=== PATIENT | male | born 1955 | race Asian ===

== ENCOUNTER 2018-05-04 08:07 | Inpatient (IN) | payer BC ==
[2018-05-04] VITALS (19 sets, daily range): BP systolic 107–151; BP diastolic 66–94; PULSE 66–100; RESP 13–25; Ht 162.6 cm; Wt 74.4 kg
[~2018-05-04] VITALS: Ht 162.6 cm; Wt 74.4 kg
[2018-05-04] MEDS ORDERED: ATOR10TA65 PO (09:13)
[2018-05-04] MEDS ORDERED: AMLO-147 PO (09:13)
[2018-05-04] MEDS ORDERED: METO-335 PO (09:25)
[2018-05-04] MEDS ORDERED: ATOR20TA38 PO (09:25)
[2018-05-04] MEDS ORDERED: LIDOCAINE 1% (MDV) 20 ML INJ ONE (11:13)
[2018-05-04] MEDS ORDERED: NITROGLYCERIN (IC) 100 MCG/ML INJ ONE (11:13)
[2018-05-04] MEDS ORDERED: VERAPAMIL 5 MG INJ ONE (11:13)
[2018-05-04] MEDS ORDERED: HEPARIN 1000 UNITS/ML 10 ML INJ ONE ×2 (11:13)
[2018-05-04] MEDS ORDERED: MIDAZOLAM 1 MG/ML 2 ML INJ ONE (11:13)
[2018-05-04] MEDS ORDERED: FENTAnyl 50 MCG/ML VIAL ONE (11:13)
[2018-05-04] MEDS ORDERED: IODIXANOL LOCM 100 ML BTL ONE (11:13)
[2018-05-04] MEDS ORDERED: SOD CHLORIDE 0.9% 1,000 ML IV SCH (12:20)
--- NOTE | 2018-05-04 12:20 | SIPON ---
Date/Time of Note Date/Time of Note DATE: 05/04/18 TIME: 12:19 Operative Report Preoperative Diagnosis 1.Chest pain 2.abnl mpi Postoperative Diagnosis 1.obstructive cad Operation/Procedure Performed 1.[facility] Surgeon see signature line assisted living associate 1.[facility] Anesthesia: moderate sedation Estimated blood loss: minimal Transfusion Required none Specimen none Grafts/Implants none Complications none RITA PISANO May 04, 2018 12:20
--- NOTE | 2018-05-04 12:29 | NUR ---
RECEIVED PATIENT FROM [facility] LEFT HEART CATH WITH TR BAND RIGHT WRIST .PATIENT FULLY AWAKE DENIES PAIN V/S STABLE .INSTRUCTED PATIENT TO KEEP RIGHT HAND RESTED.
[2018-05-04] MEDS ORDERED: ONDANSETRON 4 MG INJ IV PRN (12:30)
[2018-05-04] MEDS ORDERED: ACETAMINOPHEN 325 MG TAB PO PRN (12:30)
--- NOTE | 2018-05-04 12:56 | RADRPT ---
Vent Rate: 74 bpm RR Interval: 0 msec [place] Interval: 158 msec QRS Duration: 88 msec QT Interval: 408 msec QTC Interval: 452 msec P-R-T Struthers: 53 - 31 - 25 degrees Sinus rhythm with occasional premature ventricular complexes Otherwise normal ECG Electronically Signed By: Eladio Us [id number]
--- NOTE | 2018-05-04 13:02 | NUR ---
TR BAND DEFLATION STARTED 2 CC OUT .NO SIGN OF BLEEDING SO FAR.INSTRUCTED PATIENT NOT TO USE AFFECTED ARM FOR LIFTING IN PUT PRESSURE ON IT.
--- NOTE | 2018-05-04 13:35 | NUR ---
TRANSFERRED TO [facility] IN STABLE CONDITION .REMOVED 4 CC AIR FROM TR BAND .NO SIGN OG BLEEDING .ENDORSED TO DEEPIKA BRICE THAT 6CC MORE OF AIR LEFT .DUE TO REMOVED ANOTHER 2CC AT 1345. WAS INFORMED ABOUT THE TRANSFER.
--- NOTE | 2018-05-04 14:15 | NUR ---
TR BAND REMOVAL- 2CC AIR REMOVED, NO BLEEDING, VS- BP 126/83, HR-79, RR- 18, O2 SAT- 98%, PT ALERT AND ORIENTED, SKIN WARM TO TOUCH.
--- NOTE | 2018-05-04 14:32 | NUR ---
TR band removed, puncture site cleansed with alcohol swab, and cover with band aid, VS- BP 129/86, HR- 76, RR 16, O2 sat- 99%, post TR band education provided to patient and verbalized understanding.
--- NOTE | 2018-05-04 18:46 | NUR ---
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 Removed today with no AR noted. Able to dangle legs at 1800. Kept arm straight. VS monitored. [facility] carotid scan done. Received call from Dr Lam, Radiologist about initial results. Occlusion in Right vertebral artery found. No blood flow seen. Paged Dr Soriano, awaiting call back. For CABG on monday. Also, patient and wants to know if they could change MD and hospital. Will put CM consult. Addendum: 05/04/18 at 1904 by DEEPIKA WILLAMS RN Dr Soriano aware with results. No New orders.
--- NOTE | 2018-05-04 19:23 | CONS ---
DATE OF ADMISSION: 05/04/2018 DATE OF CONSULTATION: REASON FOR CONSULTATION: Evaluation for coronary artery bypass grafting. HISTORY OF PRESENT ILLNESS: This is a 62-year-old male with a history of obesity, was admitted with a positive stress test, multivessel distribution, underwent cardiac catheterization today which was p ositive for severe 3-vessel coronary artery disease including 100% occlusion of the LAD, high grade l esions of the first and the second obtuse marginal branch of the circumflex and high-grade lesion of posterior descending artery. The patient gets shortness of breath and chest tightness after walking. He is currently in the telemetry with no active chest pain. PAST MEDICAL HISTORY: Hypercholesterolemia, hypertension. PAST SURGICAL HISTORY: None. ALLERGIES: NONE. MEDICATION LIST: Reviewed. SOCIAL HISTORY: No smoking, drinking or drug use. 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 PHYSICAL EXAMINATION: VITAL SIGNS: Blood pressure is 131/85, pulse is 74, respirations 15, saturations 100% on room air. CARDIOVASCULAR: Regular rate and rhythm. LUNGS: Clear. ABDOMEN: Soft. EXTREMITIES: Warm. LABORATORY VALUES: Significant for a hemoglobin of 11.3, white count 8.5, platelet count 386. Matilde l coagulation factors. Creatinine of 1.54. IMPRESSION: Three-vessel coronary artery disease. RECOMMENDATIONS: We will proceed with coronary artery bypass grafting after echocardiogram to evalua te left ventricular function and carotid duplex to rule out carotid stenosis. Risks, benefits, compl ications, alternative therapies were explained to the patient and the nurse. All questions answered. The patient also discussed with the referring physicians at length. Dictated By: RONDA NAZARIO MD FM/NTS Conf#: [id number] DID#: [id number] CC: RITA PISANO MD;*EndCC*
[2018-05-04] MEDS: ATORVASTATIN 40 MG TAB PO SCH (20:55)
[2018-05-04] MEDS: METOPROLOL (XL) 25 MG TAB PO SCH (20:55)
[2018-05-05] VITALS (11 sets, daily range): BP systolic 109–148; BP diastolic 73–88; PULSE 68–88; RESP 18–20
--- NOTE | 2018-05-05 01:11 | HP ---
DATE OF ADMISSION: 05/04/2018 CHIEF COMPLAINT: Chest pain and positive stress test. HISTORY OF PRESENT ILLNESS: The patient is a 62-year-old gentleman with history of hypertension, dys lipidemia, who was seen by Dr. Pisano' group as an outpatient and was noted to have positive nuclear stress test. The patient underwent nuclear stress test which was abnormal for ischemia. The patien t was brought in to hospital today and underwent cardiac catheterization which revealed severe 3-vess el coronary artery disease including 100% occlusion of LAD, high-grade lesion of the first and second obtuse marginal branches of circumflex and high-grade lesion of posterior descending artery. The pa tiecornell was seen by Dr. Soriano and recommended CABG. The patient prior to that will undergo echocar diogram and carotid Doppler. The patient denies any chest pain today, although does have prior histo ry of shortness of breath and chest tightening after exertion. The patient denied any history of rec ent fever or chills. No history of headache, dizziness, syncope. No history of abdominal pain. No history of palpitation. No history of claudication. No history of weakness or numbness in any extre mities. REVIEW OF SYSTEMS: Rest of review of systems unremarkable. PAST SURGICAL HISTORY: None. ALLERGIES: NONE. FAMILY HISTORY: The patient's father had coronary artery disease which during perioperative per iod after CABG. He was 83 years old. SOCIAL HISTORY: The patient has remote history of smoking when he was in his 20s. No history of alc ohol. 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 PHYSICAL EXAMINATION: GENERAL: The patient is awake, alert, fairly oriented. VITAL SIGNS: Temperature 98.7, pulse 100, respirations 18, blood pressure 129/85, O2 saturation 97% on room air. HEENT: Atraumatic, normocephalic. Conjunctivae are normal. Oropharynx is clear. NECK: Supple. No mass or thyromegaly. CHEST: Fairly clear. CARDIOVASCULAR: S1, S2 normal. No murmur. ABDOMEN: Soft, nontender. Bowel sounds are present. EXTREMITIES: No leg edema. The patient has 2+ dorsalis pedis. NEUROLOGIC: The patient is awake, alert, fairly oriented with no gross focal deficit. LABORATORY DATA: WBC 8.4, hemoglobin 11.3, platelets 386. Sodium 141, potassium 4, BUN 18, creatini ne 1.5, glucose 116, calcium 9.4. Triglyceride 211, LDL 123, HDL 32. IMPRESSION: 1. Multivessel coronary artery disease. 2. Hypertension. 3. Dyslipidemia. PLAN: The patient will be admitted on telemetry floor. The patient will be started on Norvasc, Topr ol as at home and we will increase dose of Lipitor from 20 to 40 mg. We will hold off on antiplatele t agent due to pending CABG. Further recommendation will depend on patient's hospital course. Plan of care was discussed with patient's family. The patient also incidentally was noted to have a creat inine of 1.5. In view of recent catheterization, I will obtain a nephrology consultation. GFR is 46 . We will do followup chemistry tomorrow. The patient has received during and after catheteri zation. Dictated By: GINGER CALI MD AB/NTS Conf#: [id number] DID#: [id number] CC: RITA PISANO MD;*EndCC*
--- NOTE | 2018-05-05 06:13 | NUR ---
END OF THE SHIFT:PT. IS AA,O X 4,S/P HEART CATHETERIZATION YESTERDAY BY DR. PISANO.NO DISTRESS/DISCOMFORT NOTED DURING THE SHIFT.WILL CONTINUE TO FOLLOW CURRENT PLAN OF CARE.
[2018-05-05] MEDS: METOPROLOL (XL) 25 MG TAB PO SCH (08:36)
[2018-05-05] MEDS: AMLODIPINE 10 MG TAB PO SCH (08:37)
--- NOTE | 2018-05-05 10:07 | CARRPT ---
DATE OF PROCEDURE: 05/04/2018 TYPE OF PROCEDURE: 1. Left heart catheterization. 2. Coronary angiography. 3. Measurement of left ventricular end diastolic pressure. 4. Moderate conscious sedation. ATTENDING PHYSICIAN: Rita Dial MD REFERRING PHYSICIAN: Dr. Logan. INDICATION: Chest pain with positive ischemia in a multivessel distribution. TYPE OF ANESTHESIA: Conscious and local. BRIEF HISTORY: The patient is a 62-year-old male with history of hypertension, positive tobacco intake, who presented with complaints of substernal chest pain. The patient with cardiac stress test revealing a multivessel distribution ischemia, with EF of 54%. Given these findings, the patient referred for and presents today in order to undergo left heart catheterization to assess for the possibility of significant obstructive coronary artery and symptoms of chest pain and subsequent positive stress test findings. DESCRIPTION OF PROCEDURE: After informed consent was obtained, the patient was brought to the [facility] cardiac catheterization lab where his right radial area was prepped and draped in a sterile fashion. A 2% lidocaine was infiltrated into right radial area in order to achieve adequate anesthesia. Using the modified Seldinger technique, the patient's radial artery was cannulated and a 6-Montserratian JL3.5 catheter was used to cannulate the left main coronary ostium. With contrast injection, multiple views of left coronary system were obtained. The JL3.5 was removed a guidewire and a JR4 was used to cannulate the right coronary arterial ostium, with contrast injection, multiple views of the right coronary system were obtained. JR4 guidewire and a 6-Montserratian pigtail was passed down the ascending aorta and used to measure LVEDP and pullback across the aortic valve to assess for significant gradient, which there was none and removed. Subsequently, at this time, this completed the procedure. The patient's catheter was removed, sheath was removed. TR band was applied. There were no noted complications. FINDINGS: 1. Coronary angiography: Circumflex proximally at what appears to be a high grade stenosis throughout the left main. The ostium of the circumflex proximally is a 3 mm vessel and shortly after its takeoff has a tubular 50% stenosis. There is a branching obtuse marginal and at that point there is an 80 to 90% stenosis. There is then a 60% stenosis then shortly after that it bifurcates into an obtuse marginal, circ continuation AV groove. The superior branch of this marginal 2 mm vessel with no significant stenoses. The medial branch has a subtotal occlusion with possible collateral filling distally vessel. The circ continuation AV groove also has a subtotal occlusion with possible collateral filling of the vessel. The LAD appears to be flush occluded at its ostium and can see some faint collateral filling of diagonal branches. Right coronary artery proximally is a 3.5 mm vessel and is ectatic vessel, its dominant, gives off a 2.5 mm PDA with an ostial 70% to 80% stenosis which then provides collateral flow to the LAD, recapitulating residential of the vessel and the patient's posterolateral branch. Shortly, after takeoff, then becomes 100% occluded. There are several areas bridging collateral which then helped to recapitulate some of the patient's distal LAD. Measurement of LVEDP of 8 to 9. No LV gram undertaken due to kidney function. TOTAL FLUOROSCOPY TIME: 5.3 minutes. TOTAL CONTRAST: 45 mL. IMPRESSION: 1. Multivessel obstructive coronary artery disease involving a 100% LAD with recapitulation via right to left collateral flow. Multiple high grade areas of subtotal occlusion in the circumflex vessels as well as in the patient's distal RCA distribution. 2. Normal left heart filling pressures. 3. No significant aortic stenosis by gradient. RECOMMENDATIONS: In light of procedure findings at this time, we would have the patient considered for possible coronary artery bypass graft surgery versus multivessel PCI, in staged fashion given patient's ongoing renal dysfunction. Dictated By: RITA VIDES/JAMES Conf#: [id number] DID#: [id number] MARIANA
--- NOTE | 2018-05-05 11:20 | PN ---
Date/Time of Note Date/Time of Note DATE: 05/05/18 TIME: 11:18 Assessment/Plan Lines/Catheters IV Catheter Type (from Nrsg): Peripheral IV Fsih in Place (from Nrsg): No Assessment/Plan Assessment/Plan IMPRESSION: Three-vessel coronary artery disease. RECOMMENDATIONS: We will proceed with coronary artery bypass grafting after echocardiogram to evaluate left ventricular function and carotid duplex to rule out carotid stenosis. Risks, benefits, complications, alternative therapies were explained to the patient and the . . All questions answered. Caritid dupplex 1. No significant flow detected in the right vertebral artery, concerning for occlusion. 2. No evidence for hemodynamically significant carotid artery stenosis. 3. Normal antegrade flow in the left vertebral artery. Plan for CABG on Monday Subjective 24 Hr Interval Summary Constitutional: improved Pain Control: mild Exam/Review of Systems Vital Signs Vitals Vital Signs Date Temp Pulse Resp B/P (MAP) Pulse Ox O2 O2 Flow FiO2 Time Delivery Rate 05/05/18 69 08:16 05/05/18 98.4 20 109/73 98 Room Air 07:14 (85) Intake and Output 05/04/18 05/04/18 05/05/18 1515:00 23:00 07:00 IntakeIntake Total 480 ml 600 ml OutputOutput Total 300 ml BalanceBalance 180 ml 600 ml Exam Eyes: nl conjunctiva, EOMI, nl lids, nl sclera ENMT: nl external ears & nose, nl lips & teeth, nl nasal mucosa & septum, mucosa pink and moist Neck: supple, non-tender Respiratory: clear to auscultation, normal air movement Cardiovascular: regular rate and rhythm, nl pulses Gastrointestinal: soft, nl liver, spleen, non-tender Results Result Diagram: 05/04/18 0900 05/04/18 09 MALERODNA HERRERA MD May 05, 2018 11:20
--- NOTE | 2018-05-05 13:51 | CONS ---
Date/Time of Note Date/Time of Note DATE: 05/05/18 TIME: 13:49 Assessment/Plan Assessment/Plan Assessment/Plan 1. Multivessel coronary artery disease- pt seen by surgical tea, - CABG planned on Monday. 2. Hypertension - stable, adjust rx as needed 3. Dyslipidemia- Rx with statyin. 4. CRF - CR 1.45 now - avoid nephrotoxic meds. Result Diagram: 05/04/1889905/04/18899 Consultation Date/Type/Reason Admit Date/Time May 04, 2018 at 13:51 Initial Consult Date 24 HR Interval Summary Free Text/Dictation NO ACUTE events - CABG planned Monday. ROS: No fever, no chills, no nausea, no vomiting, no diarrhea/constipation No recent weight changes No chest pain, no PND, no orthopnea - mild SOB No dizziness, blurred vision No thirst, no heat or cold intolerance Exam/Review of Systems Vital Signs Vitals Vital Signs Date Temp Pulse Resp B/P (MAP) Pulse Ox O2 O2 Flow FiO2 Time Delivery Rate 05/05/18 74 13:22 05/05/18 98.0 20 119/75 98 Room Air 12:09 (90) Intake and Output 05/04/18 05/04/18 05/05/18 1515:00 23:00 07:00 IntakeIntake Total 480 ml 600 ml OutputOutput Total 300 ml BalanceBalance 180 ml 600 ml Exam General: WN/WD/NAD, AOx 3 HEENT: Unicetric/atraumatic/EOMI ( follows commands) NECK: JVD elevated, no thyromegaly Lymph: no lymphadenopathy HEART: regular with no S3, II/ systolic murmur at apex LUNGS: Coarse sounds ABD: soft, NT, ND, +BS : Intact Neuro: non focal SKIN: chronic changes EXT: trace edema Medications Medications Current Medications Acetaminophen (Tylenol Tab) 650 mg Q4H PRN PO mild pain; Start 05/04/18 at 12:30 Morphine Sulfate (morphine) 2 mg Q2H PRN IV moderate to severe pain; Start 05/04/18 at 12:30 Al Hydrox/Mg Hydrox/Simethicone (Mag-Al Plus) 30 ml Q4H PRN PO GASTROINTESTINAL UPSET; Start 05/04/18 at 12:30 Ondansetron HCl (Zofran Inj) 4 mg Q4H PRN IV NAUSEA AND/OR VOMITING; Start 05/04/18 at 12:30 Amlodipine Besylate (Norvasc) 10 mg DAILY PO Last administered on 05/05/18at 08:37; Admin Dose 10 MG; Start 05/05/18 at 09:00 Metoprolol Succinate (Toprol Xl) 25 mg DAILY PO Last administered on 05/05/18 08:36; Admin Dose 25 MG; Start 05/04/18 at 20:30 Atorvastatin Calcium (Lipitor) 40 mg HS PO Last administered on 05/04/18at 20:55; Admin Dose 40 MG; Start 05/04/18 at 21:00 CHIN MORGAN MD May 05, 2018 13:51
--- NOTE | 2018-05-05 15:50 | PN ---
Date/Time of Note Date/Time of Note DATE: 05/05/18 TIME: 15:33 Assessment/Plan VTE Prophylaxis Risk score (from Nsg)>0 risk: 4 SCD applied (from Nsg): Yes Lines/Catheters IV Catheter Type (from Nrsg): Peripheral IV Urinary Cath still in place: No Assessment/Plan Assessment/Plan 1. Multivessel coronary artery disease. - plan for CABG on Monday -hold off on antiplatelet agent due to pending CABG 2. Acute renal insufficiency - creatinine of 1.5; GFR is 46. - per nephro 3. Hypertension- on Norvasc, 4. Dyslipidemia- Lipitor Plan of care was discussed with Dr Guerra/ patient's family. Result Diagram: 05/04/18 0900 05/04/18 0900 Exam/Review of Systems Vital Signs Vitals Vital Signs Date Temp Pulse Resp B/P (MAP) Pulse Ox O2 O2 Flow FiO2 Time Delivery Rate 05/05/18 74 13:22 05/05/18 98.0 20 119/75 98 Room Air 12:09 (90) Intake and Output 05/04/18 05/04/18 05/05/18 1515:00 23:00 07:00 IntakeIntake Total 480 ml 600 ml OutputOutput Total 300 ml BalanceBalance 180 ml 600 ml Medications Medications Current Medications Acetaminophen (Tylenol Tab) 650 mg Q4H PRN PO mild pain; Start 05/04/18 at 12:30 Morphine Sulfate (morphine) 2 mg Q2H PRN IV moderate to severe pain; Start 05/04/18 at 12:30 Al Hydrox/Mg Hydrox/Simethicone (Mag-Al Plus) 30 ml Q4H PRN PO GASTROINTESTINAL UPSET; Start 05/04/18 at 12:30 Ondansetron HCl (Zofran Inj) 4 mg Q4H PRN IV NAUSEA AND/OR VOMITING; Start 05/04/18 at 12:30 Amlodipine Besylate (Norvasc) 10 mg DAILY PO Last administered on 05/05/18at 08:37; Admin Dose 10 MG; Start 05/05/18 at 09:00 Metoprolol Succinate (Toprol Xl) 25 mg DAILY PO Last administered on 05/05/18at 08:36; Admin Dose 25 MG; Start 05/04/18 at 20:30 Atorvastatin Calcium (Lipitor) 40 mg HS PO Last administered on 05/04/18at 20:55; Admin Dose 40 MG; Start 05/04/18 at 21:00 IVY YATES May 05, 2018 15:43
--- NOTE | 2018-05-05 18:55 | NUR ---
EOSS: NO ACUTE DISTRESS DURING DAY SHIFT. PT IS AOX4, STEADY GAIT, RESPIRATIONS UNLABORED, DENIES PAIN. PT AGREED TO HAVE CABG ON MONDAY. DR. NAZARIO AWARE. ALL MEDICATIONS GIVEN SCHEDULED. ALL PT'S NEEDS HAVE BEEN MET. WILL ENDORSE TO MANAGER APPLICATION DEVELOPMENT NURSE.
[2018-05-05] MEDS: ATORVASTATIN 40 MG TAB PO SCH (20:57)
--- NOTE | 2018-05-05 20:57 | CONS ---
Date/Time of Note Date/Time of Note DATE: 05/05/18 TIME: 20:56 Assessment/Plan Assessment/Plan Assessment/Plan 1. acute on chronic renal failure vs Baseline CKD 2. 3 V CAD on Cardiac cath on 05/04/18 3. H/o HTN 4. H/o HL 5.Abnormal Stress test Plan: seen and examined, BUN/Cr improved to 18/1.43 post cath with IVF hydration Pt is Renally optimized to have CABG, his eGFR 50, pt likely has CKD III due to HTN nephrosclerosis Cardiology and CT surgery has been following Thanks for consultation, I will continue to follow up Result Diagram: 05/05/18 1622 05/05/18 1622 Results 24hrs Laboratory Tests Test 05/05/18 16:22 White Blood Count 9.8 Red Blood Count 5.13 Hemoglobin 11.6 L Hematocrit 36.9 L Mean Corpuscular Volume 71.9 L Mean Corpuscular Hemoglobin 22.6 L Mean Corpuscular Hemoglobin Concent 31.4 L Red Cell Distribution Width 16.4 H Platelet Count 374 Mean Platelet Volume 9.7 Immature Granulocytes % 0.500 H Neutrophils % 66.8 Lymphocytes % 21.7 Monocytes % 6.3 Eosinophils % 3.7 Basophils % 1.0 Nucleated Red Blood Cells % 0.0 Immature Granulocytes # 0.050 H Neutrophils # 6.5 Lymphocytes # 2.1 Monocytes # 0.6 Eosinophils # 0.4 Basophils # 0.1 Nucleated Red Blood Cells # 0.0 Sodium Level 138 Potassium Level 3.6 Chloride Level 102 Carbon Dioxide Level 27 Anion Gap 9 Blood Urea Nitrogen 18 Creatinine 1.43 H Est Glomerular Filtrat Rate mL/min 50 L Glucose Level 99 Calcium Level 9.2 Consultation Date/Type/Reason Admit Date/Time May 04, 2018 at 13:51 Date of Consultation: May 05, 2018 Type of Consult NEPHROLOGY Reason for Consultation Acute vs acute on chronic renal failur, s/p Cardiac Cath, plan for CABG on Monday Requesting Provider: GINGER CALI MD Hx of Present Illness 62-year-old gentleman with history of hypertension, dyslipidemia, who was seen by Dr. Dial' group as an outpatient and was noted to have positive nuclear stress test. The patient underwent nuclear stress test which was abnormal for ischemia. he underwent cardiac catheterization on 05/04/18 which revealed severe 3-vessel coronary artery disease including 100% occlusion of LAD, high- grade lesion of the first and second obtuse marginal branches of circumflex and high-grade lesion of posterior descending artery. The patient was seen by Dr. Soriano and recommended CABG. pt had a BUN/Cr 18/1.54 on admission, Minimal contrast has been used with Cardiac Cath Renal has been consulted for acute vs acute on chronic renal failure and Optimization of renal function prior to cardiac cath. Constitutional: no complaints Eyes: no complaints ENT: no complaints Respiratory: no complaints Cardiovascular: chest pain Gastrointestinal: no complaints Genitourinary: no complaints Musculoskeletal: no complaints Skin: no complaints Neurologic: no complaints Endocrine: no complaints Lymphatic: no complaints Psychological: no complaints Immunologic: no complaints Past Medical History Medical History: coronary artery disease, high cholesterol, hypertension Medications Current Medications Acetaminophen (Tylenol Tab) 650 mg Q4H PRN PO mild pain; Start 05/04/18 at 12:30 Morphine Sulfate (morphine) 2 mg Q2H PRN IV moderate to severe pain; Start 05/04/18 at 12:30 Al Hydrox/Mg Hydrox/Simethicone (Mag-Al Plus) 30 ml Q4H PRN PO GASTROINTESTINAL UPSET; Start 05/04/18 at 12:30 Ondansetron HCl (Zofran Inj) 4 mg Q4H PRN IV NAUSEA AND/OR VOMITING; Start 05/04/18 at 12:30 Amlodipine Besylate (Norvasc) 10 mg DAILY PO Last administered on 05/05/18at 08:37; Admin Dose 10 MG; Start 05/05/18 at 09:00 Metoprolol Succinate (Toprol Xl) 25 mg DAILY PO Last administered on 05/05/18at 08:36; Admin Dose 25 MG; Start 05/04/18 at 20:30 Atorvastatin Calcium (Lipitor) 40 mg HS PO Last administered on 05/04/18at 20:55; Admin Dose 40 MG; Start 05/04/18 at 21:00 Allergies: Coded Allergies: No Known Allergy (Unverified , 05/05/18) Past Surgical History Past Surgical Hx: no surgical history Family History Significant Family History: no pertinent family hx Social History Alcohol Use: none Smoking Status: Former smoker Drug Use: none Exam/Review of Systems Vital Signs Vitals Vital Signs Date Temp Pulse Resp B/P (MAP) Pulse Ox O2 O2 Flow FiO2 Time Delivery Rate 05/05/18 98.2 88 20 148/88 96 20:00 (108) 05/05/18 Room Air 15:58 Intake and Output 05/04/18 05/04/18 05/05/18 1515:00 23:00 07:00 IntakeIntake Total 480 ml 600 ml OutputOutput Total 300 ml BalanceBalance 180 ml 600 ml Exam Constitutional: alert Head: normocephalic Eyes: nl conjunctiva ENMT: nl external ears & nose Neck: supple, non-tender Respiratory: clear to auscultation, normal air movement, diminished breath sounds Cardiovascular: regular rate and rhythm, nl pulses Gastrointestinal: soft, non-tender Musculoskeletal: nl extremities to inspection Extremities: normal pulses Neurological: RECREATION PROGRAM SPECIALIST II-XII intact, nl mental status, nl speech, nl strength Skin: nl turgor Lymph: nl lymph nodes Medications Medications Current Medications Acetaminophen (Tylenol Tab) 650 mg Q4H PRN PO mild pain; Start 05/04/18 at 12:30 Morphine Sulfate (morphine) 2 mg Q2H PRN IV moderate to severe pain; Start at 12:30 Al Hydrox/Mg Hydrox/Simethicone (Mag-Al Plus) 30 ml Q4H PRN PO GASTROINTESTINAL UPSET; Start 05/04/18 at 12:30 Ondansetron HCl (Zofran Inj) 4 mg Q4H PRN IV NAUSEA AND/OR VOMITING; Start 05/04/18 at 12:30 Amlodipine Besylate (Norvasc) 10 mg DAILY PO Last administered on 05/05/18at 08 :37; Admin Dose 10 MG; Start 05/05/18 at 09:00 Metoprolol Succinate (Toprol Xl) 25 mg DAILY PO Last administered on 05/05/18at 08:36; Admin Dose 25 MG; Start 05/04/18 at 20:30 Atorvastatin Calcium (Lipitor) 40 mg HS PO Last administered on 05/04/18at 20:55; Admin Dose 40 MG; Start 05/04/18 at 21:00 MARIA DE JESUS LAUREN MD May 05, 2018 20:57
[2018-05-06] VITALS (12 sets, daily range): BP systolic 103–123; BP diastolic 67–76; PULSE 60–99; RESP 18–20
[2018-05-06] MEDS: AMLODIPINE 10 MG TAB PO SCH (08:07)
[2018-05-06] MEDS: METOPROLOL (XL) 25 MG TAB PO SCH (08:07)
--- NOTE | 2018-05-06 09:58 | NUR ---
Patient and Family Transfer Inquiry; Spoke with Family about their inquiry and concern. Addressed both and family verbalized understanding about transfer details. CM Team will stand by for further assist and follow progress of care.
--- NOTE | 2018-05-06 10:44 | CONS ---
Date/Time of Note Date/Time of Note DATE: 05/06/18 TIME: 10:44 Assessment/Plan Assessment/Plan Assessment/Plan 1. acute on chronic renal failure vs Baseline CKD 2. 3 V CAD on Cardiac cath on 05/04/18 3. H/o HTN 4. H/o HL 5.Abnormal Stress test Plan: BUN/Cr went upto 05/05.61, Bp stable, afebrile - will give 1liter of NS IV Fluid then stop prior to CABG tomorrow Pt is Renally optimized to have CABG, his eGFR 50, pt likely has CKD III due to HTN nephrosclerosis will follow up Result Diagram: 05/06/18 0616 05/06/18 0616 Results 24hrs Laboratory Tests Test 05/05/18 16:22 05/06/18 06:16 White Blood Count 9.8 10.5 Red Blood Count 5.13 4.84 Hemoglobin 11.6 L 11.1 L Hematocrit 36.9 L 34.7 L Mean Corpuscular Volume 71.9 L 71.7 L Mean Corpuscular Hemoglobin 22.6 L 22.9 L Mean Corpuscular Hemoglobin Concent 31.4 L 32.0 Red Cell Distribution Width 16.4 H 16.6 H Platelet Count 374 358 Mean Platelet Volume 9.7 10.6 H Immature Granulocytes % 0.500 H 0.300 Neutrophils % 66.8 66.1 Lymphocytes % 21.7 20.1 Monocytes % 6.3 7.3 Eosinophils % 3.7 5.1 Basophils % 1.0 1.1 Nucleated Red Blood Cells % 0.0 0.0 Immature Granulocytes # 0.050 H 0.030 Neutrophils # 6.5 7.0 Lymphocytes # 2.1 2.1 Monocytes # 0.6 0.8 Eosinophils # 0.4 0.5 Basophils # 0.1 0.1 Nucleated Red Blood Cells # 0.0 0.0 Sodium Level 138 138 Potassium Level 3.6 3.7 Chloride Level 102 102 Carbon Dioxide Level 27 26 Anion Gap 9 10 Blood Urea Nitrogen 18 19 Creatinine 1.43 H 1.61 H Est Glomerular Filtrat Rate mL/min 50 L 44 L Glucose Level 99 106 Calcium Level 9.2 8.9 Consultation Date/Type/Reason Admit Date/Time May 04, 2018 at 13:51 Initial Consult Date 05/05/18 Type of Consult NEPHROLOGY Requesting Provider: GINGER CALI MD 24 HR Interval Summary Free Text/Dictation BUN/Cr went upto 05/05.61, Bp stable, afebrile Exam/Review of Systems Vital Signs Vitals Vital Signs Date Temp Pulse Resp B/P (MAP) Pulse Ox O2 O2 Flow FiO2 Time Delivery Rate 05/06/18 99 08:11 05/06/18 98.6 18 103/67 94 Room Air 07:36 (79) Intake and Output 05/05/18 05/05/18 05/06/18 1515:00 23:00 07:00 IntakeIntake Total 500 ml 250 ml BalanceBalance 500 ml 250 ml Exam Constitutional: alert Respiratory: clear to auscultation, normal air movement, diminished breath sounds Cardiovascular: regular rate and rhythm, nl pulses Gastrointestinal: soft, non-tender Musculoskeletal: nl extremities to inspection Extremities: normal pulses 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, nl mental status, nl speech, nl strength Medications Medications Current Medications Acetaminophen (Tylenol Tab) 650 mg Q4H PRN PO mild pain; Start 05/04/18 at 12:30 Morphine Sulfate (morphine) 2 mg Q2H PRN IV moderate to severe pain; Start 05/04/18 at 12:30 Al Hydrox/Mg Hydrox/Simethicone (Mag-Al Plus) 30 ml Q4H PRN PO GASTROINTESTINAL UPSET; Start 05/04/18 at 12:30 Ondansetron HCl (Zofran Inj) 4 mg Q4H PRN IV NAUSEA AND/OR VOMITING; Start 05/04/18 at 12:30 Amlodipine Besylate (Norvasc) 10 mg DAILY PO Last administered on 05/06/18at 08:07; Admin Dose 10 MG; Start 05/05/18 at 09:00 Metoprolol Succinate (Toprol Xl) 25 mg DAILY PO Last administered on 05/06/18at 08:07; Admin Dose 25 MG; Start 05/04/18 at 20:30 Atorvastatin Calcium (Lipitor) 40 mg HS PO Last administered on 05/05/18at 20:57; Admin Dose 40 MG; Start 05/04/18 at 21:00 Epinephrine 4 mg/ Dextrose 250 ml @ 0 mls/hr INTRA-OP IV ; Start 05/07/18 at 06:30; Stop 05/07/18 at 18:30 Phenylephrine HCl 250 ml @ 0 mls/hr INTRA-OP IV ; Start 05/07/18 at 06:30; Stop 05/07/18 at 18:30 Insulin Human Regular 100 unit/ Sodium Chloride 100 ml @ 0 mls/hr INTRA-OP IV ; Start 05/07/18 at 06:30; Stop 05/07/18 at 18:30 MARIA DE JESUS LAUREN MD May 06, 2018 10:44
--- NOTE | 2018-05-06 12:07 | CONS ---
Date/Time of Note Date/Time of Note DATE: 05/06/18 TIME: 12:06 Assessment/Plan Assessment/Plan Assessment/Plan 1. Multivessel coronary artery disease- pt seen by surgical tea, - CABG planned on Monday. Plan for surgery tomorrow. 2. Hypertension - stable, adjust rx as needed - treard. 3. Dyslipidemia- Rx with statyin. 4. CRF - CR 1.45 now - avoid nephrotoxic meds. Renal team follows. Result Diagram: 05/06/18 0616 05/06/18 0616 Results 24hrs Laboratory Tests Test 05/05/18 16:22 05/06/18 06:16 White Blood Count 9.8 10.5 Red Blood Count 5.13 4.84 Hemoglobin 11.6 L 11.1 L Hematocrit 36.9 L 34.7 L Mean Corpuscular Volume 71.9 L 71.7 L Mean Corpuscular Hemoglobin 22.6 L 22.9 L Mean Corpuscular Hemoglobin Concent 31.4 L 32.0 Red Cell Distribution Width 16.4 H 16.6 H Platelet Count 374 358 Mean Platelet Volume 9.7 10.6 H Immature Granulocytes % 0.500 H 0.300 Neutrophils % 66.8 66.1 Lymphocytes % 21.7 20.1 Monocytes % 6.3 7.3 Eosinophils % 3.7 5.1 Basophils % 1.0 1.1 Nucleated Red Blood Cells % 0.0 0.0 Immature Granulocytes # 0.050 H 0.030 Neutrophils # 6.5 7.0 Lymphocytes # 2.1 2.1 Monocytes # 0.6 0.8 Eosinophils # 0.4 0.5 Basophils # 0.1 0.1 Nucleated Red Blood Cells # 0.0 0.0 Sodium Level 138 138 Potassium Level 3.6 3.7 Chloride Level 102 102 Carbon Dioxide Level 27 26 Anion Gap 9 10 Blood Urea Nitrogen 18 19 Creatinine 1.43 H 1.61 H Est Glomerular Filtrat Rate mL/min 50 L 44 L Glucose Level 99 106 Calcium Level 9.2 8.9 Consultation Date/Type/Reason Admit Date/Time May 04, 2018 at 13:51 Initial Consult Date Requesting Provider: GINGER CALI MD 24 HR Interval Summary Free Text/Dictation NO acute events - surgery planned tomorrow. ROS: No fever, no chills, no nausea, no vomiting, no diarrhea/constipation No recent weight changes No chest pain, no PND, no orthopnea No dizziness, blurred vision No thirst, no heat or cold intolerance Exam/Review of Systems Vital Signs Vitals Vital Signs Date Temp Pulse Resp B/P (MAP) Pulse Ox O2 O2 Flow FiO2 Time Delivery Rate 05/06/18 97.8 62 20 108/70 97 Room Air 11:41 (83) Intake and Output 05/05/18 05/05/18 05/06/18 1414:59 22:59 06:59 IntakeIntake Total 500 ml 250 ml BalanceBalance 500 ml 250 ml Exam General: WN/WD/NAD, AOx 3 HEENT: Unicetric/atraumatic/EOMI (follow commands) NECK: JVD elevated, no thyromegaly Lymph: no lymphadenopathy HEART: regular with no S3, II/ systolic murmur at apex LUNGS: Coarse sounds ABD: soft, NT, ND, +BS : Intact Neuro: non focal SKIN: chronic changes EXT: trace edema Medications Medications Current Medications Acetaminophen (Tylenol Tab) 650 mg Q4H PRN PO mild pain; Start 05/04/18 at 12:30 Morphine Sulfate (morphine) 2 mg Q2H PRN IV moderate to severe pain; Start 05/04/18 at 12:30 Al Hydrox/Mg Hydrox/Simethicone (Mag-Al Plus) 30 ml Q4H PRN PO GASTROINTESTINAL UPSET; Start 05/04/18 at 12:30 Ondansetron HCl (Zofran Inj) 4 mg Q4H PRN IV NAUSEA AND/OR VOMITING; Start 05/04/18 at 12:30 Amlodipine Besylate (Norvasc) 10 mg DAILY PO Last administered on 05/06/18at 08:07; Admin Dose 10 MG; Start 05/05/18 at 09:00 Metoprolol Succinate (Toprol Xl) 25 mg DAILY PO Last administered on 05/06/18at 08:07; Admin Dose 25 MG; Start 05/04/18 at 20:30 Atorvastatin Calcium (Lipitor) 40 mg HS PO Last administered on 05/05/18at 20:57; Admin Dose 40 MG; Start 05/04/18 at 21:00 Epinephrine 4 mg/ Dextrose 250 ml @ 0 mls/hr INTRA-OP IV ; Start 05/07/18 at 06:30; Stop 05/07/18 at 18:30 Phenylephrine HCl 250 ml @ 0 mls/hr INTRA-OP IV ; Start 05/07/18 at 06:30; Stop 05/07/18 at 18:30 Insulin Human Regular 100 unit/ Sodium Chloride 100 ml @ 0 mls/hr INTRA-OP IV ; Start 05/07/18 at 06:30; Stop 05/07/18 at 18:30 CHIN MORGAN MD May 06, 2018 12:07
--- NOTE | 2018-05-06 12:31 | PN ---
Date/Time of Note Date/Time of Note DATE: 05/06/18 TIME: 12:28 Assessment/Plan VTE Prophylaxis Risk score (from Ns)>0 risk: 4 SCD applied (from Ns): Yes Lines/Catheters IV Catheter Type (from Nrs): Peripheral IV Urinary Cath still in place: No Assessment/Plan Result Diagram: 05/06/18 0616 05/06/18 0616 Results 24hrs Laboratory Tests Test 05/05/18 16:22 05/06/18 06:16 White Blood Count 9.8 10.5 Red Blood Count 5.13 4.84 Hemoglobin 11.6 L 11.1 L Hematocrit 36.9 L 34.7 L Mean Corpuscular Volume 71.9 L 71.7 L Mean Corpuscular Hemoglobin 22.6 L 22.9 L Mean Corpuscular Hemoglobin Concent 31.4 L 32.0 Red Cell Distribution Width 16.4 H 16.6 H Platelet Count 374 358 Mean Platelet Volume 9.7 10.6 H Immature Granulocytes % 0.500 H 0.300 Neutrophils % 66.8 66.1 Lymphocytes % 21.7 20.1 Monocytes % 6.3 7.3 Eosinophils % 3.7 5.1 Basophils % 1.0 1.1 Nucleated Red Blood Cells % 0.0 0.0 Immature Granulocytes # 0.050 H 0.030 Neutrophils # 6.5 7.0 Lymphocytes # 2.1 2.1 Monocytes # 0.6 0.8 Eosinophils # 0.4 0.5 Basophils # 0.1 0.1 Nucleated Red Blood Cells # 0.0 0.0 Sodium Level 138 138 Potassium Level 3.6 3.7 Chloride Level 102 102 Carbon Dioxide Level 27 26 Anion Gap 9 10 Blood Urea Nitrogen 18 19 Creatinine 1.43 H 1.61 H Est Glomerular Filtrat Rate mL/min 50 L 44 L Glucose Level 99 106 Calcium Level 9.2 8.9 Subjective 24 Hr Interval Summary Free Text/Dictation Plan for CABG on Monday Exam/Review of Systems Vital Signs Vitals Vital Signs Date Temp Pulse Resp B/P (MAP) Pulse Ox O2 O2 Flow FiO2 Time Delivery Rate 05/06/18 80 12:22 05/06/18 97.8 20 108/70 97 Room Air 11:41 (83) Intake and Output 05/05/18 05/05/18 05/06/18 1414:59 22:59 06:59 IntakeIntake Total 500 ml 250 ml BalanceBalance 500 ml 250 ml Medications Medications Current Medications Acetaminophen (Tylenol Tab) 650 mg Q4H PRN PO mild pain; Start 05/04/18 at 12:30 Morphine Sulfate (morphine) 2 mg Q2H PRN IV moderate to severe pain; Start 05/04/18 at 12:30 Al Hydrox/Mg Hydrox/Simethicone (Mag-Al Plus) 30 ml Q4H PRN PO GASTROINTESTINAL UPSET; Start 05/04/18 at 12:30 Ondansetron HCl (Zofran Inj) 4 mg Q4H PRN IV NAUSEA AND/OR VOMITING; Start 05/04/18 at 12:30 Amlodipine Besylate (Norvasc) 10 mg DAILY PO Last administered on 05/06/18at 08:07; Admin Dose 10 MG; Start 05/05/18 at 09:00 Metoprolol Succinate (Toprol Xl) 25 mg DAILY PO Last administered on 05/06/18at 08:07; Admin Dose 25 MG; Start 05/04/18 at 20:30 Atorvastatin Calcium (Lipitor) 40 mg HS PO Last administered on 05/05/18at 20:57; Admin Dose 40 MG; Start 05/04/18 at 21:00 Epinephrine 4 mg/ Dextrose 250 ml @ 0 mls/hr INTRA-OP IV ; Start 05/07/18 at 06:30; Stop 05/07/18 at 18:30 Phenylephrine HCl 250 ml @ 0 mls/hr INTRA-OP IV ; Start 05/07/18 at 06:30; Stop 05/07/18 at 18:30 Insulin Human Regular 100 unit/ Sodium Chloride 100 ml @ 0 mls/hr INTRA-OP IV ; Start 05/07/18 at 06:30; Stop 05/07/18 at 18:30 IVY YATES May 06, 2018 12:31
--- NOTE | 2018-05-06 14:19 | PN ---
Date/Time of Note Date/Time of Note DATE: 05/06/18 TIME: 14:18 Assessment/Plan Lines/Catheters IV Catheter Type (from Nrsg): Peripheral IV Fish in Place (from Nrsg): No Assessment/Plan Assessment/Plan RECOMMENDATIONS: We will proceed with coronary artery bypass grafting after echocardiogram to evaluate left ventricular function and carotid duplex to rule out carotid stenosis. Risks, benefits, complications, alternative therapies were explained to the patient and the . . All questions answered. Caritid dupplex 1. No significant flow detected in the right vertebral artery, concerning for occlusion. 2. No evidence for hemodynamically significant carotid artery stenosis. 3. Normal antegrade flow in the left vertebral artery. Plan for CABG on Monday Subjective 24 Hr Interval Summary Constitutional: improved Pain Control: mild Exam/Review of Systems Vital Signs Vitals Vital Signs Date Temp Pulse Resp B/P (MAP) Pulse Ox O2 O2 Flow FiO2 Time Delivery Rate 05/06/18 80 12:22 05/06/18 97.8 20 108/70 97 Room Air 11:41 (83) Intake and Output 05/05/18 05/05/18 05/06/18 1515:00 23:00 07:00 IntakeIntake Total 500 ml 250 ml BalanceBalance 500 ml 250 ml Exam ENMT: nl external ears & nose, nl lips & teeth, nl nasal mucosa & septum, mucosa pink and moist Neck: supple, non-tender Respiratory: clear to auscultation, normal air movement Cardiovascular: regular rate and rhythm, nl pulses Gastrointestinal: soft, nl liver, spleen, non-tender Results Result Diagram: 05/06/18 0616 05/06/18 0616 RONDA NAZARIO MD May 06, 2018 14:18
[2018-05-06] MEDS ORDERED: SOD CHLORIDE 0.9% 1,000 ML IV SCH (16:30)
--- NOTE | 2018-05-06 18:40 | NUR ---
EOSS: Patient is AAOx4, VSS, denies CP or SOB. Plan for CABG tomorrow w/ Dr. Soriano at 0700 - Consent signed and placed in chart. Orders for NPO after MN - will endorse to oncoming shift. Pt made aware & verbalized understanding. NS @ 60 ml/hr running x1 liter. Hourly rounding done, fall precautions initiated, all needs attended to. Pt is stable - will endorse to oncoming shift.
[2018-05-06] MEDS: ATORVASTATIN 40 MG TAB PO SCH (22:21)
--- NOTE | 2018-05-06 22:25 | NUR ---
NURSING NOTE: PT SHOWERED WITH [employer] SOLUTION. PT TOLERATED WELL
[2018-05-07] VITALS (46 sets, daily range): BP systolic 78–133; BP diastolic 46–113; PULSE 67–112; RESP 12–23; TEMP 94.6–101.8
[2018-05-07] MEDS ORDERED: EPINEPHrine 4 MG in DEXTROSE 5% 246 ML IV SCH (06:30)
[2018-05-07] MEDS ORDERED: PHENYLephrine 20MG IN 250 ML 250 ML IV SCH (06:30)
[2018-05-07] MEDS ORDERED: INSULIN HUMAN REGULAR 100 UNIT in SOD CHLORIDE 0.9% 99 ML IV SCH (06:30)
[2018-05-07] MEDS ORDERED: NITROGLYCERIN 50 MG/D5W 250 ML BTL ONE (07:00)
[2018-05-07] MEDS ORDERED: INSULIN REGULAR, HUMAN 100 UNIT/1 ML 3ML VIAL ONE (07:00)
[2018-05-07] MEDS ORDERED: DOPamine-D5W 1.6 MG/ML 250 ML ONE (07:00)
[2018-05-07] MEDS ORDERED: VANCOMYCIN 1 GM INJ ONE (07:12)
[2018-05-07] MEDS ORDERED: PAPAVERINE 60 MG INJ ONE (07:12)
[2018-05-07] MEDS ORDERED: HEPARIN 1000 UNITS/ML 10 ML INJ ONE ×4 (07:13→09:59)
--- NOTE | 2018-05-07 07:24 | HPN ---
Date/Time of Note Date/Time of Note DATE: 05/07/18 TIME: 07:24 Interval H&P Admission Note Pt. seen H&P reviewed: No system changes RONDA NAZARIO MD May 07, 2018 07:24
--- NOTE | 2018-05-07 07:26 | PREAC ---
Date/Time of Note Date/Time of Note DATE: 05/07/18 TIME: 07:25 Anesthesia Eval and Record Evaluation Time Pre-Procedure Interview DATE: 05/07/18 TIME: 07:25 Age 62 Sex male NPO: 8 hrs Preoperative diagnosis CAD Planned procedure CABG Past Medical History Past Medical History: Includes Cardio: HTN, Dyslipidemia GI: Morbid obesity Surgery & Anesthesia Issues No known issue Meds Anticoagulation: No Beta Jesus within 24 hr: Yes Reported Medications Metoprolol Succinate* (Toprol XL*) 25 Mg Tab.sr.24h, 25 MG PO DAILY, #30 TAB 05/04/18 Atorvastatin Calcium* (Atorvastatin Calcium*) 20 Mg Tablet, 20 MG PO QHS, #30 TAB 05/04/18 Amlodipine Besylate* (Amlodipine Besylate*) 10 Mg Tablet, 10 MG PO DAILY, #30 TAB 05/04/18 Discontinued Reported Medications Atorvastatin Calcium (Atorvastatin Calcium) 10 Mg Tablet, 10 MG PO QHS, #30 TAB 05/04/18 Current Medications Acetaminophen (Tylenol Tab) 650 mg Q4H PRN PO mild pain; Start 05/04/18 at 12:30 Morphine Sulfate (morphine) 2 mg Q2H PRN IV moderate to severe pain; Start 05/04/18 at 12:30 Al Hydrox/Mg Hydrox/Simethicone (Mag-Al Plus) 30 ml Q4H PRN PO GASTROINTESTINAL UPSET; Start 05/04/18 at 12:30 Ondansetron HCl (Zofran Inj) 4 mg Q4H PRN IV NAUSEA AND/OR VOMITING; Start 05/04/18 at 12:30 Amlodipine Besylate (Norvasc) 10 mg DAILY PO Last administered on 05/06/18at 08:07; Admin Dose 10 MG; Start 05/05/18 at 09:00 Metoprolol Succinate (Toprol Xl) 25 mg DAILY PO Last administered on 05/06/18at 08:07; Admin Dose 25 MG; Start 05/04/18 at 20:30 Atorvastatin Calcium (Lipitor) 40 mg HS PO Last administered on 05/06/18at 22:21; Admin Dose 40 MG; Start 05/04/18 at 21:00 Epinephrine 4 mg/ Dextrose 250 ml @ 0 mls/hr INTRA-OP IV ; Start 05/07/18 at 06:30; Stop 05/07/18 at 18:30 Phenylephrine HCl 250 ml @ 0 mls/hr INTRA-OP IV ; Start 05/07/18 at 06:30; Stop 05/07/18 at 18:30 Insulin Human Regular 100 unit/ Sodium Chloride 100 ml @ 0 mls/hr INTRA-OP IV ; Start 05/07/18 at 06:30; Stop 05/07/18 at 18:30 Sodium Chloride 1,000 ml @ 60 mls/hr [id number] IV Last administered on 05/06/18at 17:17; Admin Dose 60 MLS/HR; Start 05/06/18 at 16:30; Stop 05/07/18 at 09:09 Meds reviewed: Yes Allergies Coded Allergies: No Known Allergy (Unverified , 05/05/18) Allergies Reviewed: Yes Labs/Studies Labs Reviewed: Reviewed by anesthesiologist Result Diagram: 05/06/1861505/06/18615 Blood Bank Test 05/06/18 14:24 Antibody Screen NEGATIVE Blood Product Summary Counts Blood Type A POSITIVE Crossmatch Red Blood Cells test: N/A Studies: ECG Pre-procedure Exam Last vitals Vital Signs Date Temp Pulse Resp B/P (MAP) Pulse Ox O2 O2 Flow FiO2 Time Delivery Rate 05/07/18 97.9 71 18 110/77 98 04:12 (88) 05/06/18 Room Air 15:41 Airway: Adequate mouth opening, Adequate thyromental dist Mallampati: Mallampati III Teeth: Normal Lung: Normal Heart: Normal ASA Physical Status ASA physical status: 4 Emergency: None Planned Anesthetic General/MAC: ETT Planned Pain Management Parenteral pain med Pre-operative Attestations Prior to commencing anesthesia and surgery, the patient was re-evaluated, there was verification of: *The patient's identity *The results of appropriate recent lab work and preoperative vital signs *The above evaluation not changing prior to induction *Anesthetic plan, risk benefits, alternative and complications discussed with patient/family; questions answered; patient/family understands, accepts and wishes to proceed. ANDREA SHI MD May 07, 2018 07:26
[2018-05-07] MEDS ORDERED: MIDAZOLAM 5 ML ONE ×2 (07:37→09:50)
[2018-05-07] MEDS ORDERED: PHENYLephrine (100 MCG/ML) 5ML SYG ONE ×2 (07:40→10:13)
[2018-05-07] MEDS ORDERED: POTASSIUM CHLORIDE 40 MEQ INJ ONE (07:43)
[2018-05-07] MEDS ORDERED: MAGNESIUM SULFATE (MG) 50% 10 ML INJ ONE (07:44)
[2018-05-07] MEDS ORDERED: LIDOCAINE 100 MG SYRINGE ONE (07:44)
[2018-05-07] MEDS ORDERED: CA CHLORIDE 10% 10 ML SYRINGE ONE (07:44)
[2018-05-07] MEDS ORDERED: ALBUMIN HUMAN 25% 100 ML ONE (07:44)
[2018-05-07] MEDS ORDERED: MANNITOL 20% 500 ML ONE (07:45)
[2018-05-07] MEDS ORDERED: PHENYLephrine 10 MG INJ ONE ×2 (07:45)
[2018-05-07] MEDS ORDERED: NA BICARBONATE 8.4% 50 ML SYG ONE (07:45)
[2018-05-07] MEDS ORDERED: AMINOCAPROIC ACID 5 GM INJ ONE (07:45)
--- NOTE | 2018-05-07 07:45 | NUR ---
NURSING NOTE: GATHERED ALL PT'S BELONGING DOWN TO PACU BUT FAMILY MEMBERS LEFT ALREADY. GAVE BELONGS TO PARDEEP RN IN PACU TO MONITOR. SAW PT'S FAMILY MEMBERS ON [address] ASKING WHERE ARE THIER BELONGINGS. ESCORTED PT'S FAMILY DOWN TO PACU WHERE BELONGS ARE. PT'S BELONGINGS GIVEN TO FAMILY MEMBERS.
[2018-05-07] MEDS ORDERED: CEFAZOLIN 1 GM INJ ONE ×2 (08:26→11:32)
--- NOTE | 2018-05-07 08:52 | CONS ---
Date/Time of Note Date/Time of Note DATE: 05/07/18 TIME: 08:51 Assessment/Plan Assessment/Plan Assessment/Plan In surgery now - will follow post op Result Diagram: 05/06/1816 05/06/18 0616 Consultation Date/Type/Reason Admit Date/Time May 04, 2018 at 13:51 Initial Consult Date Requesting Provider: GINGER CALI MD Exam/Review of Systems Vital Signs Vitals Vital Signs Date Temp Pulse Resp B/P (MAP) Pulse Ox O2 O2 Flow FiO2 Time Delivery Rate 05/07/18 97.9 71 18 110/77 98 04:12 (88) 05/06/18 Room Air 15:41 Intake and Output 05/06/18 05/06/18 05/07/18 1515:00 23:00 07:00 IntakeIntake Total 620 ml 250 ml BalanceBalance 620 ml 250 ml Medications Medications Current Medications Acetaminophen (Tylenol Tab) 650 mg Q4H PRN PO mild pain; Start 05/04/18 at 12:30 Morphine Sulfate (morphine) 2 mg Q2H PRN IV moderate to severe pain; Start 05/04/18 at 12:30 Al Hydrox/Mg Hydrox/Simethicone (Mag-Al Plus) 30 ml Q4H PRN PO GASTROINTESTINAL UPSET; Start 05/04/18 at 12:30 Ondansetron HCl (Zofran Inj) 4 mg Q4H PRN IV NAUSEA AND/OR VOMITING; Start 05/04/18 at 12:30 Amlodipine Besylate (Norvasc) 10 mg DAILY PO Last administered on 05/06/18at 08:07; Admin Dose 10 MG; Start 05/05/18 at 09:00 Metoprolol Succinate (Toprol Xl) 25 mg DAILY PO Last administered on 05/06/18at 08:07; Admin Dose 25 MG; Start 05/04/18 at 20:30 Atorvastatin Calcium (Lipitor) 40 mg HS PO Last administered on 05/06/18at 22:21; Admin Dose 40 MG; Start 05/04/18 at 21:00 Epinephrine 4 mg/ Dextrose 250 ml @ 0 mls/hr INTRA-OP IV ; Start 05/07/18 at 06:30; Stop 05/07/18 at 18:30 Phenylephrine HCl 250 ml @ 0 mls/hr INTRA-OP IV ; Start 05/07/18 at 06:30; Stop 05/07/18 at 18:30 Insulin Human Regular 100 unit/ Sodium Chloride 100 ml @ 0 mls/hr INTRA-OP IV ; Start 05/07/18 at 06:30; Stop 05/07/18 at 18:30 Sodium Chloride 1,000 ml @ 60 mls/hr [id number] IV Last administered on 05/06/18at 17:17; Admin Dose 60 MLS/HR; Start 05/06/18 at 16:30; Stop 05/07/18 at 09:09 CHIN MORGAN MD May 07, 2018 08:52
[2018-05-07] MEDS: METOPROLOL (XL) 25 MG TAB PO SCH (09:00)
[2018-05-07] MEDS: AMLODIPINE 10 MG TAB PO SCH (09:00)
[2018-05-07] MEDS ORDERED: FUROSEMIDE 20 MG INJ ONE ×3 (11:17→13:14)
--- NOTE | 2018-05-07 11:55 | CONS ---
Date/Time of Note Date/Time of Note DATE: 05/07/18 TIME: 11:55 Assessment/Plan Assessment/Plan Assessment/Plan 1. acute on chronic renal failure vs Baseline CKD- 2. 3 V CAD on Cardiac cath on 05/04/18 s/p CABG on 05/07/2018 3. H/o HTN 4. H/o HL 5.H/o possible CKD III due to HTN nephrosclerosis Plan: BUN/Cr 06/05.51 improved with 1 liter IVF NS yesterday S/p CABG today By CT surgery on 05/07/18- doing ok, Intubated, on ventilator, Chest tube in place will follow up Result Diagram: 05/06/1816 05/06/18 0616 Consultation Date/Type/Reason Admit Date/Time May 04, 2018 at 13:51 Initial Consult Date 05/05/18 Type of Consult NEPHROLOGY Requesting Provider: GINGER CALI MD 24 HR Interval Summary Free Text/Dictation BUN/Cr , s/p CABG today Exam/Review of Systems Vital Signs Vitals Vital Signs Date Temp Pulse Resp B/P (MAP) Pulse Ox O2 O2 Flow FiO2 Time Delivery Rate 05/07/18 97.9 71 18 110/77 98 04:12 (88) 05/06/18 Room Air 15:41 Intake and Output 05/06/18 05/06/18 05/07/18 1515:00 23:00 07:00 IntakeIntake Total 620 ml 250 ml BalanceBalance 620 ml 250 ml Exam Constitutional: post op intubated on ventilator Respiratory: Bilateral Coarse BS+ ET tube in place, + Central line, Chest tube in place Cardiovascular: S1S2 tachycardia, no murmur Gastrointestinal: soft, non-tender Musculoskeletal: no edema, no cyanosis, no clubbing Extremities: normal pulses Neurological: sedated intubated on ventilator Medications Medications Current Medications Acetaminophen (Tylenol Tab) 650 mg Q4H PRN PO mild pain; Start 05/04/18 at 12:30 Morphine Sulfate (morphine) 2 mg Q2H PRN IV moderate to severe pain; Start 05/04/18 at 12:30 Al Hydrox/Mg Hydrox/Simethicone (Mag-Al Plus) 30 ml Q4H PRN PO GASTROINTESTINAL UPSET; Start 05/04/18 at 12:30 Ondansetron HCl (Zofran Inj) 4 mg Q4H PRN IV NAUSEA AND/OR VOMITING; Start 05/04/18 at 12:30 Amlodipine Besylate (Norvasc) 10 mg DAILY PO Last administered on 05/06/18at 08:07; Admin Dose 10 MG; Start 05/05/18 at 09:00 Metoprolol Succinate (Toprol Xl) 25 mg DAILY PO Last administered on 05/06/18at 08:07; Admin Dose 25 MG; Start 05/04/18 at 20:30 Atorvastatin Calcium (Lipitor) 40 mg HS PO Last administered on 05/06/18at 22:21; Admin Dose 40 MG; Start 05/04/18 at 21:00 Epinephrine 4 mg/ Dextrose 250 ml @ 0 mls/hr INTRA-OP IV ; Start 05/07/18 at 0 6:30; Stop 05/07/18 at 18:30 Phenylephrine HCl 250 ml @ 0 mls/hr INTRA-OP IV ; Start 05/07/18 at 06:30; Stop 05/07/18 at 18:30 Insulin Human Regular 100 unit/ Sodium Chloride 100 ml @ 0 mls/hr INTRA-OP IV ; Start 05/07/18 at 06:30; Stop 05/07/18 at 18:30 MARIA DE JESUS LAUREN MD May 07, 2018 11:55
--- NOTE | 2018-05-07 12:16 | PN ---
Date/Time of Note Date/Time of Note DATE: 05/07/18 TIME: 12:14 Assessment/Plan VTE Prophylaxis Risk score (from Ns)>0 risk: 3 SCD applied (from Ns): Yes Pharmacological prophylaxis: heparin Lines/Catheters IV Catheter Type (from Nrsg): Peripheral IV Urinary Cath still in place: No Assessment/Plan Assessment/Plan -Multivessel coronary artery disease on cardiac cath on 05/04/[address] Dial. Patient is currently in the OR for CABG procedure by Dr. Soriano, cardiovascular surgery. -Acute on chronic renal failure. Dr. Herrera is following in nephrology consultation. -Hypertension -Hyperlipidemia Further recommendations based on clinical course. Plan of care discussed with Dr. Guerra. Result Diagram: 05/06/1816 05/06/18 0616 Exam/Review of Systems Vital Signs Vitals Vital Signs Date Temp Pulse Resp B/P (MAP) Pulse Ox O2 O2 Flow FiO2 Time Delivery Rate 05/07/18 97.9 71 18 110/77 98 04:12 (88) 05/06/18 Room Air 15:41 Intake and Output 05/06/18 05/06/18 05/07/18 1515:00 23:00 07:00 IntakeIntake Total 620 ml 250 ml BalanceBalance 620 ml 250 ml Medications Medications Current Medications Acetaminophen (Tylenol Tab) 650 mg Q4H PRN PO mild pain; Start 05/04/18 at 12:30 Morphine Sulfate (morphine) 2 mg Q2H PRN IV moderate to severe pain; Start 05/04/18 at 12:30 Al Hydrox/Mg Hydrox/Simethicone (Mag-Al Plus) 30 ml Q4H PRN PO GASTROINTESTINAL UPSET; Start 05/04/18 at 12:30 Ondansetron HCl (Zofran Inj) 4 mg Q4H PRN IV NAUSEA AND/OR VOMITING; Start 05/04/18 at 12:30 Amlodipine Besylate (Norvasc) 10 mg DAILY PO Last administered on 05/06/18at 08:07; Admin Dose 10 MG; Start 05/05/18 at 09:00 Metoprolol Succinate (Toprol Xl) 25 mg DAILY PO Last administered on 05/06/18at 08:07; Admin Dose 25 MG; Start 05/04/18 at 20:30 Atorvastatin Calcium (Lipitor) 40 mg HS PO Last administered on 05/06/18at 22:21; Admin Dose 40 MG; Start 05/04/18 at 21:00 Epinephrine 4 mg/ Dextrose 250 ml @ 0 mls/hr INTRA-OP IV ; Start 05/07/18 at 06:30; Stop 05/07/18 at 18:30 Phenylephrine HCl 250 ml @ 0 mls/hr INTRA-OP IV ; Start 05/07/18 at 06:30; Stop 05/07/18 at 18:30 Insulin Human Regular 100 unit/ Sodium Chloride 100 ml @ 0 mls/hr INTRA-OP IV ; Start 05/07/18 at 06:30; Stop 05/07/18 at 18:30 DANIE MOORE May 07, 2018 12:16
[2018-05-07] MEDS ORDERED: PROTAMINE 250 MG INJ ONE (12:55)
[2018-05-07] MEDS ORDERED: LIDOCAINE 2% (SDV) 5 ML INJ ONE (14:19)
[2018-05-07] MEDS ORDERED: ROCURONIUM 50 MG INJ ONE (14:19)
[2018-05-07] MEDS ORDERED: ETOMIDATE 20 MG INJ ONE (14:19)
--- NOTE | 2018-05-07 14:34 | OPR ---
Date/Time of Note Date/Time of Note DATE: 05/07/18 TIME: 14:24 Operative Report Procedure Date: May 07, 2018 Preoperative Diagnosis Coronary artery disease Postoperative Diagnosis Same Operation/Procedure Performed Coronary artery bypass grafting 1 LUEVANO to LAD 2 saphenous vein graft to second obtuse marginal branch of the circumflex and to the second obtuse branch in a sequential fashion 3 saphenous vein graft to the second obtuse branch in a sequential fashion as above 4 saphenous vein graft to right coronary artery PDA proximal 5 saphenous vein graft to the PDA distal 6 thymectomy 7 repair of innominate vein 8 saphenous vein harvest endoscopic technique right lower extremity 9 right coronary artery endarterectomy 10 LAD endarterectomy 11 transesophageal echocardiogram Surgeon see signature line 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 [employer] Machinist: PAULA OSWALD Anesthesia Type: general Estimated Blood Loss: other Transfusion none Specimen None Grafts/Implants none Complications none Disposition: PACU Indications This is a 62-year-old male with a history of angina was admitted and found to have severe three-vessel coronary artery disease involving high-grade lesions in the right coronary artery and the circumflex and 100% occlusion of the LAD I had a long discussion with the patient response complications alternative therapies explained to the patient consent obtained Patient had a creatinine of 1.6 was seen by nephrology and cleared to undergo surgery Patient had a carotid duplex which showed open carotid arteries but it occluded vertebral artery Risk and benefits are explained to the patient included but not limited to bleeding infection stroke heart attack wound infection wound dehiscence is DVT PE loss of limb loss of life tracheostomy high risk nature of the operation explained to the patient and the family including the and the children multiple times ample time was given to the patient and the family to ask all the questions they understood the severity of the surgery and agreed to proceed Procedure Description Patient was taken to the operating room after induction of general anesthesia timeout was called antibiotics was given . Transesophageal echocardiogram was done no evidence of any major valvular abnormalities was seen the mitral valve appeared to be bicuspid with no significant mitral regurgitation or mitral stenosis aortic valve appeared to be clean tricuspid no evidence of any severe stenosis or regurgitation myocardial function appeared to be about ejection fraction of 50% I started with a sternotomy incision from the sternal notch down to the xiphoid process saphenous vein was harvested using endoscopic technique from the left lower extremity The sternum was opened in the mid aspect of the sternum with the sternal saw left internal mammary artery was harvested using titanium clips and Heme clips and electrocautery At this time I placed the retractor large thymic fat/thymus appears to be in the way of aorta which was resected he was about 6 x 6 cm sent for pathological examination Small tear in the 1 of the branches of the innominate vein was oversewn using a 6-0 Prolene [id number] fashion pericardium was opened patient was fully heparinized Adequate documentation of a CT aorta was cannulated followed by two-stage venous cannula antegrade and retrograde cardioplegia cannula the position of the retrograde cardioplegia plegia cannula was ascertained using echocardiogram The heart was placed on cardiopulmonary bypass there was good flow the venous return was good the heart appeared to be empty Aorta appeared to be soft no evidence of any calcification on my finger examination and also on transesophageal echocardiogram Cross-clamp was applied to the soft part of the aorta after bringing the flows down the heart was then arrested using antegrade and retrograde cardioplegia given every 15-20 minutes supplemented by topical slush to the surface of the heart supplemented by cardioplegia given through the vein grafts as they were being reconstructed this was continued until the cross-clamp was removed We proceeded with the first anastomosis which was the obtuse marginal branch of the circumflex followed by a second anastomosis which was the second obtuse marginal branch of the circumflex This was done in a natural Y fashion both anastomoses were done to 8 mm longitudinal coronary arteriotomy 7-0 Prolene continuous suture technique to the beveled end of the vein The third and fourth anastomosis was a long anastomosis to the PDA room after removing plaque and doing endarterectomy this anastomosis was 1.5 cm providing flow proximally and distally to the end of the vein graft which was beveled 7-0 Prolene continuous suture technique Last anastomosis was mammary to LAD which was a similar fashion 8 mm longitudinal coronary arteriotomy in end-to-side fashion after coronary arteriotomy 7-0 Prolene continuous suture technique The proximal 2 anastomoses were done on the same cross-clamp 4.5 mm punch 6-0 Prolene continuous suture technique end-to-side fashion Head pus was placed in steep Trendelenburg position cross-clamp removed graft in the heart the aired Patient came off cardiopulmonary bypass without any difficulties minimal drips protamine given cannulas removed sutures tied 2 chest tubes mediastinal were placed brought out through lower stab was secured to skin using 2-0 silk sutures All grafts were pulsatile myocardial function appeared to be excellent no evidence of any major valvular abnormalities noted All parts of the right ventricle and left ventricular ventricle appeared to be moving well The sternum was closed using a cable system [id number] x4 The abdomen and the deep tissues were irrigated again and closed in 2 layers of #1 Vicryl suture for the linea alba and the deep 2-0 Vicryl suture for subcu 4-0 Monocryl suture in a running subcuticular skin closure the leg was closed in a similar fashion Patient was transported to intensive care unit in stable condition RONDA NAZARIO MD May 07, 2018 14:34
--- NOTE | 2018-05-07 14:42 | NUR ---
PT ARRIVED FOR OR TO ICU 110. S/P 5V CABG. SEE CRITICAL CARE CABG INTVN FLOWSHEET FOR VS. ACCUCHECK 79. DR SHI AWARE. NTG AT 5MCG AND DOPAMINE AT 1.9993 MCG.
[2018-05-07] MEDS ORDERED: DIPHENHYDRAMINE 50 MG INJ IV PRN (15:00)
[2018-05-07] MEDS ORDERED: MEPERIDINE 25 MG INJ IV PRN (15:00)
[2018-05-07] MEDS ORDERED: morphine (1 MG/ML) 10ML SYRINGE IV PRN ×2 (15:00)
[2018-05-07] MEDS ORDERED: ONDANSETRON 4 MG INJ IV PRN (15:00)
[2018-05-07] MEDS ORDERED: NITROGLYCERIN 50 MG/D5W (PMX) 250 ML IV SCH (15:00)
--- NOTE | 2018-05-07 15:00 | NUR ---
NTG ON HOLD. BP 106/89. DR SHI DECREASED DOPAMINE TO 1MCG
[2018-05-07] MEDS ORDERED: ACETAMINOPHEN 325 MG TAB PO PRN (15:30)
[2018-05-07] MEDS: POTASSIUM CHLORIDE 40 MEQ, CALCIUM CHLORIDE 10% 1 GM in DEXTROSE 5%-0.225% NACL 1,000 ML IV SCH (16:56)
[2018-05-07] MEDS: POTASSIUM CHLORIDE 50 ML IVPB PRN ×3 (16:56→19:12)
[2018-05-07] MEDS: DOPamine-D5W 1.6 MG/ML 250 ML IV SCH (17:21)
--- NOTE | 2018-05-07 17:41 | NUR ---
END OF SHIFT SUMMARY - RN SPOKE WITH DR NAZARIO REGARDING DECREASING CVP, CARDIAC OUTPUT. RECEIVED ORDERS TO INCREASE RATE OF MAIN IVF TO 100MLS/HR. PT NOT AWAKE AT THIS TIME. DR NAZARIO AWARE. ALL LAB RESULTS REVIEWED WITH MD. PATIENT REPOSITIONED. TOLERATED WELL.
[2018-05-07] MEDS: morphine 4 MG/ML VIAL IV PRN (18:17)
[2018-05-07] MEDS ORDERED: NORepinephrine 8MG/250 ML (PMX 250 ML ONE (18:37)
[2018-05-07] MEDS: CEFAZOLIN 1 GM/50 ML (PMX) 50 ML IVPB SCH (19:30)
[2018-05-07] MEDS: FAMOTIDINE 20 MG INJ IV SCH (20:15)
[2018-05-07] MEDS: ATORVASTATIN 40 MG TAB PO SCH (21:00)
[2018-05-08] VITALS (71 sets, daily range): BP systolic 90–134; BP diastolic 51–79; PULSE 79–111; RESP 11–32; TEMP 99.6–101.8
[2018-05-08] MEDS: ACETAMINOPHEN 650 MG SUPP PR PRN ×2 (00:02→01:00)
[2018-05-08] MEDS ORDERED: ALBUMIN HUMAN 5% 250 ML IV ONE (01:00)
[2018-05-08] MEDS: CEFAZOLIN 1 GM/50 ML (PMX) 50 ML IVPB SCH ×2 (03:17→11:36)
[2018-05-08] MEDS: POTASSIUM CHLORIDE 40 MEQ, CALCIUM CHLORIDE 10% 1 GM in DEXTROSE 5%-0.225% NACL 1,000 ML IV SCH ×3 (03:19→21:36)
[2018-05-08] MEDS: DOPamine-D5W 1.6 MG/ML 250 ML IV SCH (03:31)
--- NOTE | 2018-05-08 05:32 | NUR ---
End of shift.Received pt on the ventilator lethargic but responsive assessment and neuro check done.Pt follow command..Pt instructed not to pull ETT nodded.Pt remain easy to arouse but goes back to sleep.Randall Soriano called update given.will pull tube when pts is fully awake.He also spoke with pts ..Pt rested during the shift.Dopamine titrated up very slowly/Pt temp [id number] f Tylenol given as order antibiotic given wbc trending down..Pt rested well no c/o pain at present.CT drain 150ml during the shift..IV fluid inprogress.CVP drop less than 8 albumin 5% 250 ml given per protocol CHG bath done awaiting chest x-ray
--- NOTE | 2018-05-08 08:00 | NUR ---
CALLED DR NAZARIO FOR POSSIBLY EXTUBATION, ABG RESULTS FROM EARLIER THIS AM. PT AOX3, NONVERBAL, ETT IN PLACE, ABLE TO FOLLOW COMMANDS. DENIES PAIN. PT ON DOPAMINE DRIP STILL, TITRATED FROM 15 TO 13MC. HR SR 90S, BP 121/68, SV02 75%, CI 2.8, PAP 22/11, CVP 9, TEMP 99.7F. OGT PLACED TO DECOMPRESS FIRM ABD, NOW SOFT. ELIAZAR HOSE PLACED ON L LEFT LEG.
[2018-05-08] MEDS: AMLODIPINE 10 MG TAB PO SCH (08:53)
[2018-05-08] MEDS: METOPROLOL (XL) 25 MG TAB PO SCH (08:53)
[2018-05-08] MEDS: FAMOTIDINE 20 MG INJ IV SCH (08:55)
[2018-05-08] MEDS: FAMOTIDINE 20 MG TAB PO SCH (08:55)
[2018-05-08] MEDS ORDERED: DOPamine-D5W 1.6 MG/ML 250 ML IV SCH (09:00)
--- NOTE | 2018-05-08 09:00 | NUR ---
MORNING BP MEDS HELD, PT STILL ON DOPA DRIP. DR LOPEZ AWARE.
--- NOTE | 2018-05-08 09:05 | NUR ---
PT EXTUBATED, PER DR ROCHE ON 4L NC, 02 SAT 99%. PT HAS A STRONG COUGH, ABLE TO COUGH OUT PHLEGM. PT STILL ON DOPAMINE DRIP, KEEP SBP >[address] NAZARIO. Addendum: 05/08/18 at 1039 by FEDE MANZANO RN CHANTELLE Saunders
--- NOTE | 2018-05-08 09:55 | NUR ---
Spoke to RN, patient just extubated, requested PM evaluation, to follow up
--- NOTE | 2018-05-08 10:29 | CONS ---
Date/Time of Note Date/Time of Note DATE: 05/08/18 TIME: 10:25 Assessment/Plan Assessment/Plan Assessment/Plan 1. Multivessel coronary artery disease- pt seen by surgical team - s/p CABG 05/07/18 - doing well - will titrate dopa gtt off -hope to remove a. line when stable. 2. Hypertension - stable, adjust rx as needed - treated. Better now. 3. Dyslipidemia- Rx with statin. pre Dc 4. CRF - CR 1.6 now - avoid nephrotoxic meds. Renal team follows. Good urine output. 5. Precordail pain - post up - as expected - no rub on exam. Result Diagram: 05/08/18 0400 05/08/18 0400 Results 24hrs Laboratory Tests Test 05/07/18 14:39 05/07/18 15:04 05/07/18 15:27 05/07/18 15:40 Bedside Glucose 79 Blood Gas Blood arterial BLMV Specimen Source Arterial Blood 05/07/2018 3:47: 05/07/2018 3:45 Date Drawn 53 PM :33 PM Arterial Blood 7.433 pH (Temp corrected ) Arterial Blood 40.0 pCO2 (Temp correct) Arterial Blood 148.5 H pO2 (Temp corrected ) Arterial Blood 26.1 H HCO3 Arterial Blood 1.8 Base Excess Arterial Blood 98.8 H Oxygen Saturati on Regino Test N/A N/A Arterial Blood A-Line PAL Gas Puncture Site Arterial 0.4 Blood Carboxyhe moglobin Arterial Blood 0.5 Methemoglobin Blood Gas A-a 307.6 H O2 Differential Oxyhemoglobin 97.9 Percent Blood Gas 37.0 37.0 Temperature Blood Gas 14.0 14.0 Respiration Rate Blood Gas 17 Actual Respiration Rat e Blood Gas VENT - AC VENT - AC Modality FiO2 70.0 70.0 Blood Gas Tidal 550.0 550.0 Volume Blood Gas Low 5.0 5.0 PEEP Setting Blood Gas RT RT Notified Whom Blood Gas 05/07/2018 3:55: 05/07/2018 3:54 Notified Time 58 PM :11 PM Mixed Venous 40.5 H Blood PO2 Mixed Venous 78.1 H Blood O2 Saturation Mixed Venous 12.4 Blood Total Hemoglobi n Mixed Venous 77.6 Blood Oxyhemogl obin Mixed Venous 0.3 Bld Carboxyhemo globin Mixed Venous 0.3 Blood Methemogl obin Prothrombin 15.8 #H Time Prothrombin 1.2 Time Ratio INR 1.25 International Normalized Rati o Activated 32.6 Partial Thrombo plast Time Test 05/07/18 15:41 05/07/18 18:23 05/08/18 00:27 05/08/18 04:00 White Blood 27.1 #H 16.2 #H 15.7 H Count Red Blood Count 4.64 L 4.39 L 4.26 L Hemoglobin 11.4 L 10.6 L 10.5 L Hematocrit 34.4 L 32.6 L 31.7 L Mean 74.1 L 74.3 L 74.4 L Corpuscular Volume Mean 24.6 L 24.1 L 24.6 L Corpuscular Hemoglobin Mean 33.1 32.5 33.1 Corpuscular Hemoglobin Conc ent Red Cell 17.7 H 17.2 H 17.6 H Distribution Width Platelet Count 223 # 216 213 Mean Platelet 9.3 10.3 11.5 H Volume Immature 0.500 H 0.500 H 0.400 Granulocytes % Segmented 72 Neutrophils % (Manual) Band 4 Neutrophils % (Manual) Lymphocytes % 11 L (Manual) Monocytes % 12 H (Manual) Eosinophils % 1 (Manual) Nucleated Red 0.0 0.0 0.0 Blood Cells % Immature 0.140 H 0.080 H 0.070 H Granulocytes # Neutrophils # 19.8 H (Manual) Band 1.0 H Neutrophils # Lymphocytes 2.9 (Manual) Monocytes # 3.2 H (Manual) Giant Platelets 1 H Platelet @See below Morphology Comment Polychromasia 1+ Hypochromasia 1+ Poikilocytosis 1+ Anisocytosis 1+ Macrocytosis 1+ Spherocytes 1+ Schistocytes 1+ Sodium Level 143 139 140 Potassium Level 3.3 L 4.9 5.1 Chloride Level 105 103 103 Carbon Dioxide 26 29 29 Level Anion Gap 12 7 8 Blood Urea 20 18 18 Nitrogen Creatinine 1.51 H 1.57 H 1.61 H Est Glomerular 47 L 45 L 44 L Filtrat Rate mL/min Glucose Level 55 #L 201 # 215 Calcium Level 8.9 8.9 9.0 Magnesium Level 3.3 H 2.2 # 2.1 Bedside Glucose 128 Neutrophils % 87.2 H 86.0 H Lymphocytes % 3.8 L 4.7 L Monocytes % 8.2 8.7 Eosinophils % 0.0 0.0 Basophils % 0.3 0.2 Neutrophils # 14.1 H 13.5 H Lymphocytes # 0.6 L 0.7 L Monocytes # 1.3 H 1.4 H Eosinophils # 0.0 0.0 Basophils # 0.1 0.0 Nucleated Red 0.0 0.0 Blood Cells # Prothrombin 14.4 Time Prothrombin 1.1 Time Ratio INR 1.11 International Normalized Rati o Activated 34.8 Partial Thrombo plast Time Test 05/08/18 04:55 05/08/18 05:00 Lab Scanned BLOOD TRANSFUSI Report ON Blood Gas Blood arterial Specimen Source Arterial Blood 05/08/2018 4:35: Date Drawn 58 AM Arterial Blood 7.468 H pH (Temp corrected ) Arterial Blood 36.3 pCO2 (Temp correct) Arterial Blood 96.0 pO2 (Temp corrected ) Arterial Blood 25.7 HCO3 Arterial Blood 2.2 Base Excess Arterial Blood 97.2 Oxygen Saturati on Regino Test N/A Arterial Blood A-Line Gas Puncture Site Arterial 0 Blood Carboxyhe moglobin Arterial Blood 0.4 Methemoglobin Blood Gas A-a 75.3 H O2 Differential Oxyhemoglobin 96.8 Percent Blood Gas 37.0 Temperature Blood Gas 12.0 Respiration Rate Blood Gas 16 Actual Respiration Rat e Blood Gas VENT - AC Modality FiO2 30.0 Blood Gas Tidal 550.0 Volume Blood Gas Low 5.0 PEEP Setting Blood Gas 23.0 Inspiratory Pressure Blood Gas MM Notified Whom Blood Gas 05/08/2018 4:42: Notified Time 42 AM Consultation Date/Type/Reason Admit Date/Time May 04, 2018 at 13:51 Initial Consult Date Requesting Provider: GINGER CALI MD 24 HR Interval Summary Free Text/Dictation No acute events - doing well post CABG. ROS: No fever, no chills, no nausea, no vomiting, no diarrhea/constipation No recent weight changes No chest pain, no PND, no orthopnea - CP with motion, not SOB No dizziness, blurred vision No thirst, no heat or cold intolerance Exam/Review of Systems Vital Signs Vitals Vital Signs Date Temp Pulse Resp B/P (MAP) Pulse Ox O2 O2 Flow FiO2 Time Delivery Rate 05/08/18 99.8 86 24 108/74 100 10:00 (85) 05/08/18 Nasal 4.0 09:05 Cannula 05/08/18 30 08:00 Intake and Output 05/07/18 05/07/18 05/08/18 1414:59 22:59 06:59 IntakeIntake Total 3471 ml 732.584 ml 1245.68 ml OutputOutput Total 1610 ml 2826 ml 948 ml BalanceBalance 1861 ml -2093.416 ml 297.68 ml Exam General: WN/WD/NAD, AOx 3 HEENT: Unicetric/atraumatic/EOMI ( follows commands) NECK: JVD elevated, no thyromegaly Lymph: no lymphadenopathy HEART: regular with no S3, II/ systolic murmur at apex, bandages LUNGS: Coarse sounds ABD: soft, NT, ND, +BS : Intact Neuro: non focal SKIN: chronic changes EXT: trace edema Medications Medications Current Medications Acetaminophen (Tylenol Tab) 650 mg Q4H PRN PO mild pain; Start 05/04/18 at 12:30 Morphine Sulfate (morphine) 2 mg Q2H PRN IV moderate to severe pain Last administered on 05/07/18at 18:17; Admin Dose 2 MG; Start 05/04/18 at 12:30 Al Hydrox/Mg Hydrox/Simethicone (Mag-Al Plus) 30 ml Q4H PRN PO GASTROINTESTINAL UPSET; Start 05/04/18 at 12:30 Ondansetron HCl (Zofran Inj) 4 mg Q4H PRN IV NAUSEA AND/OR VOMITING; Start 05/04/18 at 12:30 Amlodipine Besylate (Norvasc) 10 mg DAILY PO Last administered on 05/06/18at 08:07; Admin Dose 10 MG; Start 05/05/18 at 09:00 Metoprolol Succinate (Toprol Xl) 25 mg DAILY PO Last administered on 05/06/18at 08:07; Admin Dose 25 MG; Start 05/04/18 at 20:30 Atorvastatin Calcium (Lipitor) 40 mg HS PO Last administered on 05/06/18at 22:21; Admin Dose 40 MG; Start 05/04/18 at 21:00 Nitroglycerin/ Dextrose 250 ml @ 1.5 mls/hr PER PROTOCOL IV Last administered on 05/07/18at 18:20; Admin Dose 1.5 MLS/HR; Start 05/07/18 at 15:00 Potassium Chloride 40 meq/ Calcium Chloride 1 gm/Dextrose/ Sodium Chloride 1,030 ml @ 100 mls/hr [id number] IV Last administered on 05/08/18at 03:19; Admin Dose 100 MLS/HR; Start 05/07/18 at 16:30 Famotidine (Pepcid Iv) 20 mg DAILY IV Last administered on 05/08/18at 08:55; Admin Dose 20 MG; Start 05/07/18 at 20:00 Famotidine (Pepcid) 20 mg DAILY PO ; Start 05/08/18 at 09:00 Acetaminophen (Tylenol Tab) 650 mg Q3H PRN PO ELEVATED TEMPERATURE; Start 05/07/18 at 15:30 Acetaminophen (Tylenol Supp) 650 mg Q3H PRN LA ELEVATED TEMPERATURE Last administered on 05/08/18at 01:00; Admin Dose 650 MG; Start 05/07/18 at 15:30 Potassium Chloride 50 ml @ 50 mls/hr SEE DIRECTION PRN IVPB POTASSIUM REPLACEMENT PROTOCOL Last administered on 05/07/18at 19:12; Admin Dose 50 MLS/HR; Start 05/07/18 at 15:30 Miscellaneous Information (* Miscellaneous Pharmacy Order) PHARMACY TO DOSE ANCEF... ONCE XX ; Start 05/07/18 at 17:30 Cefazolin Sodium 50 ml @ 100 mls/hr Q8H IVPB Last administered on 05/08/18at 03:17; Admin Dose 100 MLS/HR; Start 05/07/18 at 19:30; Stop 05/08/18 at 11:59 Dopamine HCl/ Dextrose 250 ml @ 5.58 mls/hr PER PROTOCOL IV Last administered on 05/08/18at 09:33; Admin Dose 27.9 MLS/HR; Start 05/08/18 at 09:00 CHIN MORGAN MD May 08, 2018 10:29
--- NOTE | 2018-05-08 11:58 | CONS ---
Assessment/Plan Assessment/Plan Assessment/Plan 1. acute on chronic renal failure vs Baseline CKD- stable 2. 3 V CAD on Cardiac cath on 05/04/18 s/p CABG on 05/07/2018 3. H/o HTN 4. H/o HL 5.H/o possible CKD III due to HTN nephrosclerosis Plan: BUN/Cr 1.61, s/p Extubation today, doing well, Makign adequate urine output Chest tube in place, CT surgery has been following will follow up Result Diagram: 05/08/18 0400 05/08/18 0400 Results 24hrs Laboratory Tests Test 05/07/18 14:39 05/07/18 15:04 05/07/18 15:27 05/07/18 15:40 Bedside Glucose 79 Blood Gas Blood arterial BLMV Specimen Source Arterial Blood 05/07/2018 3:47: 05/07/2018 3:45 Date Drawn 53 PM :33 PM Arterial Blood 7.433 pH (Temp corrected ) Arterial Blood 40.0 pCO2 (Temp correct) Arterial Blood 148.5 H pO2 (Temp corrected ) Arterial Blood 26.1 H HCO3 Arterial Blood 1.8 Base Excess Arterial Blood 98.8 H Oxygen Saturati on Regino Test N/A N/A Arterial Blood A-Line PAL Gas Puncture Site Arterial 0.4 Blood Carboxyhe moglobin Arterial Blood 0.5 Methemoglobin Blood Gas A-a 307.6 H O2 Differential Oxyhemoglobin 97.9 Percent Blood Gas 37.0 37.0 Temperature Blood Gas 14.0 14.0 Respiration Rate Blood Gas 17 Actual Respiration Rat e Blood Gas VENT - AC VENT - AC Modality FiO2 70.0 70.0 Blood Gas Tidal 550.0 550.0 Volume Blood Gas Low 5.0 5.0 PEEP Setting Blood Gas RT RT Notified Whom Blood Gas 05/07/2018 3:55: 05/07/2018 3:54 Notified Time 58 PM :11 PM Mixed Venous 40.5 H Blood PO2 Mixed Venous 78.1 H Blood O2 Saturation Mixed Venous 12.4 Blood Total Hemoglobi n Mixed Venous 77.6 Blood Oxyhemogl obin Mixed Venous 0.3 Bld Carboxyhemo globin Mixed Venous 0.3 Blood Methemogl obin Prothrombin 15.8 #H Time Prothrombin 1.2 Time Ratio INR 1.25 International Normalized Rati o Activated 32.6 Partial Thrombo plast Time Test 05/07/18 15:41 05/07/18 18:23 05/08/18 00:27 05/08/18 04:00 White Blood 27.1 #H 16.2 #H 15.7 H Count Red Blood Count 4.64 L 4.39 L 4.26 L Hemoglobin 11.4 L 10.6 L 10.5 L Hematocrit 34.4 L 32.6 L 31.7 L Mean 74.1 L 74.3 L 74.4 L Corpuscular Volume Mean 24.6 L 24.1 L 24.6 L Corpuscular Hemoglobin Mean 33.1 32.5 33.1 Corpuscular Hemoglobin Conc ent Red Cell 17.7 H 17.2 H 17.6 H Distribution Width Platelet Count 223 # 216 213 Mean Platelet 9.3 10.3 11.5 H Volume Immature 0.500 H 0.500 H 0.400 Granulocytes % Segmented 72 Neutrophils % (Manual) Band 4 Neutrophils % (Manual) Lymphocytes % 11 L (Manual) Monocytes % 12 H (Manual) Eosinophils % 1 (Manual) Nucleated Red 0.0 0.0 0.0 Blood Cells % Immature 0.140 H 0.080 H 0.070 H Granulocytes # Neutrophils # 19.8 H (Manual) Band 1.0 H Neutrophils # Lymphocytes 2.9 (Manual) Monocytes # 3.2 H (Manual) Giant Platelets 1 H Platelet @See below Morphology Comment Polychromasia 1+ Hypochromasia 1+ Poikilocytosis 1+ Anisocytosis 1+ Macrocytosis 1+ Spherocytes 1+ Schistocytes 1+ Sodium Level 143 139 140 Potassium Level 3.3 L 4.9 5.1 Chloride Level 105 103 103 Carbon Dioxide 26 29 29 Level Anion Gap 12 7 8 Blood Urea 20 18 18 Nitrogen Creatinine 1.51 H 1.57 H 1.61 H Est Glomerular 47 L 45 L 44 L Filtrat Rate mL/min Glucose Level 55 #L 201 # 215 Calcium Level 8.9 8.9 9.0 Magnesium Level 3.3 H 2.2 # 2.1 Bedside Glucose 128 Neutrophils % 87.2 H 86.0 H Lymphocytes % 3.8 L 4.7 L Monocytes % 8.2 8.7 Eosinophils % 0.0 0.0 Basophils % 0.3 0.2 Neutrophils # 14.1 H 13.5 H Lymphocytes # 0.6 L 0.7 L Monocytes # 1.3 H 1.4 H Eosinophils # 0.0 0.0 Basophils # 0.1 0.0 Nucleated Red 0.0 0.0 Blood Cells # Prothrombin 14.4 Time Prothrombin 1.1 Time Ratio INR 1.11 International Normalized Rati o Activated 34.8 Partial Thrombo plast Time Test 05/08/18 04:55 05/08/18 05:00 Lab Scanned BLOOD TRANSFUSI Report ON Blood Gas Blood arterial Specimen Source Arterial Blood 05/08/2018 4:35: Date Drawn 58 AM Arterial Blood 7.468 H pH (Temp corrected ) Arterial Blood 36.3 pCO2 (Temp correct) Arterial Blood 96.0 pO2 (Temp corrected ) Arterial Blood 25.7 HCO3 Arterial Blood 2.2 Base Excess Arterial Blood 97.2 Oxygen Saturati on Regino Test N/A Arterial Blood A-Line Gas Puncture Site Arterial 0 Blood Carboxyhe moglobin Arterial Blood 0.4 Methemoglobin Blood Gas A-a 75.3 H O2 Differential Oxyhemoglobin 96.8 Percent Blood Gas 37.0 Temperature Blood Gas 12.0 Respiration Rate Blood Gas 16 Actual Respiration Rat e Blood Gas VENT - AC Modality FiO2 30.0 Blood Gas Tidal 550.0 Volume Blood Gas Low 5.0 PEEP Setting Blood Gas 23.0 Inspiratory Pressure Blood Gas MM Notified Whom Blood Gas 05/08/2018 4:42: Notified Time 42 AM Consultation Date/Type/Reason Admit Date/Time May 04, 2018 at 13:51 Initial Consult Date 05/05/18 Type of Consult NEPHROLOGY Requesting Provider: GINGER CALI MD 24 HR Interval Summary Free Text/Dictation s/p extubation, on nasal canula, saturation ok, Bp stable Exam/Review of Systems Vital Signs Vitals Vital Signs Date Temp Pulse Resp B/P (MAP) Pulse Ox O2 O2 Flow FiO2 Time Delivery Rate 05/08/18 80 20 102/60 100 11:30 (74) 05/08/18 99.8 11:00 05/08/18 Nasal 4.0 09:05 Cannula 05/08/18 30 08:00 Intake and Output 05/07/18 05/07/18 05/08/18 1515:00 23:00 07:00 IntakeIntake Total 3471 ml 857.694 ml 1262.42 ml OutputOutput Total 1837 ml 2747 ml 904 ml BalanceBalance 1634 ml -1889.306 ml 358.42 ml Exam Constitutional: s/p extubation on 2 L NC Respiratory: Bilateral coarse BS+, no wheezing Cardiovascular: S1S2 tachycardia, no murmur Gastrointestinal: soft, non-tender Musculoskeletal: no edema, no cyanosis, no clubbing Extremities: normal pulses, + ayala catheter Neurological: non focal, awake, alert, Medications Medications Current Medications Acetaminophen (Tylenol Tab) 650 mg Q4H PRN PO mild pain; Start 05/04/18 at 12:30 Morphine Sulfate (morphine) 2 mg Q2H PRN IV moderate to severe pain Last administered on 05/07/18 18:17; Admin Dose 2 MG; Start 05/04/18 at 12:30 Al Hydrox/Mg Hydrox/Simethicone (Mag-Al Plus) 30 ml Q4H PRN PO GASTROINTESTINAL UPSET; Start 05/04/18 at 12:30 Ondansetron HCl (Zofran Inj) 4 mg Q4H PRN IV NAUSEA AND/OR VOMITING Last administered on 05/08/18at 10:27; Admin Dose 4 MG; Start 05/04/18 at 12:30 Amlodipine Besylate (Norvasc) 10 mg DAILY PO Last administered on 05/06/18 08:07; Admin Dose 10 MG; Start 05/05/18 at 09:00 Metoprolol Succinate (Toprol Xl) 25 mg DAILY PO Last administered on 05/06/18 08:07; Admin Dose 25 MG; Start 05/04/18 at 20:30 Atorvastatin Calcium (Lipitor) 40 mg HS PO Last administered on 05/06/18 22:21; Admin Dose 40 MG; Start 05/04/18 at 21:00 Nitroglycerin/ Dextrose 250 ml @ 1.5 mls/hr PER PROTOCOL IV Last administered on 05/07/18 18:20; Admin Dose 1.5 MLS/HR; Start 05/07/18 at 15:00 Potassium Chloride 40 meq/ Calcium Chloride 1 gm/Dextrose/ Sodium Chloride 1,030 ml @ 100 mls/hr [id number] IV Last administered on 05/08/18 03:19; Admin Dose 100 MLS/HR; Start 05/07/18 at 16:30 Famotidine (Pepcid Iv) 20 mg DAILY IV Last administered on 05/08/18at 08:55; Admin Dose 20 MG; Start 05/07/18 at 20:00 Famotidine (Pepcid) 20 mg DAILY PO ; Start 05/08/18 at 09:00 Acetaminophen (Tylenol Tab) 650 mg Q3H PRN PO ELEVATED TEMPERATURE; Start 05/07/18 at 15:30 Acetaminophen (Tylenol Supp) 650 mg Q3H PRN [place] ELEVATED TEMPERATURE Last administered on 05/08/18at 01:00; Admin Dose 650 MG; Start 05/07/18 at 15:30 Potassium Chloride 50 ml @ 50 mls/hr SEE DIRECTION PRN IVPB POTASSIUM REPLACEMENT PROTOCOL Last administered on 05/07/18at 19:12; Admin Dose 50 MLS/HR; Start 05/07/18 at 15:30 Miscellaneous Information (* Miscellaneous Pharmacy Order) PHARMACY TO DOSE ANCEF... ONCE XX ; Start 05/07/18 at 17:30 Cefazolin Sodium 50 ml @ 100 mls/hr Q8H IVPB Last administered on 05/08/18at 11:36; Admin Dose 100 MLS/HR; Start 05/07/18 at 19:30; Stop 05/08/18 at 11:59 Dopamine HCl/ Dextrose 250 ml @ 5.58 mls/hr PER PROTOCOL IV Last administered on 05/08/18at 09:33; Admin Dose 27.9 MLS/HR; Start 05/08/18 at 09:00 Albumin Human 250 ml @ 250 mls/hr Q1H IV ; Start 05/08/18 at 12:00; Stop 05/08/18 at 13:59 Date/Time of Note Date/Time of Note DATE: 05/08/18 TIME: 11:58 MARIA DE JESUS LAUREN MD May 08, 2018 11:58
[2018-05-08] MEDS: ALBUMIN HUMAN 5% 250 ML IV SCH ×2 (12:10→13:00)
--- NOTE | 2018-05-08 13:07 | PN ---
Date/Time of Note Date/Time of Note DATE: 05/08/18 TIME: 13:05 Assessment/Plan VTE Prophylaxis Risk score (from Ns)>0 risk: 15 SCD applied (from [facility] [place]): Yes Pharmacological prophylaxis: NA/contraindicated, other Pharm contraindication: surgical contra Lines/Catheters [facility]from [facility] Cordis Central line still needed: Yes Urinary Cath still in place: Yes Reason Cath still needed: other (indicate) Assessment/Plan Hospital Course Patient is s/p CABG yesterday, pt was extubated today in the a.m., currently on supplemental oxygen, awake, alert. pain is well controlled. Patient continues on on dopamine for hemodynamic support. Continue ICU care. Assessment/Plan -Multivessel coronary artery disease on cardiac cath on 05/04/[address] Dial. S/p CABG procedure by Dr. Soriano, cardiovascular surgery on 05/07/18. -Acute on chronic renal failure. Dr. Herrera is following in nephrology consultation. -Hypertension, continue metoprolol, Norvasc continue statin -Hyperlipidemia, continue statin. Further recommendations based on clinical course. Plan of care discussed with Dr. Guerra. Result Diagram: 05/08/18 0400 05/08/18 1212 Results 24hrs Laboratory Tests Test 05/07/18 14:39 05/07/18 15:04 05/07/18 15:27 05/07/18 15:40 Bedside Glucose 79 Blood Gas Blood arterial BLMV Specimen Source Arterial Blood 05/07/2018 3:47: 05/07/2018 3:45 Date Drawn 53 PM :33 PM Arterial Blood 7.433 pH (Temp corrected ) Arterial Blood 40.0 pCO2 (Temp correct) Arterial Blood 148.5 H pO2 (Temp corrected ) Arterial Blood 26.1 H HCO3 Arterial Blood 1.8 Base Excess Arterial Blood 98.8 H Oxygen Saturati on Regino Test N/A N/A Arterial Blood A-Line PAL Gas Puncture Site Arterial 0.4 Blood Carboxyhe moglobin Arterial Blood 0.5 Methemoglobin Blood Gas A-a 307.6 H O2 Differential Oxyhemoglobin 97.9 Percent Blood Gas 37.0 37.0 Temperature Blood Gas 14.0 14.0 Respiration Rate Blood Gas 17 Actual Respiration Rat e Blood Gas VENT - AC VENT - AC Modality FiO2 70.0 70.0 Blood Gas Tidal 550.0 550.0 Volume Blood Gas Low 5.0 5.0 PEEP Setting Blood Gas RT RT Notified Whom Blood Gas 05/07/2018 3:55: 05/07/2018 3:54 Notified Time 58 PM :11 PM Mixed Venous 40.5 H Blood PO2 Mixed Venous 78.1 H Blood O2 Saturation Mixed Venous 12.4 Blood Total Hemoglobi n Mixed Venous 77.6 Blood Oxyhemogl obin Mixed Venous 0.3 Bld Carboxyhemo globin Mixed Venous 0.3 Blood Methemogl obin Prothrombin 15.8 #H Time Prothrombin 1.2 Time Ratio INR 1.25 International Normalized Rati o Activated 32.6 Partial Thrombo plast Time Test 05/07/18 15:41 05/07/18 18:23 05/08/18 00:27 05/08/18 04:00 White Blood 27.1 #H 16.2 #H 15.7 H Count Red Blood Count 4.64 L 4.39 L 4.26 L Hemoglobin 11.4 L 10.6 L 10.5 L Hematocrit 34.4 L 32.6 L 31.7 L Mean 74.1 L 74.3 L 74.4 L Corpuscular Volume Mean 24.6 L 24.1 L 24.6 L Corpuscular Hemoglobin Mean 33.1 32.5 33.1 Corpuscular Hemoglobin Conc ent Red Cell 17.7 H 17.2 H 17.6 H Distribution Width Platelet Count 223 # 216 213 Mean Platelet 9.3 10.3 11.5 H Volume Immature 0.500 H 0.500 H 0.400 Granulocytes % Segmented 72 Neutrophils % (Manual) Band 4 Neutrophils % (Manual) Lymphocytes % 11 L (Manual) Monocytes % 12 H (Manual) Eosinophils % 1 (Manual) Nucleated Red 0.0 0.0 0.0 Blood Cells % Immature 0.140 H 0.080 H 0.070 H Granulocytes # Neutrophils # 19.8 H (Manual) Band 1.0 H Neutrophils # Lymphocytes 2.9 (Manual) Monocytes # 3.2 H (Manual) Giant Platelets 1 H Platelet @See below Morphology Comment Polychromasia 1+ Hypochromasia 1+ Poikilocytosis 1+ Anisocytosis 1+ Macrocytosis 1+ Spherocytes 1+ Schistocytes 1+ Sodium Level 143 139 140 Potassium Level 3.3 L 4.9 5.1 Chloride Level 105 103 103 Carbon Dioxide 26 29 29 Level Anion Gap 12 7 8 Blood Urea 20 18 18 Nitrogen Creatinine 1.51 H 1.57 H 1.61 H Est Glomerular 47 L 45 L 44 L Filtrat Rate mL/min Glucose Level 55 #L 201 # 215 Calcium Level 8.9 8.9 9.0 Magnesium Level 3.3 H 2.2 # 2.1 Bedside Glucose 128 Neutrophils % 87.2 H 86.0 H Lymphocytes % 3.8 L 4.7 L Monocytes % 8.2 8.7 Eosinophils % 0.0 0.0 Basophils % 0.3 0.2 Neutrophils # 14.1 H 13.5 H Lymphocytes # 0.6 L 0.7 L Monocytes # 1.3 H 1.4 H Eosinophils # 0.0 0.0 Basophils # 0.1 0.0 Nucleated Red 0.0 0.0 Blood Cells # Prothrombin 14.4 Time Prothrombin 1.1 Time Ratio INR 1.11 International Normalized Rati o Activated 34.8 Partial Thrombo plast Time Test 05/08/18 04:55 05/08/18 05:00 05/08/18 12:12 Lab Scanned BLOOD TRANSFUSI Report ON Blood Gas Blood arterial Specimen Source Arterial Blood 05/08/2018 4:35: Date Drawn 58 AM Arterial Blood 7.468 H pH (Temp corrected ) Arterial Blood 36.3 pCO2 (Temp correct) Arterial Blood 96.0 pO2 (Temp corrected ) Arterial Blood 25.7 HCO3 Arterial Blood 2.2 Base Excess Arterial Blood 97.2 Oxygen Saturati on Regino Test N/A Arterial Blood A-Line Gas Puncture Site Arterial 0 Blood Carboxyhe moglobin Arterial Blood 0.4 Methemoglobin Blood Gas A-a 75.3 H O2 Differential Oxyhemoglobin 96.8 Percent Blood Gas 37.0 Temperature Blood Gas 12.0 Respiration Rate Blood Gas 16 Actual Respiration Rat e Blood Gas VENT - AC Modality FiO2 30.0 Blood Gas Tidal 550.0 Volume Blood Gas Low 5.0 PEEP Setting Blood Gas 23.0 Inspiratory Pressure Blood Gas MM Notified Whom Blood Gas 05/08/2018 4:42: Notified Time 42 AM Potassium Level 4.8 Exam/Review of Systems Vital Signs Vitals Vital Signs Date Temp Pulse Resp B/P (MAP) Pulse Ox O2 O2 Flow FiO2 Time Delivery Rate 05/08/18 82 20 110/62 100 12:31 (78) 05/08/18 99.7 12:01 05/08/18 Nasal 4.0 09:05 Cannula 05/08/18 30 09:05 Intake and Output 05/07/18 05/07/18 05/08/18 1515:00 23:00 07:00 IntakeIntake Total 3471 ml 857.694 ml 1262.42 ml OutputOutput Total 1837 ml 2747 ml 904 ml BalanceBalance 1634 ml -1889.306 ml 358.42 ml Exam Constitutional: alert, oriented Neck: supple Respiratory: clear to auscultation, other (CT mid chest *2) Cardiovascular: regular rate and rhythm, other (mid chest surgical incision) Gastrointestinal: soft, non-tender Genitourinary - Male: other (Fish) Musculoskeletal: nl extremities to inspection Extremities: normal pulses, other (s/p surgery) Neurological: nl mental status Skin: nl turgor Medications Medications Current Medications Acetaminophen (Tylenol Tab) 650 mg Q4H PRN PO mild pain; Start 05/04/18 at 12:30 Morphine Sulfate (morphine) 2 mg Q2H PRN IV moderate to severe pain Last administered on 05/07/18at 18:17; Admin Dose 2 MG; Start 05/04/18 at 12:30 Al Hydrox/Mg Hydrox/Simethicone (Mag-Al Plus) 30 ml Q4H PRN PO GASTROINTESTINAL UPSET; Start 05/04/18 at 12:30 Ondansetron HCl (Zofran Inj) 4 mg Q4H PRN IV NAUSEA AND/OR VOMITING Last administered on 05/08/18at 10:27; Admin Dose 4 MG; Start 05/04/18 at 12:30 Amlodipine Besylate (Norvasc) 10 mg DAILY PO Last administered on 05/06/18at 08:07; Admin Dose 10 MG; Start 05/05/18 at 09:00 Metoprolol Succinate (Toprol Xl) 25 mg DAILY PO Last administered on 05/06/18at 08:07; Admin Dose 25 MG; Start 05/04/18 at 20:30 Atorvastatin Calcium (Lipitor) 40 mg HS PO Last administered on 05/06/18at 22:21; Admin Dose 40 MG; Start 05/04/18 at 21:00 Nitroglycerin/ Dextrose 250 ml @ 1.5 mls/hr PER PROTOCOL IV Last administered on 05/07/18at 18:20; Admin Dose 1.5 MLS/HR; Start 05/07/18 at 15:00 Potassium Chloride 40 meq/ Calcium Chloride 1 gm/Dextrose/ Sodium Chloride 1,030 ml @ 100 mls/hr [id number] IV Last administered on 05/08/18at 03:19; Admin Dose 100 MLS/HR; Start 05/07/18 at 16:30 Famotidine (Pepcid Iv) 20 mg DAILY IV Last administered on 05/08/18at 08:55; Admin Dose 20 MG; Start 05/07/18 at 20:00 Famotidine (Pepcid) 20 mg DAILY PO ; Start 05/08/18 at 09:00 Acetaminophen (Tylenol Tab) 650 mg Q3H PRN PO ELEVATED TEMPERATURE; Start 05/07/18 at 15:30 Acetaminophen (Tylenol Supp) 650 mg Q3H PRN [place] ELEVATED TEMPERATURE Last administered on 05/08/18at 01:00; Admin Dose 650 MG; Start 05/07/18 at 15:30 Potassium Chloride 50 ml @ 50 mls/hr SEE DIRECTION PRN IVPB POTASSIUM REPLACEMENT PROTOCOL Last administered on 05/07/18at 19:12; Admin Dose 50 MLS/HR; Start 05/07/18 at 15:30 Miscellaneous Information (* Miscellaneous Pharmacy Order) PHARMACY TO DOSE ANCEF... ONCE XX ; Start 05/07/18 at 17:30 Dopamine HCl/ Dextrose 250 ml @ 5.58 mls/hr PER PROTOCOL IV Last administered on 05/08/18at 09:33; Admin Dose 27.9 MLS/HR; Start 05/08/18 at 09:00 Albumin Human 250 ml @ 250 mls/hr Q1H IV Last administered on 05/08/18at 12:10; Admin Dose 250 MLS/HR; Start 05/08/18 at 12:00; Stop 05/08/18 at 13:59 DANIE MOORE May 08, 2018 13:07
--- NOTE | 2018-05-08 13:45 | NUR ---
PT evaluation Therapy day number 1 Evaluation Start Time 13:45 Evaluation End Time 14:45 Evaluation Total Time 60 min Subjective Current complaint of pain Pain Scale FLACC Pain Intensity 5 (0-10) Patient Stated Goal for Pain Relief 0 (0-10) Pain Level Comment "it's tolerable" Pre Treatment Vital Signs Stable Yes Supine to Sit Maximum Assist Transfer Sit to Stand Ability Minimum Assist Bed Transfer Ability Minimum Assist Chair Transfer Ability Minimum Assist Additional Mobility Comments min A due to line traffic, no AD needed Gait Assist Levels Minimum Assist Assistive Devices None Ambulation Distance 8 feet Additional Gait Comments slow alta, limited by lines, no loss of balance noted Static Sitting Balance Good Dynamic Sitting Balance Good Standing Static Balance Fair Dynamic Standing Balance Fair Safety Judgement Good Activity Tolerance Fair Equipment Present Fish Catheter IV pump Additional Equipment Present multiple IV lines, R IVIJ, A line, chest tube, ICU monitoring, O2 NC Post Treatment Pain Intensity 5 0-10 Quality Indicators Light headedness Additional Post Treatment Comment See note Total Minutes 60 Total Units 4 PT Technical Record Comment 62 yo male presents with positive nuclear stress test demonstrates 3 vessel coronary artery disease including 100% occulusion of LAD, high-grade lesion of the first and second obtuse marginal branches of circumflex and high-grade lesion of posterior descending artery now s/p CABG x5 05/07/18 PMH: hypertension, dyslipidemia PLOF: Patient lives with spouse, mother in law, and son in [facility] with no stairs to enter. patient previously independent with no AD. No AD available Precautions: Fall risk, Sternal precautions S: Patient in bed, agreeable to PT evaluation. pt cleared for activity per RN. O: PT evaluation completed, pt placed in bedside chair following therapy intervention with call light within reach in direct care of RN. Vitals stable throughout, with mild reported lightheadedness with change in position, but otherwise no reported pain or shortness of breath with activity. Patient educated on sternal precautions and RN updated of patient response to activity and PT plan of care. A: Patient receptive to PT education and demonstrates fair mobility throughout. Patient presents with forward posture likely secondary to pain but able to ambulate without use of AD with fair balance. patient limited primarily secondary to lines and tubes. Patient could benefit from continued skilled inpatient PT to improve strength, endurance, and functional mobility. P: Progress gait tolerance, balance straining and improving posture Recommendation: home with assistance when medically cleared by MD, no DME recommended at this time
--- NOTE | 2018-05-08 14:00 | NUR ---
PT HAD A [address] OF [place] DR MORGAN INFORMED. PT ON 3MC OF DOPA, SBP 110. 250ML OF 5% ALBUMIN GIVEN. PER DR LOPEZ, D/C'D 2ND BOTTLE OF ALBUMIN, CVP IS 16, D/C DOPAMINE DRIP. CHEM STABLE.
--- NOTE | 2018-05-08 15:03 | NUR ---
OT EVAL: 62 yo male presents with positive nuclear stress test demonstrates 3 vessel coronary artery disease including 100% occlusion of LAD, high-grade lesion of the first and second obtuse marginal branches of circumflex and high-grade lesion of posterior descending artery now s/p CABG x5 05/07/18 PMH: hypertension, dyslipidemia PLOF: Patient lives with spouse, mother in law, and son in [place] with no stairs to enter. patient previously independent with ADL's and ambulation with no AD. No AD available Precautions: Fall risk, Sternal precautions CLOF: RN cleared pt for OT tx. Pt received seated up in chair with present. Pt AOx4 stating 2/10 chest pain with stable vitals. OTR educated pt on sternal precautions. Pt demonstrated good understanding of precautions by standing up from chair with CGA without using his arms. Pt demonstrated Fair standing balance while completing oral hygiene with supervision. Pt returned to bed with Min A. Pt left supine in bed with all needs met. RN notified. PT will benefit from skilled OT tx 1x daily for 3-5x week for safety awareness, balance, endurance and independnece with self care. Recommend d/c home with assistance when medically cleared by MD, no DME recommended at this time
[2018-05-08] MEDS: morphine 4 MG/ML VIAL IV PRN ×3 (16:29→22:45)
--- NOTE | 2018-05-08 17:48 | NUR ---
NUTRITION CONSULT: PATIENT S/P CABG, , ABNORMAL LABS PRIOR TO ADMIT, RRIGLYCERIDES 211, CHOLESTEROL 197. PER PATIENT IT IS FAMILIAL. EXTUBATED, COMFORTABLE. OVERWEIGHT. NUTRITION EDUCATION ON HEALTHY EATING CONSIDERING CULTURE BACKGROUND PROVIDED VERBAL AND WRITTEN WITH PRESENT. ALLOWED PHYSICAL ACTIVITIES HELPFUL TO KEEP HEALTHY WEIGHT.
--- NOTE | 2018-05-08 18:15 | NUR ---
END OF SHIFT NOTE. PT AOX4, FOLLOWS COMMANDS. PT EXTUBATED TODAY, 09, CURRENTLY ON 2L NC, 02 SAT 100%. HR SR, 80S. PT WAS GIVEN 1 DOSE OF 2MG MORPHINE FOR PAIN 09/24 TO CHEST, ALLEVIATED. SWAN AND L WRIST A-LINE D/C'D TODAY. R IJ CORDIS STILL IN PLACE. TITRATE PT OFF DOPAMINE DRIP, SBP >100S, 5% 250ML ALBUMIN GIVEN, BP MEDS HELD TODAY. PT HAD A 8 BEAT RUN OF [place], DR MORGAN AWARE, ORDERED TO STOP DOPAMINE DRIP AND NOT TO GIVE 2ND BOTTLE OF 5% 250ML ALBUMIN. 190ML SANG FROM CXT TODAY. PT SAW OT AND PT TODAY, ABLE TO GET OOB TO CHAIR WITH ASSIST. PT WITH FC, 30-60ML/HR. IVF DECREASED FROM 100ML/HR TO 20ML/HR SINCE PT IS TAKING PO NOW. CLEAR LIQUID DIET ADVANCED TO REG/CARDIAC FOR TOMORROW. DIETITIAN CONSULT ORDERED AND SAW PT, DISCUSSED HEALTHIER EATING WITH PT AND SPOUSE. ANTERIOR CHEST DRESSING CHANGED AND L LEG ABRAN WRAP REMOVED, LEFT OPEN TO AIR. R IJ CENTRAL DRESSING CHANGED. I/S USED Q1H WHEN PT AWAKE, 750-1000 ML VOLUME. ASPIRIN ADDED TO PT'S MED.
--- NOTE | 2018-05-08 18:23 | PN ---
Date/Time of Note Date/Time of Note DATE: 05/08/18 TIME: 18:21 Assessment/Plan Lines/Catheters IV Catheter Type (from Nrsg): A Line Fish in Place (from Nrsg): Yes Assessment/Plan Assessment/Plan SP CABG will DC SG cath Wean dopamine off continue CT sxn Subjective 24 Hr Interval Summary Constitutional: improved Pain Control: mild Exam/Review of Systems Vital Signs Vitals Vital Signs Date Temp Pulse Resp B/P (MAP) Pulse Ox O2 O2 Flow FiO2 Time Delivery Rate 05/08/18 81 18 103/79 100 Nasal 2.0 18:00 (87) Cannula 05/08/18 100.1 16:00 05/08/18 30 09:05 Intake and Output 05/07/18 05/07/18 05/08/18 1515:00 23:00 07:00 IntakeIntake Total 3471 ml 857.694 ml 1262.42 ml OutputOutput Total 1837 ml 2747 ml 904 ml BalanceBalance 1634 ml -1889.306 ml 358.42 ml Exam Eyes: nl conjunctiva, EOMI, nl lids, nl sclera ENMT: nl external ears & nose, nl lips & teeth, nl nasal mucosa & septum, mucosa pink and moist Neck: supple, non-tender Respiratory: clear to auscultation, normal air movement Cardiovascular: regular rate and rhythm, nl pulses Gastrointestinal: soft, nl liver, spleen, non-tender Results Result Diagram: 05/08/18 1537 05/08/18 1212 RONDA NAZARIO MD May 08, 2018 18:23
[2018-05-08] MEDS ORDERED: ASPIRIN 81 MG TAB PO ONE (20:00)
[2018-05-08] MEDS ORDERED: LORATADINE 10 MG TAB PO PRN (20:00)
[2018-05-08] MEDS: ATORVASTATIN 40 MG TAB PO SCH (20:11)
[2018-05-09] VITALS (26 sets, daily range): BP systolic 83–127; BP diastolic 64–83; PULSE 78–164; RESP 17–33
[2018-05-09] MEDS: morphine 4 MG/ML VIAL IV PRN ×5 (00:54→17:38)
--- NOTE | 2018-05-09 07:00 | NUR ---
EOSS: PATIENT A+OX4, ON 2LNC . NO ACUTE CHANGES OVER NIGHT, 70CC DRAINAGE FROM CHESTTUBE, URINE OUTPUT MARGINAL AT THE END OF SHIFT. ENCOURAGED PATIENT TO USE INCENTIVE SPIROMETER, MANAGED PAIN WITH MEDS PER MD. CHECKED ON PATIENT HOURLY AND PRN BY NURSING STAFF.
[2018-05-09] MEDS: FAMOTIDINE 20 MG INJ IV SCH (08:05)
[2018-05-09] MEDS: FAMOTIDINE 20 MG TAB PO SCH (08:05)
[2018-05-09] MEDS: ASPIRIN 81 MG TAB PO SCH (08:13)
--- NOTE | 2018-05-09 08:15 | CONS ---
Assessment/Plan Assessment/Plan Assessment/Plan 1. acute on chronic renal failure vs Baseline CKD- stable 2. 3 V CAD on Cardiac cath on 05/04/18 s/p CABG on 05/07/2018 3. H/o HTN 4. H/o HL 5.H/o possible CKD III due to HTN nephrosclerosis Plan: BUN/Cr /1.6, adequate urine output, Chest tube in place, CT surgery following will follow up Result Diagram: 05/09/18 0400 05/09/18 0400 Results 24hrs Laboratory Tests Test 05/08/18 12:12 05/08/18 15:37 05/09/18 04:00 Potassium Level 4.8 4.9 Hematocrit 28.9 L 28.3 L Prothrombin Time 16.0 H Prothrombin Time Ratio 1.3 INR International Normalized Ratio 1.27 Activated Partial Thromboplast Time 37.7 H White Blood Count 17.1 H Red Blood Count 3.73 L Hemoglobin 9.3 L Mean Corpuscular Volume 75.9 L Mean Corpuscular Hemoglobin 24.9 L Mean Corpuscular Hemoglobin Concent 32.9 Red Cell Distribution Width 18.1 H Platelet Count 145 # Mean Platelet Volume 10.4 Immature Granulocytes % 0.600 H Neutrophils % 80.0 H Lymphocytes % 8.8 L Monocytes % 9.9 Eosinophils % 0.2 Basophils % 0.5 Nucleated Red Blood Cells % 0.0 Immature Granulocytes # 0.100 H Neutrophils # 13.7 H Lymphocytes # 1.5 Monocytes # 1.7 H Eosinophils # 0.0 Basophils # 0.1 Nucleated Red Blood Cells # 0.0 Sodium Level 142 Chloride Level 101 Carbon Dioxide Level 29 Anion Gap 12 Blood Urea Nitrogen 21 H Creatinine 1.60 H Est Glomerular Filtrat Rate mL/min 44 L Glucose Level 140 # Calcium Level 9.0 Consultation Date/Type/Reason Admit Date/Time May 04, 2018 at 13:51 Initial Consult Date 05/05/18 Type of Consult NEPHROLOGY Requesting Provider: GINGER CALI MD 24 HR Interval Summary Free Text/Dictation BUN/cr 21/1.6, Bp stable, afebrile Exam/Review of Systems Vital Signs Vitals Vital Signs Date Temp Pulse Resp B/P (MAP) Pulse Ox O2 O2 Flow FiO2 Time Delivery Rate 05/09/18 82 20 110/76 96 Nasal 2.0 06:00 (87) Cannula 1/23/19 99.2 04:00 05/08/18 30 09:05 Intake and Output 05/08/18 05/08/18 05/09/18 1515:00 23:00 07:00 IntakeIntake Total 1189.55 ml 280 ml 240 ml OutputOutput Total 526 ml 271 ml 257 ml BalanceBalance 663.55 ml 9 ml -17 ml Exam Constitutional: s/p extubation on 2 L NC Respiratory: Bilateral coarse BS+, no wheezing Cardiovascular: S1S2 tachycardia, no murmur Gastrointestinal: soft, non-tender Musculoskeletal: no edema, no cyanosis, no clubbing Extremities: normal pulses, + ayala catheter Neurological: non focal, awake, alert, Medications Medications Current Medications Acetaminophen (Tylenol Tab) 650 mg Q4H PRN PO mild pain; Start 05/04/18 at 12:3 0 Morphine Sulfate (morphine) 2 mg Q2H PRN IV moderate to severe pain Last administered on 05/09/18 08:05; Admin Dose 2 MG; Start 05/04/18 at 12:30 Al Hydrox/Mg Hydrox/Simethicone (Mag-Al Plus) 30 ml Q4H PRN PO GASTROINTESTINAL UPSET; Start 05/04/18 at 12:30 Ondansetron HCl (Zofran Inj) 4 mg Q4H PRN IV NAUSEA AND/OR VOMITING Last administered on 05/08/18at 10:27; Admin Dose 4 MG; Start 05/04/18 at 12:30 Amlodipine Besylate (Norvasc) 10 mg DAILY PO Last administered on 05/06/18 08:07; Admin Dose 10 MG; Start 05/05/18 at 09:00 Metoprolol Succinate (Toprol Xl) 25 mg DAILY PO Last administered on 05/06/18 08:07; Admin Dose 25 MG; Start 05/04/18 at 20:30 Atorvastatin Calcium (Lipitor) 40 mg HS PO Last administered on 05/08/18at 20:11; Admin Dose 40 MG; Start 05/04/18 at 21:00 Nitroglycerin/ Dextrose 250 ml @ 1.5 mls/hr PER PROTOCOL IV Last administered on 05/07/18 18:20; Admin Dose 1.5 MLS/HR; Start 05/07/18 at 15:00 Potassium Chloride 40 meq/ Calcium Chloride 1 gm/Dextrose/ Sodium Chloride 1,030 ml @ 100 mls/hr [id number] IV Last administered on 05/08/18at 21:36; Admin Dose 100 MLS/HR; Start 05/07/18 at 16:30 Famotidine (Pepcid Iv) 20 mg DAILY IV Last administered on 05/08/18at 08:55; Admin Dose 20 MG; Start 05/07/18 at 20:00 Famotidine (Pepcid) 20 mg DAILY PO Last administered on 05/09/18at 08:05; Admin Dose 20 MG; Start 05/08/18 at 09:00 Acetaminophen (Tylenol Tab) 650 mg Q3H PRN PO ELEVATED TEMPERATURE; Start 05/07/18 at 15:30 Acetaminophen (Tylenol Supp) 650 mg Q3H PRN [place] ELEVATED TEMPERATURE Last administered on 05/08/18at 01:00; Admin Dose 650 MG; Start 05/07/18 at 15:30 Potassium Chloride 50 ml @ 50 mls/hr SEE DIRECTION PRN IVPB POTASSIUM REPLACEMENT PROTOCOL Last administered on 05/07/18at 19:12; Admin Dose 50 MLS/HR; Start 05/07/18 at 15:30 Miscellaneous Information (* Miscellaneous Pharmacy Order) PHARMACY TO DOSE ANCEF... ONCE XX ; Start 05/07/18 at 17:30 Aspirin (Aspirin) 81 mg DAILY PO Last administered on 05/09/18at 08:13; Admin Dose 81 MG; Start 05/09/18 at 09:00 Loratadine (Claritin) 10 mg DAILY PRN PO allergies; Start 05/08/18 at 20:00 Date/Time of Note Date/Time of Note DATE: 05/09/18 TIME: 08:15 MARIA DE JESUS LAUREN MD May 09, 2018 08:15
--- NOTE | 2018-05-09 09:15 | NUR ---
PT note Therapy day number 2 Subjective Current complaint of pain Pain Scale FLACC Pain Intensity 4 (0-10) Patient Stated Goal for Pain Relief 0 (0-10) Pain Level Comment "better than yesterday" Pre Treatment Vital Signs Stable Yes Transfer Training Start Time 09:15 Supine to Sit Moderate Assist Transfer Sit to Stand Ability Stand by Assist Bed Transfer Ability Stand by Assist Chair Transfer Ability Stand by Assist Sitting Tolerance 20 min Transfer Training End Time 09:55 Total Transfer Training Time 40 min (8-127) Gait Training Start Time 09:55 Gait Assist Levels Stand by Assist Assistive Devices None Ambulation Distance 15 feet Additional Gait Comments x2 slow alta, shuffling gait, steady balance, limited by lines Gait Training End Time 10:10 Total Gait Training Treatment Time 15 min (8-127) Static Sitting Balance Good Dynamic Sitting Balance Good Standing Static Balance Fair Dynamic Standing Balance Fair Safety Judgement Good Activity Tolerance Good Equipment Present Drains Fish Catheter IV pump Additional Equipment Present Multiple IV, on NC 2L, ICU monitoring, Chest tube Post Treatment Pain Intensity 4 0-10 Additional Post Treatment Comment See technical record Total Treament Time 55 min (8-127) Total Minutes 55 Total Units 4 PT Technical Record Comment S: Patient in bed, agreeable to PT intervention, patient cleared for activity per RN. O: PT intervention completed, 2 bouts performed for intervention from 0915 - 0955 and [id number] Patient tolerated sitting roughly 20 minutes in bedside chair. Patient asymptomatic with mobility but HR elevated to 140-160 with activity. RN present and aware of vitals. Patient assisted back to bed following therapy intervention with call light within reach and all needs met. Extensive time required due to multiple lines. Spoke to RN regarding pt response to activity and PT plan of care. A: Patient demonstrates fair mobility throughout however limited secondary to guarding and pain. patient receptive to education but distance limited secondary to lines and elevation in HR. Throughout treatment intervention HR fluctuates from 80-100 at rest, 140-160 with activity with no change in symptoms. Following activity HR fluctuating throughout, RN present and aware. Due to medical stability and line traffic, will hold PM treatment and follow up 05/10/18. RN aware and agreeable to PT intervention. Patient requires assist for OOB activity but steady with ambulation P: progress as tolerated, monitor HR
[2018-05-09] MEDS: POTASSIUM CHLORIDE 40 MEQ, CALCIUM CHLORIDE 10% 1 GM in DEXTROSE 5%-0.225% NACL 1,000 ML IV SCH ×2 (10:04→20:19)
[2018-05-09] MEDS: METOPROLOL (XL) 25 MG TAB PO SCH ×2 (10:24→20:07)
[2018-05-09] MEDS: AMLODIPINE 10 MG TAB PO SCH (10:28)
--- NOTE | 2018-05-09 11:16 | CONS ---
Assessment/Plan Cardiology Heart Failure NYHA Class: II Heart Failure Timing: Chronic Heart Failure Type: Diastolic Assessment/Plan Hospital Course (Demo Recall) IMP: 1.cad s/p cab g POD#2 LUEVANO-LAD, SVG-OM1/OM2, SKZ-NSL-rebu and SVG to PDA-prox 2.HTN 3.HL 4.REnal insufficiency 5.Leukocytosis 6.anemia 7. PAF-This am self limited Recc: -Tele -serial ecg's -Continue asa -Continue BB -Decrease dose of CCB -add amio in attempt to maintain SR Consultation Date/Type/Reason Admit Date/Time May 04, 2018 at 13:51 Initial Consult Date 05/05/18 Type of Consult Cardiology Reason for Consultation cad Requesting Provider: GINGER CALI MD Date/Time of Note DATE: 05/09/18 TIME: 11:09 Exam/Review of Systems Vital Signs Vitals Vital Signs Date Temp Pulse Resp B/P (MAP) Pulse Ox O2 O2 Flow FiO2 Time Delivery Rate 05/09/18 164 10:23 05/09/18 98.5 22 105/74 97 Nasal 2.0 08:00 (84) Cannula 05/08/18 30 09:05 Intake and Output 05/08/18 05/08/18 05/09/18 1515:00 23:00 07:00 IntakeIntake Total 1189.55 ml 280 ml 240 ml OutputOutput Total 526 ml 271 ml 257 ml BalanceBalance 663.55 ml 9 ml -17 ml Exam Exam Review of Systems: CONSTITUTIONAL: No fevers, chills. PULMONARY: No sob CARDIOVASCULAR: intermittent chest pain GASTROINTESTINAL: No nausea/vomiting. GENITOURINARY: No hematuria/dysuria. MUSCULOSKELETAL: No myagias/arthalgias. PSYCHIATRIC: The patient denies depression. NEUROLOGIC: No weakness Constitutional: alert Psych: no complaints Head: normocephalic ENMT: mucosa pink and moist Neck: supple, jvd (9 cm water) Respiratory: diminished breath sounds Cardiovascular: regular rate and rhythm, other (midline sternotomy-well healing) Gastrointestinal: soft, non-tender Musculoskeletal: muscle tone (normal) Extremities: edema (none) Neurological: other (No focal deficits) Labs Result Diagram: 05/09/18 0400 05/09/18 0400 Results 24hrs Laboratory Tests Test 05/08/18 12:12 05/08/18 15:37 05/09/18 04:00 Potassium Level 4.8 4.9 Hematocrit 28.9 L 28.3 L Prothrombin Time 16.0 H Prothrombin Time Ratio 1.3 INR International Normalized Ratio 1.27 Activated Partial Thromboplast Time 37.7 H White Blood Count 17.1 H Red Blood Count 3.73 L Hemoglobin 9.3 L Mean Corpuscular Volume 75.9 L Mean Corpuscular Hemoglobin 24.9 L Mean Corpuscular Hemoglobin Concent 32.9 Red Cell Distribution Width 18.1 H Platelet Count 145 # Mean Platelet Volume 10.4 Immature Granulocytes % 0.600 H Neutrophils % 80.0 H Lymphocytes % 8.8 L Monocytes % 9.9 Eosinophils % 0.2 Basophils % 0.5 Nucleated Red Blood Cells % 0.0 Immature Granulocytes # 0.100 H Neutrophils # 13.7 H Lymphocytes # 1.5 Monocytes # 1.7 H Eosinophils # 0.0 Basophils # 0.1 Nucleated Red Blood Cells # 0.0 Sodium Level 142 Chloride Level 101 Carbon Dioxide Level 29 Anion Gap 12 Blood Urea Nitrogen 21 H Creatinine 1.60 H Est Glomerular Filtrat Rate mL/min 44 L Glucose Level 140 # Calcium Level 9.0 RITA PISANO May 09, 2018 11:16
[2018-05-09] MEDS ORDERED: AMIODARONE 150MG/D5W BOLUS 100 ML IV ONE (11:30)
--- NOTE | 2018-05-09 12:35 | PN ---
Date/Time of Note Date/Time of Note DATE: 05/09/18 TIME: 12:26 Assessment/Plan VTE Prophylaxis [place] [facility] [place] risk: 3 SCD applied [place]from [facility] Yes Pharmacological prophylaxis: NA/contraindicated Pharm contraindication: surgical contra Lines/Catheters IV [facility] Type [facility]from [facility]): Cordis Central line still needed: Yes Urinary Cath still in place: Yes Reason Cath still needed: urinary retention Assessment/Plan Hospital Course Patient had an episode of tachycardia, atrial fibrillation with recent rapid ventricular response during physical therapy when he got out of bed, patient is currently in sinus rhythm, getting bolus of amiodarone. Patient denies any shortness of breath, pain is well controlled, 50 cc of serosanguineous drainage from chest tube since the beginning of the shift, marginal urinary output. Continue ICU care. Assessment/Plan -Multivessel coronary artery disease on cardiac cath on 05/04/[address] Dial. S/p CABG procedure by Dr. Soriano, cardiovascular surgery on 05/07/18. -Acute on chronic renal failure vs CKD stage 3. Dr. Herrera is following in nephrology consultation. -Hypertension, continue metoprolol, Norvasc. -Hyperlipidemia, continue statin. Further recommendations based on clinical course. Plan of care discussed with Dr. Guerra. Result Diagram: 05/09/18 0400 05/09/18 0400 Results 24hrs Laboratory Tests Test 05/08/18 15:37 05/09/18 04:00 Hematocrit 28.9 L 28.3 L Prothrombin Time 16.0 H Prothrombin Time Ratio 1.3 INR International Normalized Ratio 1.27 Activated Partial Thromboplast Time 37.7 H White Blood Count 17.1 H Red Blood Count 3.73 L Hemoglobin 9.3 L Mean Corpuscular Volume 75.9 L Mean Corpuscular Hemoglobin 24.9 L Mean Corpuscular Hemoglobin Concent 32.9 Red Cell Distribution Width 18.1 H Platelet Count 145 # Mean Platelet Volume 10.4 Immature Granulocytes % 0.600 H Neutrophils % 80.0 H Lymphocytes % 8.8 L Monocytes % 9.9 Eosinophils % 0.2 Basophils % 0.5 Nucleated Red Blood Cells % 0.0 Immature Granulocytes # 0.100 H Neutrophils # 13.7 H Lymphocytes # 1.5 Monocytes # 1.7 H Eosinophils # 0.0 Basophils # 0.1 Nucleated Red Blood Cells # 0.0 Sodium Level 142 Potassium Level 4.9 Chloride Level 101 Carbon Dioxide Level 29 Anion Gap 12 Blood Urea Nitrogen 21 H Creatinine 1.60 H Est Glomerular Filtrat Rate mL/min 44 L Glucose Level 140 # Calcium Level 9.0 Subjective 24 Hr Interval Summary Free Text/Dictation Constitutional: alert, oriented Neck: supple, R IJ central line Respiratory: clear to auscultation, other (CT mid chest *2) Cardiovascular: regular rate and rhythm, other (mid chest surgical incision) Gastrointestinal: soft, non-tender Genitourinary - Male: other (Fish) Musculoskeletal: nl extremities to inspection Extremities: normal pulses, other (s/p surgery) Neurological: nl mental status Skin: nl turgor Exam/Review of Systems Vital Signs Vitals Vital Signs Date Temp Pulse Resp B/P (MAP) Pulse Ox O2 O2 Flow FiO2 Time Delivery Rate 05/09/18 85 26 94/75 (81) 98 Nasal 2.0 11:00 Cannula 05/09/18 98.5 08:00 05/08/18 30 09:05 Intake and Output 05/08/18 05/08/18 05/09/18 1515:00 23:00 07:00 IntakeIntake Total 1189.55 ml 280 ml 240 ml OutputOutput Total 526 ml 271 ml 287 ml BalanceBalance 663.55 ml 9 ml -47 ml Exam Constitutional: alert, oriented Neck: supple Respiratory: clear to auscultation, other (CT mid chest *2) Cardiovascular: regular rate and rhythm, other (mid chest surgical incision) Gastrointestinal: soft, non-tender Genitourinary - Male: other (Fish) Musculoskeletal: nl extremities to inspection Extremities: normal pulses, other (s/p surgery) Neurological: nl mental status Skin: nl turgor Medications Medications Current Medications Acetaminophen (Tylenol Tab) 650 mg Q4H PRN PO mild pain; Start 05/04/18 at 12:30 Morphine Sulfate (morphine) 2 mg Q2H PRN IV moderate to severe pain Last administered on 05/09/18at 08:05; Admin Dose 2 MG; Start 05/04/18 at 12:30 Al Hydrox/Mg Hydrox/Simethicone (Mag-Al Plus) 30 ml Q4H PRN PO GASTROINTESTINAL UPSET; Start 05/04/18 at 12:30 Ondansetron HCl (Zofran Inj) 4 mg Q4H PRN IV NAUSEA AND/OR VOMITING Last administered on 05/08/18at 10:27; Admin Dose 4 MG; Start 05/04/18 at 12:30 Atorvastatin Calcium (Lipitor) 40 mg HS PO Last administered on 05/08/18at 20:11; Admin Dose 40 MG; Start 05/04/18 at 21:00 Nitroglycerin/ Dextrose 250 ml @ 1.5 mls/hr PER PROTOCOL IV Last administered on 05/07/18at 18:20; Admin Dose 1.5 MLS/HR; Start 05/07/18 at 15:00 Potassium Chloride 40 meq/ Calcium Chloride 1 gm/Dextrose/ Sodium Chloride 1,030 ml @ 100 mls/hr [id number] IV Last administered on 05/08/18at 21:36; Admin Dose 100 MLS/HR; Start 05/07/18 at 16:30 Famotidine (Pepcid Iv) 20 mg DAILY IV Last administered on 05/08/18at 08:55; Admin Dose 20 MG; Start 05/07/18 at 20:00 Famotidine (Pepcid) 20 mg DAILY PO Last administered on 05/09/18at 08:05; Admin Dose 20 MG; Start 05/08/18 at 09:00 Acetaminophen (Tylenol Tab) 650 mg Q3H PRN PO ELEVATED TEMPERATURE; Start 05/07/18 at 15:30 Acetaminophen (Tylenol Supp) 650 mg Q3H PRN [place] ELEVATED TEMPERATURE Last administered on 05/08/18at 01:00; Admin Dose 650 MG; Start 05/07/18 at 15:30 Potassium Chloride 50 ml @ 50 mls/hr SEE DIRECTION PRN IVPB POTASSIUM REPLACEMENT PROTOCOL Last administered on 05/07/18at 19:12; Admin Dose 50 MLS/HR; Start 05/07/18 at 15:30 Miscellaneous Information (* Miscellaneous Pharmacy Order) PHARMACY TO DOSE ANCEF... ONCE XX ; Start 05/07/18 at 17:30 Aspirin (Aspirin) 81 mg DAILY PO Last administered on 05/09/18at 08:13; Admin Dose 81 MG; Start 05/09/18 at 09:00 Loratadine (Claritin) 10 mg DAILY PRN PO allergies; Start 05/08/18 at 20:00 Amlodipine Besylate (Norvasc) 5 mg DAILY PO ; Start 05/10/18 at 09:00 Metoprolol Succinate (Toprol Xl) 25 mg BID PO ; Start 05/09/18 at 21:00 Amiodarone HCl (Cordarone) 200 mg BID PO ; Start 05/09/18 at 21:00 DANIE MOORE May 09, 2018 12:35
--- NOTE | 2018-05-09 12:47 | NUR ---
OT NOTE S: RN cleared pt for skilled OT tx. Vitals Stable. O: Pt received supine in bed and agreeable to tx stating 5/10 chest pain. OTR re-educated pt on sternal precautions. Pt demonstrated supine->sit at EOB with Min A while squeezing pillow (so not to use arms to push up). Seated at EOB pt demonstrated Good balance while completing h/g tasks with supervision. Pt continues to require Total A to raheel socks and Min A to raheel gown. Pt returned to bed with Min A. Pt left supine in bed with all needs met. RN notified. A: Pt ken tx well P: Cont POC.
--- NOTE | 2018-05-09 14:01 | PN ---
Date/Time of Note Date/Time of Note DATE: 05/09/18 TIME: 14:00 Assessment/Plan Lines/Catheters IV Catheter Type (from Nrsg): Cordis Fish in Place (from Nrsg): Yes Assessment/Plan Assessment/Plan Assessment/Plan SP CABG A fib hemodynamically stable continue CT sxn Amiodorone Subjective 24 Hr Interval Summary Constitutional: improved Pain Control: mild Exam/Review of Systems Vital Signs Vitals Vital Signs Date Temp Pulse Resp B/P (MAP) Pulse Ox O2 O2 Flow FiO2 Time Delivery Rate 05/09/18 92 21 97/65 (76) 97 Nasal 2.0 13:00 Cannula 05/09/18 98.7 12:00 05/08/18 30 09:05 Intake and Output 05/08/18 05/08/18 05/09/18 1515:00 23:00 07:00 IntakeIntake Total 1189.55 ml 280 ml 240 ml OutputOutput Total 526 ml 271 ml 287 ml BalanceBalance 663.55 ml 9 ml -47 ml Exam ENMT: nl external ears & nose, nl lips & teeth, nl nasal mucosa & septum, mucosa pink and moist Neck: supple, non-tender Respiratory: clear to auscultation, normal air movement Cardiovascular: nl pulses, irregular rhythm Gastrointestinal: soft, nl liver, spleen, non-tender Musculoskeletal: nl extremities to inspection, nl gait and stance Results Result Diagram: 05/09/180 05/09/18399 RONDA NAZARIO MD May 09, 2018 14:01
--- NOTE | 2018-05-09 18:18 | NUR ---
EOSS: Pt remains a+o x4, pt is afebrile throughout shift. Had an epsiode of rhythm change from sinus to afib rvr and svt converting back to SR W PACs, Dr. Dial notified orders received for amiodarone bolus and PO amiodarone. Pt BP remains WNL. Told [employer] INTERN Margi about low urine output. PT completed, got out of bed and on chair. Bed in lowest positon, bed brakes activated, side rails up, repositioned q2h.
[2018-05-09] MEDS: AMIODARONE 200 MG TAB PO SCH (20:07)
[2018-05-09] MEDS: ATORVASTATIN 40 MG TAB PO SCH (20:07)
[2018-05-10] VITALS (25 sets, daily range): BP systolic 87–127; BP diastolic 60–114; PULSE 76–106; RESP 16–28
--- NOTE | 2018-05-10 04:11 | NUR ---
Change of assignment: Report given to YUNIEL Agee.
[2018-05-10] MEDS: POTASSIUM CHLORIDE 40 MEQ, CALCIUM CHLORIDE 10% 1 GM in DEXTROSE 5%-0.225% NACL 1,000 ML IV SCH ×2 (06:36→16:58)
--- NOTE | 2018-05-10 06:37 | NUR ---
EOSS: RECEIVED PT ALERT AND ORIENTED, FOLLOWS COMMAND. VITALS SIGNS STABLE AND MONITORED. PT OUT BED AT AROUND 0600 COMFORTABLY SITTING ON A BEDSIDE CARDIAC CHAIR. NO ISSUES NOTED AND DENIES PAIN.
[2018-05-10] MEDS: ASPIRIN 81 MG TAB PO SCH (08:23)
[2018-05-10] MEDS: FAMOTIDINE 20 MG INJ IV SCH (08:24)
[2018-05-10] MEDS: AMIODARONE 200 MG TAB PO SCH ×2 (08:24→21:05)
[2018-05-10] MEDS: FAMOTIDINE 20 MG TAB PO SCH (08:24)
[2018-05-10] MEDS: METOPROLOL (XL) 25 MG TAB PO SCH ×2 (09:00→21:06)
[2018-05-10] MEDS ORDERED: AMLODIPINE 5 MG TAB PO SCH (09:00)
--- NOTE | 2018-05-10 10:36 | PN ---
Date/Time of Note Date/Time of Note DATE: 05/10/18 TIME: 10:34 Assessment/Plan Lines/Catheters IV Catheter Type (from Nrsg): Cordis Fish in Place (from Nrsg): Yes Assessment/Plan Assessment/Plan SP CABG A fib hemodynamically stable DC CT Amiodorone Subjective 24 Hr Interval Summary Constitutional: improved Pain Control: mild Exam/Review of Systems Vital Signs Vitals Vital Signs Date Temp Pulse Resp B/P (MAP) Pulse Ox O2 O2 Flow FiO2 Time Delivery Rate 05/10/18 82 23 90/64 (73) 98 Nasal 2.0 09:00 Cannula 05/10/18 98.4 08:00 05/08/18 30 09:05 Intake and Output 05/09/18 05/09/18 05/10/18 1515:00 23:00 07:00 IntakeIntake Total 500 ml 300 ml 420 ml OutputOutput Total 315 ml 337 ml 460 ml BalanceBalance 185 ml -37 ml -40 ml Exam ENMT: nl external ears & nose, nl lips & teeth, nl nasal mucosa & septum, mucosa pink and moist Neck: supple, non-tender Respiratory: clear to auscultation, normal air movement Cardiovascular: regular rate and rhythm, nl pulses Gastrointestinal: soft, nl liver, spleen, non-tender Musculoskeletal: nl extremities to inspection, nl gait and stance Results Result Diagram: 05/10/18 0435 05/10/18 0447 RONDA NAZARIO MD May 10, 2018 10:36
[2018-05-10] MEDS: morphine 4 MG/ML VIAL IV PRN ×2 (10:47→17:29)
--- NOTE | 2018-05-10 11:02 | NUR ---
PT NOTE, ATTEMPTED PT TREATMENT , RN IN PROCESS OF REMOVING CHEST TUBE , REQUESTED HOLD PT IN AM , PLAN TO FOLLOW UP IN PM .
--- NOTE | 2018-05-10 11:14 | CONS ---
Assessment/Plan Assessment/Plan Assessment/Plan 1. acute on chronic renal failure vs Baseline CKD- stable 2. 3 V CAD on Cardiac cath on 05/04/18 s/p CABG on 05/07/2018 3. H/o HTN 4. H/o HL 5.H/o possible CKD III due to HTN nephrosclerosis Plan: BUN/Cr 25/1.36, adequate urine output, Chest tube in place, CT surgery following d/c Current IVF Monitor urine output, Monitor electrolytes and Replace as needed will follow up Result Diagram: 05/10/18 0435 05/10/18 0447 Results 24hrs Laboratory Tests Test 05/09/18 19:55 05/10/18 04:35 05/10/18 04:47 Sodium Level 136 139 Potassium Level 4.7 4.2 Chloride Level 99 100 Carbon Dioxide Level 29 29 Anion Gap 8 10 Blood Urea Nitrogen 25 H 25 H Creatinine 1.42 H 1.36 H Est Glomerular Filtrat Rate mL/min 51 L 53 L Glucose Level 148 157 Calcium Level 8.9 8.9 Phosphorus Level 3.9 Magnesium Level 2.3 White Blood Count 15.7 H Red Blood Count 3.93 L Hemoglobin 9.6 L Hematocrit 30.0 L Mean Corpuscular Volume 76.3 L Mean Corpuscular Hemoglobin 24.4 L Mean Corpuscular Hemoglobin Concent 32.0 Red Cell Distribution Width 17.8 H Platelet Count 160 Mean Platelet Volume 11.2 H Immature Granulocytes % 0.600 H Neutrophils % 75.2 Lymphocytes % 12.2 L Monocytes % 9.1 Eosinophils % 2.2 Basophils % 0.7 Nucleated Red Blood Cells % 0.0 Immature Granulocytes # 0.090 H Neutrophils # 11.8 H Lymphocytes # 1.9 Monocytes # 1.4 H Eosinophils # 0.4 Basophils # 0.1 Nucleated Red Blood Cells # 0.0 Consultation Date/Type/Reason Admit Date/Time May 04, 2018 at 13:51 Initial Consult Date 05/05/18 Type of Consult NEPHROLOGY Requesting Provider: GINGER CALI MD Exam/Review of Systems Vital Signs Vitals Vital Signs Date Temp Pulse Resp B/P (MAP) Pulse Ox O2 O2 Flow FiO2 Time Delivery Rate 05/10/18 81 25 100/71 92 Nasal 2.0 11:00 (81) Cannula 05/10/18 98.4 08:00 05/08/18 30 09:05 Intake and Output 05/09/18 05/09/18 05/10/18 1515:00 23:00 07:00 IntakeIntake Total 500 ml 300 ml 420 ml OutputOutput Total 315 ml 337 ml 460 ml BalanceBalance 185 ml -37 ml -40 ml Exam Constitutional: awake, alert, no acute distress Respiratory: Bilateral coarse BS+, no wheezing Cardiovascular: S1S2 tachycardia, no murmur Gastrointestinal: soft, non-tender Musculoskeletal: no edema, no cyanosis, no clubbing Extremities: normal pulses, + ayala catheter Neurological: non focal, awake, alert, Medications Medications Current Medications Morphine Sulfate (morphine) 2 mg Q2H PRN IV moderate to severe pain Last administered on 05/10/18 10:47; Admin Dose 2 MG; Start 05/04/18 at 12:30 Al Hydrox/Mg Hydrox/Simethicone (Mag-Al Plus) 30 ml Q4H PRN PO GASTROINTESTINAL UPSET; Start 05/04/18 at 12:30 Ondansetron HCl (Zofran Inj) 4 mg Q4H PRN IV NAUSEA AND/OR VOMITING Last administered on 05/08/18 10:27; Admin Dose 4 MG; Start 05/04/18 at 12:30 Atorvastatin Calcium (Lipitor) 40 mg HS PO Last administered on 05/09/18at 20:07; Admin Dose 40 MG; Start 05/04/18 at 21:00 Nitroglycerin/ Dextrose 250 ml @ 1.5 mls/hr PER PROTOCOL IV Last administered on 05/07/18at 18:20; Admin Dose 1.5 MLS/HR; Start 05/07/18 at 15:00 Potassium Chloride 40 meq/ Calcium Chloride 1 gm/Dextrose/ Sodium Chloride 1,030 ml @ 100 mls/hr [id number] IV Last administered on 05/08/18at 21:36; Admin Dose 100 MLS/HR; Start 05/07/18 at 16:30 Famotidine (Pepcid) 20 mg DAILY PO Last administered on 05/10/18 08:24; Admin Dose 20 MG; Start 05/08/18 at 09:00 Acetaminophen (Tylenol Tab) 650 mg Q3H PRN PO ELEVATED TEMPERATURE; Start 05/07/18 at 15:30 Acetaminophen (Tylenol Supp) 650 mg Q3H PRN NC ELEVATED TEMPERATURE Last administered on 05/08/18at 01:00; Admin Dose 650 MG; Start 05/07/18 at 15:30 Potassium Chloride 50 ml @ 50 mls/hr SEE DIRECTION PRN IVPB POTASSIUM REPLACEMENT PROTOCOL Last administered on 05/07/18at 19:12; Admin Dose 50 MLS/HR; Start 05/07/18 at 15:30 Miscellaneous Information (* Miscellaneous Pharmacy Order) PHARMACY TO DOSE ANCEF... ONCE XX ; Start 05/07/18 at 17:30 Aspirin (Aspirin) 81 mg DAILY PO Last administered on 05/10/18at 08:23; Admin Dose 81 MG; Start 05/09/18 at 09:00 Loratadine (Claritin) 10 mg DAILY PRN PO allergies; Start 05/08/18 at 20:00 Amlodipine Besylate (Norvasc) 5 mg DAILY PO ; Start 05/10/18 at 09:00 Metoprolol Succinate (Toprol Xl) 25 mg BID PO Last administered on 05/09/18at 20:07; Admin Dose 25 MG; Start 05/09/18 at 21:00 Amiodarone HCl (Cordarone) 200 mg BID PO Last administered on 05/10/18at 08:24; Admin Dose 200 MG; Start 05/09/18 at 21:00 Date/Time of Note Date/Time of Note DATE: 05/10/18 TIME: 11:13 MARIA DE JESUS LAUREN MD May 10, 2018 11:14
--- NOTE | 2018-05-10 11:43 | CONS ---
Assessment/Plan Cardiology NYHA: II Heart Failure Type: Diastolic Assessment/Plan Hospital Course (Demo Recall) IMP: 1.cad s/p cab g POD#2 LUEVANO-LAD, SVG-OM1/OM2, OFF-NKV-ordk and SVG to PDA-prox 2.HTN 3.HL 4.REnal insufficiency 5.Leukocytosis 6.anemia 7. PAF-recurrent o/n but now back in SR Recc: -ICU-Tele -serial ecg's -Continue asa -Continue BB as tolerated -Hold norvasc -Continue amio in attempt to maintain SR PO and if recurrent will start IV infusion Consultation Date/Type/Reason Admit Date/Time May 04, 2018 at 13:51 Initial Consult Date 05/05/18 Type of Consult Cardiology Reason for Consultation cad s/p cabg Requesting Provider: GINGER CALI MD Date/Time of Note DATE: 05/10/18 TIME: 11:40 Exam/Review of Systems Vital Signs Vitals Vital Signs Date Temp Pulse Resp B/P (MAP) Pulse Ox O2 O2 Flow FiO2 Time Delivery Rate 05/10/18 81 25 100/71 92 Nasal 2.0 11:00 (81) Cannula 05/10/18 98.4 08:00 05/08/18 30 09:05 Intake and Output 05/09/18 05/09/18 05/10/18 1515:00 23:00 07:00 IntakeIntake Total 500 ml 300 ml 420 ml OutputOutput Total 315 ml 337 ml 460 ml BalanceBalance 185 ml -37 ml -40 ml Exam Exam Review of Systems: CONSTITUTIONAL: No fevers, chills. PULMONARY: No sob CARDIOVASCULAR: No chest pain/palpitations GASTROINTESTINAL: No nausea/vomiting. GENITOURINARY: No hematuria/dysuria. MUSCULOSKELETAL: No myagias/arthalgias. PSYCHIATRIC: The patient denies depression. NEUROLOGIC: No weakness Constitutional: alert Psych: no complaints Head: normocephalic ENMT: mucosa pink and moist Neck: supple, jvd (9 cm water) Respiratory: diminished breath sounds (at bases/B) Cardiovascular: regular rate and rhythm Gastrointestinal: soft, non-tender Musculoskeletal: muscle tone (normal) Extremities: edema (none) Neurological: other (No focal deficits) Labs Result Diagram: 05/10/18 0435 05/10/18 0447 Results 24hrs Laboratory Tests Test 05/09/18 19:55 05/10/18 04:35 05/10/18 04:47 Sodium Level 136 139 Potassium Level 4.7 4.2 Chloride Level 99 100 Carbon Dioxide Level 29 29 Anion Gap 8 10 Blood Urea Nitrogen 25 H 25 H Creatinine 1.42 H 1.36 H Est Glomerular Filtrat Rate mL/min 51 L 53 L Glucose Level 148 157 Calcium Level 8.9 8.9 Phosphorus Level 3.9 Magnesium Level 2.3 White Blood Count 15.7 H Red Blood Count 3.93 L Hemoglobin 9.6 L Hematocrit 30.0 L Mean Corpuscular Volume 76.3 L Mean Corpuscular Hemoglobin 24.4 L Mean Corpuscular Hemoglobin Concent 32.0 Red Cell Distribution Width 17.8 H Platelet Count 160 Mean Platelet Volume 11.2 H Immature Granulocytes % 0.600 H Neutrophils % 75.2 Lymphocytes % 12.2 L Monocytes % 9.1 Eosinophils % 2.2 Basophils % 0.7 Nucleated Red Blood Cells % 0.0 Immature Granulocytes # 0.090 H Neutrophils # 11.8 H Lymphocytes # 1.9 Monocytes # 1.4 H Eosinophils # 0.4 Basophils # 0.1 Nucleated Red Blood Cells # 0.0 RITA PISANO May 10, 2018 11:43
--- NOTE | 2018-05-10 12:43 | PN ---
Date/Time of Note Date/Time of Note DATE: 05/10/18 TIME: 12:36 Assessment/Plan VTE Prophylaxis Risk score (from [facility] [place])>0 risk: 5 SCD applied (from [facility] [place]): Yes Pharmacological prophylaxis: NA/contraindicated Pharm contraindication: surgical contra Lines/Catheters IV C[facility]ter Type [facility]from [facility] Cordis Urinary Cath still in place: Yes Reason Cath still needed: urinary retention Assessment/Plan Hospital Course Patient had an episode of atrial fibrillation currently in sinus rhythm and continued on p.o. amiodarone. Patient had a chest tube removed earlier and in a.m. patient is awake alert pain is adequately controlled. Continue ICU monitoring. Assessment/Plan -Multivessel coronary artery disease on cardiac cath on 05/04/[address] Dial. S/p CABG procedure by Dr. Soriano, cardiovascular surgery on 05/07/18. -Acute on chronic renal failure vs CKD stage 3. Dr. Herrera is following in nephrology consultation. -Hypertension, continue metoprolol, Norvasc. -Hyperlipidemia, continue statin. Further recommendations based on clinical course. Plan of care discussed with Dr. Guerra. Result Diagram: 05/10/18 0435 05/10/18 0447 Results 24hrs Laboratory Tests Test 05/09/18 19:55 05/10/18 04:35 05/10/18 04:47 Sodium Level 136 139 Potassium Level 4.7 4.2 Chloride Level 99 100 Carbon Dioxide Level 29 29 Anion Gap 8 10 Blood Urea Nitrogen 25 H 25 H Creatinine 1.42 H 1.36 H Est Glomerular Filtrat Rate mL/min 51 L 53 L Glucose Level 148 157 Calcium Level 8.9 8.9 Phosphorus Level 3.9 Magnesium Level 2.3 White Blood Count 15.7 H Red Blood Count 3.93 L Hemoglobin 9.6 L Hematocrit 30.0 L Mean Corpuscular Volume 76.3 L Mean Corpuscular Hemoglobin 24.4 L Mean Corpuscular Hemoglobin Concent 32.0 Red Cell Distribution Width 17.8 H Platelet Count 160 Mean Platelet Volume 11.2 H Immature Granulocytes % 0.600 H Neutrophils % 75.2 Lymphocytes % 12.2 L Monocytes % 9.1 Eosinophils % 2.2 Basophils % 0.7 Nucleated Red Blood Cells % 0.0 Immature Granulocytes # 0.090 H Neutrophils # 11.8 H Lymphocytes # 1.9 Monocytes # 1.4 H Eosinophils # 0.4 Basophils # 0.1 Nucleated Red Blood Cells # 0.0 Exam/Review of Systems Exam Vitals Vital Signs Date Temp Pulse Resp B/P (MAP) Pulse Ox O2 O2 Flow FiO2 Time Delivery Rate 05/10/18 81 25 100/71 92 Nasal 2.0 11:00 (81) Cannula 05/10/18 98.4 08:00 05/08/18 30 09:05 Intake and Output 05/09/18 05/09/18 05/10/18 1515:00 23:00 07:00 IntakeIntake Total 500 ml 300 ml 420 ml OutputOutput Total 315 ml 337 ml 460 ml BalanceBalance 185 ml -37 ml -40 ml Constitutional: alert, oriented Neck: supple Respiratory: clear to auscultation Cardiovascular: regular rate and rhythm, other (Midline surgical incision with intact dressing) Gastrointestinal: soft, non-tender Extremities: normal pulses, other (Right lower extremities status post surgery) Skin: nl turgor Results Results 24hrs Laboratory Tests Test 05/09/18 19:55 05/10/18 04:35 05/10/18 04:47 Sodium Level 136 139 Potassium Level 4.7 4.2 Chloride Level 99 100 Carbon Dioxide Level 29 29 Anion Gap 8 10 Blood Urea Nitrogen 25 H 25 H Creatinine 1.42 H 1.36 H Est Glomerular Filtrat Rate mL/min 51 L 53 L Glucose Level 148 157 Calcium Level 8.9 8.9 Phosphorus Level 3.9 Magnesium Level 2.3 White Blood Count 15.7 H Red Blood Count 3.93 L Hemoglobin 9.6 L Hematocrit 30.0 L Mean Corpuscular Volume 76.3 L Mean Corpuscular Hemoglobin 24.4 L Mean Corpuscular Hemoglobin Concent 32.0 Red Cell Distribution Width 17.8 H Platelet Count 160 Mean Platelet Volume 11.2 H Immature Granulocytes % 0.600 H Neutrophils % 75.2 Lymphocytes % 12.2 L Monocytes % 9.1 Eosinophils % 2.2 Basophils % 0.7 Nucleated Red Blood Cells % 0.0 Immature Granulocytes # 0.090 H Neutrophils # 11.8 H Lymphocytes # 1.9 Monocytes # 1.4 H Eosinophils # 0.4 Basophils # 0.1 Nucleated Red Blood Cells # 0.0 DANIE MOORE May 10, 2018 12:43
--- NOTE | 2018-05-10 13:56 | NUR ---
Case Managment Notes: T/c made to the Paige ([phone]) regarding the specialty bed that the patient wanting to have upon discharge. Told her that he does not qualify for a specialty bed based on Medical criteria but i can ask Tanya Serra for a rental. As per Paul rental would be $160.00 per month. She is willing to rent and provided her the PN of [place].
--- NOTE | 2018-05-10 14:59 | NUR ---
PT NOTE , RN CLEARED , PATIENT AGREEABLE .FEELING MUCH BETTER THIS AFTERNOON . PATIENT FOUND IN BED IN SUPINE POSITION , INSTRUCTED HIM IN SAFETY FALL PRECAUTION , CARDIAC PRECAUTION, PERFORMED A/ROM EXE'S BLE'S: INCLUDING AP AND KNEE FLEX, EXT, P/S SEE PT NOTE FOR PATIENT'S FUNCTIONAL STATUS , GAIT TR W/FWW PERFORMED ~ 200" , WITH CGA WITH OCC.VC'S FOR PROPER BREATHING TECHNICS, GAIT WITH FWW IS RECIPROCAL, STEADY , STABLE , NO LOB PERFORMED , PATIENT SAT UP IN CARDIAC CHAIR POST PT SESSION , VS STABLE , TOLERATED TREATMENT WELL , RN NOTIFIED PATIENT'S PARTICIPATION IN PT SESSION , PATIENT IS CLEARED TO AMBULATE WITH NSG STAFF . A: PLAN TO RETURN HOME ONCE CLEARED BY MD . P: CONTINUE WITH POC AND ADVANCE TO GAIT TR WITHOUT AD WHEN ABLE .
--- NOTE | 2018-05-10 18:18 | NUR ---
EOSS: Pt remains SR throughout entire shift, no issues of AFIB runs. Margi MAE made rounds. Dr. Dial made rounds, new orders received. 1045- Dr. Soriano took chest tube out, no complications, pain meds given PRN. Pt walked around with PT with no complications. Bed in lowest position bed brakes activated, educated about safety precautions.
--- NOTE | 2018-05-10 19:30 | NUR ---
REPORT RECEIVED TO OUTGOING RN. CARE ASSUMED, ASSESSMENT DONE. PLAN OF CARE DISCUSSED TO PT. AND RE: COMFORT, HYGIENE, VS MONITORING, MEDICATICATIONS, TELEMETRY MONITORING, CALL FOR CHEST PAINDIET I/OS ETC. PT AND VERBALIZED UNDERSTANDING.2100 DUE MED.S ADMINISTERED W/O DIFFICULTY, ACTIONS EXPLAINED. WILL CONTINUE TO MONITOR.
--- NOTE | 2018-05-10 19:57 | RADRPT ---
Vent Rate: 85 bpm RR Interval: 0 msec [place] Interval: 138 msec QRS Duration: 90 msec QT Interval: 410 msec QTC Interval: 487 msec P-R-T [place]: 66 - 50 - -9 degrees Normal sinus rhythm T wave abnormality, consider inferolateral ischemia Prolonged QT Abnormal ECG Electronically Signed By: Miguel Dial [id number]
--- NOTE | 2018-05-10 19:57 | RADRPT ---
Vent Rate: 99 bpm RR Interval: 0 msec [place] Interval: 112 msec QRS Duration: 76 msec QT Interval: 388 msec QTC Interval: 497 msec P-R-T [place]: 23 - 51 - 0 degrees Normal sinus rhythm T wave abnormality, consider inferior ischemia Abnormal ECG Electronically Signed By: Miguel Dial [id number]
--- NOTE | 2018-05-10 19:57 | RADRPT ---
Vent Rate: 96 bpm RR Interval: 0 msec [place] Interval: 114 msec QRS Duration: 84 msec QT Interval: 332 msec QTC Interval: 419 msec P-R-T [place]: 27 - 37 - -18 degrees Normal sinus rhythm Cannot rule out Inferior infarct , age undetermined Abnormal ECG Electronically Signed By: Miguel Dial [id number]
--- NOTE | 2018-05-10 19:58 | RADRPT ---
Vent Rate: 86 bpm RR Interval: 0 msec [place] Interval: 134 msec QRS Duration: 82 msec QT Interval: 368 msec QTC Interval: 440 msec P-R-T [place]: 61 - 33 - -2 degrees Normal sinus rhythm Nonspecific T wave abnormality Abnormal ECG Electronically Signed By: Miguel Dial [id number]
--- NOTE | 2018-05-10 19:59 | RADRPT ---
Vent Rate: 86 bpm RR Interval: 0 msec [place] Interval: 134 msec QRS Duration: 82 msec QT Interval: 364 msec QTC Interval: 435 msec P-R-T [place]: 47 - 23 - 25 degrees Sinus rhythm with marked sinus arrhythmia Otherwise normal ECG Electronically Signed By: Miguel Dial [id number]
[2018-05-10] MEDS ORDERED: ZOLPIDEM 5 MG TAB PO PRN (20:30)
[2018-05-10] MEDS: ATORVASTATIN 40 MG TAB PO SCH (21:05)
[2018-05-11] VITALS (23 sets, daily range): BP systolic 87–113; BP diastolic 64–79; PULSE 83–94; RESP 17–30
[2018-05-11] MEDS: METOPROLOL (XL) 25 MG TAB PO SCH ×2 (08:28→21:00)
[2018-05-11] MEDS: AMIODARONE 200 MG TAB PO SCH ×2 (08:30→21:16)
[2018-05-11] MEDS: FAMOTIDINE 20 MG TAB PO SCH (08:31)
[2018-05-11] MEDS: ASPIRIN 81 MG TAB PO SCH (08:31)
[2018-05-11] MEDS: POTASSIUM CHLORIDE 50 ML IVPB PRN ×2 (08:32→09:52)
--- NOTE | 2018-05-11 09:07 | CONS ---
Assessment/Plan Assessment/Plan Assessment/Plan (Daily) 1. acute on chronic renal failure vs Baseline CKD- stable 2. 3 V CAD on Cardiac cath on 05/04/18 s/p CABG on 05/07/2018 3. H/o HTN 4. H/o HL 5.H/o possible CKD III due to HTN nephrosclerosis Plan: BUN/Cr 22/1.35, adequate urine output, Chest tube in place, CT surgery following , sitting in chair Monitor urine output, Monitor electrolytes and Replace as needed will follow up Consultation Date/Type/Reason Admit Date/Time May 04, 2018 at 13:51 Initial Consult Date 05/05/18 Type of Consult NEPHROLOGY Requesting Provider: GINGER CALI MD Date/Time of Note DATE: 05/11/18 TIME: 09:07 24 HR Interval Summary Free Text/Dictation BUN/Cr 22/1.35, Chest tube in place , siiting in chair Exam/Review of Systems Exam Vitals Vital Signs Date Temp Pulse Resp B/P (MAP) Pulse Ox O2 O2 Flow FiO2 Time Delivery Rate 05/11/18 94 17 88/70 (76) 99 Nasal 2.0 07:00 Cannula 05/11/18 98.7 04:00 05/11/18 28 02:40 Intake and Output 05/10/18 05/10/18 05/11/18 1515:00 23:00 07:00 IntakeIntake Total 300 ml 200 ml 400 ml OutputOutput Total 590 ml 290 ml 470 ml BalanceBalance -290 ml -90 ml -70 ml Additional Comments Constitutional: awake, alert, no acute distress Respiratory: decreaesd BS at bases, , no wheezing , + chest tube i nplace Cardiovascular: S1S2 tachycardia, no murmur Gastrointestinal: soft, non-tender Musculoskeletal: no edema, no cyanosis, no clubbing Extremities: normal pulses, + ayala catheter Neurological: non focal, awake, alert Results Result Diagram: 05/11/1842405/11/18424 Results 24hrs Laboratory Tests Test 05/11/18 04:25 White Blood Count 14.8 H Red Blood Count 4.04 L Hemoglobin 9.8 L Hematocrit 30.5 L Mean Corpuscular Volume 75.5 L Mean Corpuscular Hemoglobin 24.3 L Mean Corpuscular Hemoglobin Concent 32.1 Red Cell Distribution Width 17.4 H Platelet Count 223 # Mean Platelet Volume 10.8 H Immature Granulocytes % 0.500 H Neutrophils % 74.0 Lymphocytes % 12.0 L Monocytes % 9.7 Eosinophils % 3.0 Basophils % 0.8 Nucleated Red Blood Cells % 0.0 Immature Granulocytes # 0.070 H Neutrophils # 10.9 H Lymphocytes # 1.8 Monocytes # 1.4 H Eosinophils # 0.5 Basophils # 0.1 Nucleated Red Blood Cells # 0.0 Sodium Level 138 Potassium Level 4.1 Chloride Level 101 Carbon Dioxide Level 28 Anion Gap 9 Blood Urea Nitrogen 22 H Creatinine 1.35 H Est Glomerular Filtrat Rate mL/min 54 L Glucose Level 112 # Calcium Level 8.5 MARIA DE JESUS LAUREN MD May 11, 2018 09:07
--- NOTE | 2018-05-11 10:00 | NUR ---
PT note, patient sitting in bedside chair, reports "feeling ok" but bloated, had been sitting up since 4AM, requesting PT to follow up in PM. RN aware
--- NOTE | 2018-05-11 10:51 | NUR ---
RN NOTES RN CALLED DR NAZARIO, DR NAZARIO CALLED BACK, RN RELAYED TO , PT ON POTASSIUM PROTOCOL, 20 MEQ GIVEN FOR POTASSIUM LEVEL 4.1, PT WITH CORDIS, WITH MD DANIELLE WITH ORDER GIVEN
--- NOTE | 2018-05-11 12:02 | PN ---
Date/Time of Note Date/Time of Note DATE: 05/11/18 TIME: 12:00 Assessment/Plan Lines/Catheters IV Catheter Type (from Nrsg): Central Line Ayala in Place (from Nrsg): Yes Assessment/Plan Assessment/Plan SP CABG hemodynamically stable CT DCed will DC gumaro DC ayala Tx tele DC planning Subjective 24 Hr Interval Summary Constitutional: improved Pain Control: mild Exam/Review of Systems Vital Signs Vitals Vital Signs Date Temp Pulse Resp B/P (MAP) Pulse Ox O2 O2 Flow FiO2 Time Delivery Rate 05/11/18 89 25 104/77 99 Room Air 10:00 (86) 05/11/18 98.2 08:00 05/11/18 2.0 07:00 05/11/18 28 02:40 Intake and Output 05/10/18 05/10/18 05/11/18 1515:00 23:00 07:00 IntakeIntake Total 300 ml 200 ml 400 ml OutputOutput Total 590 ml 290 ml 470 ml BalanceBalance -290 ml -90 ml -70 ml Exam ENMT: nl external ears & nose, nl lips & teeth, nl nasal mucosa & septum, mucosa pink and moist Neck: supple, non-tender Respiratory: clear to auscultation, normal air movement Cardiovascular: regular rate and rhythm, nl pulses Gastrointestinal: soft, nl liver, spleen, non-tender Results Result Diagram: 05/11/1842405/11/18 0425 RONDA NAZARIO MD May 11, 2018 12:02
--- NOTE | 2018-05-11 12:39 | CONS ---
Assessment/Plan Assessment/Plan Assessment/Plan (Daily) 1.Cad s/p cabg LUEVANO-LAD, SVG-OM1/OM2, ISD-MJY-wvmi and SVG to PDA-prox - recovered well - con't to follow - plan to tele today 2.HTN - well controlled - con't med rx. 3.HL 4.Renal insufficiency - no acute events, BP in good range - will monitor now. 5.Leukocytosis - on anti-Bx, con't Rx. 6.Anemia - no bleeding now. 7. PAF-recurrent o/n but now back in SR - rate controlled. Consultation Date/Type/Reason Admit Date/Time May 04, 2018 at 13:51 Initial Consult Date Requesting Provider: GINGER CALI MD Date/Time of Note DATE: 05/11/18 TIME: 12:30 24 HR Interval Summary Free Text/Dictation No acute events - short episodes of a. fib - now in sinus - will monitor clinically now. ROS: No fever, no chills, no nausea, no vomiting, no diarrhea/constipation No recent weight changes No chest pain, no PND, no orthopnea - improved SOB, scar pain No dizziness, blurred vision No thirst, no heat or cold intolerance Exam/Review of Systems Exam Vitals Vital Signs Date Temp Pulse Resp B/P (MAP) Pulse Ox O2 O2 Flow FiO2 Time Delivery Rate 05/11/18 89 25 104/77 99 Room Air 10:00 (86) 05/11/18 98.2 08:00 05/11/18 2.0 07:00 05/11/18 28 02:40 Intake and Output 05/10/18 05/10/18 05/11/18 1515:00 23:00 07:00 IntakeIntake Total 300 ml 200 ml 400 ml OutputOutput Total 590 ml 290 ml 470 ml BalanceBalance -290 ml -90 ml -70 ml Additional Comments General: WN/WD/NAD, AOx 3 HEENT: Unicetric/atraumatic/EOMI (follows commands) NECK: JVD elevated, no thyromegaly Lymph: no lymphadenopathy HEART: regular with no S3, II/ systolic murmur at apex - mid sternal scar LUNGS: Coarse sounds ABD: soft, NT, ND, +BS : Intact Neuro: non focal SKIN: chronic changes EXT: trace edema Results Result Diagram: 05/11/18 0425 05/11/18 0425 Results 24hrs Laboratory Tests Test 05/11/18 03:50 05/11/18 04:25 Hemoglobin A1c 5.9 White Blood Count 14.8 H Red Blood Count 4.04 L Hemoglobin 9.8 L Hematocrit 30.5 L Mean Corpuscular Volume 75.5 L Mean Corpuscular Hemoglobin 24.3 L Mean Corpuscular Hemoglobin Concent 32.1 Red Cell Distribution Width 17.4 H Platelet Count 223 # Mean Platelet Volume 10.8 H Immature Granulocytes % 0.500 H Neutrophils % 74.0 Lymphocytes % 12.0 L Monocytes % 9.7 Eosinophils % 3.0 Basophils % 0.8 Nucleated Red Blood Cells % 0.0 Immature Granulocytes # 0.070 H Neutrophils # 10.9 H Lymphocytes # 1.8 Monocytes # 1.4 H Eosinophils # 0.5 Basophils # 0.1 Nucleated Red Blood Cells # 0.0 Sodium Level 138 Potassium Level 4.1 Chloride Level 101 Carbon Dioxide Level 28 Anion Gap 9 Blood Urea Nitrogen 22 H Creatinine 1.35 H Est Glomerular Filtrat Rate mL/min 54 L Glucose Level 112 # Calcium Level 8.5 CHIN MORGAN MD May 11, 2018 12:39
--- NOTE | 2018-05-11 14:15 | NUR ---
PT note Therapy day number 4 Subjective Current complaint of pain Pain Scale NUMERIC Pain Intensity 4 (0-10) Patient Stated Goal for Pain Relief 0 (0-10) Pain Level Comment "tolerable" Pre Treatment Vital Signs Stable Yes Transfer Sit to Stand Ability Supervised Bed Mobility Sit to Supine Modified Independent Bed Transfer Ability Modified Independent Chair Transfer Ability Modified Independent Additional Mobility Comments supervised for hand placement Gait Training Start Time 14:15 Gait Assist Levels Supervised Assistive Devices None Ambulation Distance 250 feet Additional Gait Comments slow [place], mild L sided lean, no LOB Gait Training End Time 14:39 Total Gait Training Treatment Time 24 min (8-127) Static Sitting Balance Good Dynamic Sitting Balance Good Standing Static Balance Good Dynamic Standing Balance Fair plus Additional Balance Assessments Comments with no AD Safety Judgement Good Activity Tolerance Good Equipment Present IV pump Additional Equipment Present ICU monitoring Post Treatment Pain Intensity 4 0-10 Additional Post Treatment Comment See note Total Treament Time 24 min (8-127) Total Minutes 24 Total Units 2 PT Technical Record Comment S: patient sitting in bedside chair, agreeable to PT intervention. pt cleared for activity per RN O: PT intervention completed, pt returned back to bed following therapy intervention with call light within reach and all needs met. No reports of pain, dizziness, or shortness of breath with activity. Vitals stable throughout. Patient complaints of "bloated" throughout. RN aware of patient response to activity and PT plan of care A: Patient presents with significantly improved mobility throughout with no assistive device. Patient receptive to PT instruction and compliant with sternal precautions. Patient likely close to baseline functional mobility but may benefit from 1-2 treatments to ensure consistancy with movement and safe mobility with no assistive device. Change frequency of care 7x/week with reassessment 05/13/18 P: Improve dynamic balance with gait with no AD, change speeds and turns
[2018-05-11] MEDS: DOCUSATE SODIUM 100 MG CAP PO SCH (15:45)
--- NOTE | 2018-05-11 16:04 | NUR ---
RN NOTES PT FOR TRANSFER TO ROOM 618A, REPORT GIVEN TO MIRANDA FREEMAN RN
[2018-05-11] MEDS: AL HYDROX/MG HYDROX/SIMETH 30 ML CUP PO PRN (17:21)
--- NOTE | 2018-05-11 17:30 | NUR ---
TRANSFER NOTES PICKED UP BY TRANSPORTER VIA BED ACCOMPANIED BY FUNMI RN FOR TRANSFER TO TELEMETRY ROOM 618 A, PT IN STABLE CONDITION WITH ALL PERSONAL BELONGINGS GIVEN, PT'S AT BEDSIDE
--- NOTE | 2018-05-11 19:39 | PN ---
Date/Time of Note Date/Time of Note DATE: 05/11/18 TIME: 19:36 Assessment/Plan VTE [place]axis [place] [facility] [place]: 11 [place] [facility] [place] Yes SCD contraindicated: other Pharmacological prophylaxis: other Lines/Catheters [facility] Saline Lock Urinary Cath still in place: Yes Reason Cath still needed: urinary retention Assessment/Plan Assessment/Plan -Multivessel coronary artery disease on cardiac cath on 05/04/[address] Dial. S/p CABG procedure by Dr. Soriano, cardiovascular surgery on 05/07/18. -Acute on chronic renal failure vs CKD stage 3. Dr. Herrera is following in nephrology consultation. -Hypertension, continue metoprolol, Norvasc. -Hyperlipidemia, continue statin. Further recommendations based on clinical course. Plan of care discussed with Dr. Guerra. Result Diagram: 05/11/18 0425 05/11/18 0425 Results 24hrs Laboratory Tests Test 05/11/18 03:50 05/11/18 04:25 Hemoglobin A1c 5.9 White Blood Count 14.8 H Red Blood Count 4.04 L Hemoglobin 9.8 L Hematocrit 30.5 L Mean Corpuscular Volume 75.5 L Mean Corpuscular Hemoglobin 24.3 L Mean Corpuscular Hemoglobin Concent 32.1 Red Cell Distribution Width 17.4 H Platelet Count 223 # Mean Platelet Volume 10.8 H Immature Granulocytes % 0.500 H Neutrophils % 74.0 Lymphocytes % 12.0 L Monocytes % 9.7 Eosinophils % 3.0 Basophils % 0.8 Nucleated Red Blood Cells % 0.0 Immature Granulocytes # 0.070 H Neutrophils # 10.9 H Lymphocytes # 1.8 Monocytes # 1.4 H Eosinophils # 0.5 Basophils # 0.1 Nucleated Red Blood Cells # 0.0 Sodium Level 138 Potassium Level 4.1 Chloride Level 101 Carbon Dioxide Level 28 Anion Gap 9 Blood Urea Nitrogen 22 H Creatinine 1.35 H Est Glomerular Filtrat Rate mL/min 54 L Glucose Level 112 # Calcium Level 8.5 Exam/Review of Systems Exam Vitals Vital Signs Date Temp Pulse Resp B/P (MAP) Pulse Ox O2 O2 Flow FiO2 Time Delivery Rate 05/11/18 98.0 92 20 113/73 94 Room Air 18:06 (86) 05/11/18 2.0 07:00 05/11/18 28 02:40 Intake and Output 05/10/18 05/10/18 05/11/18 1414:59 22:59 06:59 IntakeIntake Total 300 ml 200 ml 200 ml OutputOutput Total 590 ml 300 ml 420 ml BalanceBalance -290 ml -100 ml -220 ml Results Results 24hrs Laboratory Tests Test 05/11/18 03:50 05/11/18 04:25 Hemoglobin A1c 5.9 White Blood Count 14.8 H Red Blood Count 4.04 L Hemoglobin 9.8 L Hematocrit 30.5 L Mean Corpuscular Volume 75.5 L Mean Corpuscular Hemoglobin 24.3 L Mean Corpuscular Hemoglobin Concent 32.1 Red Cell Distribution Width 17.4 H Platelet Count 223 # Mean Platelet Volume 10.8 H Immature Granulocytes % 0.500 H Neutrophils % 74.0 Lymphocytes % 12.0 L Monocytes % 9.7 Eosinophils % 3.0 Basophils % 0.8 Nucleated Red Blood Cells % 0.0 Immature Granulocytes # 0.070 H Neutrophils # 10.9 H Lymphocytes # 1.8 Monocytes # 1.4 H Eosinophils # 0.5 Basophils # 0.1 Nucleated Red Blood Cells # 0.0 Sodium Level 138 Potassium Level 4.1 Chloride Level 101 Carbon Dioxide Level 28 Anion Gap 9 Blood Urea Nitrogen 22 H Creatinine 1.35 H Est Glomerular Filtrat Rate mL/min 54 L Glucose Level 112 # Calcium Level 8.5 Medications Medication Current Medications Morphine Sulfate (morphine) 2 mg Q2H PRN IV moderate to severe pain Last administered on 05/10/18at 17:29; Admin Dose 2 MG; Start 05/04/18 at 12:30 Al Hydrox/Mg Hydrox/Simethicone (Mag-Al Plus) 30 ml Q4H PRN PO GASTROINTESTINAL UPSET Last administered on 05/11/18at 17:21; Admin Dose 30 ML; Start 05/04/18 at 12:30 Ondansetron HCl (Zofran Inj) 4 mg Q4H PRN IV NAUSEA AND/OR VOMITING Last administered on 05/08/18at 10:27; Admin Dose 4 MG; Start 05/04/18 at 12:30 Atorvastatin Calcium (Lipitor) 40 mg HS PO Last administered on 05/10/18at 21:05; Admin Dose 40 MG; Start 05/04/18 at 21:00 Acetaminophen (Tylenol Tab) 650 mg Q3H PRN PO ELEVATED TEMPERATURE; Start 05/07/18 at 15:30 Acetaminophen (Tylenol Supp) 650 mg Q3H PRN [place] ELEVATED TEMPERATURE Last administered on 05/08/18at 01:00; Admin Dose 650 MG; Start 05/07/18 at 15:30 Aspirin (Aspirin) 81 mg DAILY PO Last administered on 05/11/18at 08:31; Admin Dose 81 MG; Start 05/09/18 at 09:00 Loratadine (Claritin) 10 mg DAILY PRN PO allergies; Start 05/08/18 at 20:00 Metoprolol Succinate (Toprol Xl) 25 mg BID PO Last administered on 05/11/18at 08:28; Admin Dose 25 MG; Start 05/09/18 at 21:00 Amiodarone HCl (Cordarone) 200 mg BID PO Last administered on 05/11/18at 08:30; Admin Dose 200 MG; Start 05/09/18 at 21:00 Zolpidem Tartrate (Ambien) 5 mg HS MAY REPEAT X 1 PRN PO INSOMNIA; Start 05/10/18 at 20:30 Docusate Sodium (Colace) 100 mg DAILY PO Last administered on 05/11/18at 15:45; Admin Dose 100 MG; Start 05/11/18 at 15:30 IVY YATES May 11, 2018 19:39
[2018-05-11] MEDS: ATORVASTATIN 40 MG TAB PO SCH (21:15)
[2018-05-12] VITALS (11 sets, daily range): BP systolic 101–116; BP diastolic 65–69; PULSE 86–93; RESP 18–20
--- NOTE | 2018-05-12 07:48 | NUR ---
Pt. had an uneventful night, SR, normal V/S, no pain verbalized, ambulated to the bathroom w/ standby assist, had a BM this shift.
[2018-05-12] MEDS: ASPIRIN 81 MG TAB PO SCH (08:21)
[2018-05-12] MEDS: DOCUSATE SODIUM 100 MG CAP PO SCH (08:21)
[2018-05-12] MEDS: METOPROLOL (XL) 25 MG TAB PO SCH ×2 (08:21→20:42)
[2018-05-12] MEDS: AMIODARONE 200 MG TAB PO SCH ×2 (08:21→20:42)
[2018-05-12] MEDS: AL HYDROX/MG HYDROX/SIMETH 30 ML CUP PO PRN (10:23)
--- NOTE | 2018-05-12 10:28 | PN ---
Date/Time of Note Date/Time of Note DATE: 05/12/18 TIME: 10:27 Assessment/Plan Lines/Catheters IV Catheter Type (from Nrsg): Saline Lock Ayala in Place (from Nrsg): Yes Assessment/Plan Assessment/Plan SP CABG hemodynamically stable CT DCed will DC gumaro DC ayala Tx tele DC planning FU with me 1 week Subjective 24 Hr Interval Summary Constitutional: improved Pain Control: mild Exam/Review of Systems Vital Signs Vitals Vital Signs Date Temp Pulse Resp B/P (MAP) Pulse Ox O2 O2 Flow FiO2 Time Delivery Rate 05/12/18 87 08:01 05/12/18 98.2 19 116/67 97 07:23 (83) 05/11/18 21 21:45 05/11/18 Room Air 20:34 05/11/18 2.0 20:00 Intake and Output 05/11/18 05/11/18 05/12/18 1515:00 23:00 07:00 IntakeIntake Total 780 ml 700 ml OutputOutput Total 390 ml 300 ml BalanceBalance 390 ml -300 ml 700 ml Exam Eyes: nl conjunctiva, EOMI, nl lids, nl sclera ENMT: nl external ears & nose, nl lips & teeth, nl nasal mucosa & septum, mucosa pink and moist Neck: supple, non-tender Respiratory: clear to auscultation, normal air movement Cardiovascular: regular rate and rhythm, nl pulses Gastrointestinal: soft, nl liver, spleen, non-tender Results Result Diagram: 05/12/18 0515 05/12/18 0515 RONDA NAZARIO MD May 12, 2018 10:28
--- NOTE | 2018-05-12 10:45 | NUR ---
PT NOTE [facility] Patient: Gordon Giraldo : 1955 Age/Sex: 62/M Unit#: [id number] Room/Bed: [facility]/A User: Annaleekiara Veloz PTA Date: 05/12/18 10:20 Type: PT Technical Record Therapy day number 5 Subjective Current complaint of pain Pain Scale NUMERIC Pain Intensity 7 (0-10) Patient Stated Goal for Pain Relief 0 (0-10) Pain Level Comment "bloating is better" Pre Treatment Vital Signs Stable Yes - 107/73 mmHg, 92 bpm, 98% O2 sat on RA Transfer Sit to Stand Ability Supervised Additional Mobility Comments received/left up in chair Gait Training Start Time 10:20 Gait Assist Levels Supervised Assistive Devices None Ambulation Distance 300 feet Additional Gait Comments reciprocal gait, speed change, head turns, changes in turns Gait Training End Time 10:45 Total Gait Training Treatment Time 25 min (8-127) Weight Bearing Assessment Label Bilat Lower Extremity Weight Bearing Status Full Weight Bearing Static Sitting Balance Good Dynamic Sitting Balance Good Standing Static Balance Good Dynamic Standing Balance Good Safety Judgement Good Activity Tolerance Good Post Treatment Pain Intensity 2 0-10 Additional Post Treatment Comment see PT note Total Treament Time 25 min (8-127) Total Minutes 25 Total Units 2 PT Technical Record Comment PT NOTE S: "My pain is ok. The morphine was making my bloated." Agreed to skilled PT. cleared by YUNIEL Mckeon. O: Received up in chair. Pre tx vitals WNLs. See tech record for assist levels. Gait training without AD, reciprocal gait focusing on dynamic balance. Performed change in speed and turns; no LOB. Head turns with ambulation; pt reported slight dizziness but recovered quickly. Returned back to room d/t fatigue. Positioned up in chair. Post tx vitals: 118/74 mmHg, 90 bpm, 98% O2 sat on RA. A: Pt ken tx well. Increased gait distance with no episodes of LOB. P: Continue with POC and dynamic standing balance activities.
--- NOTE | 2018-05-12 11:40 | PN ---
Date/Time of Note Date/Time of Note DATE: 05/12/18 TIME: 11:39 Assessment/Plan VTE Prophylaxis Risk score (from Ns)>0 risk: 11 SCD applied (from Ns): Yes Pharmacological prophylaxis: LMWH Lines/Catheters IV [facility] Type (from [facility] Saline Lock Urinary Cath still in place: Yes Reason Cath still needed: skin wounds contaminated by urine Assessment/Plan Hospital Course -Multivessel coronary artery disease on cardiac cath on 05/04/[address] Dial. S/p CABG procedure by Dr. Soriano, cardiovascular surgery on 05/07/18. -Acute on chronic renal failure vs CKD stage 3. Dr. Herrera is following in nephrology consultation. -Hypertension, continue metoprolol, Norvasc. -Hyperlipidemia, continue statin. Result Diagram: 05/12/1815 05/12/18 0515 Results 24hrs Laboratory Tests Test 05/12/18 05:15 White Blood Count 15.5 H Red Blood Count 4.29 L Hemoglobin 10.4 L Hematocrit 32.1 L Mean Corpuscular Volume 74.8 L Mean Corpuscular Hemoglobin 24.2 L Mean Corpuscular Hemoglobin Concent 32.4 Red Cell Distribution Width 17.7 H Platelet Count 310 # Mean Platelet Volume 10.9 H Immature Granulocytes % 0.600 H Neutrophils % 69.9 Lymphocytes % 14.7 L Monocytes % 10.0 Eosinophils % 4.0 Basophils % 0.8 Nucleated Red Blood Cells % 0.0 Immature Granulocytes # 0.090 H Neutrophils # 10.9 H Lymphocytes # 2.3 Monocytes # 1.6 H Eosinophils # 0.6 H Basophils # 0.1 Nucleated Red Blood Cells # 0.0 Sodium Level 140 Potassium Level 4.2 Chloride Level 100 Carbon Dioxide Level 27 Anion Gap 13 Blood Urea Nitrogen 22 H Creatinine 1.44 H Est Glomerular Filtrat Rate mL/min 50 L Glucose Level 106 Calcium Level 8.5 Subjective 24 Hr Interval Summary Free Text/Dictation Patient has no complaints Exam/Review of Systems Exam Vitals Vital Signs Date Temp Pulse Resp B/P (MAP) Pulse Ox O2 O2 Flow FiO2 Time Delivery Rate 05/12/18 98.1 90 19 105/67 97 11:13 (80) 05/12/18 Nasal 2.0 10:49 Cannula 05/11/18 21 21:45 Intake and Output 105/11/18 05/12/18 1414:59 22:59 06:59 IntakeIntake Total 980 ml 700 ml OutputOutput Total 480 ml 300 ml BalanceBalance 500 ml -300 ml 700 ml Constitutional: well developed Head: normocephalic, atraumatic Neck: supple Respiratory: clear to auscultation Cardiovascular: regular rate and rhythm Gastrointestinal: soft, non-tender Extremities: normal pulses Results Results 24hrs Laboratory Tests Test 05/12/18 05:15 White Blood Count 15.5 H Red Blood Count 4.29 L Hemoglobin 10.4 L Hematocrit 32.1 L Mean Corpuscular Volume 74.8 L Mean Corpuscular Hemoglobin 24.2 L Mean Corpuscular Hemoglobin Concent 32.4 Red Cell Distribution Width 17.7 H Platelet Count 310 # Mean Platelet Volume 10.9 H Immature Granulocytes % 0.600 H Neutrophils % 69.9 Lymphocytes % 14.7 L Monocytes % 10.0 Eosinophils % 4.0 Basophils % 0.8 Nucleated Red Blood Cells % 0.0 Immature Granulocytes # 0.090 H Neutrophils # 10.9 H Lymphocytes # 2.3 Monocytes # 1.6 H Eosinophils # 0.6 H Basophils # 0.1 Nucleated Red Blood Cells # 0.0 Sodium Level 140 Potassium Level 4.2 Chloride Level 100 Carbon Dioxide Level 27 Anion Gap 13 Blood Urea Nitrogen 22 H Creatinine 1.44 H Est Glomerular Filtrat Rate mL/min 50 L Glucose Level 106 Calcium Level 8.5 Medications Medication Current Medications Morphine Sulfate (morphine) 2 mg Q2H PRN IV moderate to severe pain Last administered on 05/10/18at 17:29; Admin Dose 2 MG; Start 05/04/18 at 12:30 Al Hydrox/Mg Hydrox/Simethicone (Mag-Al Plus) 30 ml Q4H PRN PO GASTROINTESTINAL UPSET Last administered on 05/12/18at 10:23; Admin Dose 30 ML; Start 05/04/18 at 12:30 Ondansetron HCl (Zofran Inj) 4 mg Q4H PRN IV NAUSEA AND/OR VOMITING Last administered on 05/08/18at 10:27; Admin Dose 4 MG; Start 05/04/18 at 12:30 Atorvastatin Calcium (Lipitor) 40 mg HS PO Last administered on 05/11/18at 21:15; Admin Dose 40 MG; Start 05/04/18 at 21:00 Acetaminophen (Tylenol Tab) 650 mg Q3H PRN PO ELEVATED TEMPERATURE; Start 04/18 05/05 at 15:30 Acetaminophen (Tylenol Supp) 650 mg Q3H PRN [place] ELEVATED TEMPERATURE Last administered on 05/08/18at 01:00; Admin Dose 650 MG; Start 05/07/18 at 15:30 Aspirin (Aspirin) 81 mg DAILY PO Last administered on 05/12/18at 08:21; Admin Dose 81 MG; Start 05/09/18 at 09:00 Loratadine (Claritin) 10 mg DAILY PRN PO allergies; Start 05/08/18 at 20:00 Metoprolol Succinate (Toprol Xl) 25 mg BID PO Last administered on 05/12/18at 08:21; Admin Dose 25 MG; Start 05/09/18 at 21:00 Amiodarone HCl (Cordarone) 200 mg BID PO Last administered on 05/12/18at 08:21; Admin Dose 200 MG; Start 05/09/18 at 21:00 Zolpidem Tartrate (Ambien) 5 mg HS MAY REPEAT X 1 PRN PO INSOMNIA; Start 05/10/18 at 20:30 Docusate Sodium (Colace) 100 mg DAILY PO Last administered on 05/11/18at 15:45; Admin Dose 100 MG; Start 05/11/18 at 15:30 LEONCIO LEO May 12, 2018 11:39
--- NOTE | 2018-05-12 13:01 | CONS ---
Assessment/Plan Assessment/Plan Assessment/Plan (Daily) Cad s/p cabg LUEVANO-LAD, SVG-OM1/OM2, QJI-VPW-kcmi and SVG to PDA HTN HLP Renal insufficiency Anemia PAF Continue amiodarone Continue Lopressor Continue ASA Continue Lipitor Avoid ABRAN-I/ARBs Consultation Date/Type/Reason Admit Date/Time May 04, 2018 at 13:51 Date/Time of Note DATE: 05/12/18 TIME: 12:58 Constitutional: no complaints Respiratory: no complaints Cardiovascular: no complaints Gastrointestinal: no complaints Past Medical History Medical History: coronary artery disease, high cholesterol, hypertension Home Meds Reported Medications Metoprolol Succinate* (Toprol XL*) 25 Mg Tab.sr.24h, 25 MG PO DAILY, #30 TAB 05/04/18 Atorvastatin Calcium* (Atorvastatin Calcium*) 20 Mg Tablet, 20 MG PO QHS, #30 TAB 05/04/18 Amlodipine Besylate* (Amlodipine Besylate*) 10 Mg Tablet, 10 MG PO DAILY, #30 TAB 05/04/18 Medications Current Medications Morphine Sulfate (morphine) 2 mg Q2H PRN IV moderate to severe pain Last administered on 05/10/18at 17:29; Admin Dose 2 MG; Start 05/04/18 at 12:30 Al Hydrox/Mg Hydrox/Simethicone (Mag-Al Plus) 30 ml Q4H PRN PO GASTROINTESTINAL UPSET Last administered on 05/12/18at 10:23; Admin Dose 30 ML; Start 05/04/18 at 12:30 Ondansetron HCl (Zofran Inj) 4 mg Q4H PRN IV NAUSEA AND/OR VOMITING Last administered on 05/08/18at 10:27; Admin Dose 4 MG; Start 05/04/18 at 12:30 Atorvastatin Calcium (Lipitor) 40 mg HS PO Last administered on 05/11/18at 21:15; Admin Dose 40 MG; Start 05/04/18 at 21:00 Acetaminophen (Tylenol Tab) 650 mg Q3H PRN PO ELEVATED TEMPERATURE; Start 04/18 05/05 at 15:30 Acetaminophen (Tylenol Supp) 650 mg Q3H PRN [place] ELEVATED TEMPERATURE Last administered on 05/08/18at 01:00; Admin Dose 650 MG; Start 05/07/18 at 15:30 Aspirin (Aspirin) 81 mg DAILY PO Last administered on 05/12/18at 08:21; Admin Dose 81 MG; Start 05/09/18 at 09:00 Loratadine (Claritin) 10 mg DAILY PRN PO allergies; Start 05/08/18 at 20:00 Metoprolol Succinate (Toprol Xl) 25 mg BID PO Last administered on 05/12/18at 08:21; Admin Dose 25 MG; Start 05/09/18 at 21:00 Amiodarone HCl (Cordarone) 200 mg BID PO Last administered on 05/12/18at 08:21; Admin Dose 200 MG; Start 05/09/18 at 21:00 Zolpidem Tartrate (Ambien) 5 mg HS MAY REPEAT X 1 PRN PO INSOMNIA; Start 05/10/18 at 20:30 Docusate Sodium (Colace) 100 mg DAILY PO Last administered on 05/11/18at 15:45; Admin Dose 100 MG; Start 05/11/18 at 15:30 Allergies: Coded Allergies: No Known Allergy (Unverified , 05/05/18) Past Surgical History Past Surgical Hx: no surgical history Social History Alcohol Use: none Smoking Status: Former smoker Drug Use: none Exam/Review of Systems Exam Vitals Vital Signs Date Temp Pulse Resp B/P (MAP) Pulse Ox O2 O2 Flow FiO2 Time Delivery Rate 05/12/18 98.1 90 19 105/67 97 11:13 (80) 05/12/18 Nasal 2.0 10:49 Cannula 05/11/18 21:45 Intake and Output 05/11/18 05/11/18 05/12/18 1515:00 23:00 07:00 IntakeIntake Total 780 ml 700 ml OutputOutput Total 390 ml 300 ml BalanceBalance 390 ml -300 ml 700 ml Constitutional: alert, oriented Head: normocephalic, atraumatic Respiratory: clear to auscultation Cardiovascular: regular rate and rhythm (no m/r/g) Gastrointestinal: soft, nl liver, spleen Extremities: normal pulses Results Result Diagram: 05/12/1815 05/12/18 0515 Results 24hrs Laboratory Tests Test 05/12/18 05:15 White Blood Count 15.5 H Red Blood Count 4.29 L Hemoglobin 10.4 L Hematocrit 32.1 L Mean Corpuscular Volume 74.8 L Mean Corpuscular Hemoglobin 24.2 L Mean Corpuscular Hemoglobin Concent 32.4 Red Cell Distribution Width 17.7 H Platelet Count 310 # Mean Platelet Volume 10.9 H Immature Granulocytes % 0.600 H Neutrophils % 69.9 Lymphocytes % 14.7 L Monocytes % 10.0 Eosinophils % 4.0 Basophils % 0.8 Nucleated Red Blood Cells % 0.0 Immature Granulocytes # 0.090 H Neutrophils # 10.9 H Lymphocytes # 2.3 Monocytes # 1.6 H Eosinophils # 0.6 H Basophils # 0.1 Nucleated Red Blood Cells # 0.0 Sodium Level 140 Potassium Level 4.2 Chloride Level 100 Carbon Dioxide Level 27 Anion Gap 13 Blood Urea Nitrogen 22 H Creatinine 1.44 H Est Glomerular Filtrat Rate mL/min 50 L Glucose Level 106 Calcium Level 8.5 Medications Medication Current Medications Morphine Sulfate (morphine) 2 mg Q2H PRN IV moderate to severe pain Last administered on 05/10/18 17:29; Admin Dose 2 MG; Start 05/04/18 at 12:30 Al Hydrox/Mg Hydrox/Simethicone (Mag-Al Plus) 30 ml Q4H PRN PO GASTROINTESTINAL UPSET Last administered on 05/12/18 10:23; Admin Dose 30 ML; Start 05/04/18 at 12:30 Ondansetron HCl (Zofran Inj) 4 mg Q4H PRN IV NAUSEA AND/OR VOMITING Last administered on 05/08/18 10:27; Admin Dose 4 MG; Start 05/04/18 at 12:30 Atorvastatin Calcium (Lipitor) 40 mg HS PO Last administered on 05/11/18 21:15; Admin Dose 40 MG; Start 05/04/18 at 21:00 Acetaminophen (Tylenol Tab) 650 mg Q3H PRN PO ELEVATED TEMPERATURE; Start 05/07/18 at 15:30 Acetaminophen (Tylenol Supp) 650 mg Q3H PRN [place] ELEVATED TEMPERATURE Last administered on 05/08/18at 01:00; Admin Dose 650 MG; Start 05/07/18 at 15:30 Aspirin (Aspirin) 81 mg DAILY PO Last administered on 05/12/18at 08:21; Admin Dose 81 MG; Start 05/09/18 at 09:00 Loratadine (Claritin) 10 mg DAILY PRN PO allergies; Start 05/08/18 at 20:00 Metoprolol Succinate (Toprol Xl) 25 mg BID PO Last administered on 1/26/19at 08:21; Admin Dose 25 MG; Start 05/09/18 at 21:00 Amiodarone HCl (Cordarone) 200 mg BID PO Last administered on 05/12/18at 08:21; Admin Dose 200 MG; Start 05/09/18 at 21:00 Zolpidem Tartrate (Ambien) 5 mg HS MAY REPEAT X 1 PRN PO INSOMNIA; Start 05/10/18 at 20:30 Docusate Sodium (Colace) 100 mg DAILY PO Last administered on 05/11/18at 15:45; Admin Dose 100 MG; Start 05/11/18 at 15:30 DAVEY CAPONE M.D. May 12, 2018 13:01
--- NOTE | 2018-05-12 13:48 | CONS ---
Assessment/Plan Assessment/Plan Assessment/Plan (Daily) 1. acute on chronic renal failure vs Baseline CKD- stable 2. 3 V CAD on Cardiac cath on 05/04/18 s/p CABG on 05/07/2018 3. H/o HTN 4. H/o HL 5.H/o possible CKD III due to HTN nephrosclerosis Plan: BUN/Cr 22/1.44, adequate urine output, Chest tube DCD ; CT surgery following UO- 780 ML+ Void x 2 / 24 hrs Monitor urine output, Monitor electrolytes and Replace as needed will follow up Patient seen in collaboration with Dr Zonia edmonds. dw staff Consultation Date/Type/Reason Admit Date/Time May 04, 2018 at 13:51 Initial Consult Date 05/05/18 Type of Consult NEPHROLOGY Reason for Consultation LISA Requesting Provider: GINGER CALI MD Date/Time of Note DATE: 05/12/18 TIME: 13:48 24 HR Interval Summary Free Text/Dictation C/o abdominal distention- KUB showed - No free air or obstruction; Mild d istension of bowel compatible with ileus. c/o constipation GI consut appreciated BUN/Cr 22/1.44, adequate urine output, Chest tube DCD ; no new events reported last night Constitutional: improved, requiring IVF Detailed Summary Eyes: no complaints ENT: no complaints Respiratory: no complaints Cardiovascular: no complaints Gastrointestinal: constipation, other (abdominal distention) Genitourinary: no complaints Musculoskeletal: no complaints Skin: no complaints Exam/Review of Systems Exam Vitals Vital Signs Date Temp Pulse Resp B/P (MAP) Pulse Ox O2 O2 Flow FiO2 Time Delivery Rate 05/12/18 92 12:01 05/12/18 98.1 19 105/67 97 11:13 (80) 05/12/18 Nasal 2.0 10:49 Cannula 05/11/18 21 21:45 Intake and Output 05/11/18 05/11/18 05/12/18 1515:00 23:00 07:00 IntakeIntake Total 780 ml 700 ml OutputOutput Total 390 ml 300 ml BalanceBalance 390 ml -300 ml 700 ml Constitutional: alert, oriented, well developed Psych: nl mood/affect Head: atraumatic Eyes: nl conjunctiva, EOMI, nl lids, nl sclera ENMT: nl external ears & nose Neck: non-tender Respiratory: diminished breath sounds (at bases bilaterally) Cardiovascular: nl pulses, other (s1s2. SP CABG- DDI) Gastrointestinal: soft, non-tender, distended Musculoskeletal: nl extremities to inspection Extremities: normal pulses Neurological: nl mental status, nl speech Skin: nl turgor Lymph: nontender Results Result Diagram: 05/12/1815 05/12/18 0515 Results 24hrs Laboratory Tests Test 05/12/18 05:15 White Blood Count 15.5 H Red Blood Count 4.29 L Hemoglobin 10.4 L Hematocrit 32.1 L Mean Corpuscular Volume 74.8 L Mean Corpuscular Hemoglobin 24.2 L Mean Corpuscular Hemoglobin Concent 32.4 Red Cell Distribution Width 17.7 H Platelet Count 310 # Mean Platelet Volume 10.9 H Immature Granulocytes % 0.600 H Neutrophils % 69.9 Lymphocytes % 14.7 L Monocytes % 10.0 Eosinophils % 4.0 Basophils % 0.8 Nucleated Red Blood Cells % 0.0 Immature Granulocytes # 0.090 H Neutrophils # 10.9 H Lymphocytes # 2.3 Monocytes # 1.6 H Eosinophils # 0.6 H Basophils # 0.1 Nucleated Red Blood Cells # 0.0 Sodium Level 140 Potassium Level 4.2 Chloride Level 100 Carbon Dioxide Level 27 Anion Gap 13 Blood Urea Nitrogen 22 H Creatinine 1.44 H Est Glomerular Filtrat Rate mL/min 50 L Glucose Level 106 Calcium Level 8.5 Medications Medication Current Medications Morphine Sulfate (morphine) 2 mg Q2H PRN IV moderate to severe pain Last administered on 05/10/18at 17:29; Admin Dose 2 MG; Start 05/04/18 at 12:30 Al Hydrox/Mg Hydrox/Simethicone (Mag-Al Plus) 30 ml Q4H PRN PO GASTROINTESTINAL UPSET Last administered on 05/12/18 10:23; Admin Dose 30 ML; Start 05/04/18 at 12:30 Ondansetron HCl (Zofran Inj) 4 mg Q4H PRN IV NAUSEA AND/OR VOMITING Last administered on 05/08/18at 10:27; Admin Dose 4 MG; Start 05/04/18 at 12:30 Atorvastatin Calcium (Lipitor) 40 mg HS PO Last administered on 05/11/18at 21:15; Admin Dose 40 MG; Start 05/04/18 at 21:00 Acetaminophen (Tylenol Tab) 650 mg Q3H PRN PO ELEVATED TEMPERATURE; Start 05/07/18 at 15:30 Acetaminophen (Tylenol Supp) 650 mg Q3H PRN [place] ELEVATED TEMPERATURE Last administered on 05/08/18at 01:00; Admin Dose 650 MG; Start 05/07/18 at 15:30 Aspirin (Aspirin) 81 mg DAILY PO Last administered on 05/12/18at 08:21; Admin Dose 81 MG; Start 05/09/18 at 09:00 Loratadine (Claritin) 10 mg DAILY PRN PO allergies; Start 05/08/18 at 20:00 Metoprolol Succinate (Toprol Xl) 25 mg BID PO Last administered on 05/12/18at 08:21; Admin Dose 25 MG; Start 05/09/18 at 21:00 Amiodarone HCl (Cordarone) 200 mg BID PO Last administered on 05/12/18at 08:21; Admin Dose 200 MG; Start 05/09/18 at 21:00 Zolpidem Tartrate (Ambien) 5 mg HS MAY REPEAT X 1 PRN PO INSOMNIA; Start 05/10/18 at 20:30 Docusate Sodium (Colace) 100 mg DAILY PO Last administered on 05/11/18at 15:45; Admin Dose 100 MG; Start 05/11/18 at 15:30 IVY YATES May 12, 2018 13:48
[2018-05-12] MEDS ORDERED: SOD CHLORIDE 0.9% 500 ML IV SCH ×2 (14:00→14:30)
[2018-05-12] MEDS ORDERED: morphine LIQ (10 MG/5 ML) CUP PO PRN (14:00)
[2018-05-12] MEDS ORDERED: LACTULOSE 30ML CUP PO PRN (14:30)
--- NOTE | 2018-05-12 19:34 | NUR ---
EOSS: Patient remain stable. Except for abdominal distention which was reported to the primary doctor. Patient is eating and ambulating and have BM but persistent abdominal discomfort. VS within normal limits. Hourly rounding done. Q2 hr repositioning. Assisted with ADL's care. Administered scheduled meds. No complaints of pain. PRN pain meds provided. Dr. Kurtz came for GI consult. Will endorse plan of care to the next shift.
[2018-05-12] MEDS: ATORVASTATIN 40 MG TAB PO SCH (20:40)
[2018-05-12] MEDS: LUBIPROSTONE 24 MCG CAP PO SCH (20:41)
--- NOTE | 2018-05-12 21:30 | CONS ---
DATE OF ADMISSION: 05/04/2018 DATE OF CONSULTATION: TYPE OF CONSULTATION: Gastroenterology. REASON FOR CONSULTATION: Ileus and constipation. HISTORY OF PRESENT ILLNESS: The patient is a 62-year-old gentleman with the history of hypertension and dyslipidemia, had a positive ____ test as an outpatient, underwent cardiac catheterization and wa s found to have a 3-vessel coronary artery disease with 100% occlusion. The patient underwent osorio ry artery bypass graft. Postoperatively, did not have much bowel movement. KUB showed an ileus and also fecal retention, so GI consult was called in. The patient states he is producing more gas. No nausea, no vomiting. Abdomen is distended and in mild discomfort. No chest pain or shortness of marah ath. No or [employer]UT [employer]INE [employer]ATOR problem. PAST MEDICAL HISTORY: As described. SOCIAL HISTORY: He does not smoke or drink. REVIEW OF SYSTEMS: Otherwise negative. PHYSICAL EXAMINATION: GENERAL: Alert, awake, not in distress. VITAL SIGNS: Stable. HEENT: Unremarkable. NECK: Supple, no thyromegaly, no lymphadenopathy. CARDIOVASCULAR: No murmur, gallop or click. LUNGS: Clear. ABDOMEN: Soft and mildly distended. Bowel sounds good. EXTREMITIES: No edema. CENTRAL NERVOUS SYSTEM: Grossly within normal limit. IMPRESSION: 1. Abdominal distention, mild, secondary to ileus and severe constipation. 2. Renal insufficiency. 3. Status post coronary artery bypass graft. 4. Hypertension. 5. Anemia. PLAN: Plan at this point is to give the patient Dulcolax suppository, continue present care, and we will start him on Amitiza on a regular basis. Dictated By: GENOVEVA MUHAMMAD MD PJ/NTS Conf#: [id number] DID#: [id number] CC: RITA PISANO MD; GINGER CALI MD;*EndCC*
[2018-05-13] VITALS (12 sets, daily range): BP systolic 99–125; BP diastolic 59–76; PULSE 68–93; RESP 18–20
--- NOTE | 2018-05-13 07:23 | CONS ---
Assessment/Plan Assessment/Plan Assessment/Plan (Daily) 1. acute on chronic renal failure vs Baseline CKD- stable 2. 3 V CAD on Cardiac cath on 05/04/18 s/p CABG on 05/07/2018 3. H/o HTN 4. H/o HL 5.H/o possible CKD III due to HTN nephrosclerosis Plan: BUN/Cr trended down today to 19/1.40, adequate urine output X 2; x4 stated /24 hrs, Chest tube dcd, CT surgery following Monitor urine output, Monitor electrolytes and Replace as needed will follow up Patient seen in collaboration with Dr Zonia edmonds. dw staff Consultation Date/Type/Reason Admit Date/Time May 04, 2018 at 13:51 Initial Consult Date 05/05/18 Type of Consult NEPHROLOGY Requesting Provider: GINGER CALI MD Date/Time of Note DATE: 05/13/18 TIME: 07:22 24 HR Interval Summary Free Text/Dictation still C/o abdominal distention- KUB showed - No free air or obstruction; Mild distension of bowel compatible with ileus. constipation- relieved GI follows BUN/Cr trended down x 2 voided urine output recorded; stated x4 Chest tube DCD ; no new events reported last night Constitutional: requiring O2 Detailed Summary Eyes: no complaints ENT: no complaints Respiratory: no complaints Cardiovascular: no complaints Gastrointestinal: other (mild distention; better today) Genitourinary: no complaints Musculoskeletal: no complaints Skin: no complaints Neurologic: no complaints Exam/Review of Systems Exam Vitals Vital Signs Date Temp Pulse Resp B/P (MAP) Pulse Ox O2 O2 Flow FiO2 Time Delivery Rate 05/13/18 98.1 18 101/61 94 Room Air 04:08 (74) 05/13/18 91 04:00 05/12/18 2.0 10:49 05/11/18 21 21:45 Intake and Output 05/12/18 05/12/18 05/13/18 1414:59 22:59 06:59 IntakeIntake Total 880 ml 500 ml BalanceBalance 880 ml 500 ml Constitutional: alert, oriented, well developed Psych: nl mood/affect Eyes: EOMI, nl lids ENMT: nl external ears & nose Neck: supple Respiratory: clear to auscultation Cardiovascular: nl pulses, other (s1s2; sp CABAG- DDI ; CT DCD) Gastrointestinal: soft, non-tender Musculoskeletal: nl extremities to inspection Neurological: nl mental status, nl speech Skin: nl turgor Lymph: nontender Results Result Diagram: 05/13/1818 05/13/1818 Results 24hrs Laboratory Tests Test 05/13/18 05:18 White Blood Count 16.3 H Red Blood Count 4.19 L Hemoglobin 10.2 L Hematocrit 31.6 L Mean Corpuscular Volume 75.4 L Mean Corpuscular Hemoglobin 24.3 L Mean Corpuscular Hemoglobin Concent 32.3 Red Cell Distribution Width 17.6 H Platelet Count 347 Mean Platelet Volume 10.9 H Immature Granulocytes % 0.800 H Neutrophils % 71.7 Lymphocytes % 13.2 L Monocytes % 9.9 Eosinophils % 3.7 Basophils % 0.7 Nucleated Red Blood Cells % 0.1 H Immature Granulocytes # 0.130 H Neutrophils # 11.7 H Lymphocytes # 2.2 Monocytes # 1.6 H Eosinophils # 0.6 H Basophils # 0.1 Nucleated Red Blood Cells # 0.0 Sodium Level 138 Potassium Level 4.2 Chloride Level 101 Carbon Dioxide Level 25 Anion Gap 12 Blood Urea Nitrogen 19 Creatinine 1.40 H Est Glomerular Filtrat Rate mL/min 52 L Glucose Level 119 Calcium Level 8.6 Medications Medication Current Medications Al Hydrox/Mg Hydrox/Simethicone (Mag-Al Plus) 30 ml Q4H PRN PO GASTROINTESTINAL UPSET Last administered on 05/12/18at 10:23; Admin Dose 30 ML; Start 05/04/18 at 12:30 Ondansetron HCl (Zofran Inj) 4 mg Q4H PRN IV NAUSEA AND/OR VOMITING Last administered on 05/08/18at 10:27; Admin Dose 4 MG; Start 05/04/18 at 12:30 Atorvastatin Calcium (Lipitor) 40 mg HS PO Last administered on 05/12/18at 20:40; Admin Dose 40 MG; Start 05/04/18 at 21:00 Acetaminophen (Tylenol Tab) 650 mg Q3H PRN PO ELEVATED TEMPERATURE; Start 05/07/18 at 15:30 Acetaminophen (Tylenol Supp) 650 mg Q3H PRN [place] ELEVATED TEMPERATURE Last administered on 05/08/18at 01:00; Admin Dose 650 MG; Start 05/07/18 at 15:30 Aspirin (Aspirin) 81 mg DAILY PO Last administered on 05/12/18 08:21; Admin Dose 81 MG; Start 05/09/18 at 09:00 Loratadine (Claritin) 10 mg DAILY PRN PO allergies; Start 05/08/18 at 20:00 Metoprolol Succinate (Toprol Xl) 25 mg BID PO Last administered on 05/12/18 20:42; Admin Dose 25 MG; Start 05/09/18 at 21:00 Amiodarone HCl (Cordarone) 200 mg BID PO Last administered on 05/12/18at 20:42; Admin Dose 200 MG; Start 05/09/18 at 21:00 Zolpidem Tartrate (Ambien) 5 mg HS MAY REPEAT X 1 PRN PO INSOMNIA; Start 05/10/18 at 20:30 Docusate Sodium (Colace) 100 mg DAILY PO Last administered on 05/11/18at 15:45; Admin Dose 100 MG; Start 05/11/18 at 15:30 Morphine Sulfate (morphine) 6 mg Q2H PRN PO MOD TO SEVERE PAIN; Start 05/12/18 at 14:00 Lactulose (Enulose) 20 gm DAILY PRN PO CONSTIPATION; Start 05/12/18 at 14:30 Lubiprostone (Amitiza) 24 mcg BID PO Last administered on 05/12/18at 20:41; Admi n Dose 24 MCG; Start 05/12/18 at 21:00 IVY YATES May 13, 2018 07:22
[2018-05-13] MEDS: LUBIPROSTONE 24 MCG CAP PO SCH ×2 (08:20→21:24)
[2018-05-13] MEDS: AMIODARONE 200 MG TAB PO SCH ×2 (08:21→21:23)
[2018-05-13] MEDS: DOCUSATE SODIUM 100 MG CAP PO SCH (08:21)
[2018-05-13] MEDS: ASPIRIN 81 MG TAB PO SCH (08:21)
[2018-05-13] MEDS: METOPROLOL (XL) 25 MG TAB PO SCH ×2 (08:22→21:23)
--- NOTE | 2018-05-13 11:30 | NUR ---
PT note Therapy day number 6 Subjective Current complaint of pain Pain Scale NUMERIC Pain Intensity 4 (0-10) Patient Stated Goal for Pain Relief 0 (0-10) Pain Level Comment incisional pain only when coughing Pre Treatment Vital Signs Stable Yes Transfer Sit to Stand Ability Modified Independent Bed Transfer Ability Modified Independent Chair Transfer Ability Modified Independent Additional Mobility Comments no bed mobility performed Gait Training Start Time 11:30 Gait Assist Levels Modified Independent Assistive Devices None Ambulation Distance 350 feet Additional Gait Comments wide based gait, steady al[place], no loss of balance, good safety awareness Gait Training End Time 12:00 Total Gait Training Treatment Time 30 min (8-127) Static Sitting Balance Good Dynamic Sitting Balance Good Standing Static Balance Good Dynamic Standing Balance Good Additional Balance Assessments Comments no AD Safety Judgement Good Activity Tolerance Good Equipment Present IV pump Post Treatment Pain Intensity 0 0-10 Additional Post Treatment Comment See note Total Treament Time 30 min (8-127) Total Minutes 30 Total Units 2 PT Technical Record Comment S: Pt sitting in bedside chair, agreeable to PT intervention. patient cleared for activity per RN O: PT intervention completed, pt returned back to bedside chair following therapy intervention with call light within reach and all needs met. No reports of increased pain, dizziness, or shortness of breath with activity. Spoke to RN regarding pt response to activity and PT plan of care. A: Patient demonstrates good mobility and strong safety awareness with no assistive device. Patient receptive to physical therapy education and otherwise demonstrates mod I mobility throughout and to improve with routine care, thus does not require skilled inpatient PT at this time P: Discharge physical therapy
--- NOTE | 2018-05-13 11:59 | PN ---
Date/Time of Note Date/Time of Note DATE: 05/13/18 TIME: 11:58 Assessment/Plan VTE Prophylaxis Risk score (from Ns)>0 risk: 11 SCD applied (from Ns): Yes Pharmacological prophylaxis: LMWH Lines/Catheters IV [facility]from [facility] Saline Lock Urinary Cath still in place: Yes Reason Cath still needed: skin wounds contaminated by urine Assessment/Plan Hospital Course -Multivessel coronary artery disease on cardiac cath on 05/04/[address] Dial. S/p CABG procedure by Dr. Soriano, cardiovascular surgery on 05/07/18. -Acute on chronic renal failure vs CKD stage 3. Dr. Herrera is following in nephrology consultation. -Hypertension, continue metoprolol, Norvasc. -Hyperlipidemia, continue statin. Result Diagram: 05/13/1818 05/13/1818 Results 24hrs Laboratory Tests Test 05/13/18 05:18 White Blood Count 16.3 H Red Blood Count 4.19 L Hemoglobin 10.2 L Hematocrit 31.6 L Mean Corpuscular Volume 75.4 L Mean Corpuscular Hemoglobin 24.3 L Mean Corpuscular Hemoglobin Concent 32.3 Red Cell Distribution Width 17.6 H Platelet Count 347 Mean Platelet Volume 10.9 H Immature Granulocytes % 0.800 H Neutrophils % 71.7 Lymphocytes % 13.2 L Monocytes % 9.9 Eosinophils % 3.7 Basophils % 0.7 Nucleated Red Blood Cells % 0.1 H Immature Granulocytes # 0.130 H Neutrophils # 11.7 H Lymphocytes # 2.2 Monocytes # 1.6 H Eosinophils # 0.6 H Basophils # 0.1 Nucleated Red Blood Cells # 0.0 Sodium Level 138 Potassium Level 4.2 Chloride Level 101 Carbon Dioxide Level 25 Anion Gap 12 Blood Urea Nitrogen 19 Creatinine 1.40 H Est Glomerular Filtrat Rate mL/min 52 L Glucose Level 119 Calcium Level 8.6 Subjective 24 Hr Interval Summary Free Text/Dictation Patient complain of abdominal distention but seems to be improved, he had bowel movement earlier Exam/Review of Systems Exam Vitals Vital Signs Date Temp Pulse Resp B/P (MAP) Pulse Ox O2 O2 Flow FiO2 Time Delivery Rate 05/13/18 89 08:01 05/13/18 Nasal 2.0 07:31 Cannula 05/13/18 98.1 19 99/64 (76) 96 07:26 05/11/18 21 21:45 Intake and Output 05/12/18 05/12/18 05/13/18 1515:00 23:00 07:00 IntakeIntake Total 880 ml 500 ml BalanceBalance 880 ml 500 ml Constitutional: well developed Head: normocephalic, atraumatic Neck: supple Respiratory: clear to auscultation Cardiovascular: regular rate and rhythm Gastrointestinal: soft, non-tender Extremities: normal pulses Results Results 24hrs Laboratory Tests Test 05/13/18 05:18 White Blood Count 16.3 H Red Blood Count 4.19 L Hemoglobin 10.2 L Hematocrit 31.6 L Mean Corpuscular Volume 75.4 L Mean Corpuscular Hemoglobin 24.3 L Mean Corpuscular Hemoglobin Concent 32.3 Red Cell Distribution Width 17.6 H Platelet Count 347 Mean Platelet Volume 10.9 H Immature Granulocytes % 0.800 H Neutrophils % 71.7 Lymphocytes % 13.2 L Monocytes % 9.9 Eosinophils % 3.7 Basophils % 0.7 Nucleated Red Blood Cells % 0.1 H Immature Granulocytes # 0.130 H Neutrophils # 11.7 H Lymphocytes # 2.2 Monocytes # 1.6 H Eosinophils # 0.6 H Basophils # 0.1 Nucleated Red Blood Cells # 0.0 Sodium Level 138 Potassium Level 4.2 Chloride Level 101 Carbon Dioxide Level 25 Anion Gap 12 Blood Urea Nitrogen 19 Creatinine 1.40 H Est Glomerular Filtrat Rate mL/min 52 L Glucose Level 119 Calcium Level 8.6 Medications Medication Current Medications Al Hydrox/Mg Hydrox/Simethicone (Mag-Al Plus) 30 ml Q4H PRN PO GASTROINTESTINAL UPSET Last administered on 05/12/18at 10:23; Admin Dose 30 ML; Start 05/04/18 at 12:30 Ondansetron HCl (Zofran Inj) 4 mg Q4H PRN IV NAUSEA AND/OR VOMITING Last administered on 05/08/18at 10:27; Admin Dose 4 MG; Start 05/04/18 at 12:30 Atorvastatin Calcium (Lipitor) 40 mg HS PO Last administered on 05/12/18at 20:40; Admin Dose 40 MG; Start 05/04/18 at 21:00 Acetaminophen (Tylenol Tab) 650 mg Q3H PRN PO ELEVATED TEMPERATURE; Start 05/07/18 at 15:30 Acetaminophen (Tylenol Supp) 650 mg Q3H PRN [place] ELEVATED TEMPERATURE Last administered on 05/08/18at 01:00; Admin Dose 650 MG; Start 05/07/18 at 15:30 Aspirin (Aspirin) 81 mg DAILY PO Last administered on 05/13/18at 08:21; Admin Dose 81 MG; Start 05/09/18 at 09:00 Loratadine (Claritin) 10 mg DAILY PRN PO allergies; Start 05/08/18 at 20:00 Metoprolol Succinate (Toprol Xl) 25 mg BID PO Last administered on 05/12/18at 20:42; Admin Dose 25 MG; Start 05/09/18 at 21:00 Amiodarone HCl (Cordarone) 200 mg BID PO Last administered on 05/13/18 08:21; Admin Dose 200 MG; Start 05/09/18 at 21:00 Zolpidem Tartrate (Ambien) 5 mg HS MAY REPEAT X 1 PRN PO INSOMNIA; Start 05/10/18 at 20:30 Docusate Sodium (Colace) 100 mg DAILY PO Last administered on 05/13/18at 08:21; Admin Dose 100 MG; Start 05/11/18 at 15:30 Morphine Sulfate (morphine) 6 mg Q2H PRN PO MOD TO SEVERE PAIN; Start 05/12/18 at 14:00 Lactulose (Enulose) 20 gm DAILY PRN PO CONSTIPATION; Start 05/12/18 at 14:30 Lubiprostone (Amitiza) 24 mcg BID PO Last administered on 05/13/18at 08:20; Admin Dose 24 MCG; Start 05/12/18 at 21:00 LEONCIO LEO May 13, 2018 11:59
--- NOTE | 2018-05-13 12:18 | PN ---
Date/Time of Note Date/Time of Note DATE: 05/13/18 TIME: 12:17 Assessment/Plan Lines/Catheters IV Catheter Type (from Nrsg): Saline Lock Fish in Place (from Nrsg): Yes Assessment/Plan Assessment/Plan SP CABG hemodynamically stable CT DCed DC planning FU with me 1 week Subjective 24 Hr Interval Summary Constitutional: improved Pain Control: mild Exam/Review of Systems Vital Signs Vitals Vital Signs Date Temp Pulse Resp B/P (MAP) Pulse Ox O2 O2 Flow FiO2 Time Delivery Rate 05/13/18 98.1 77 19 116/69 94 11:59 (85) 05/13/18 Nasal 2.0 07:31 Cannula 05/11/18 21 21:45 Intake and Output 05/12/18 05/12/18 05/13/18 1515:00 23:00 07:00 IntakeIntake Total 880 ml 500 ml BalanceBalance 880 ml 500 ml Exam Eyes: nl conjunctiva, EOMI, nl lids, nl sclera ENMT: nl external ears & nose, nl lips & teeth, nl nasal mucosa & septum, muc deo pink and moist Neck: supple, non-tender Respiratory: clear to auscultation, normal air movement Cardiovascular: regular rate and rhythm, nl pulses Gastrointestinal: soft, nl liver, spleen, non-tender Results Result Diagram: 05/13/1818 05/13/1818 RONDA NAZARIO MD May 13, 2018 12:18
--- NOTE | 2018-05-13 14:38 | CONS ---
DATE OF ADMISSION: 05/04/2018 DATE OF CONSULTATION: TYPE OF CONSULTATION: Gastroenterology. HISTORY OF PRESENT ILLNESS: A 62-year-old male with a history of hypertension, status post coronary artery bypass graft, was having abdominal distention and incomplete bowel movement. The patient was placed on Amitiza. Now, he is having good bowel movements. No abdominal pain. OBJECTIVE: VITAL SIGNS: Stable. ABDOMEN: Soft. Bowel sounds good. No mass felt per abdomen. EXTREMITIES: No edema. CENTRAL NERVOUS SYSTEM: Grossly within normal limits. LABORATORY DATA: Creatinine is 1.4. IMPRESSION: 1. Constipation, better with Amitiza. 2. Ileus, resolved clinically. 3. Status post coronary artery bypass graft. 4. Microcytic hypochromic anemia. 5. Renal insufficiency. 6. Hypertension. PLAN: Continue Amitiza. Ambulate the patient. Dictated By: GENOVEVA MARY/NTS Conf#: [id number] DID#: [id number] CC: RITA PISANO MD;*EndCC*
--- NOTE | 2018-05-13 18:11 | NUR ---
EOSS AO x 4, vital signs within range, SR on the monitor, no signs of a acute distress during shift, cleared by PT, refused pain during shift. Family at bedside. Questions answered accordingly. Need met. Will endorse.
--- NOTE | 2018-05-13 18:28 | NUR ---
RN note RN called into the room by stating pt had a strong episode of cough, according to pt was had trouble breathing during episode and rolled his eyes for a few seconds. RN walked into immediately after episode and found patient AO x 4, BP 115/69, HR 87, O2 98%. Pt stated he is feeling well. advised to call for help immediately if it occurs again. Pt advised to stay in bed and report any changes. Charge nurse aware. Will endorse.
[2018-05-13] MEDS: ATORVASTATIN 40 MG TAB PO SCH (21:23)
[2018-05-14] VITALS (10 sets, daily range): BP systolic 96–106; BP diastolic 58–68; PULSE 76–100; RESP 17–20
--- NOTE | 2018-05-14 07:00 | NUR ---
EOSS: No acute event overnight. Patient shaven and hair shampoo done as requested.
[2018-05-14] MEDS: METOPROLOL (XL) 25 MG TAB PO SCH ×2 (09:00→20:15)
[2018-05-14] MEDS: DOCUSATE SODIUM 100 MG CAP PO SCH (09:22)
[2018-05-14] MEDS: ASPIRIN 81 MG TAB PO SCH (09:22)
[2018-05-14] MEDS: LUBIPROSTONE 24 MCG CAP PO SCH ×2 (09:22→20:17)
[2018-05-14] MEDS: AMIODARONE 200 MG TAB PO SCH ×2 (09:23→20:17)
--- NOTE | 2018-05-14 10:48 | CONS ---
Assessment/Plan Cardiology NYHA: II Heart Failure Type: Diastolic Assessment/Plan Hospital Course (Demo Recall) IMP: 1.cad s/p cab g POD#2 LUEVANO-LAD, SVG-OM1/OM2, EQH-FAS-pwuz and SVG to PDA-prox 2.HTN 3.HL 4.REnal insufficiency 5.Leukocytosis 6.anemia 7. PAF-remained in SR on amio PO 8. Illeus-clinically improved Recc: -Tele -serial ecg's -Continue asa -Continue BB -Continue amio in attempt to maintain SR -Follow volume status -ambulation/PT -GI following illeus Consultation Date/Type/Reason Admit Date/Time May 04, 2018 at 13:51 Initial Consult Date 05/05/18 Type of Consult Cardiology Reason for Consultation Cad s/p cabg Requesting Provider: GINGER CALI MD Date/Time of Note DATE: 05/14/18 TIME: 10:46 Exam/Review of Systems Vital Signs Vitals Vital Signs Date Temp Pulse Resp B/P (MAP) Pulse Ox O2 O2 Flow FiO2 Time Delivery Rate 05/14/18 90 08:01 05/14/18 98.4 19 100/61 96 07:46 (74) 05/13/18 Nasal 2.0 07:31 Cannula 05/11/18 21 21:45 Intake and Output 05/13/18 05/13/18 05/14/18 1515:00 23:00 07:00 IntakeIntake Total 820 ml 180 ml BalanceBalance 820 ml 180 ml Exam Exam Review of Systems: CONSTITUTIONAL: No fevers, chills. PULMONARY: No sob CARDIOVASCULAR: No chest pain/palpitations GASTROINTESTINAL: No nausea/vomiting. GENITOURINARY: No hematuria/dysuria. MUSCULOSKELETAL: No myagias/arthalgias. PSYCHIATRIC: The patient denies depression. NEUROLOGIC: No weakness Constitutional: alert Psych: no complaints Head: normocephalic ENMT: mucosa pink and moist Neck: supple, jvd (9 cm water) Respiratory: diminished breath sounds Cardiovascular: regular rate and rhythm Gastrointestinal: soft, non-tender Musculoskeletal: muscle tone (normal) Extremities: edema (none) Neurological: other (NO focal deficits) Labs Result Diagram: 05/14/1852205/14/18 05 Results 24hrs Laboratory Tests Test 05/14/18 05:23 White Blood Count 15.7 H Red Blood Count 4.27 L Hemoglobin 10.4 L Hematocrit 32.1 L Mean Corpuscular Volume 75.2 L Mean Corpuscular Hemoglobin 24.4 L Mean Corpuscular Hemoglobin Concent 32.4 Red Cell Distribution Width 17.9 H Platelet Count 421 #H Mean Platelet Volume 10.3 Immature Granulocytes % 0.800 H Neutrophils % 72.8 Lymphocytes % 12.8 L Monocytes % 8.7 Eosinophils % 4.2 Basophils % 0.7 Nucleated Red Blood Cells % 0.1 H Immature Granulocytes # 0.130 H Neutrophils # 11.4 H Lymphocytes # 2.0 Monocytes # 1.4 H Eosinophils # 0.7 H Basophils # 0.1 Nucleated Red Blood Cells # 0.0 Sodium Level 139 Potassium Level 4.6 Chloride Level 98 Carbon Dioxide Level 27 Anion Gap 14 H Blood Urea Nitrogen 17 Creatinine 1.50 H Est Glomerular Filtrat Rate mL/min 48 L Glucose Level 105 Calcium Level 8.5 Medications Medications Current Medications Al Hydrox/Mg Hydrox/Simethicone (Mag-Al Plus) 30 ml Q4H PRN PO GASTROINTESTINAL UPSET Last administered on 05/12/18at 10:23; Admin Dose 30 ML; Start 05/04/18 at 12:30 Ondansetron HCl (Zofran Inj) 4 mg Q4H PRN IV NAUSEA AND/OR VOMITING Last administered on 05/08/18at 10:27; Admin Dose 4 MG; Start 05/04/18 at 12:30 Atorvastatin Calcium (Lipitor) 40 mg HS PO Last administered on 05/13/18at 21:23; Admin Dose 40 MG; Start 05/04/18 at 21:00 Acetaminophen (Tylenol Tab) 650 mg Q3H PRN PO ELEVATED TEMPERATURE; Start 05/07/18 at 15:30 Acetaminophen (Tylenol Supp) 650 mg Q3H PRN [place] ELEVATED TEMPERATURE Last administered on 05/08/18at 01:00; Admin Dose 650 MG; Start 05/07/18 at 15:30 Aspirin (Aspirin) 81 mg DAILY PO Last administered on 05/14/18at 09:22; Admin Dose 81 MG; Start 05/09/18 at 09:00 Loratadine (Claritin) 10 mg DAILY PRN PO allergies; Start 05/08/18 at 20:00 Metoprolol Succinate (Toprol Xl) 25 mg BID PO Last administered on 05/13/18at 21:23; Admin Dose 25 MG; Start 05/09/18 at 21:00 Amiodarone HCl (Cordarone) 200 mg BID PO Last administered on 05/14/18 09:23; Admin Dose 200 MG; Start 05/09/18 at 21:00 Zolpidem Tartrate (Ambien) 5 mg HS MAY REPEAT X 1 PRN PO INSOMNIA; Start 05/10/18 at 20:30 Docusate Sodium (Colace) 100 mg DAILY PO Last administered on 05/14/18at 09:22; Admin Dose 100 MG; Start 05/11/18 at 15:30 Morphine Sulfate (morphine) 6 mg Q2H PRN PO MOD TO SEVERE PAIN; Start 05/12/18 at 14:00 Lactulose (Enulose) 20 gm DAILY PRN PO CONSTIPATION; Start 05/12/18 at 14:30 Lubiprostone (Amitiza) 24 mcg BID PO Last administered on 05/14/18 09:22; Admin Dose 24 MCG; Start 05/12/18 at 21:00 RITA PISANO May 14, 2018 10:48
--- NOTE | 2018-05-14 11:11 | NUR ---
OT NOTE S: RN cleared pt for skilled OT tx. O: Pt received seated at bedside and agreeable to tx. Pt reported 0/10 pain and stated 3/3 sternal precautions correctly. Pt demonstrated bed mob, functional mob and transfers independently with good safety awareness. Pt performed h/g, toilet hygiene and LB dressing independently. A: Pt is independent with ADl's. P: D/C OT- no further OT warranted.
--- NOTE | 2018-05-14 15:01 | PN ---
Date/Time of Note Date/Time of Note DATE: 05/14/18 TIME: 14:58 Assessment/Plan VTE Prophylaxis Risk score (from [facility] [place])>0 risk: 8 SCD applied (from [facility] [place]): No SCD contraindicated: low risk/ambulating Pharmacological prophylaxis: NA/contraindicated Pharm contraindication: surgical contra, other Lines/Catheters IV Catheter Type (from [facility]): Saline Lock [place] line still needed: Yes Urinary Cath still in place: No Reason Cath still needed: urinary retention Assessment/Plan Hospital Course Patient is awake alert complains of loose BM, patient was started on amikacin for constipation. Patient denies any nausea vomiting. Patient's complaint of mild incisional pain only with coughing and mild sore throat. Assessment/Plan -Constipation, resolved. Dr. Kurtz is following in gastroenterology consultation. -Ileus, resolved -Multivessel coronary artery disease on cardiac cath on 05/04/[address] Dial. S/p CABG procedure by Dr. Soriano, cardiovascular surgery on 05/07/18. -Acute on chronic renal failure vs CKD stage 3. Dr. Herrera is following in nephrology consultation. -Hypertension, continue metoprolol, Norvasc. -Hyperlipidemia, continue statin. Further recommendations based on clinical course. Plan of care discussed with Dr. Guerra. Result Diagram: 05/14/18 0523 05/14/18 0523 Results 24hrs Laboratory Tests Test 05/14/18 05:23 White Blood Count 15.7 H Red Blood Count 4.27 L Hemoglobin 10.4 L Hematocrit 32.1 L Mean Corpuscular Volume 75.2 L Mean Corpuscular Hemoglobin 24.4 L Mean Corpuscular Hemoglobin Concent 32.4 Red Cell Distribution Width 17.9 H Platelet Count 421 #H Mean Platelet Volume 10.3 Immature Granulocytes % 0.800 H Neutrophils % 72.8 Lymphocytes % 12.8 L Monocytes % 8.7 Eosinophils % 4.2 Basophils % 0.7 Nucleated Red Blood Cells % 0.1 H Immature Granulocytes # 0.130 H Neutrophils # 11.4 H Lymphocytes # 2.0 Monocytes # 1.4 H Eosinophils # 0.7 H Basophils # 0.1 Nucleated Red Blood Cells # 0.0 Sodium Level 139 Potassium Level 4.6 Chloride Level 98 Carbon Dioxide Level 27 Anion Gap 14 H Blood Urea Nitrogen 17 Creatinine 1.50 H Est Glomerular Filtrat Rate mL/min 48 L Glucose Level 105 Calcium Level 8.5 Exam/Review of Systems Exam Vitals Vital Signs Date Temp Pulse Resp B/P (MAP) Pulse Ox O2 O2 Flow FiO2 Time Delivery Rate 05/14/18 97.6 83 17 96/59 (71) 96 12:10 05/13/18 Nasal 2.0 07:31 Cannula 05/11/18 21 21:45 Intake and Output 05/13/18 05/13/18 05/14/18 1515:00 23:00 07:00 IntakeIntake Total 820 ml 180 ml BalanceBalance 820 ml 180 ml Exam Constitutional: alert, oriented Neck: supple Respiratory: clear to auscultation Cardiovascular: regular rate and rhythm, other (Midline surgical incision with intact dressing) Gastrointestinal: soft, non-tender, slightly distended Extremities: normal pulses, other (Right lower extremities status post surgery) Skin: nl turgor Results Results 24hrs Laboratory Tests Test 05/14/18 05:23 White Blood Count 15.7 H Red Blood Count 4.27 L Hemoglobin 10.4 L Hematocrit 32.1 L Mean Corpuscular Volume 75.2 L Mean Corpuscular Hemoglobin 24.4 L Mean Corpuscular Hemoglobin Concent 32.4 Red Cell Distribution Width 17.9 H Platelet Count 421 #H Mean Platelet Volume 10.3 Immature Granulocytes % 0.800 H Neutrophils % 72.8 Lymphocytes % 12.8 L Monocytes % 8.7 Eosinophils % 4.2 Basophils % 0.7 Nucleated Red Blood Cells % 0.1 H Immature Granulocytes # 0.130 H Neutrophils # 11.4 H Lymphocytes # 2.0 Monocytes # 1.4 H Eosinophils # 0.7 H Basophils # 0.1 Nucleated Red Blood Cells # 0.0 Sodium Level 139 Potassium Level 4.6 Chloride Level 98 Carbon Dioxide Level 27 Anion Gap 14 H Blood Urea Nitrogen 17 Creatinine 1.50 H Est Glomerular Filtrat Rate mL/min 48 L Glucose Level 105 Calcium Level 8.5 Medications Medication Current Medications Al Hydrox/Mg Hydrox/Simethicone (Mag-Al Plus) 30 ml Q4H PRN PO GASTROINTESTINAL UPSET Last administered on 05/12/18at 10:23; Admin Dose 30 ML; Start 05/04/18 at 12:30 Ondansetron HCl (Zofran Inj) 4 mg Q4H PRN IV NAUSEA AND/OR VOMITING Last administered on 05/08/18 10:27; Admin Dose 4 MG; Start 05/04/18 at 12:30 Atorvastatin Calcium (Lipitor) 40 mg HS PO Last administered on 05/13/18 21:23; Admin Dose 40 MG; Start 05/04/18 at 21:00 Acetaminophen (Tylenol Tab) 650 mg Q3H PRN PO ELEVATED TEMPERATURE; Start 05/07/18 at 15:30 Acetaminophen (Tylenol Supp) 650 mg Q3H PRN [place] ELEVATED TEMPERATURE Last administered on 05/08/18 01:00; Admin Dose 650 MG; Start 05/07/18 at 15:30 Aspirin (Aspirin) 81 mg DAILY PO Last administered on 05/14/18 09:22; Admin Dose 81 MG; Start 05/09/18 at 09:00 Loratadine (Claritin) 10 mg DAILY PRN PO allergies; Start 05/08/18 at 20:00 Metoprolol Succinate (Toprol Xl) 25 mg BID PO Last administered on 05/13/18 21:23; Admin Dose 25 MG; Start 05/09/18 at 21:00 Amiodarone HCl (Cordarone) 200 mg BID PO Last administered on 05/14/18 09:23; Admin Dose 200 MG; Start 05/09/18 at 21:00 Zolpidem Tartrate (Ambien) 5 mg HS MAY REPEAT X 1 PRN PO INSOMNIA; Start 05/10/18 at 20:30 Docusate Sodium (Colace) 100 mg DAILY PO Last administered on 05/14/18 09:22; Admin Dose 100 MG; Start 05/11/18 at 15:30 Morphine Sulfate (morphine) 6 mg Q2H PRN PO MOD TO SEVERE PAIN; Start 05/12/18 at 14:00 Lactulose (Enulose) 20 gm DAILY PRN PO CONSTIPATION; Start 05/12/18 at 14:30 Lubiprostone (Amitiza) 24 mcg BID PO Last administered on 05/14/18 09:22; Ad min Dose 24 MCG; Start 05/12/18 at 21:00 DANIE MOORE May 14, 2018 15:01
[2018-05-14] MEDS ORDERED: ZOLPIDEM 5 MG TAB PO PRN (16:00)
--- NOTE | 2018-05-14 17:20 | CONS ---
Assessment/Plan Assessment/Plan Assessment/Plan (Daily) 1. acute on chronic renal failure vs Baseline CKD- stable 2. 3 V CAD on Cardiac cath on 05/04/18 s/p CABG on 05/07/2018 3. H/o HTN 4. H/o HL 5.H/o possible CKD III due to HTN nephrosclerosis Plan: BUN/Cr trended down today to 17/1.5 adequate urine output, other electrolytes stable, Chest tube d/jayda, CT surgery has been following will follow up Follow up with me in clinic in 1-2 week upon discharge Consultation Date/Type/Reason Admit Date/Time May 04, 2018 at 13:51 Initial Consult Date 05/05/18 Type of Consult NEPHROLOGY Requesting Provider: GINGER CALI MD Date/Time of Note DATE: 05/14/18 TIME: 17:20 Exam/Review of Systems Exam Vitals Vital Signs Date Temp Pulse Resp B/P (MAP) Pulse Ox O2 O2 Flow FiO2 Time Delivery Rate 05/14/18 94 16:01 05/14/18 98.1 18 106/68 96 15:41 (81) 05/13/18 Nasal 2.0 07:31 Cannula 05/11/18 21 21:45 Intake and Output 05/13/18 05/13/18 05/14/18 1515:00 23:00 07:00 IntakeIntake Total 820 ml 180 ml BalanceBalance 820 ml 180 ml Exam Constitutional: awake, alert, no acute distress Respiratory: decreaesd BS at bases, , no wheezing Cardiovascular: S1S2 tachycardia, no murmur Gastrointestinal: soft, non-tender Musculoskeletal: no edema, no cyanosis, no clubbing Extremities: normal pulses Neurological: non focal, awake, alert Results Result Diagram: 05/14/18 0523 05/14/18 0523 Results 24hrs Laboratory Tests Test 05/14/18 05:23 White Blood Count 15.7 H Red Blood Count 4.27 L Hemoglobin 10.4 L Hematocrit 32.1 L Mean Corpuscular Volume 75.2 L Mean Corpuscular Hemoglobin 24.4 L Mean Corpuscular Hemoglobin Concent 32.4 Red Cell Distribution Width 17.9 H Platelet Count 421 #H Mean Platelet Volume 10.3 Immature Granulocytes % 0.800 H Neutrophils % 72.8 Lymphocytes % 12.8 L Monocytes % 8.7 Eosinophils % 4.2 Basophils % 0.7 Nucleated Red Blood Cells % 0.1 H Immature Granulocytes # 0.130 H Neutrophils # 11.4 H Lymphocytes # 2.0 Monocytes # 1.4 H Eosinophils # 0.7 H Basophils # 0.1 Nucleated Red Blood Cells # 0.0 Sodium Level 139 Potassium Level 4.6 Chloride Level 98 Carbon Dioxide Level 27 Anion Gap 14 H Blood Urea Nitrogen 17 Creatinine 1.50 H Est Glomerular Filtrat Rate mL/min 48 L Glucose Level 105 Calcium Level 8.5 Medications Medication Current Medications Al Hydrox/Mg Hydrox/Simethicone (Mag-Al Plus) 30 ml Q4H PRN PO GASTROINTESTINAL UPSET Last administered on 05/12/18 10:23; Admin Dose 30 ML; Start 05/04/18 at 12:30 Ondansetron HCl (Zofran Inj) 4 mg Q4H PRN IV NAUSEA AND/OR VOMITING Last administered on 05/08/18 10:27; Admin Dose 4 MG; Start 05/04/18 at 12:30 Atorvastatin Calcium (Lipitor) 40 mg HS PO Last administered on 05/13/18 21:23; Admin Dose 40 MG; Start 05/04/18 at 21:00 Acetaminophen (Tylenol Tab) 650 mg Q3H PRN PO ELEVATED TEMPERATURE; Start 05/07 at 15:30 Acetaminophen (Tylenol Supp) 650 mg Q3H PRN [place] ELEVATED TEMPERATURE Last administered on 05/08/18 01:00; Admin Dose 650 MG; Start 05/07/18 at 15:30 Aspirin (Aspirin) 81 mg DAILY PO Last administered on 05/14/18 09:22; Admin Dose 81 MG; Start 05/09/18 at 09:00 Loratadine (Claritin) 10 mg DAILY PRN PO allergies; Start 05/08/18 at 20:00 Metoprolol Succinate (Toprol Xl) 25 mg BID PO Last administered on 05/13/18 21:23; Admin Dose 25 MG; Start 05/09/18 at 21:00 Amiodarone HCl (Cordarone) 200 mg BID PO Last administered on 05/14/18 09:23; Admin Dose 200 MG; Start 05/09/18 at 21:00 Docusate Sodium (Colace) 100 mg DAILY PO Last administered on 05/14/18 09:22; Admin Dose 100 MG; Start 05/11/18 at 15:30 Morphine Sulfate (morphine) 6 mg Q2H PRN PO MOD TO SEVERE PAIN; Start 05/12/18 at 14:00 Lactulose (Enulose) 20 gm DAILY PRN PO CONSTIPATION; Start 05/12/18 at 14:30 Lubiprostone (Amitiza) 24 mcg BID PO Last administered on 05/14/18at 09:22; Admin Dose 24 MCG; Start 05/12/18 at 21:00 Zolpidem Tartrate (Ambien) 5 mg HS MAY REPEAT X 1 PRN PO INSOMNIA; Start 05/14/18 at 16:00 MARIA DE JESUS LAUREN MD May 14, 2018 17:20
--- NOTE | 2018-05-14 19:26 | PN ---
Date/Time of Note Date/Time of Note DATE: 05/14/18 TIME: 19:25 Assessment/Plan Lines/Catheters IV Catheter Type (from Nrsg): Saline Lock Fish in Place (from Nrsg): No Assessment/Plan Assessment/Plan Assessment/Plan SP CABG hemodynamically stable CT DCed DC planning FU with me 1 week Subjective 24 Hr Interval Summary Constitutional: improved Pain Control: mild Exam/Review of Systems Vital Signs Vitals Vital Signs Date Temp Pulse Resp B/P (MAP) Pulse Ox O2 O2 Flow FiO2 Time Delivery Rate 05/14/18 94 16:01 05/14/18 98.1 18 106/68 96 15:41 (81) 05/13/18 Nasal 2.0 07:31 Cannula 05/11/18 21 21:45 Intake and Output 05/13/18 05/13/18 05/14/18 1515:00 23:00 07:00 IntakeIntake Total 820 ml 180 ml BalanceBalance 820 ml 180 ml Exam Eyes: nl conjunctiva, EOMI, nl lids, nl sclera ENMT: nl external ears & nose, nl lips & teeth, nl nasal mucosa & septum, mucosa pink and moist Neck: supple, non-tender Respiratory: clear to auscultation, normal air movement Cardiovascular: regular rate and rhythm, nl pulses Gastrointestinal: soft, nl liver, spleen, non-tender Musculoskeletal: nl extremities to inspection, nl gait and stance Results Result Diagram: 05/14/18 0523 05/14/18 0523 RONDA NAZARIO MD May 14, 2018 19:26
[2018-05-14] MEDS: ATORVASTATIN 40 MG TAB PO SCH (20:15)
[2018-05-15] VITALS (10 sets, daily range): BP systolic 99–116; BP diastolic 58–69; PULSE 74–94; RESP 18–22
--- NOTE | 2018-05-15 02:44 | NUR ---
NOTES awake alert on bed with chest dressing intact. pt encourage to ambulate more. meds given. dressing was done from his chest with ns and dry dressing applied. denies any pain. will continue to monitor pt.
--- NOTE | 2018-05-15 08:15 | CONS ---
Assessment/Plan Assessment/Plan Assessment/Plan (Daily) 1. acute on chronic renal failure vs Baseline CKD- stable 2. 3 V CAD on Cardiac cath on 05/04/18 s/p CABG on 05/07/2018 3. H/o HTN 4. H/o HL 5.H/o possible CKD III due to HTN nephrosclerosis Plan: BUN/Cr 16/1.53, Adquate urine output, pt doign well, chest tube d/jayda, BP stable WBC still 15 will follow up Follow up with me in clinic in 1-2 week upon discharge Consultation Date/Type/Reason Admit Date/Time May 04, 2018 at 13:51 Initial Consult Date 05/05/18 Type of Consult NEPHROLOGY Requesting Provider: GINGER CALI MD Date/Time of Note DATE: 05/15/18 TIME: 08:15 24 HR Interval Summary Free Text/Dictation BUN/Cr 16/1.53, Adquate urine output, pt doign well, chest tube d/jayda, BP stable Exam/Review of Systems Exam Vitals Vital Signs Date Temp Pulse Resp B/P (MAP) Pulse Ox O2 O2 Flow FiO2 Time Delivery Rate 05/15/18 98.1 85 18 106/64 98 07:43 (78) 05/13/18 Nasal 2.0 07:31 Cannula 05/11/18 21 21:45 Intake and Output 05/14/18 05/14/18 05/15/18 1515:00 23:00 07:00 IntakeIntake Total 1550 ml 250 ml BalanceBalance 1550 ml 250 ml Exam Constitutional: awake, alert, no acute distress Respiratory: decreaesd BS at bases, , no wheezing Cardiovascular: S1S2 tachycardia, no murmur Gastrointestinal: soft, non-tender Musculoskeletal: no edema, no cyanosis, no clubbing Extremities: normal pulses Neurological: non focal, awake, alert Results Result Diagram: 05/15/18 0510 05/15/18 0510 Results 24hrs Laboratory Tests Test 05/15/18 05:10 White Blood Count 15.3 H Red Blood Count 3.94 L Hemoglobin 9.6 L Hematocrit 30.1 L Mean Corpuscular Volume 76.4 L Mean Corpuscular Hemoglobin 24.4 L Mean Corpuscular Hemoglobin Concent 31.9 L Red Cell Distribution Width 17.8 H Platelet Count 471 H Mean Platelet Volume 10.7 H Immature Granulocytes % 0.900 H Neutrophils % 69.5 Lymphocytes % 14.6 L Monocytes % 9.0 Eosinophils % 5.2 Basophils % 0.8 Nucleated Red Blood Cells % 0.0 Immature Granulocytes # 0.130 H Neutrophils # 10.6 H Lymphocytes # 2.2 Monocytes # 1.4 H Eosinophils # 0.8 H Basophils # 0.1 Nucleated Red Blood Cells # 0.0 Sodium Level 138 Potassium Level 4.4 Chloride Level 97 Carbon Dioxide Level 27 Anion Gap 14 H Blood Urea Nitrogen 16 Creatinine 1.53 H Est Glomerular Filtrat Rate mL/min 47 L Glucose Level 109 Calcium Level 8.4 Medications Medication Current Medications Al Hydrox/Mg Hydrox/Simethicone (Mag-Al Plus) 30 ml Q4H PRN PO GASTROINTESTINAL UPSET Last administered on 05/12/18 10:23; Admin Dose 30 ML; Start 05/04/18 at 12:30 Ondansetron HCl (Zofran Inj) 4 mg Q4H PRN IV NAUSEA AND/OR VOMITING Last administered on 05/08/18 10:27; Admin Dose 4 MG; Start 05/04/18 at 12:30 Atorvastatin Calcium (Lipitor) 40 mg HS PO Last administered on 05/14/18 20:15; Admin Dose 40 MG; Start 05/04/18 at 21:00 Acetaminophen (Tylenol Tab) 650 mg Q3H PRN PO ELEVATED TEMPERATURE; Start 05/07/18 at 15:30 Acetaminophen (Tylenol Supp) 650 mg Q3H PRN [place] ELEVATED TEMPERATURE Last administered on 05/08/18at 01:00; Admin Dose 650 MG; Start 05/07/18 at 15:30 Aspirin (Aspirin) 81 mg DAILY PO Last administered on 05/14/18 09:22; Admin Dose 81 MG; Start 05/09/18 at 09:00 Loratadine (Claritin) 10 mg DAILY PRN PO allergies; Start 05/08/18 at 20:00 Metoprolol Succinate (Toprol Xl) 25 mg BID PO Last administered on 05/13/18 21:23; Admin Dose 25 MG; Start 05/09/18 at 21:00 Amiodarone HCl (Cordarone) 200 mg BID PO Last administered on 05/14/18 20:17; Admin Dose 200 MG; Start 05/09/18 at 21:00 Docusate Sodium (Colace) 100 mg DAILY PO Last administered on 05/14/18at 09:22; Admin Dose 100 MG; Start 05/11/18 at 15:30 Morphine Sulfate (morphine) 6 mg Q2H PRN PO MOD TO SEVERE PAIN Last administer ed on 05/15/18at 06:42; Admin Dose 6 MG; Start 05/12/18 at 14:00 Lactulose (Enulose) 20 gm DAILY PRN PO CONSTIPATION; Start 05/12/18 at 14:30 Lubiprostone (Amitiza) 24 mcg BID PO Last administered on 05/14/18at 09:22; Admin Dose 24 MCG; Start 05/12/18 at 21:00 Zolpidem Tartrate (Ambien) 5 mg HS MAY REPEAT X 1 PRN PO INSOMNIA; Start 05/14/18 at 16:00 MARIA DE JESUS LAUREN MD May 15, 2018 08:15
--- NOTE | 2018-05-15 08:46 | CONS ---
Consult Date/Type/Reason Admit Date/Time May 04, 2018 at 13:51 Initial Consult Date Requesting Provider: GINGER CALI MD Date/Time of Note DATE: 05/15/18 TIME: 08:45 Subjective NO acute events - much better overall. NO CP now - in sinus - con't PT. Objective Vitals Vital Signs Date Temp Pulse Resp B/P (MAP) Pulse Ox O2 O2 Flow FiO2 Time Delivery Rate 05/15/18 98.1 85 18 106/64 98 07:43 (78) 05/13/18 Nasal 2.0 07:31 Cannula 05/11/18 21 21:45 Intake and Output 05/14/18 05/14/18 05/15/18 1515:00 23:00 07:00 IntakeIntake Total 1550 ml 250 ml BalanceBalance 1550 ml 250 ml Exam General: WN/WD/NAD, AOx 3 HEENT: Unicetric/atraumatic/EOMI (follows commands) NECK: JVD elevated, no thyromegaly Lymph: no lymphadenopathy HEART: regular with no S3, II/ systolic murmur at apex, midsternal scar LUNGS: Coarse sounds ABD: soft, NT, ND, +BS : Intact Neuro: non focal SKIN: chronic changes EXT: trace edema Results/Medications Result Diagram: 05/15/18 0510 05/15/18 0510 Results 24 hrs Laboratory Tests Test 05/15/18 05:10 White Blood Count 15.3 H Red Blood Count 3.94 L Hemoglobin 9.6 L Hematocrit 30.1 L Mean Corpuscular Volume 76.4 L Mean Corpuscular Hemoglobin 24.4 L Mean Corpuscular Hemoglobin Concent 31.9 L Red Cell Distribution Width 17.8 H Platelet Count 471 H Mean Platelet Volume 10.7 H Immature Granulocytes % 0.900 H Neutrophils % 69.5 Lymphocytes % 14.6 L Monocytes % 9.0 Eosinophils % 5.2 Basophils % 0.8 Nucleated Red Blood Cells % 0.0 Immature Granulocytes # 0.130 H Neutrophils # 10.6 H Lymphocytes # 2.2 Monocytes # 1.4 H Eosinophils # 0.8 H Basophils # 0.1 Nucleated Red Blood Cells # 0.0 Sodium Level 138 Potassium Level 4.4 Chloride Level 97 Carbon Dioxide Level 27 Anion Gap 14 H Blood Urea Nitrogen 16 Creatinine 1.53 H Est Glomerular Filtrat Rate mL/min 47 L Glucose Level 109 Calcium Level 8.4 Home Meds Reported Medications Metoprolol Succinate* (Toprol XL*) 25 Mg Tab.sr.24h, 25 MG PO DAILY, #30 TAB 05/04/18 Atorvastatin Calcium* (Atorvastatin Calcium*) 20 Mg Tablet, 20 MG PO QHS, #30 TAB 05/04/18 Amlodipine Besylate* (Amlodipine Besylate*) 10 Mg Tablet, 10 MG PO DAILY, #30 TAB 05/04/18 Medications Current Medications Al Hydrox/Mg Hydrox/Simethicone (Mag-Al Plus) 30 ml Q4H PRN PO GASTROINTESTINAL UPSET Last administered on 05/12/18 10:23; Admin Dose 30 ML; Start 05/04/18 at 12:30 Ondansetron HCl (Zofran Inj) 4 mg Q4H PRN IV NAUSEA AND/OR VOMITING Last administered on 05/08/18 10:27; Admin Dose 4 MG; Start 05/04/18 at 12:30 Atorvastatin Calcium (Lipitor) 40 mg HS PO Last administered on 05/14/18 20:15; Admin Dose 40 MG; Start 05/04/18 at 21:00 Acetaminophen (Tylenol Tab) 650 mg Q3H PRN PO ELEVATED TEMPERATURE; Start 05/07/18 at 15:30 Acetaminophen (Tylenol Supp) 650 mg Q3H PRN [place] ELEVATED TEMPERATURE Last adm inistered on 05/08/18at 01:00; Admin Dose 650 MG; Start 05/07/18 at 15:30 Aspirin (Aspirin) 81 mg DAILY PO Last administered on 05/14/18 09:22; Admin Dose 81 MG; Start 05/09/18 at 09:00 Loratadine (Claritin) 10 mg DAILY PRN PO allergies; Start 05/08/18 at 20:00 Metoprolol Succinate (Toprol Xl) 25 mg BID PO Last administered on 05/13/18 21:23; Admin Dose 25 MG; Start 05/09/18 at 21:00 Amiodarone HCl (Cordarone) 200 mg BID PO Last administered on 05/14/18 20:17; Admin Dose 200 MG; Start 05/09/18 at 21:00 Docusate Sodium (Colace) 100 mg DAILY PO Last administered on 05/14/18 09:22; Admin Dose 100 MG; Start 05/11/18 at 15:30 Morphine Sulfate (morphine) 6 mg Q2H PRN PO MOD TO SEVERE PAIN Last administered on 05/15/18at 06:42; Admin Dose 6 MG; Start 05/12/18 at 14:00 Lactulose (Enulose) 20 gm DAILY PRN PO CONSTIPATION; Start 05/12/18 at 14:30 Lubiprostone (Amitiza) 24 mcg BID PO Last administered on 05/14/18at 09:22; Admin Dose 24 MCG; Start 05/12/18 at 21:00 Zolpidem Tartrate (Ambien) 5 mg HS MAY REPEAT X 1 PRN PO INSOMNIA; Start 05/14/18 at 16:00 Assessment/Plan Hospital Course (Demo Recall) 1.Cad s/p cabg LUEVANO-LAD, SVG-OM1/OM2, IKZ-TJW-elrl and SVG to PDA-prox - recovered well - con't to follow - doing well, pain controlled. 2.HTN - well controlled - con't med rx.In good range. 3.HL 4.Renal insufficiency - no acute events, BP in good range - will monitor now. Improved. 5.Leukocytosis - on anti-Bx, con't Rx. 6.Anemia - no bleeding now. H/H > 10. 7. PAF-recurrent o/n but now back in SR - rate controlled. CHIN MORGAN MD May 15, 2018 08:46
[2018-05-15] MEDS: METOPROLOL (XL) 25 MG TAB PO SCH ×2 (09:00→20:21)
[2018-05-15] MEDS: AMIODARONE 200 MG TAB PO SCH ×2 (09:03→20:21)
[2018-05-15] MEDS: LUBIPROSTONE 24 MCG CAP PO SCH ×2 (09:03→20:20)
[2018-05-15] MEDS: DOCUSATE SODIUM 100 MG CAP PO SCH (09:06)
[2018-05-15] MEDS: ASPIRIN 81 MG TAB PO SCH (09:06)
--- NOTE | 2018-05-15 13:10 | CONS ---
Assessment/Plan Assessment/Plan Assessment/Plan (Daily) pt was placed on Amitiza, effective initially, now no BM today bloated, pos flatus, no stool abd soft distention active BS Miralax 17 gms bid titrate to one-two soft stools/day Consultation Date/Type/Reason Admit Date/Time May 04, 2018 at 13:51 Initial Consult Date 05/05/18 Type of Consult post op ileus Requesting Provider: GINGER CALI MD Date/Time of Note DATE: 05/15/18 TIME: 13:09 Exam/Review of Systems Exam Vitals Vital Signs Date Temp Pulse Resp B/P (MAP) Pulse Ox O2 O2 Flow FiO2 Time Delivery Rate 05/15/18 98.2 81 18 101/67 99 11:19 (78) 05/13/18 Nasal 2.0 07:31 Cannula 05/11/18 21 21:45 Intake and Output 05/14/18 05/14/18 05/15/18 1515:00 23:00 07:00 IntakeIntake Total 1550 ml 250 ml BalanceBalance 1550 ml 250 ml Results Result Diagram: 05/15/18 0510 05/15/18 0510 Results 24hrs Laboratory Tests Test 05/15/18 05:10 White Blood Count 15.3 H Red Blood Count 3.94 L Hemoglobin 9.6 L Hematocrit 30.1 L Mean Corpuscular Volume 76.4 L Mean Corpuscular Hemoglobin 24.4 L Mean Corpuscular Hemoglobin Concent 31.9 L Red Cell Distribution Width 17.8 H Platelet Count 471 H Mean Platelet Volume 10.7 H Immature Granulocytes % 0.900 H Neutrophils % 69.5 Lymphocytes % 14.6 L Monocytes % 9.0 Eosinophils % 5.2 Basophils % 0.8 Nucleated Red Blood Cells % 0.0 Immature Granulocytes # 0.130 H Neutrophils # 10.6 H Lymphocytes # 2.2 Monocytes # 1.4 H Eosinophils # 0.8 H Basophils # 0.1 Nucleated Red Blood Cells # 0.0 Sodium Level 138 Potassium Level 4.4 Chloride Level 97 Carbon Dioxide Level 27 Anion Gap 14 H Blood Urea Nitrogen 16 Creatinine 1.53 H Est Glomerular Filtrat Rate mL/min 47 L Glucose Level 109 Calcium Level 8.4 Medications Medication Current Medications Al Hydrox/Mg Hydrox/Simethicone (Mag-Al Plus) 30 ml Q4H PRN PO GASTROINTESTINAL UPSET Last administered on 05/12/18 10:23; Admin Dose 30 ML; Start 05/04/18 at 12:30 Ondansetron HCl (Zofran Inj) 4 mg Q4H PRN IV NAUSEA AND/OR VOMITING Last adm inistered on 05/08/18 10:27; Admin Dose 4 MG; Start 05/04/18 at 12:30 Atorvastatin Calcium (Lipitor) 40 mg HS PO Last administered on 05/14/18 20:15; Admin Dose 40 MG; Start 05/04/18 at 21:00 Acetaminophen (Tylenol Tab) 650 mg Q3H PRN PO ELEVATED TEMPERATURE; Start 05/07/18 at 15:30 Acetaminophen (Tylenol Supp) 650 mg Q3H PRN [place] ELEVATED TEMPERATURE Last administered on 05/08/18 01:00; Admin Dose 650 MG; Start 05/07/18 at 15:30 Aspirin (Aspirin) 81 mg DAILY PO Last administered on 05/15/18 09:06; Admin Dose 81 MG; Start 05/09/18 at 09:00 Loratadine (Claritin) 10 mg DAILY PRN PO allergies; Start 05/08/18 at 20:00 Metoprolol Succinate (Toprol Xl) 25 mg BID PO Last administered on 05/13/18 21:23; Admin Dose 25 MG; Start 05/09/18 at 21:00 Amiodarone HCl (Cordarone) 200 mg BID PO Last administered on 05/15/18 09:03; Admin Dose 200 MG; Start 05/09/18 at 21:00 Docusate Sodium (Colace) 100 mg DAILY PO Last administered on 05/15/18 09:06; Admin Dose 100 MG; Start 05/11/18 at 15:30 Morphine Sulfate (morphine) 6 mg Q2H PRN PO MOD TO SEVERE PAIN Last administered on 05/15/18 06:42; Admin Dose 6 MG; Start 05/12/18 at 14:00 Lactulose (Enulose) 20 gm DAILY PRN PO CONSTIPATION; Start 05/12/18 at 14:30 Lubiprostone (Amitiza) 24 mcg BID PO Last administered on 05/15/18 09:03; A dmin Dose 24 MCG; Start 05/12/18 at 21:00 Zolpidem Tartrate (Ambien) 5 mg HS MAY REPEAT X 1 PRN PO INSOMNIA; Start 05/14/18 at 16:00 AMPARO ALVAREZ MD May 15, 2018 13:10
[2018-05-15] MEDS: POLYETHYLENE GLYCOL 17 GM PACKET PO SCH ×2 (13:41→20:21)
--- NOTE | 2018-05-15 16:23 | PN ---
Date/Time of Note Date/Time of Note DATE: 05/15/18 TIME: 16:21 Assessment/Plan VTE Prophylaxis Risk score (from [facility] [place])>0 risk: 8 SCD applied (from [facility] [place]): Yes Pharmacological prophylaxis: NA/contraindicated Pharm contraindication: surgical contra Lines/Catheters IV Catheter Type (from [facility]): Saline Lock Urinary Cath still in place: No Assessment/Plan Hospital Course Patient is awake alert denies shortness of breath denies chest pain, complains of abdominal distention and bloating, active bowel sounds, no BM today. Patient is encouraged to ambulate, continue laxative. Assessment/Plan -Constipation, resolved. Dr. Kurtz is following in gastroenterology consultation. -Ileus, resolved -Multivessel coronary artery disease on cardiac cath on 05/04/[address] Dial. S/p CABG procedure by Dr. Soriano, cardiovascular surgery on 05/07/18. -Acute on chronic renal failure vs CKD stage 3. Dr. Herrera is following in nephrology consultation. -Hypertension, continue metoprolol, Norvasc. -Hyperlipidemia, continue statin. Further recommendations based on clinical course. Plan of care discussed with Dr. Guerra. Result Diagram: 05/15/18 0510 05/15/18 0510 Results 24hrs Laboratory Tests Test 05/15/18 05:10 White Blood Count 15.3 H Red Blood Count 3.94 L Hemoglobin 9.6 L Hematocrit 30.1 L Mean Corpuscular Volume 76.4 L Mean Corpuscular Hemoglobin 24.4 L Mean Corpuscular Hemoglobin Concent 31.9 L Red Cell Distribution Width 17.8 H Platelet Count 471 H Mean Platelet Volume 10.7 H Immature Granulocytes % 0.900 H Neutrophils % 69.5 Lymphocytes % 14.6 L Monocytes % 9.0 Eosinophils % 5.2 Basophils % 0.8 Nucleated Red Blood Cells % 0.0 Immature Granulocytes # 0.130 H Neutrophils # 10.6 H Lymphocytes # 2.2 Monocytes # 1.4 H Eosinophils # 0.8 H Basophils # 0.1 Nucleated Red Blood Cells # 0.0 Sodium Level 138 Potassium Level 4.4 Chloride Level 97 Carbon Dioxide Level 27 Anion Gap 14 H Blood Urea Nitrogen 16 Creatinine 1.53 H Est Glomerular Filtrat Rate mL/min 47 L Glucose Level 109 Calcium Level 8.4 Exam/Review of Systems Exam Vitals Vital Signs Date Temp Pulse Resp B/P (MAP) Pulse Ox O2 O2 Flow FiO2 Time Delivery Rate 05/15/18 98.0 81 18 105/58 98 15:58 (74) 05/13/18 Nasal 2.0 07:31 Cannula 05/11/18 21 21:45 Intake and Output 05/14/18 05/14/18 05/15/18 1515:00 23:00 07:00 IntakeIntake Total 1550 ml 250 ml BalanceBalance 1550 ml 250 ml Exam Constitutional: alert, oriented Neck: supple Respiratory: clear to auscultation Cardiovascular: regular rate and rhythm, other (Midline surgical incision with intact dressing) Gastrointestinal: soft, non-tender, slightly distended Extremities: normal pulses, other (Right lower extremities status post surgery) Skin: nl turgor Results Results 24hrs Laboratory Tests Test 05/15/18 05:10 White Blood Count 15.3 H Red Blood Count 3.94 L Hemoglobin 9.6 L Hematocrit 30.1 L Mean Corpuscular Volume 76.4 L Mean Corpuscular Hemoglobin 24.4 L Mean Corpuscular Hemoglobin Concent 31.9 L Red Cell Distribution Width 17.8 H Platelet Count 471 H Mean Platelet Volume 10.7 H Immature Granulocytes % 0.900 H Neutrophils % 69.5 Lymphocytes % 14.6 L Monocytes % 9.0 Eosinophils % 5.2 Basophils % 0.8 Nucleated Red Blood Cells % 0.0 Immature Granulocytes # 0.130 H Neutrophils # 10.6 H Lymphocytes # 2.2 Monocytes # 1.4 H Eosinophils # 0.8 H Basophils # 0.1 Nucleated Red Blood Cells # 0.0 Sodium Level 138 Potassium Level 4.4 Chloride Level 97 Carbon Dioxide Level 27 Anion Gap 14 H Blood Urea Nitrogen 16 Creatinine 1.53 H Est Glomerular Filtrat Rate mL/min 47 L Glucose Level 109 Calcium Level 8.4 Medications Medication Current Medications Al Hydrox/Mg Hydrox/Simethicone (Mag-Al Plus) 30 ml Q4H PRN PO GASTROINTESTINAL UPSET Last administered on 05/12/18at 10:23; Admin Dose 30 ML; Start 05/04/18 at 12:30 Ondansetron HCl (Zofran Inj) 4 mg Q4H PRN IV NAUSEA AND/OR VOMITING Last administered on 05/08/18at 10:27; Admin Dose 4 MG; Start 05/04/18 at 12:30 Atorvastatin Calcium (Lipitor) 40 mg HS PO Last administered on 05/14/18 20:15; Admin Dose 40 MG; Start 05/04/18 at 21:00 Acetaminophen (Tylenol Tab) 650 mg Q3H PRN PO ELEVATED TEMPERATURE; Start 05/07/18 at 15:30 Acetaminophen (Tylenol Supp) 650 mg Q3H PRN [place] ELEVATED TEMPERATURE Last administered on 05/08/18 01:00; Admin Dose 650 MG; Start 05/07/18 at 15:30 Aspirin (Aspirin) 81 mg DAILY PO Last administered on 05/15/18 09:06; Admin Dose 81 MG; Start 05/09/18 at 09:00 Loratadine (Claritin) 10 mg DAILY PRN PO allergies; Start 05/08/18 at 20:00 Metoprolol Succinate (Toprol Xl) 25 mg BID PO Last administered on 05/13/18 21:23; Admin Dose 25 MG; Start 05/09/18 at 21:00 Amiodarone HCl (Cordarone) 200 mg BID PO Last administered on 05/15/18 09:03; Admin Dose 200 MG; Start 05/09/18 at 21:00 Docusate Sodium (Colace) 100 mg DAILY PO Last administered on 05/15/18 09:06; Admin Dose 100 MG; Start 05/11/18 at 15:30 Morphine Sulfate (morphine) 6 mg Q2H PRN PO MOD TO SEVERE PAIN Last administered on 05/15/18 06:42; Admin Dose 6 MG; Start 05/12/18 at 14:00 Lactulose (Enulose) 20 gm DAILY PRN PO CONSTIPATION; Start 05/12/18 at 14:30 Lubiprostone (Amitiza) 24 mcg BID PO Last administered on 05/15/18 09:03; Admin Dose 24 MCG; Start 05/12/18 at 21:00 Zolpidem Tartrate (Ambien) 5 mg HS MAY REPEAT X 1 PRN PO INSOMNIA; Start 05/14/18 at 16:00 Polyethylene Glycol (Miralax) 17 gm BID PO Last administered on 05/15/18 13:41; Admin Dose 17 GM; Start 05/15/18 at 13:30 DANIE MOORE May 15, 2018 16:23
--- NOTE | 2018-05-15 18:52 | NUR ---
EOSS: Patient remain stable. No significant changes. VS within normal limits. Hourly rounding done.Assisted with ADL's care. Administered scheduled meds. No complaints of pain. Surgical wound dressings intact. Monitor for abdominal distention. Given Miralax. Will endorse plan of care to the next shift.
[2018-05-15] MEDS: ATORVASTATIN 40 MG TAB PO SCH (20:20)
[2018-05-15] MEDS: HYDROCODONE/APAP (5/325) TAB PO PRN (22:11)
[2018-05-16] VITALS (11 sets, daily range): BP systolic 98–121; BP diastolic 60–73; PULSE 72–84; RESP 18–22
--- NOTE | 2018-05-16 03:22 | NUR ---
NOTES AWAKE ALERT ON BED ON ROOM AIR AND AMBULATE INSIDE THE ROOM. MEDS GIVEN. ENCOURAGE TO AMBULATE MORE AND HAVE PAIN MEDS SO THAT HE CAN REST GOOD. RESTING ON BED. WILL CONTINUE TO MONITOR PT.
[2018-05-16] MEDS: POLYETHYLENE GLYCOL 17 GM PACKET PO SCH ×2 (08:35→22:06)
[2018-05-16] MEDS: LUBIPROSTONE 24 MCG CAP PO SCH ×2 (08:35→22:06)
[2018-05-16] MEDS: METOPROLOL (XL) 25 MG TAB PO SCH (08:35)
[2018-05-16] MEDS: DOCUSATE SODIUM 100 MG CAP PO SCH (08:35)
[2018-05-16] MEDS: ASPIRIN 81 MG TAB PO SCH (08:35)
[2018-05-16] MEDS: AMIODARONE 200 MG TAB PO SCH ×2 (08:35→21:00)
--- NOTE | 2018-05-16 13:07 | CONS ---
Assessment/Plan Cardiology NYHA: II Heart Failure Type: Diastolic Assessment/Plan Hospital Course (Demo Recall) IMP: 1.cad s/p cab g POD#2 LUEVANO-LAD, SVG-OM1/OM2, HOW-MDV-qdvo and SVG to PDA-prox 2.HTN 3.HL 4.REnal insufficiency 5.Leukocytosis 6.anemia 7. PAF-remained in SR on amio PO 8. Illeus-clinically improved Recc: -Tele -serial ecg's -Continue asa -Continue BB but will decrease to daily given marginal BP -Continue amio in attempt to maintain SR -Follow volume status -ambulation/PT -GI following illeus -ok for d/c planning from cardiac standpoint with outpatient f/u 2 weeks Consultation Date/Type/Reason Admit Date/Time May 04, 2018 at 13:51 Initial Consult Date 05/05/18 Type of Consult Cardiology Reason for Consultation cad s/p cabg Requesting Provider: GINGER CALI MD Date/Time of Note DATE: 05/16/18 TIME: 13:05 Exam/Review of Systems Vital Signs Vitals Vital Signs Date Temp Pulse Resp B/P (MAP) Pulse Ox O2 O2 Flow FiO2 Time Delivery Rate 05/16/18 84 12:24 05/16/18 97.5 113/69 96 Room Air 12:18 (84) 05/16/18 22 08:07 05/13/18 2.0 07:31 Intake and Output 05/15/18 05/15/18 05/16/18 1515:00 23:00 07:00 IntakeIntake Total 1020 ml 240 ml BalanceBalance 1020 ml 240 ml Exam Exam Review of Systems: CONSTITUTIONAL: No fevers, chills. PULMONARY: No sob CARDIOVASCULAR: No chest pain/palpitations GASTROINTESTINAL: No nausea/vomiting. GENITOURINARY: No hematuria/dysuria. MUSCULOSKELETAL: No myagias/arthalgias. PSYCHIATRIC: The patient denies depression. NEUROLOGIC: No weakness Constitutional: alert, oriented Psych: no complaints Head: normocephalic ENMT: mucosa pink and moist Neck: supple, jvd (9 cm water) Respiratory: clear to auscultation Cardiovascular: regular rate and rhythm Gastrointestinal: soft, non-tender Musculoskeletal: muscle tone (normal) Extremities: edema (none) Neurological: other (No focsal deficits) Labs Result Diagram: 05/16/18 0520 05/16/18 0520 Results 24hrs Laboratory Tests Test 05/16/18 05:20 White Blood Count 15.5 H Red Blood Count 4.26 L Hemoglobin 10.3 L Hematocrit 32.7 L Mean Corpuscular Volume 76.8 L Mean Corpuscular Hemoglobin 24.2 L Mean Corpuscular Hemoglobin Concent 31.5 L Red Cell Distribution Width 18.1 H Platelet Count 534 H Mean Platelet Volume 9.9 Immature Granulocytes % 0.800 H Neutrophils % 66.5 Lymphocytes % 17.6 Monocytes % 8.9 Eosinophils % 5.4 Basophils % 0.8 Nucleated Red Blood Cells % 0.0 Immature Granulocytes # 0.130 H Neutrophils # 10.3 H Lymphocytes # 2.7 Monocytes # 1.4 H Eosinophils # 0.8 H Basophils # 0.1 Nucleated Red Blood Cells # 0.0 Sodium Level 141 Potassium Level 4.8 Chloride Level 98 Carbon Dioxide Level 29 Anion Gap 14 H Blood Urea Nitrogen 15 Creatinine 1.62 H Est Glomerular Filtrat Rate mL/min 44 L Glucose Level 109 Calcium Level 8.7 Medications Medications Current Medications Al Hydrox/Mg Hydrox/Simethicone (Mag-Al Plus) 30 ml Q4H PRN PO GASTROINTESTINAL UPSET Last administered on 05/12/18at 10:23; Admin Dose 30 ML; Start 05/04/18 at 12:30 Ondansetron HCl (Zofran Inj) 4 mg Q4H PRN IV NAUSEA AND/OR VOMITING Last administered on 05/08/18at 10:27; Admin Dose 4 MG; Start 05/04/18 at 12:30 Atorvastatin Calcium (Lipitor) 40 mg HS PO Last administered on 05/15/18at 20:20; Admin Dose 40 MG; Start 05/04/18 at 21:00 Acetaminophen (Tylenol Tab) 650 mg Q3H PRN PO ELEVATED TEMPERATURE; Start 05/07/18 at 15:30 Acetaminophen (Tylenol Supp) 650 mg Q3H PRN [place] ELEVATED TEMPERATURE Last administered on 05/08/18at 01:00; Admin Dose 650 MG; Start 05/07/18 at 15:30 Aspirin (Aspirin) 81 mg DAILY PO Last administered on 05/16/18at 08:35; Admin Dose 81 MG; Start 05/09/18 at 09:00 Loratadine (Claritin) 10 mg DAILY PRN PO allergies; Start 05/08/18 at 20:00 Metoprolol Succinate (Toprol Xl) 25 mg BID PO Last administered on 05/13/18 21:23; Admin Dose 25 MG; Start 05/09/18 at 21:00 Amiodarone HCl (Cordarone) 200 mg BID PO Last administered on 05/16/18 08:35; Admin Dose 200 MG; Start 05/09/18 at 21:00 Docusate Sodium (Colace) 100 mg DAILY PO Last administered on 05/16/18 08:35; Admin Dose 100 MG; Start 05/11/18 at 15:30 Morphine Sulfate (morphine) 6 mg Q2H PRN PO MOD TO SEVERE PAIN Last adminis tered on 05/15/18at 06:42; Admin Dose 6 MG; Start 05/12/18 at 14:00 Lactulose (Enulose) 20 gm DAILY PRN PO CONSTIPATION; Start 05/12/18 at 14:30 Lubiprostone (Amitiza) 24 mcg BID PO Last administered on 05/16/18 08:35; Admin Dose 24 MCG; Start 05/12/18 at 21:00 Zolpidem Tartrate (Ambien) 5 mg HS MAY REPEAT X 1 PRN PO INSOMNIA; Start 05/14/18 at 16:00 Polyethylene Glycol (Miralax) 17 gm BID PO Last administered on 05/16/18 08:35; Admin Dose 17 GM; Start 05/15/18 at 13:30 Acetaminophen/ Hydrocodone Bitart ([place] (5/325)) 1 tab Q4H PRN PO MODERATE PAIN LEVEL 4-6 Last administered on 05/15/18at 22:11; Admin Dose 1 TAB; Start 05/15/18 at 22:00 RITA PISANO May 16, 2018 13:07
--- NOTE | 2018-05-16 15:49 | CONS ---
DATE OF ADMISSION: 05/04/2018 DATE OF CONSULTATION: TYPE OF CONSULTATION: Gastroenterology. HISTORY OF PRESENT ILLNESS: A 62-year-old male with a history of hypertension, status post coronary artery bypass graft, developed postoperative ileus and constipation. The patient now is having good bowel movement. No abdominal pain, no bloating, no distention. OBJECTIVE: VITAL SIGNS: Stable. ABDOMEN: Benign. LUNGS: Clear. EXTREMITIES: No edema. CENTRAL NERVOUS SYSTEM: Grossly within normal limits. IMPRESSION: 1. Ileus, clinically resolved. 2. Constipation, much better. 3. Coronary artery disease status post coronary artery bypass graft. 4. Hypertension. 5. Anemia. 6. Renal insufficiency. PLAN: To continue present care. We will discontinue Colace. Dictated By: GENOVEVA MUHAMMAD MD PJ/NTS Conf#: [id number] DID#: [id number] CC: GINGER CALI MD;*EndCC*
--- NOTE | 2018-05-16 16:06 | CONS ---
Assessment/Plan Assessment/Plan Assessment/Plan (Daily) 1. acute on chronic renal failure vs Baseline CKD- stable 2. 3 V CAD on Cardiac cath on 05/04/18 s/p CABG on 05/07/2018 3. H/o HTN 4. H/o HL 5.H/o possible CKD III due to HTN nephrosclerosis Plan: BUN/Cr 15/1.62, Adquate urine output, pt doign well, chest tube d/jayda, BP stable WBC still 15.5 will follow up Follow up with me in clinic in 1-2 week upon discharge Consultation Date/Type/Reason Admit Date/Time May 04, 2018 at 13:51 Initial Consult Date 05/05/18 Type of Consult NEPHROLOGY Requesting Provider: GINGER CALI MD Date/Time of Note DATE: 05/16/18 TIME: 16:06 Exam/Review of Systems Exam Vitals Vital Signs Date Temp Pulse Resp B/P (MAP) Pulse Ox O2 O2 Flow FiO2 Time Delivery Rate 05/16/18 98.0 82 20 121/73 96 Room Air 15:32 (89) 05/13/18 2.0 07:31 Intake and Output 05/15/18 05/15/18 05/16/18 1515:00 23:00 07:00 IntakeIntake Total 1020 ml 240 ml BalanceBalance 1020 ml 240 ml Exam Constitutional: awake, alert, no acute distress Respiratory: decreaesd BS at bases, , no wheezing Cardiovascular: S1S2 tachycardia, no murmur Gastrointestinal: soft, non-tender Musculoskeletal: no edema, no cyanosis, no clubbing Extremities: normal pulses Neurological: non focal, awake, alert Results Result Diagram: 05/16/1851905/16/18 0520 Results 24hrs Laboratory Tests Test 05/16/18 05:20 White Blood Count 15.5 H Red Blood Count 4.26 L Hemoglobin 10.3 L Hematocrit 32.7 L Mean Corpuscular Volume 76.8 L Mean Corpuscular Hemoglobin 24.2 L Mean Corpuscular Hemoglobin Concent 31.5 L Red Cell Distribution Width 18.1 H Platelet Count 534 H Mean Platelet Volume 9.9 Immature Granulocytes % 0.800 H Neutrophils % 66.5 Lymphocytes % 17.6 Monocytes % 8.9 Eosinophils % 5.4 Basophils % 0.8 Nucleated Red Blood Cells % 0.0 Immature Granulocytes # 0.130 H Neutrophils # 10.3 H Lymphocytes # 2.7 Monocytes # 1.4 H Eosinophils # 0.8 H Basophils # 0.1 Nucleated Red Blood Cells # 0.0 Sodium Level 141 Potassium Level 4.8 Chloride Level 98 Carbon Dioxide Level 29 Anion Gap 14 H Blood Urea Nitrogen 15 Creatinine 1.62 H Est Glomerular Filtrat Rate mL/min 44 L Glucose Level 109 Calcium Level 8.7 Medications Medication Current Medications Al Hydrox/Mg Hydrox/Simethicone (Mag-Al Plus) 30 ml Q4H PRN PO GASTROINTESTINAL UPSET Last administered on 05/12/18 10:23; Admin Dose 30 ML; Start 05/04/18 at 12:30 Ondansetron HCl (Zofran Inj) 4 mg Q4H PRN IV NAUSEA AND/OR VOMITING Last administered on 05/08/18 10:27; Admin Dose 4 MG; Start 05/04/18 at 12:30 Atorvastatin Calcium (Lipitor) 40 mg HS PO Last administered on 05/15/18 20:20; Admin Dose 40 MG; Start 05/04/18 at 21:00 Acetaminophen (Tylenol Tab) 650 mg Q3H PRN PO ELEVATED TEMPERATURE; Start 05/07/18 at 15:30 Acetaminophen (Tylenol Supp) 650 mg Q3H PRN [place] ELEVATED TEMPERATURE Last administered on 05/08/18 01:00; Admin Dose 650 MG; Start 05/07/18 at 15:30 Aspirin (Aspirin) 81 mg DAILY PO Last administered on 05/16/18 08:35; Admin Dose 81 MG; Start 05/09/18 at 09:00 Loratadine (Claritin) 10 mg DAILY PRN PO allergies; Start 05/08/18 at 20:00 Amiodarone HCl (Cordarone) 200 mg BID PO Last administered on 05/16/18 08:35; Admin Dose 200 MG; Start 05/09/18 at 21:00 Docusate Sodium (Colace) 100 mg DAILY PO Last administered on 05/16/18 08:35; Admin Dose 100 MG; Start 05/11/18 at 15:30 Morphine Sulfate (morphine) 6 mg Q2H PRN PO MOD TO SEVERE PAIN Last administered on 05/15/18 06:42; Admin Dose 6 MG; Start 05/12/18 at 14:00 Lactulose (Enulose) 20 gm DAILY PRN PO CONSTIPATION; Start 05/12/18 at 14:30 Lubiprostone (Amitiza) 24 mcg BID PO Last administered on 05/16/18at 08:35; Admin Dose 24 MCG; Start 05/12/18 at 21:00 Zolpidem Tartrate (Ambien) 5 mg HS MAY REPEAT X 1 PRN PO INSOMNIA; Start 05/14/18 at 16:00 Polyethylene Glycol (Miralax) 17 gm BID PO Last administered on 05/16/18at 08:35; Admin Dose 17 GM; Start 05/15/18 at 13:30 Acetaminophen/ Hydrocodone Bitart ([place] (5/325)) 1 tab Q4H PRN PO MODERATE PAIN LEVEL 4-6 Last administered on 05/15/18at 22:11; Admin Dose 1 TAB; Start 05/15/18 at 22:00 Metoprolol Succinate (Toprol Xl) 25 mg DAILY PO ; Start 05/17/18 at 09:00 MARIA DE JESUS LAUREN MD May 16, 2018 16:06
--- NOTE | 2018-05-16 17:47 | PN ---
Date/Time of Note Date/Time of Note DATE: 05/16/18 TIME: 17:47 Assessment/Plan VTE Prophylaxis Risk score (from [facility] [place])>0 risk: 9 SCD applied (from [facility] [place]): No SCD contraindicated: other Pharmacological prophylaxis: LMWH Lines/Catheters IV Catheter Type (from [facility]): Saline Lock Urinary Cath still in place: No Assessment/Plan Hospital Course Patient continues to have distended abdomen however reports he had bowel movement x3 today and denies any nausea and vomiting. Patient has persistent leukocytosis, no fever. Will obtain chest x-ray. CBC tomorrow. Surgical chest wound is examined continue current dressing, antibiotic ointments to chest tube insertion site. Assessment/Plan -Constipation, resolved. Dr. Kurtz is following in gastroenterology consultation. -Ileus, resolved -Multivessel coronary artery disease on cardiac cath on 05/04/[address] Dial. S/p CABG procedure by Dr. Soriano, cardiovascular surgery on 05/07/18. -Acute on chronic renal failure vs CKD stage 3. Dr. Herrera is following in nephrology consultation. -Hypertension, continue metoprolol, Norvasc. -Hyperlipidemia, continue statin. Further recommendations based on clinical course. Plan of care discussed with Dr. Guerra. Result Diagram: 05/16/18 0520 05/16/18 0520 Results 24hrs Laboratory Tests Test 05/16/18 05:20 White Blood Count 15.5 H Red Blood Count 4.26 L Hemoglobin 10.3 L Hematocrit 32.7 L Mean Corpuscular Volume 76.8 L Mean Corpuscular Hemoglobin 24.2 L Mean Corpuscular Hemoglobin Concent 31.5 L Red Cell Distribution Width 18.1 H Platelet Count 534 H Mean Platelet Volume 9.9 Immature Granulocytes % 0.800 H Neutrophils % 66.5 Lymphocytes % 17.6 Monocytes % 8.9 Eosinophils % 5.4 Basophils % 0.8 Nucleated Red Blood Cells % 0.0 Immature Granulocytes # 0.130 H Neutrophils # 10.3 H Lymphocytes # 2.7 Monocytes # 1.4 H Eosinophils # 0.8 H Basophils # 0.1 Nucleated Red Blood Cells # 0.0 Sodium Level 141 Potassium Level 4.8 Chloride Level 98 Carbon Dioxide Level 29 Anion Gap 14 H Blood Urea Nitrogen 15 Creatinine 1.62 H Est Glomerular Filtrat Rate mL/min 44 L Glucose Level 109 Calcium Level 8.7 Exam/Review of Systems Exam Vitals Vital Signs Date Temp Pulse Resp B/P (MAP) Pulse Ox O2 O2 Flow FiO2 Time Delivery Rate 05/16/18 80 16:32 05/16/18 98.0 20 121/73 96 Room Air 15:32 (89) 05/13/18 2.0 07:31 Intake and Output 05/15/18 05/15/18 05/16/18 1515:00 23:00 07:00 IntakeIntake Total 1020 ml 240 ml BalanceBalance 1020 ml 240 ml Exam Constitutional: alert, oriented Neck: supple Respiratory: clear to auscultation Cardiovascular: regular rate and rhythm, other (Midline surgical incision with intact dressing) Gastrointestinal: soft, non-tender, slightly distended Extremities: normal pulses, other (Right lower extremities status post surgery) Skin: nl turgor Results Results 24hrs Laboratory Tests Test 05/16/18 05:20 White Blood Count 15.5 H Red Blood Count 4.26 L Hemoglobin 10.3 L Hematocrit 32.7 L Mean Corpuscular Volume 76.8 L Mean Corpuscular Hemoglobin 24.2 L Mean Corpuscular Hemoglobin Concent 31.5 L Red Cell Distribution Width 18.1 H Platelet Count 534 H Mean Platelet Volume 9.9 Immature Granulocytes % 0.800 H Neutrophils % 66.5 Lymphocytes % 17.6 Monocytes % 8.9 Eosinophils % 5.4 Basophils % 0.8 Nucleated Red Blood Cells % 0.0 Immature Granulocytes # 0.130 H Neutrophils # 10.3 H Lymphocytes # 2.7 Monocytes # 1.4 H Eosinophils # 0.8 H Basophils # 0.1 Nucleated Red Blood Cells # 0.0 Sodium Level 141 Potassium Level 4.8 Chloride Level 98 Carbon Dioxide Level 29 Anion Gap 14 H Blood Urea Nitrogen 15 Creatinine 1.62 H Est Glomerular Filtrat Rate mL/min 44 L Glucose Level 109 Calcium Level 8.7 Medications Medication Current Medications Al Hydrox/Mg Hydrox/Simethicone (Mag-Al Plus) 30 ml Q4H PRN PO GASTROINTESTINAL UPSET Last administered on 05/12/18at 10:23; Admin Dose 30 ML; Start 05/04/18 at 12:30 Ondansetron HCl (Zofran Inj) 4 mg Q4H PRN IV NAUSEA AND/OR VOMITING Last administered on 05/08/18at 10:27; Admin Dose 4 MG; Start 05/04/18 at 12:30 Atorvastatin Calcium (Lipitor) 40 mg HS PO Last administered on 05/15/18 20:20; Admin Dose 40 MG; Start 05/04/18 at 21:00 Acetaminophen (Tylenol Tab) 650 mg Q3H PRN PO ELEVATED TEMPERATURE; Start 05/07/18 at 15:30 Acetaminophen (Tylenol Supp) 650 mg Q3H PRN [place] ELEVATED TEMPERATURE Last administered on 05/08/18at 01:00; Admin Dose 650 MG; Start 05/07/18 at 15:30 Aspirin (Aspirin) 81 mg DAILY PO Last administered on 05/16/18 08:35; Admin Dose 81 MG; Start 05/09/18 at 09:00 Loratadine (Claritin) 10 mg DAILY PRN PO allergies; Start 05/08/18 at 20:00 Amiodarone HCl (Cordarone) 200 mg BID PO Last administered on 05/16/18 08:35; Admin Dose 200 MG; Start 05/09/18 at 21:00 Docusate Sodium (Colace) 100 mg DAILY PO Last administered on 05/16/18 08:35; Admin Dose 100 MG; Start 05/11/18 at 15:30 Morphine Sulfate (morphine) 6 mg Q2H PRN PO MOD TO SEVERE PAIN Last administered on 05/15/18 06:42; Admin Dose 6 MG; Start 05/12/18 at 14:00 Lactulose (Enulose) 20 gm DAILY PRN PO CONSTIPATION; Start 05/12/18 at 14:30 Lubiprostone (Amitiza) 24 mcg BID PO Last administered on 05/16/18 08:35; Admin Dose 24 MCG; Start 05/12/18 at 21:00 Zolpidem Tartrate (Ambien) 5 mg HS MAY REPEAT X 1 PRN PO INSOMNIA; Start 05/14/18 at 16:00 Polyethylene Glycol (Miralax) 17 gm BID PO Last administered on 05/16/18 08:35; Admin Dose 17 GM; Start 05/15/18 at 13:30 Acetaminophen/ Hydrocodone Bitart ([place] (5/325)) 1 tab Q4H PRN PO MODERATE PAIN LEVEL 4-6 Last administered on 05/15/18 22:11; Admin Dose 1 TAB; Start 05/15/18 at 22:00 Metoprolol Succinate (Toprol Xl) 25 mg DAILY PO ; Start 05/17/18 at 09:00 Neomycin/ Polymyxin/ Bacitracin (Neosporin Topical Oint) 1 applic BID TOP ; St art 05/16/18 at 21:00; Status UNV DANIE MOORE May 16, 2018 17:47
--- NOTE | 2018-05-16 19:35 | PN ---
Date/Time of Note Date/Time of Note DATE: 05/16/18 TIME: 19:35 Assessment/Plan Lines/Catheters IV Catheter Type (from Nrsg): Saline Lock Fish in Place (from Nrsg): No Assessment/Plan Assessment/Plan SP CABG hemodynamically stable CT DCed DC planning FU with me 1 week Subjective 24 Hr Interval Summary Constitutional: improved Pain Control: mild Exam/Review of Systems Vital Signs Vitals Vital Signs Date Temp Pulse Resp B/P (MAP) Pulse Ox O2 O2 Flow FiO2 Time Delivery Rate 05/16/18 80 16:32 05/16/18 98.0 20 121/73 96 Room Air 15:32 (89) 05/13/18 2.0 07:31 Intake and Output 05/15/18 05/15/18 05/16/18 1515:00 23:00 07:00 IntakeIntake Total 1020 ml 240 ml BalanceBalance 1020 ml 240 ml Exam ENMT: nl external ears & nose, nl lips & teeth, nl nasal mucosa & septum, mucosa pink and moist Neck: supple, non-tender Respiratory: clear to auscultation, normal air movement Cardiovascular: regular rate and rhythm, nl pulses Gastrointestinal: soft, nl liver, spleen, non-tender Results Result Diagram: 05/16/1851905/16/18 0520 RONDA NAZARIO MD May 16, 2018 19:35
[2018-05-16] MEDS: NEOMYC/POLYMYX/BACIT 30 GM OINT TOP SCH (21:00)
[2018-05-16] MEDS: ATORVASTATIN 40 MG TAB PO SCH (22:06)
[2018-05-17] VITALS (9 sets, daily range): BP systolic 97–117; BP diastolic 55–74; PULSE 78–87; RESP 16–20
[2018-05-17] MEDS: HYDROCODONE/APAP (5/325) TAB PO PRN (00:56)
--- NOTE | 2018-05-17 06:37 | NUR ---
EOSS NO COMPLAINTS AT THIS TIME ,V/S STABLE. WILL ENDORSE ACCORDINGLY.
--- NOTE | 2018-05-17 08:09 | CONS ---
Assessment/Plan Assessment/Plan Assessment/Plan (Daily) 1. acute on chronic renal failure vs Baseline CKD- stable 2. 3 V CAD on Cardiac cath on 05/04/18 s/p CABG on 05/07/2018 3. H/o HTN 4. H/o HL 5.H/o possible CKD III due to HTN nephrosclerosis Plan: BUN/Cr 14/1.58, Adquate urine output, pt doign well, chest tube d/jayda, BP stable WBC still 15.5 will follow up Follow up with me in clinic in 1-2 week upon discharge Consultation Date/Type/Reason Admit Date/Time May 04, 2018 at 13:51 Initial Consult Date 05/05/18 Type of Consult NEPHROLOGY Requesting Provider: GINGER CALI MD Date/Time of Note DATE: 05/17/18 TIME: 08:09 Exam/Review of Systems Exam Vitals Vital Signs Date Temp Pulse Resp B/P (MAP) Pulse Ox O2 O2 Flow FiO2 Time Delivery Rate 05/17/18 98.0 85 20 117/67 96 Room Air 08:02 (84) 05/13/18 2.0 07:31 Intake and Output 05/16/18 05/16/18 05/17/18 1515:00 23:00 07:00 IntakeIntake Total 980 ml BalanceBalance 980 ml Exam Constitutional: awake, alert, no acute distress Respiratory: decreaesd BS at bases, , no wheezing Cardiovascular: S1S2 tachycardia, no murmur Gastrointestinal: soft, non-tender Musculoskeletal: no edema, no cyanosis, no clubbing Extremities: normal pulses Neurological: non focal, awake, alert Results Result Diagram: 05/17/18 0504 05/17/18 0504 Results 24hrs Laboratory Tests Test 05/17/18 05:04 White Blood Count 15.8 H Red Blood Count 4.27 L Hemoglobin 10.2 L Hematocrit 32.5 L Mean Corpuscular Volume 76.1 L Mean Corpuscular Hemoglobin 23.9 L Mean Corpuscular Hemoglobin Concent 31.4 L Red Cell Distribution Width 18.0 H Platelet Count 565 H Mean Platelet Volume 9.8 Immature Granulocytes % 0.600 H Neutrophils % 69.8 Lymphocytes % 16.1 Monocytes % 7.8 Eosinophils % 4.8 Basophils % 0.9 Nucleated Red Blood Cells % 0.0 Immature Granulocytes # 0.100 H Neutrophils # 11.1 H Lymphocytes # 2.6 Monocytes # 1.2 H Eosinophils # 0.8 H Basophils # 0.1 Nucleated Red Blood Cells # 0.0 Sodium Level 137 Potassium Level 4.5 Chloride Level 100 Carbon Dioxide Level 27 Anion Gap 10 Blood Urea Nitrogen 14 Creatinine 1.58 H Est Glomerular Filtrat Rate mL/min 45 L Glucose Level 112 Calcium Level 8.7 Magnesium Level 2.4 Medications Medication Current Medications Al Hydrox/Mg Hydrox/Simethicone (Mag-Al Plus) 30 ml Q4H PRN PO GASTROINTESTINAL UPSET Last administered on 05/12/18 10:23; Admin Dose 30 ML; Start 05/04/18 at 12:30 Ondansetron HCl (Zofran Inj) 4 mg Q4H PRN IV NAUSEA AND/OR VOMITING Last administered on 05/08/18 10:27; Admin Dose 4 MG; Start 05/04/18 at 12:30 Atorvastatin Calcium (Lipitor) 40 mg HS PO Last administered on 05/16/18 22:06; Admin Dose 40 MG; Start 05/04/18 at 21:00 Acetaminophen (Tylenol Tab) 650 mg Q3H PRN PO ELEVATED TEMPERATURE; Start 05/07/18 at 15:30 Acetaminophen (Tylenol Supp) 650 mg Q3H PRN [place] ELEVATED TEMPERATURE Last administered on 05/08/18 01:00; Admin Dose 650 MG; Start 05/07/18 at 15:30 Aspirin (Aspirin) 81 mg DAILY PO Last administered on 05/16/18 08:35; Admin Dose 81 MG; Start 05/09/18 at 09:00 Loratadine (Claritin) 10 mg DAILY PRN PO allergies; Start 05/08/18 at 20:00 Amiodarone HCl (Cordarone) 200 mg BID PO Last administered on 05/16/18 08:35; Admin Dose 200 MG; Start 05/09/18 at 21:00 Docusate Sodium (Colace) 100 mg DAILY PO Last administered on 05/16/18 08:35; Admin Dose 100 MG; Start 05/11/18 at 15:30 Morphine Sulfate (morphine) 6 mg Q2H PRN PO MOD TO SEVERE PAIN Last administered on 05/15/18 06:42; Admin Dose 6 MG; Start 05/12/18 at 14:00 Lactulose (Enulose) 20 gm DAILY PRN PO CONSTIPATION; Start 05/12/18 at 14:30 Lubiprostone (Amitiza) 24 mcg BID PO Last administered on 05/16/18at 22:06; Admin Dose 24 MCG; Start 05/12/18 at 21:00 Zolpidem Tartrate (Ambien) 5 mg HS MAY REPEAT X 1 PRN PO INSOMNIA; Start 05/14/18 at 16:00 Polyethylene Glycol (Miralax) 17 gm BID PO Last administered on 05/16/18at 22:06; Admin Dose 17 GM; Start 05/15/18 at 13:30 Acetaminophen/ Hydrocodone Bitart ([place] (5/325)) 1 tab Q4H PRN PO MODERATE PAIN LEVEL 4-6 Last administered on 05/17/18at 00:56; Admin Dose 1 TAB; Start 05/15/18 at 22:00 Metoprolol Succinate (Toprol Xl) 25 mg DAILY PO ; Start 05/17/18 at 09:00 Neomycin/ Polymyxin/ Bacitracin (Neosporin Topical Oint) 1 applic BID TOP Last administered on 05/16/18at 21:00; Admin Dose 1 APPLIC; Start 05/16/18 at 21:00 MARIA DE JESUS LAUREN MD May 17, 2018 08:09
[2018-05-17] MEDS: ASPIRIN 81 MG TAB PO SCH (08:26)
[2018-05-17] MEDS: LUBIPROSTONE 24 MCG CAP PO SCH ×2 (08:26→21:13)
[2018-05-17] MEDS: DOCUSATE SODIUM 100 MG CAP PO SCH (08:26)
[2018-05-17] MEDS: AMIODARONE 200 MG TAB PO SCH ×2 (08:27→21:13)
[2018-05-17] MEDS: POLYETHYLENE GLYCOL 17 GM PACKET PO SCH ×2 (08:27→21:22)
[2018-05-17] MEDS: METOPROLOL (XL) 25 MG TAB PO SCH (08:27)
[2018-05-17] MEDS: NEOMYC/POLYMYX/BACIT 30 GM OINT TOP SCH ×2 (08:28→21:14)
--- NOTE | 2018-05-17 10:56 | CONS ---
Assessment/Plan Cardiology NYHA: II Heart Failure Type: Diastolic Assessment/Plan Hospital Course (Demo Recall) IMP: 1.cad s/p cab g POD#2 LUEVANO-LAD, SVG-OM1/OM2, YQP-BDF-xlls and SVG to PDA-prox 2.HTN 3.HL 4.REnal insufficiency 5.Leukocytosis 6.anemia 7. PAF-remained in SR on amio PO 8. Illeus-clinically improved Recc: -Tele -serial ecg's -Continue asa/statin -Continue BB daily given marginal BP -Continue amio in attempt to maintain SR -Follow volume status -ambulation/PT -GI following illeus -ok for d/c planning from cardiac standpoint with outpatient f/u 2 weeks Consultation Date/Type/Reason Admit Date/Time May 04, 2018 at 13:51 Initial Consult Date 05/05/18 Type of Consult Cardiology Reason for Consultation Chest pain Requesting Provider: GINGER CALI MD Date/Time of Note DATE: 05/17/18 TIME: 10:52 Exam/Review of Systems Vital Signs Vitals Vital Signs Date Temp Pulse Resp B/P (MAP) Pulse Ox O2 O2 Flow FiO2 Time Delivery Rate 05/17/18 85 08:28 05/17/18 98.0 20 117/67 96 Room Air 08:02 (84) 05/13/18 2.0 07:31 Intake and Output 05/16/18 05/16/18 05/17/18 1515:00 23:00 07:00 IntakeIntake Total 980 ml BalanceBalance 980 ml Exam Exam Review of Systems: CONSTITUTIONAL: No fevers, chills. PULMONARY: No sob CARDIOVASCULAR: No chest pain/palpitations GASTROINTESTINAL: No nausea/vomiting. GENITOURINARY: No hematuria/dysuria. MUSCULOSKELETAL: No myagias/arthalgias. PSYCHIATRIC: The patient denies depression. NEUROLOGIC: No weakness Constitutional: alert, oriented Psych: no complaints Head: normocephalic ENMT: mucosa pink and moist Neck: supple, jvd (9 cm water) Respiratory: diminished breath sounds (at bases/B) Cardiovascular: regular rate and rhythm Gastrointestinal: soft, non-tender Musculoskeletal: muscle tone (normql) Extremities: edema (none) Labs Result Diagram: 05/17/18 0504 05/17/18 0504 Results 24hrs Laboratory Tests Test 05/17/18 05:04 White Blood Count 15.8 H Red Blood Count 4.27 L Hemoglobin 10.2 L Hematocrit 32.5 L Mean Corpuscular Volume 76.1 L Mean Corpuscular Hemoglobin 23.9 L Mean Corpuscular Hemoglobin Concent 31.4 L Red Cell Distribution Width 18.0 H Platelet Count 565 H Mean Platelet Volume 9.8 Immature Granulocytes % 0.600 H Neutrophils % 69.8 Lymphocytes % 16.1 Monocytes % 7.8 Eosinophils % 4.8 Basophils % 0.9 Nucleated Red Blood Cells % 0.0 Immature Granulocytes # 0.100 H Neutrophils # 11.1 H Lymphocytes # 2.6 Monocytes # 1.2 H Eosinophils # 0.8 H Basophils # 0.1 Nucleated Red Blood Cells # 0.0 Sodium Level 137 Potassium Level 4.5 Chloride Level 100 Carbon Dioxide Level 27 Anion Gap 10 Blood Urea Nitrogen 14 Creatinine 1.58 H Est Glomerular Filtrat Rate mL/min 45 L Glucose Level 112 Calcium Level 8.7 Magnesium Level 2.4 Medications Medications Current Medications Al Hydrox/Mg Hydrox/Simethicone (Mag-Al Plus) 30 ml Q4H PRN PO GASTROINTESTINAL UPSET Last administered on 05/12/18 10:23; Admin Dose 30 ML; Start 05/04/18 at 12:30 Ondansetron HCl (Zofran Inj) 4 mg Q4H PRN IV NAUSEA AND/OR VOMITING Last administered on 05/08/18at 10:27; Admin Dose 4 MG; Start 05/04/18 at 12:30 Atorvastatin Calcium (Lipitor) 40 mg HS PO Last administered on 05/16/18at 22:06; Admin Dose 40 MG; Start 05/04/18 at 21:00 Acetaminophen (Tylenol Tab) 650 mg Q3H PRN PO ELEVATED TEMPERATURE; Start 05/07/18 at 15:30 Acetaminophen (Tylenol Supp) 650 mg Q3H PRN [place] ELEVATED TEMPERATURE Last administered on 05/08/18at 01:00; Admin Dose 650 MG; Start 05/07/18 at 15:30 Aspirin (Aspirin) 81 mg DAILY PO Last administered on 05/17/18at 08:26; Admin Dose 81 MG; Start 05/09/18 at 09:00 Loratadine (Claritin) 10 mg DAILY PRN PO allergies; Start 05/08/18 at 20:00 Amiodarone HCl (Cordarone) 200 mg BID PO Last administered on 05/17/18 08:27; Admin Dose 200 MG; Start 05/09/18 at 21:00 Docusate Sodium (Colace) 100 mg DAILY PO Last administered on 05/17/18 08:26; Admin Dose 100 MG; Start 05/11/18 at 15:30 Morphine Sulfate (morphine) 6 mg Q2H PRN PO MOD TO SEVERE PAIN Last administere d on 05/15/18at 06:42; Admin Dose 6 MG; Start 05/12/18 at 14:00 Lactulose (Enulose) 20 gm DAILY PRN PO CONSTIPATION; Start 05/12/18 at 14:30 Lubiprostone (Amitiza) 24 mcg BID PO Last administered on 05/17/18 08:26; Admin Dose 24 MCG; Start 05/12/18 at 21:00 Zolpidem Tartrate (Ambien) 5 mg HS MAY REPEAT X 1 PRN PO INSOMNIA; Start 05/14/18 at 16:00 Polyethylene Glycol (Miralax) 17 gm BID PO Last administered on 05/17/18at 08:27; Admin Dose 17 GM; Start 05/15/18 at 13:30 Acetaminophen/ Hydrocodone Bitart ([place] (5/325)) 1 tab Q4H PRN PO MODERATE PAIN LEVEL 4-6 Last administered on 05/17/18at 00:56; Admin Dose 1 TAB; Start 05/15/18 at 22:00 Metoprolol Succinate (Toprol Xl) 25 mg DAILY PO ; Start 05/17/18 at 09:00 Neomycin/ Polymyxin/ Bacitracin (Neosporin Topical Oint) 1 applic BID TOP Last administered on 05/17/18at 08:28; Admin Dose 1 APPLIC; Start 05/16/18 at 21:00 RITA PISANO May 17, 2018 10:56
--- NOTE | 2018-05-17 11:22 | PN ---
Date/Time of Note Date/Time of Note DATE: 05/17/18 TIME: 11:21 Assessment/Plan Lines/Catheters IV Catheter Type (from Nrsg): Saline Lock Fish in Place (from Nrsg): No Assessment/Plan Assessment/Plan Status post coronary artery bypass grafting stable postop We will continue supportive care Pulmonary toilet Discharge planning Subjective 24 Hr Interval Summary Constitutional: improved Pain Control: mild Exam/Review of Systems Vital Signs Vitals Vital Signs Date Temp Pulse Resp B/P (MAP) Pulse Ox O2 O2 Flow FiO2 Time Delivery Rate 05/17/18 85 08:28 05/17/18 98.0 20 117/67 96 Room Air 08:02 (84) 05/13/18 2.0 07:31 Intake and Output 05/16/18 05/16/18 05/17/18 1515:00 23:00 07:00 IntakeIntake Total 980 ml BalanceBalance 980 ml Exam Head: normocephalic, atraumatic Eyes: nl conjunctiva, EOMI, nl lids, nl sclera ENMT: No nl external ears & nose, No nl lips & teeth, No nl nasal mucosa & septum, No mucosa pink and moist, No intubated, No tympanic membranes, No other Neck: supple, non-tender Respiratory: clear to auscultation, normal air movement Cardiovascular: regular rate and rhythm, nl pulses Gastrointestinal: soft, nl liver, spleen, non-tender Musculoskeletal: nl extremities to inspection, nl gait and stance Results Result Diagram: 05/17/18 0504 05/17/18 0504 RONDA NAZARIO MD May 17, 2018 11:22
--- NOTE | 2018-05-17 18:27 | NUR ---
EOSS: NO ACUTE DISTRESS DURING DAY SHIFT. PT IS AOX4, RESPIRATIONS UNLABORED, DENIES PAIN, STEADY GAIT. PT IS S/P CABG. ALL MEDICATIONS HAVE BEEN GIVEN SCHEDULED. ALL PT'S NEEDS HAVE BEEN MET. 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
--- NOTE | 2018-05-17 19:21 | CONS ---
Assessment/Plan Assessment/Plan Hospital Course (Demo Recall) - post-op leukocytosis, probably a reactive process but need to r/o infection - s/p CABG on 05/07/2018 - s/p cardiac catheterization on 05/04/2018: severe 3-vessel coronary artery disease - Doppler ultrasound of carotids on 05/04/2018 showed no significant flow detected in R vertebral artery, concerning for occlusion - chronic renal insufficiency. - stable retrocardiac opacity that may reflect LLL atelectasis or infiltrate combined with small pleural effusion; subsegmental atelectasis in RLL on CXR recommendations - ordered: cultures of blood, urine, urinalysis, CXR PA and lateral - monitor Pt off systemic antibiotic management d/w Pt, his and RN evening Consultation Date/Type/Reason Admit Date/Time May 04, 2018 at 13:51 Date of Consultation: May 17, 2018 Type of Consult ID Reason for Consultation leukocytosis Requesting Provider: DANIE CORONA Date/Time of Note DATE: 05/17/18 TIME: 19:10 Hx of Present Illness This is a 62 yo male with HTN who was admitted on after an abnormal nuclear stress test. On 05/04/2018 Pt underwent cardiac catheterization and was found out to have severe 3-vessel coronary artery disease. On 05/04/2018 his Doppler ultrasound of carotids showed no significant flow detected in R vertebral artery, concerning for occlusion. He also has chronic renal insufficiency. On 05/07/2018 Pt underwent CABG. Post operatively Pt continued to have renal insufficiency but remains afebrile. His WBC level remains elevated. Pt feels well; he is off O2, is ambulating, and is having regular BM. He denies fever, chills, rhinorrhea, GI/ Sx. His CXR showed stable retrocardiac opacity that may reflect LLL atelectasis or infiltrate combined with small pleural effusion; subsegmental atelectasis in RLL. [facility] requested ID consultation on this Pt. Constitutional: no complaints, improved Eyes: no complaints ENT: other (throat irritation since intubation for CABG) Respiratory: no complaints Cardiovascular: no complaints Gastrointestinal: no complaints Genitourinary: no complaints Musculoskeletal: no complaints Skin: no complaints Neurologic: no complaints Endocrine: no complaints Past Medical History Medical History: coronary artery disease, high cholesterol, hypertension Home Meds Reported Medications Metoprolol Succinate* (Toprol XL*) 25 Mg Tab.sr.24h, 25 MG PO DAILY, #30 TAB 05/04/18 Atorvastatin Calcium* (Atorvastatin Calcium*) 20 Mg Tablet, 20 MG PO QHS, #30 TAB 05/04/18 Amlodipine Besylate* (Amlodipine Besylate*) 10 Mg Tablet, 10 MG PO DAILY, #30 TAB 05/04/18 Medications Current Medications Al Hydrox/Mg Hydrox/Simethicone (Mag-Al Plus) 30 ml Q4H PRN PO GASTROINTESTINAL UPSET Last administered on 05/12/18 10:23; Admin Dose 30 ML; Start 05/04/18 at 12:30 Ondansetron HCl (Zofran Inj) 4 mg Q4H PRN IV NAUSEA AND/OR VOMITING Last administered on 05/08/18 10:27; Admin Dose 4 MG; Start 05/04/18 at 12:30 Atorvastatin Calcium (Lipitor) 40 mg HS PO Last administered on 05/16/18 22:06; Admin Dose 40 MG; Start 05/04/18 at 21:00 Acetaminophen (Tylenol Tab) 650 mg Q3H PRN PO ELEVATED TEMPERATURE; Start 05/07/18 at 15:30 Acetaminophen (Tylenol Supp) 650 mg Q3H PRN [place] ELEVATED TEMPERATURE Last administered on 05/08/18at 01:00; Admin Dose 650 MG; Start 05/07/18 at 15:30 Aspirin (Aspirin) 81 mg DAILY PO Last administered on 05/17/18 08:26; Admin Dose 81 MG; Start 05/09/18 at 09:00 Loratadine (Claritin) 10 mg DAILY PRN PO allergies; Start 05/08/18 at 20:00 Amiodarone HCl (Cordarone) 200 mg BID PO Last administered on 05/17/18 08:27; Admin Dose 200 MG; Start 05/09/18 at 21:00 Docusate Sodium (Colace) 100 mg DAILY PO Last administered on 05/17/18 08:26; Admin Dose 100 MG; Start 05/11/18 at 15:30 Morphine Sulfate (morphine) 6 mg Q2H PRN PO MOD TO SEVERE PAIN Last administered on 05/15/18 06:42; Admin Dose 6 MG; Start 05/12/18 at 14:00 Lactulose (Enulose) 20 gm DAILY PRN PO CONSTIPATION; Start 05/12/18 at 14:30 Lubiprostone (Amitiza) 24 mcg BID PO Last administered on 05/17/18at 08:26; Admin Dose 24 MCG; Start 05/12/18 at 21:00 Zolpidem Tartrate (Ambien) 5 mg HS MAY REPEAT X 1 PRN PO INSOMNIA; Start 05/14/18 at 16:00 Polyethylene Glycol (Miralax) 17 gm BID PO Last administered on 05/17/18at 08:27; Admin Dose 17 GM; Start 05/15/18 at 13:30 Acetaminophen/ Hydrocodone Bitart ([place] (5/325)) 1 tab Q4H PRN PO MODERATE PAIN LEVEL 4-6 Last administered on 05/17/18at 00:56; Admin Dose 1 TAB; Start 05/15/18 at 22:00 Metoprolol Succinate (Toprol Xl) 25 mg DAILY PO ; Start 05/17/18 at 09:00 Neomycin/ Polymyxin/ Bacitracin (Neosporin Topical Oint) 1 applic BID TOP Last administered on 05/17/18at 08:28; Admin Dose 1 APPLIC; Start 05/16/18 at 21:00 Allergies: Coded Allergies: No Known Allergy (Unverified , 05/05/18) Past Surgical History Past Surgical Hx: no surgical history Social History Alcohol Use: none Smoking Status: Former smoker Drug Use: none Exam/Review of Systems Exam Vitals Vital Signs Date Temp Pulse Resp B/P (MAP) Pulse Ox O2 O2 Flow FiO2 Time Delivery Rate 05/17/18 97.5 80 20 110/71 96 Room Air 17:22 (84) 05/13/18 2.0 07:31 Intake and Output 05/16/18 05/16/18 05/17/18 1414:59 22:59 06:59 IntakeIntake Total 980 ml BalanceBalance 980 ml Constitutional: alert, oriented, well developed Psych: no complaints, nl mood/affect Head: normocephalic, atraumatic Eyes: nl conjunctiva, EOMI, nl lids, nl sclera ENMT: nl external ears & nose, nl lips & teeth, nl nasal mucosa & septum, mucosa pink and moist Neck: supple, other (not swollen) Respiratory: clear to auscultation, normal air movement Cardiovascular: regular rate and rhythm, nl pulses, other (CABG wound is well approximated. 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, nl mental status, nl speech, nl strength Skin: nl turgor; No rash or lesions Results Result Diagram: 05/17/18 0504 05/17/18 0504 Results 24hrs Laboratory Tests Test 05/17/18 05:04 White Blood Count 15.8 H Red Blood Count 4.27 L Hemoglobin 10.2 L Hematocrit 32.5 L Mean Corpuscular Volume 76.1 L Mean Corpuscular Hemoglobin 23.9 L Mean Corpuscular Hemoglobin Concent 31.4 L Red Cell Distribution Width 18.0 H Platelet Count 565 H Mean Platelet Volume 9.8 Immature Granulocytes % 0.600 H Neutrophils % 69.8 Lymphocytes % 16.1 Monocytes % 7.8 Eosinophils % 4.8 Basophils % 0.9 Nucleated Red Blood Cells % 0.0 Immature Granulocytes # 0.100 H Neutrophils # 11.1 H Lymphocytes # 2.6 Monocytes # 1.2 H Eosinophils # 0.8 H Basophils # 0.1 Nucleated Red Blood Cells # 0.0 Sodium Level 137 Potassium Level 4.5 Chloride Level 100 Carbon Dioxide Level 27 Anion Gap 10 Blood Urea Nitrogen 14 Creatinine 1.58 H Est Glomerular Filtrat Rate mL/min 45 L Glucose Level 112 Calcium Level 8.7 Magnesium Level 2.4 Medications Medication Current Medications Al Hydrox/Mg Hydrox/Simethicone (Mag-Al Plus) 30 ml Q4H PRN PO GASTROINTESTINAL UPSET Last administered on 05/12/18at 10:23; Admin Dose 30 ML; Start 05/04/18 at 12:30 Ondansetron HCl (Zofran Inj) 4 mg Q4H PRN IV NAUSEA AND/OR VOMITING Last administered on 05/08/18at 10:27; Admin Dose 4 MG; Start 05/04/18 at 12:30 Atorvastatin Calcium (Lipitor) 40 mg HS PO Last administered on 05/16/18at 22:06; Admin Dose 40 MG; Start 05/04/18 at 21:00 Acetaminophen (Tylenol Tab) 650 mg Q3H PRN PO ELEVATED TEMPERATURE; Start 05/07/18 at 15:30 Acetaminophen (Tylenol Supp) 650 mg Q3H PRN [place] ELEVATED TEMPERATURE Last administered on 05/08/18at 01:00; Admin Dose 650 MG; Start 05/07/18 at 15:30 Aspirin (Aspirin) 81 mg DAILY PO Last administered on 05/17/18 08:26; Admin Dose 81 MG; Start 05/09/18 at 09:00 Loratadine (Claritin) 10 mg DAILY PRN PO allergies; Start 05/08/18 at 20:00 Amiodarone HCl (Cordarone) 200 mg BID PO Last administered on 05/17/18 08:27; Admin Dose 200 MG; Start 05/09/18 at 21:00 Docusate Sodium (Colace) 100 mg DAILY PO Last administered on 05/17/18 08:26; Admin Dose 100 MG; Start 05/11/18 at 15:30 Morphine Sulfate (morphine) 6 mg Q2H PRN PO MOD TO SEVERE PAIN Last administered on 05/15/18at 06:42; Admin Dose 6 MG; Start 05/12/18 at 14:00 Lactulose (Enulose) 20 gm DAILY PRN PO CONSTIPATION; Start 05/12/18 at 14:30 Lubiprostone (Amitiza) 24 mcg BID PO Last administered on 05/17/18 08:26; Admin Dose 24 MCG; Start 05/12/18 at 21:00 Zolpidem Tartrate (Ambien) 5 mg HS MAY REPEAT X 1 PRN PO INSOMNIA; Start 05/14/18 at 16:00 Polyethylene Glycol (Miralax) 17 gm BID PO Last administered on 05/17/18 08:27; Admin Dose 17 GM; Start 05/15/18 at 13:30 Acetaminophen/ Hydrocodone Bitart ([place] (5/325)) 1 tab Q4H PRN PO MODERATE PAIN LEVEL 4-6 Last administered on 05/17/18at 00:56; Admin Dose 1 TAB; Start 05/15/18 at 22:00 Metoprolol Succinate (Toprol Xl) 25 mg DAILY PO ; Start 05/17/18 at 09:00 Neomycin/ Polymyxin/ Bacitracin (Neosporin Topical Oint) 1 applic BID TOP Last administered on 05/17/18at 08:28; Admin Dose 1 APPLIC; Start 05/16/18 at 21:00 APPLE MALHOTRA M.D. 31, 2019 19:20
--- NOTE | 2018-05-17 20:02 | PN ---
Date/Time of Note Date/Time of Note DATE: 05/17/18 TIME: 19:59 Assessment/Plan VTE Prophylaxis Risk score (from [facility])>0 risk: 8 SCD applied (from [facility]): Yes Pharmacological prophylaxis: NA/contraindicated Pharm contraindication: surgical contra Lines/Catheters IV C[facility]ter Type (from [facility] [place] Lock Urinary Cath still in place: No Assessment/Plan Hospital Course Patient is persistent leukocytosis, no fever. Chest x-ray from today revealed stable retrocardiac opacity that may reflect left lower lobe atelectasis or infiltrate combined with small pleural effusion and subsegmental atelectasis in the right lower lobe. Will obtain infectious disease consult from Dr. Milligan. Assessment/Plan -Constipation, resolved. Dr. Kurtz is following in gastroenterology consultation. -Ileus, resolved -Multivessel coronary artery disease on cardiac cath on 05/04/[address] Dial. S/p CABG procedure by Dr. Soriano, cardiovascular surgery on 05/07/18. -Acute on chronic renal failure vs CKD stage 3. Creatinine at patient's baseline now. Dr. Herrera is following in nephrology consultation. -Hypertension, continue metoprolol, Norvasc. -Hyperlipidemia, continue statin. Further recommendations based on clinical course. Plan of care discussed with Dr. Guerra. Result Diagram: 05/17/18 0504 05/17/18 0504 Results 24hrs Laboratory Tests Test 05/17/18 05:04 05/17/18 19:26 05/17/18 19:40 White Blood Count 15.8 H Red Blood Count 4.27 L Hemoglobin 10.2 L Hematocrit 32.5 L Mean Corpuscular Volume 76.1 L Mean Corpuscular Hemoglobin 23.9 L Mean Corpuscular Hemoglobin Concent 31.4 L Red Cell Distribution Width 18.0 H Platelet Count 565 H Mean Platelet Volume 9.8 Immature Granulocytes % 0.600 H Neutrophils % 69.8 Lymphocytes % 16.1 Monocytes % 7.8 Eosinophils % 4.8 Basophils % 0.9 Nucleated Red Blood Cells % 0.0 Immature Granulocytes # 0.100 H Neutrophils # 11.1 H Lymphocytes # 2.6 Monocytes # 1.2 H Eosinophils # 0.8 H Basophils # 0.1 Nucleated Red Blood Cells # 0.0 Sodium Level 137 Potassium Level 4.5 Chloride Level 100 Carbon Dioxide Level 27 Anion Gap 10 Blood Urea Nitrogen 14 Creatinine 1.58 H Est Glomerular Filtrat Rate mL/min 45 L Glucose Level 112 Calcium Level 8.7 Magnesium Level 2.4 Lactic Acid Level 2.0 Urine Color STRAW Urine Clarity CLEAR Urine pH 6.0 Urine Specific [place] 1.010 Urine Ketones NEGATIVE Urine Nitrite NEGATIVE Urine Bilirubin NEGATIVE Urine Urobilinogen NEGATIVE Urine Leukocyte Esterase NEGATIVE Urine Hemoglobin NEGATIVE Urine Glucose NEGATIVE Urine Total Protein NEGATIVE Exam/Review of Systems Exam Vitals Vital Signs Date Temp Pulse Resp B/P (MAP) Pulse Ox O2 O2 Flow FiO2 Time Delivery Rate 05/17/18 97.5 80 20 110/71 96 Room Air 17:22 (84) 05/13/18 2.0 07:31 Intake and Output 05/16/18 05/16/18 05/17/18 1515:00 23:00 07:00 IntakeIntake Total 980 ml BalanceBalance 980 ml Exam Constitutional: alert, oriented Neck: supple Respiratory: clear to auscultation Cardiovascular: regular rate and rhythm, other (Midline surgical incision with intact dressing) Gastrointestinal: soft, non-tender, slightly distended Extremities: normal pulses, other (Right lower extremities status post surgery) Results Results 24hrs Laboratory Tests Test 05/17/18 05:04 05/17/18 19:26 05/17/18 19:40 White Blood Count 15.8 H Red Blood Count 4.27 L Hemoglobin 10.2 L Hematocrit 32.5 L Mean Corpuscular Volume 76.1 L Mean Corpuscular Hemoglobin 23.9 L Mean Corpuscular Hemoglobin Concent 31.4 L Red Cell Distribution Width 18.0 H Platelet Count 565 H Mean Platelet Volume 9.8 Immature Granulocytes % 0.600 H Neutrophils % 69.8 Lymphocytes % 16.1 Monocytes % 7.8 Eosinophils % 4.8 Basophils % 0.9 Nucleated Red Blood Cells % 0.0 Immature Granulocytes # 0.100 H Neutrophils # 11.1 H Lymphocytes # 2.6 Monocytes # 1.2 H Eosinophils # 0.8 H Basophils # 0.1 Nucleated Red Blood Cells # 0.0 Sodium Level 137 Potassium Level 4.5 Chloride Level 100 Carbon Dioxide Level 27 Anion Gap 10 Blood Urea Nitrogen 14 Creatinine 1.58 H Est Glomerular Filtrat Rate mL/min 45 L Glucose Level 112 Calcium Level 8.7 Magnesium Level 2.4 Lactic Acid Level 2.0 Urine Color STRAW Urine Clarity CLEAR Urine pH 6.0 Urine Specific [place] 1.010 Urine Ketones NEGATIVE Urine Nitrite NEGATIVE Urine Bilirubin NEGATIVE Urine Urobilinogen NEGATIVE Urine Leukocyte Esterase NEGATIVE Urine Hemoglobin NEGATIVE Urine Glucose NEGATIVE Urine Total Protein NEGATIVE Medications Medication Current Medications Al Hydrox/Mg Hydrox/Simethicone (Mag-Al Plus) 30 ml Q4H PRN PO GASTROINTESTINAL UPSET Last administered on 05/12/18 10:23; Admin Dose 30 ML; Start 05/04/18 at 12:30 Ondansetron HCl (Zofran Inj) 4 mg Q4H PRN IV NAUSEA AND/OR VOMITING Last administered on 05/08/18 10:27; Admin Dose 4 MG; Start 05/04/18 at 12:30 Atorvastatin Calcium (Lipitor) 40 mg HS PO Last administered on 05/16/18 22:06; Admin Dose 40 MG; Start 05/04/18 at 21:00 Acetaminophen (Tylenol Tab) 650 mg Q3H PRN PO ELEVATED TEMPERATURE; Start 05/07/18 at 15:30 Acetaminophen (Tylenol Supp) 650 mg Q3H PRN [place] ELEVATED TEMPERATURE Last administered on 05/08/18 01:00; Admin Dose 650 MG; Start 05/07/18 at 15:30 Aspirin (Aspirin) 81 mg DAILY PO Last administered on 05/17/18 08:26; Admin Dose 81 MG; Start 05/09/18 at 09:00 Loratadine (Claritin) 10 mg DAILY PRN PO allergies; Start 05/08/18 at 20:00 Amiodarone HCl (Cordarone) 200 mg BID PO Last administered on 05/17/18 08:27; Admin Dose 200 MG; Start 05/09/18 at 21:00 Docusate Sodium (Colace) 100 mg DAILY PO Last administered on 05/17/18 08:26; Admin Dose 100 MG; Start 05/11/18 at 15:30 Morphine Sulfate (morphine) 6 mg Q2H PRN PO MOD TO SEVERE PAIN Last administered on 05/15/18 06:42; Admin Dose 6 MG; Start 05/12/18 at 14:00 Lactulose (Enulose) 20 gm DAILY PRN PO CONSTIPATION; Start 05/12/18 at 14:30 Lubiprostone (Amitiza) 24 mcg BID PO Last administered on 05/17/18 08:26; Admin Dose 24 MCG; Start 05/12/18 at 21:00 Zolpidem Tartrate (Ambien) 5 mg HS MAY REPEAT X 1 PRN PO INSOMNIA; Start 05/14/18 at 16:00 Polyethylene Glycol (Miralax) 17 gm BID PO Last administered on 05/17/18at 08:27; Admin Dose 17 GM; Start 05/15/18 at 13:30 Acetaminophen/ Hydrocodone Bitart ([place] (5/325)) 1 tab Q4H PRN PO MODERATE PAIN LEVEL 4-6 Last administered on 05/17/18at 00:56; Admin Dose 1 TAB; Start 05/15/18 at 22:00 Metoprolol Succinate (Toprol Xl) 25 mg DAILY PO ; Start 05/17/18 at 09:00 Neomycin/ Polymyxin/ Bacitracin (Neosporin Topical Oint) 1 applic BID TOP Last administered on 05/17/18at 08:28; Admin Dose 1 APPLIC; Start 05/16/18 at 21:00 DANIE MOORE May 17, 2018 20:02
[2018-05-17] MEDS: ATORVASTATIN 40 MG TAB PO SCH (21:13)
[2018-05-18] VITALS (11 sets, daily range): BP systolic 100–120; BP diastolic 65–84; PULSE 77–91; RESP 16–18
--- NOTE | 2018-05-18 05:40 | NUR ---
PT A/O X4, IN NO ACUTE DISTRESS OVERNIGHT. MIND STERNUM DRESSING DRY AND INTACT. WBC TRENDING HIGH. SEEN BY INFECTIOUS DISEASE TO R/O INFECTION. BLOOD CULTURES, UA SENT. WILL ENDORSE TO DAY SHIFT FOR CONTINUED SUPPORTIVE CARE.
--- NOTE | 2018-05-18 08:39 | CONS ---
Assessment/Plan Assessment/Plan Hospital Course (Demo Recall) 62 yo male 1. Ileus, clinically resolved. 2. Constipation, much better. -bm 05/18 -improved 3. Coronary artery disease status post coronary artery bypass graft. 4. Hypertension. 5. Anemia. -stable 6. Renal insufficiency. 7. Leukocytosis, improving PLAN: To continue present care. Continue current bowel regimen Pt examined and plan of care discussed with Dr. Kurtz Consultation Date/Type/Reason Admit Date/Time May 04, 2018 at 13:51 Initial Consult Date 05/17/18 Requesting Provider: DANIE MOORE Date/Time of Note DATE: 05/18/18 TIME: 08:37 24 HR Interval Summary Free Text/Dictation Pt states he had a bm which he felt is normal. Brown in color. Soft. He is tolerating PO diet. No nausea. He states he is passing gas and abd is much softer than before. "Less like a drum" Exam/Review of Systems Exam Vitals Vital Signs Date Temp Pulse Resp B/P (MAP) Pulse Ox O2 O2 Flow FiO2 Time Delivery Rate 05/18/18 98.1 81 17 100/65 98 07:12 (77) 05/18/18 Room Air 04:00 Intake and Output 05/17/18 05/17/18 05/18/18 1515:00 23:00 07:00 IntakeIntake Total 960 ml 1000 ml OutputOutput Total 800 ml BalanceBalance 960 ml 200 ml Constitutional: alert, oriented, well developed Psych: no complaints Head: normocephalic Eyes: nl sclera, PERRL Cardiovascular: other (mid line chest abd pad) Gastrointestinal: soft, distended Musculoskeletal: nl gait and stance Neurological: nl mental status, nl speech Results Result Diagram: 05/18/1851905/18/18 0520 Results 24hrs Laboratory Tests Test 05/17/18 19:26 05/17/18 19:40 05/18/18 05:20 Lactic Acid Level 2.0 Urine Color STRAW Urine Clarity CLEAR Urine pH 6.0 Urine Specific [place] 1.010 Urine Ketones NEGATIVE Urine Nitrite NEGATIVE Urine Bilirubin NEGATIVE Urine Urobilinogen NEGATIVE Urine Leukocyte Esterase NEGATIVE Urine Hemoglobin NEGATIVE Urine Glucose NEGATIVE Urine Total Protein NEGATIVE White Blood Count 14.0 H Red Blood Count 4.29 L Hemoglobin 10.2 L Hematocrit 32.8 L Mean Corpuscular Volume 76.5 L Mean Corpuscular Hemoglobin 23.8 L Mean Corpuscular Hemoglobin Concent 31.1 L Red Cell Distribution Width 18.1 H Platelet Count 601 H Mean Platelet Volume 9.7 Immature Granulocytes % 0.600 H Neutrophils % 71.9 Lymphocytes % 14.8 L Monocytes % 7.8 Eosinophils % 3.9 Basophils % 1.0 Nucleated Red Blood Cells % 0.0 Immature Granulocytes # 0.080 H Neutrophils # 10.1 H Lymphocytes # 2.1 Monocytes # 1.1 H Eosinophils # 0.5 Basophils # 0.1 Nucleated Red Blood Cells # 0.0 Sodium Level 139 Potassium Level 4.6 Chloride Level 107 Carbon Dioxide Level 27 Anion Gap 5 Blood Urea Nitrogen 13 Creatinine 1.65 H Est Glomerular Filtrat Rate mL/min 43 L Glucose Level 109 Calcium Level 8.7 Medications Medication Current Medications Al Hydrox/Mg Hydrox/Simethicone (Mag-Al Plus) 30 ml Q4H PRN PO GASTROINTESTINAL UPSET Last administered on 05/12/18 10:23; Admin Dose 30 ML; Start 05/04/18 at 12:30 Ondansetron HCl (Zofran Inj) 4 mg Q4H PRN IV NAUSEA AND/OR VOMITING Last administered on 05/08/18 10:27; Admin Dose 4 MG; Start 05/04/18 at 12:30 Atorvastatin Calcium (Lipitor) 40 mg HS PO Last administered on 05/17/18at 21:13; Admin Dose 40 MG; Start 05/04/18 at 21:00 Acetaminophen (Tylenol Tab) 650 mg Q3H PRN PO ELEVATED TEMPERATURE; Start 05/07/18 at 15:30 Acetaminophen (Tylenol Supp) 650 mg Q3H PRN [place] ELEVATED TEMPERATURE Last administered on 05/08/18at 01:00; Admin Dose 650 MG; Start 05/07/18 at 15:30 Aspirin (Aspirin) 81 mg DAILY PO Last administered on 05/17/18at 08:26; Admin Dose 81 MG; Start 05/09/18 at 09:00 Loratadine (Claritin) 10 mg DAILY PRN PO allergies; Start 05/08/18 at 20:00 Amiodarone HCl (Cordarone) 200 mg BID PO Last administered on 05/17/18at 21:13; Admin Dose 200 MG; Start 05/09/18 at 21:00 Docusate Sodium (Colace) 100 mg DAILY PO Last administered on 05/17/18at 08:26; Admin Dose 100 MG; Start 05/11/18 at 15:30 Morphine Sulfate (morphine) 6 mg Q2H PRN PO MOD TO SEVERE PAIN Last administered on 05/15/18at 06:42; Admin Dose 6 MG; Start 05/12/18 at 14:00 Lactulose (Enulose) 20 gm DAILY PRN PO CONSTIPATION; Start 05/12/18 at 14:30 Lubiprostone (Amitiza) 24 mcg BID PO Last administered on 05/17/18at 21:13; Admin Dose 24 MCG; Start 05/12/18 at 21:00 Zolpidem Tartrate (Ambien) 5 mg HS MAY REPEAT X 1 PRN PO INSOMNIA; Start 05/14/18 at 16:00 Polyethylene Glycol (Miralax) 17 gm BID PO Last administered on 05/17/18at 21:22; Admin Dose 17 GM; Start 05/15/18 at 13:30 Acetaminophen/ Hydrocodone Bitart ([place] (5/325)) 1 tab Q4H PRN PO MODERATE PAIN LEVEL 4-6 Last administered on 05/17/18at 00:56; Admin Dose 1 TAB; Start 05/15/18 at 22:00 Metoprolol Succinate (Toprol Xl) 25 mg DAILY PO ; Start 05/17/18 at 09:00 Neomycin/ Polymyxin/ Bacitracin (Neosporin Topical Oint) 1 applic BID TOP Last administered on 05/17/18at 21:14; Admin Dose 1 APPLIC; Start 05/16/18 at 21:00 ZE BELCHER May 18, 2018 08:39
[2018-05-18] MEDS: METOPROLOL (XL) 25 MG TAB PO SCH (09:00)
[2018-05-18] MEDS: DOCUSATE SODIUM 100 MG CAP PO SCH (09:01)
[2018-05-18] MEDS: ASPIRIN 81 MG TAB PO SCH (09:01)
[2018-05-18] MEDS: POLYETHYLENE GLYCOL 17 GM PACKET PO SCH ×2 (09:01→20:35)
[2018-05-18] MEDS: LUBIPROSTONE 24 MCG CAP PO SCH ×2 (09:01→20:35)
[2018-05-18] MEDS: NEOMYC/POLYMYX/BACIT 30 GM OINT TOP SCH ×2 (09:02→20:37)
[2018-05-18] MEDS: AMIODARONE 200 MG TAB PO SCH ×2 (09:02→20:35)
--- NOTE | 2018-05-18 12:20 | CONS ---
Assessment/Plan Assessment/Plan Assessment/Plan (Daily) 1. acute on chronic renal failure vs Baseline CKD- stable 2. 3 V CAD on Cardiac cath on 05/04/18 s/p CABG on 05/07/2018 3. H/o HTN 4. H/o HL 5.H/o possible CKD III due to HTN nephrosclerosis Plan: BUN/Cr 13/1.56, Adquate urine output, pt doign well, chest tube d/jayda, BP stable WBC still 14, IV abx as per ID will follow up Follow up with me in clinic in 1-2 week upon discharge Consultation Date/Type/Reason Admit Date/Time May 04, 2018 at 13:51 Initial Consult Date 05/05/18 Type of Consult NEPHROLOGY Requesting Provider: DANIE MOORE Date/Time of Note DATE: 05/18/18 TIME: 12:20 Exam/Review of Systems Exam Vitals Vital Signs Date Temp Pulse Resp B/P (MAP) Pulse Ox O2 O2 Flow FiO2 Time Delivery Rate 05/18/18 97.0 88 16 103/66 96 11:18 (78) 05/18/18 Room Air 04:00 Intake and Output 05/17/18 05/17/18 05/18/18 1515:00 23:00 07:00 IntakeIntake Total 960 ml 1000 ml OutputOutput Total 800 ml BalanceBalance 960 ml 200 ml Exam Constitutional: awake, alert, no acute distress Respiratory: decreaesd BS at bases, , no wheezing Cardiovascular: S1S2 tachycardia, no murmur Gastrointestinal: soft, non-tender Musculoskeletal: no edema, no cyanosis, no clubbing Extremities: normal pulses Neurological: non focal, awake, alert Results Result Diagram: 05/18/1851905/18/18 05 Results 24hrs Laboratory Tests Test 05/17/18 19:26 05/17/18 19:40 05/18/18 05:20 Lactic Acid Level 2.0 Urine Color STRAW Urine Clarity CLEAR Urine pH 6.0 Urine Specific [place] 1.010 Urine Ketones NEGATIVE Urine Nitrite NEGATIVE Urine Bilirubin NEGATIVE Urine Urobilinogen NEGATIVE Urine Leukocyte Esterase NEGATIVE Urine Hemoglobin NEGATIVE Urine Glucose NEGATIVE Urine Total Protein NEGATIVE White Blood Count 14.0 H Red Blood Count 4.29 L Hemoglobin 10.2 L Hematocrit 32.8 L Mean Corpuscular Volume 76.5 L Mean Corpuscular Hemoglobin 23.8 L Mean Corpuscular Hemoglobin Concent 31.1 L Red Cell Distribution Width 18.1 H Platelet Count 601 H Mean Platelet Volume 9.7 Immature Granulocytes % 0.600 H Neutrophils % 71.9 Lymphocytes % 14.8 L Monocytes % 7.8 Eosinophils % 3.9 Basophils % 1.0 Nucleated Red Blood Cells % 0.0 Immature Granulocytes # 0.080 H Neutrophils # 10.1 H Lymphocytes # 2.1 Monocytes # 1.1 H Eosinophils # 0.5 Basophils # 0.1 Nucleated Red Blood Cells # 0.0 Sodium Level 139 Potassium Level 4.6 Chloride Level 107 Carbon Dioxide Level 27 Anion Gap 5 Blood Urea Nitrogen 13 Creatinine 1.65 H Est Glomerular Filtrat Rate mL/min 43 L Glucose Level 109 Calcium Level 8.7 Medications Medication Current Medications Al Hydrox/Mg Hydrox/Simethicone (Mag-Al Plus) 30 ml Q4H PRN PO GASTROINTESTINAL UPSET Last administered on 05/12/18at 10:23; Admin Dose 30 ML; Start 05/04/18 at 12:30 Ondansetron HCl (Zofran Inj) 4 mg Q4H PRN IV NAUSEA AND/OR VOMITING Last administered on 05/08/18at 10:27; Admin Dose 4 MG; Start 05/04/18 at 12:30 Atorvastatin Calcium (Lipitor) 40 mg HS PO Last administered on 05/17/18at 21:13; Admin Dose 40 MG; Start 05/04/18 at 21:00 Acetaminophen (Tylenol Tab) 650 mg Q3H PRN PO ELEVATED TEMPERATURE; Start 05/07/18 at 15:30 Acetaminophen (Tylenol Supp) 650 mg Q3H PRN [place] ELEVATED TEMPERATURE Last administered on 05/08/18at 01:00; Admin Dose 650 MG; Start 05/07/18 at 15:30 Aspirin (Aspirin) 81 mg DAILY PO Last administered on 05/18/18at 09:01; Admin Dose 81 MG; Start 05/09/18 at 09:00 Loratadine (Claritin) 10 mg DAILY PRN PO allergies; Start 05/08/18 at 20:00 Amiodarone HCl (Cordarone) 200 mg BID PO Last administered on 05/18/18at 09:02; Admin Dose 200 MG; Start 05/09/18 at 21:00 Docusate Sodium (Colace) 100 mg DAILY PO Last administered on 05/18/18 09:01; Admin Dose 100 MG; Start 05/11/18 at 15:30 Morphine Sulfate (morphine) 6 mg Q2H PRN PO MOD TO SEVERE PAIN Last administered on 05/15/18at 06:42; Admin Dose 6 MG; Start 05/12/18 at 14:00 Lactulose (Enulose) 20 gm DAILY PRN PO CONSTIPATION; Start 05/12/18 at 14:30 Lubiprostone (Amitiza) 24 mcg BID PO Last administered on 05/18/18 09:01; Admin Dose 24 MCG; Start 05/12/18 at 21:00 Zolpidem Tartrate (Ambien) 5 mg HS MAY REPEAT X 1 PRN PO INSOMNIA; Start 05/14/18 at 16:00 Polyethylene Glycol (Miralax) 17 gm BID PO Last administered on 05/18/18 09:01; Admin Dose 17 GM; Start 05/15/18 at 13:30 Acetaminophen/ Hydrocodone Bitart ([place] (5/325)) 1 tab Q4H PRN PO MODERATE PAIN LEVEL 4-6 Last administered on 05/17/18at 00:56; Admin Dose 1 TAB; Start 05/15/18 at 22:00 Metoprolol Succinate (Toprol Xl) 25 mg DAILY PO ; Start 05/17/18 at 09:00 Neomycin/ Polymyxin/ Bacitracin (Neosporin Topical Oint) 1 applic BID TOP Last administered on 05/18/18 09:02; Admin Dose 1 APPLIC; Start 05/16/18 at 21:00 MARIA DE JESUS LAUREN MD May 18, 2018 12:20
--- NOTE | 2018-05-18 14:52 | CONS ---
Assessment/Plan Cardiology NYHA: II Heart Failure Type: Diastolic Assessment/Plan Hospital Course (Demo Recall) IMP: 1.cad s/p cab g POD#2 LUEVANO-LAD, SVG-OM1/OM2, RIM-LPN-pher and SVG to PDA-prox 2.HTN 3.HL 4.REnal insufficiency-relatively stable 5.Leukocytosis-persistent 6.anemia 7. PAF-remained in SR on amio PO 8. Illeus-clinically improved Recc: -Tele -serial ecg's -Continue asa/statin -Continue BB daily as tolerated given marginal BP and will decrease to 12.5 BID -Continue amio in attempt to maintain SR -Follow volume status -ambulation/PT -Patient being evaluated by ID for persistent leukocytosis -ok for d/c planning from cardiac standpoint with outpatient f/u 2 weeks - Consultation Date/Type/Reason Admit Date/Time May 04, 2018 at 13:51 Initial Consult Date 05/05/18 Type of Consult Cardiology Reason for Consultation cad s/p cabg Requesting Provider: DANIE MOORE Date/Time of Note DATE: 05/18/18 TIME: 14:49 Exam/Review of Systems Vital Signs Vitals Vital Signs Date Temp Pulse Resp B/P (MAP) Pulse Ox O2 O2 Flow FiO2 Time Delivery Rate 05/18/18 89 12:42 05/18/18 97.0 16 103/66 96 11:18 (78) 05/18/18 Room Air 04:00 Intake and Output 05/17/18 05/17/18 05/18/18 1515:00 23:00 07:00 IntakeIntake Total 960 ml 1000 ml OutputOutput Total 800 ml BalanceBalance 960 ml 200 ml Exam Exam Review of Systems: CONSTITUTIONAL: No fevers, chills. PULMONARY: No sob CARDIOVASCULAR: No chest pain/palpitations GASTROINTESTINAL: No nausea/vomiting. GENITOURINARY: No hematuria/dysuria. MUSCULOSKELETAL: No myagias/arthalgias. PSYCHIATRIC: The patient denies depression. NEUROLOGIC: No weakness Constitutional: alert Psych: no complaints Head: normocephalic ENMT: mucosa pink and moist Neck: supple, jvd (8 cm water) Respiratory: clear to auscultation Cardiovascular: regular rate and rhythm, other (midline sternotomy) Gastrointestinal: soft, non-tender Musculoskeletal: muscle tone (normal) Extremities: edema (none) Neurological: other (No focal deficits) Labs Result Diagram: 05/18/18 0520 05/18/18 0520 Results 24hrs Laboratory Tests Test 05/17/18 19:26 05/17/18 19:40 05/18/18 05:20 Lactic Acid Level 2.0 Urine Color STRAW Urine Clarity CLEAR Urine pH 6.0 Urine Specific [place] 1.010 Urine Ketones NEGATIVE Urine Nitrite NEGATIVE Urine Bilirubin NEGATIVE Urine Urobilinogen NEGATIVE Urine Leukocyte Esterase NEGATIVE Urine Hemoglobin NEGATIVE Urine Glucose NEGATIVE Urine Total Protein NEGATIVE White Blood Count 14.0 H Red Blood Count 4.29 L Hemoglobin 10.2 L Hematocrit 32.8 L Mean Corpuscular Volume 76.5 L Mean Corpuscular Hemoglobin 23.8 L Mean Corpuscular Hemoglobin Concent 31.1 L Red Cell Distribution Width 18.1 H Platelet Count 601 H Mean Platelet Volume 9.7 Immature Granulocytes % 0.600 H Neutrophils % 71.9 Lymphocytes % 14.8 L Monocytes % 7.8 Eosinophils % 3.9 Basophils % 1.0 Nucleated Red Blood Cells % 0.0 Immature Granulocytes # 0.080 H Neutrophils # 10.1 H Lymphocytes # 2.1 Monocytes # 1.1 H Eosinophils # 0.5 Basophils # 0.1 Nucleated Red Blood Cells # 0.0 Sodium Level 139 Potassium Level 4.6 Chloride Level 107 Carbon Dioxide Level 27 Anion Gap 5 Blood Urea Nitrogen 13 Creatinine 1.65 H Est Glomerular Filtrat Rate mL/min 43 L Glucose Level 109 Calcium Level 8.7 Medications Medications Current Medications Al Hydrox/Mg Hydrox/Simethicone (Mag-Al Plus) 30 ml Q4H PRN PO GASTROINTESTINAL UPSET Last administered on 05/12/18at 10:23; Admin Dose 30 ML; Start 05/04/18 at 12:30 Ondansetron HCl (Zofran Inj) 4 mg Q4H PRN IV NAUSEA AND/OR VOMITING Last administered on 05/08/18at 10:27; Admin Dose 4 MG; Start 05/04/18 at 12:30 Atorvastatin Calcium (Lipitor) 40 mg HS PO Last administered on 05/17/18at 21:13; Admin Dose 40 MG; Start 05/04/18 at 21:00 Acetaminophen (Tylenol Tab) 650 mg Q3H PRN PO ELEVATED TEMPERATURE; Start 05/07/18 at 15:30 Acetaminophen (Tylenol Supp) 650 mg Q3H PRN [place] ELEVATED TEMPERATURE Last administered on 05/08/18 01:00; Admin Dose 650 MG; Start 05/07/18 at 15:30 Aspirin (Aspirin) 81 mg DAILY PO Last administered on 05/18/18 09:01; Admin Dose 81 MG; Start 05/09/18 at 09:00 Loratadine (Claritin) 10 mg DAILY PRN PO allergies; Start 05/08/18 at 20:00 Amiodarone HCl (Cordarone) 200 mg BID PO Last administered on 05/18/18 09:02; Admin Dose 200 MG; Start 05/09/18 at 21:00 Docusate Sodium (Colace) 100 mg DAILY PO Last administered on 05/18/18 09:01; Admin Dose 100 MG; Start 05/11/18 at 15:30 Morphine Sulfate (morphine) 6 mg Q2H PRN PO MOD TO SEVERE PAIN Last administered on 05/15/18at 06:42; Admin Dose 6 MG; Start 05/12/18 at 14:00 Lactulose (Enulose) 20 gm DAILY PRN PO CONSTIPATION; Start 05/12/18 at 14:30 Lubiprostone (Amitiza) 24 mcg BID PO Last administered on 05/18/18 09:01; Admin Dose 24 MCG; Start 05/12/18 at 21:00 Zolpidem Tartrate (Ambien) 5 mg HS MAY REPEAT X 1 PRN PO INSOMNIA; Start at 16:00 Polyethylene Glycol (Miralax) 17 gm BID PO Last administered on 05/18/18 09:01; Admin Dose 17 GM; Start 05/15/18 at 13:30 Acetaminophen/ Hydrocodone Bitart ([place] (5/325)) 1 tab Q4H PRN PO MODERATE PAIN LEVEL 4-6 Last administered on 05/17/18at 00:56; Admin Dose 1 TAB; Start 05/15/18 at 22:00 Metoprolol Succinate (Toprol Xl) 25 mg DAILY PO ; Start 05/17/18 at 09:00 Neomycin/ Polymyxin/ Bacitracin (Neosporin Topical Oint) 1 applic BID TOP Last administered on 05/18/18 09:02; Admin Dose 1 APPLIC; Start 05/16/18 at 21:00 RITA PISANO May 18, 2018 14:52
--- NOTE | 2018-05-18 18:23 | PN ---
Date/Time of Note Date/Time of Note DATE: 05/18/18 TIME: 18:23 Assessment/Plan VTE [place] [facility] [place]: 8 [place] [facility] [place] SCD contraindicated: other Pharmacological prophylaxis: other Lines/Catheters IV Catheter Type (from [facility] Saline Lock Urinary Cath still in place: No Assessment/Plan Assessment/Plan -Constipation, resolved. Dr. Kurtz is following in gastroenterology consultation. -Ileus, resolved -Multivessel coronary artery disease on cardiac cath on 05/04/[address] Dial. S/p CABG procedure by Dr. Soriano, cardiovascular surgery on 05/07/18. -Acute on chronic renal failure vs CKD stage 3. Creatinine at patient's baseline now. Dr. Herrera is following in nephrology consultation. -Hypertension, continue metoprolol, Norvasc. -Hyperlipidemia, continue statin. Further recommendations based on clinical course. Plan of care discussed with Dr. Guerra. Result Diagram: 05/18/18 0520 05/18/18 0520 Results 24hrs Laboratory Tests Test 05/17/18 19:26 05/17/18 19:40 05/18/18 05:20 Lactic Acid Level 2.0 Urine Color STRAW Urine Clarity CLEAR Urine pH 6.0 Urine Specific [place] 1.010 Urine Ketones NEGATIVE Urine Nitrite NEGATIVE Urine Bilirubin NEGATIVE Urine Urobilinogen NEGATIVE Urine Leukocyte Esterase NEGATIVE Urine Hemoglobin NEGATIVE Urine Glucose NEGATIVE Urine Total Protein NEGATIVE White Blood Count 14.0 H Red Blood Count 4.29 L Hemoglobin 10.2 L Hematocrit 32.8 L Mean Corpuscular Volume 76.5 L Mean Corpuscular Hemoglobin 23.8 L Mean Corpuscular Hemoglobin Concent 31.1 L Red Cell Distribution Width 18.1 H Platelet Count 601 H Mean Platelet Volume 9.7 Immature Granulocytes % 0.600 H Neutrophils % 71.9 Lymphocytes % 14.8 L Monocytes % 7.8 Eosinophils % 3.9 Basophils % 1.0 Nucleated Red Blood Cells % 0.0 Immature Granulocytes # 0.080 H Neutrophils # 10.1 H Lymphocytes # 2.1 Monocytes # 1.1 H Eosinophils # 0.5 Basophils # 0.1 Nucleated Red Blood Cells # 0.0 Sodium Level 139 Potassium Level 4.6 Chloride Level 107 Carbon Dioxide Level 27 Anion Gap 5 Blood Urea Nitrogen 13 Creatinine 1.65 H Est Glomerular Filtrat Rate mL/min 43 L Glucose Level 109 Calcium Level 8.7 Subjective 24 Hr Interval Summary Free Text/Dictation feels better, wants to o home no new issues reported overnight dw staff Constitutional: improved Eyes: no complaints ENT: no complaints Respiratory: no complaints Cardiovascular: no complaints Gastrointestinal: no complaints Genitourinary: no complaints Musculoskeletal: no complaints Skin: no complaints Neurologic: no complaints Endocrine: no complaints Exam/Review of Systems Exam Vitals Vital Signs Date Temp Pulse Resp B/P (MAP) Pulse Ox O2 O2 Flow FiO2 Time Delivery Rate 05/18/18 84 16:45 05/18/18 97.8 17 102/84 98 15:42 (90) 05/18/18 Room Air 04:00 Intake and Output 05/17/18 05/17/18 05/18/18 1414:59 22:59 06:59 IntakeIntake Total 960 ml 1000 ml OutputOutput Total 800 ml BalanceBalance 960 ml 200 ml Constitutional: alert, oriented, well developed Psych: nl mood/affect Head: normocephalic, atraumatic Eyes: EOMI, nl lids, nl sclera ENMT: nl external ears & nose Neck: supple, non-tender Respiratory: clear to auscultation (bilaterally) Cardiovascular: nl pulses, other (s1s2; sp CABG- DDI) Gastrointestinal: soft, non-tender Musculoskeletal: nl extremities to inspection Extremities: normal pulses Neurological: nl mental status, nl speech Skin: nl turgor Lymph: nontender Results Results 24hrs Laboratory Tests Test 05/17/18 19:26 05/17/18 19:40 05/18/18 05:20 Lactic Acid Level 2.0 Urine Color STRAW Urine Clarity CLEAR Urine pH 6.0 Urine Specific [place] 1.010 Urine Ketones NEGATIVE Urine Nitrite NEGATIVE Urine Bilirubin NEGATIVE Urine Urobilinogen NEGATIVE Urine Leukocyte Esterase NEGATIVE Urine Hemoglobin NEGATIVE Urine Glucose NEGATIVE Urine Total Protein NEGATIVE White Blood Count 14.0 H Red Blood Count 4.29 L Hemoglobin 10.2 L Hematocrit 32.8 L Mean Corpuscular Volume 76.5 L Mean Corpuscular Hemoglobin 23.8 L Mean Corpuscular Hemoglobin Concent 31.1 L Red Cell Distribution Width 18.1 H Platelet Count 601 H Mean Platelet Volume 9.7 Immature Granulocytes % 0.600 H Neutrophils % 71.9 Lymphocytes % 14.8 L Monocytes % 7.8 Eosinophils % 3.9 Basophils % 1.0 Nucleated Red Blood Cells % 0.0 Immature Granulocytes # 0.080 H Neutrophils # 10.1 H Lymphocytes # 2.1 Monocytes # 1.1 H Eosinophils # 0.5 Basophils # 0.1 Nucleated Red Blood Cells # 0.0 Sodium Level 139 Potassium Level 4.6 Chloride Level 107 Carbon Dioxide Level 27 Anion Gap 5 Blood Urea Nitrogen 13 Creatinine 1.65 H Est Glomerular Filtrat Rate mL/min 43 L Glucose Level 109 Calcium Level 8.7 Medications Medication Current Medications Al Hydrox/Mg Hydrox/Simethicone (Mag-Al Plus) 30 ml Q4H PRN PO GASTROINTESTINAL UPSET Last administered on 05/12/18 10:23; Admin Dose 30 ML; Start 05/04/18 at 12:30 Ondansetron HCl (Zofran Inj) 4 mg Q4H PRN IV NAUSEA AND/OR VOMITING Last administered on 05/08/18 10:27; Admin Dose 4 MG; Start 05/04/18 at 12:30 Atorvastatin Calcium (Lipitor) 40 mg HS PO Last administered on 05/17/18 21:13; Admin Dose 40 MG; Start 05/04/18 at 21:00 Acetaminophen (Tylenol Tab) 650 mg Q3H PRN PO ELEVATED TEMPERATURE; Start 05/07/18 at 15:30 Acetaminophen (Tylenol Supp) 650 mg Q3H PRN [place] ELEVATED TEMPERATURE Last administered on 05/08/18 01:00; Admin Dose 650 MG; Start 05/07/18 at 15:30 Aspirin (Aspirin) 81 mg DAILY PO Last administered on 05/18/18 09:01; Admin Dose 81 MG; Start 05/09/18 at 09:00 Loratadine (Claritin) 10 mg DAILY PRN PO allergies; Start 05/08/18 at 20:00 Amiodarone HCl (Cordarone) 200 mg BID PO Last administered on 05/18/18 09:02; Admin Dose 200 MG; Start 05/09/18 at 21:00 Docusate Sodium (Colace) 100 mg DAILY PO Last administered on 05/18/18 09:01; Admin Dose 100 MG; Start 05/11/18 at 15:30 Morphine Sulfate (morphine) 6 mg Q2H PRN PO MOD TO SEVERE PAIN Last administered on 1/29/19at 06:42; Admin Dose 6 MG; Start 05/12/18 at 14:00 Lactulose (Enulose) 20 gm DAILY PRN PO CONSTIPATION; Start 05/12/18 at 14:30 Lubiprostone (Amitiza) 24 mcg BID PO Last administered on 05/18/18 09:01; Admin Dose 24 MCG; Start 05/12/18 at 21:00 Zolpidem Tartrate (Ambien) 5 mg HS MAY REPEAT X 1 PRN PO INSOMNIA; Start 05/14/18 at 16:00 Polyethylene Glycol (Miralax) 17 gm BID PO Last administered on 05/18/18 09:01; Admin Dose 17 GM; Start 05/15/18 at 13:30 Acetaminophen/ Hydrocodone Bitart ([place] (5/325)) 1 tab Q4H PRN PO MODERATE PAIN LEVEL 4-6 Last administered on 05/17/18at 00:56; Admin Dose 1 TAB; Start 05/15/18 at 22:00 Metoprolol Succinate (Toprol Xl) 25 mg DAILY PO ; Start 05/17/18 at 09:00 Neomycin/ Polymyxin/ Bacitracin (Neosporin Topical Oint) 1 applic BID TOP Last administered on 05/18/18 09:02; Admin Dose 1 APPLIC; Start 05/16/18 at 21:00 IVY YATES May 18, 2018 18:23
--- NOTE | 2018-05-18 18:42 | CONS ---
Assessment/Plan Assessment/Plan Hospital Course (Demo Recall) - post-op leukocytosis, probably a reactive process. so far ID workup is negative - s/p CABG on 05/07/2018 - s/p cardiac catheterization on 05/04/2018: severe 3-vessel coronary artery disease - Doppler ultrasound of carotids on 05/04/2018 showed no significant flow detected in R vertebral artery, concerning for occlusion - chronic renal insufficiency. - small L pleural effusion vs. pleural thickening on CXR PA and lateral on 05/18/2018 recommendations - pending results: cultures of blood and urine - continue to monitor Pt off systemic antibiotics management d/w Pt Consultation Date/Type/Reason Admit Date/Time May 04, 2018 at 13:51 Initial Consult Date 05/17/18 Type of Consult ID Requesting Provider: DANIE MOORE Date/Time of Note DATE: 05/18/18 TIME: 18:40 24 HR Interval Summary Constitutional: no complaints, improved Detailed Summary Eyes: no complaints ENT: no complaints Respiratory: no complaints Cardiovascular: no complaints Gastrointestinal: no complaints Genitourinary: no complaints Musculoskeletal: no complaints Skin: no complaints Neurologic: no complaints Exam/Review of Systems Exam Vitals Vital Signs Date Temp Pulse Resp B/P (MAP) Pulse Ox O2 O2 Flow FiO2 Time Delivery Rate 05/18/18 84 16:45 05/18/18 97.8 17 102/84 98 15:42 (90) 05/18/18 Room Air 04:00 Intake and Output 05/17/18 05/17/18 05/18/18 1414:59 22:59 06:59 IntakeIntake Total 960 ml 1000 ml OutputOutput Total 800 ml BalanceBalance 960 ml 200 ml Constitutional: alert, oriented, well developed Psych: no complaints, nl mood/affect Head: normocephalic, atraumatic Eyes: nl conjunctiva, nl lids ENMT: nl external ears & nose, nl lips & teeth, nl nasal mucosa & septum, mucosa pink and moist Neck: supple, other (not swollen) Respiratory: clear to auscultation, normal air movement Cardiovascular: regular rate and rhythm, nl pulses, other (well approximated and healing scar in the midline) Gastrointestinal: soft, non-tender Musculoskeletal: nl extremities to inspection Extremities: No edema Neurological: TIMBER DEADENER II-XII intact, nl mental status, nl speech, nl strength Skin: nl turgor; No rash or lesions Lymph: nl lymph nodes Results Result Diagram: 05/18/18 0520 05/18/18 0520 Results 24hrs Laboratory Tests Test 05/17/18 19:26 05/17/18 19:40 05/18/18 05:20 Lactic Acid Level 2.0 Urine Color STRAW Urine Clarity CLEAR Urine pH 6.0 Urine Specific [place] 1.010 Urine Ketones NEGATIVE Urine Nitrite NEGATIVE Urine Bilirubin NEGATIVE Urine Urobilinogen NEGATIVE Urine Leukocyte Esterase NEGATIVE Urine Hemoglobin NEGATIVE Urine Glucose NEGATIVE Urine Total Protein NEGATIVE White Blood Count 14.0 H Red Blood Count 4.29 L Hemoglobin 10.2 L Hematocrit 32.8 L Mean Corpuscular Volume 76.5 L Mean Corpuscular Hemoglobin 23.8 L Mean Corpuscular Hemoglobin Concent 31.1 L Red Cell Distribution Width 18.1 H Platelet Count 601 H Mean Platelet Volume 9.7 Immature Granulocytes % 0.600 H Neutrophils % 71.9 Lymphocytes % 14.8 L Monocytes % 7.8 Eosinophils % 3.9 Basophils % 1.0 Nucleated Red Blood Cells % 0.0 Immature Granulocytes # 0.080 H Neutrophils # 10.1 H Lymphocytes # 2.1 Monocytes # 1.1 H Eosinophils # 0.5 Basophils # 0.1 Nucleated Red Blood Cells # 0.0 Sodium Level 139 Potassium Level 4.6 Chloride Level 107 Carbon Dioxide Level 27 Anion Gap 5 Blood Urea Nitrogen 13 Creatinine 1.65 H Est Glomerular Filtrat Rate mL/min 43 L Glucose Level 109 Calcium Level 8.7 Medications Medication Current Medications Al Hydrox/Mg Hydrox/Simethicone (Mag-Al Plus) 30 ml Q4H PRN PO GASTROINTESTINAL UPSET Last administered on 05/12/18at 10:23; Admin Dose 30 ML; Start 05/04/18 at 12:30 Ondansetron HCl (Zofran Inj) 4 mg Q4H PRN IV NAUSEA AND/OR VOMITING Last administered on 05/08/18at 10:27; Admin Dose 4 MG; Start 05/04/18 at 12:30 Atorvastatin Calcium (Lipitor) 40 mg HS PO Last administered on 05/17/18at 21:13; Admin Dose 40 MG; Start 05/04/18 at 21:00 Acetaminophen (Tylenol Tab) 650 mg Q3H PRN PO ELEVATED TEMPERATURE; Start 05/07/18 at 15:30 Acetaminophen (Tylenol Supp) 650 mg Q3H PRN [place] ELEVATED TEMPERATURE Last administered on 05/08/18at 01:00; Admin Dose 650 MG; Start 05/07/18 at 15:30 Aspirin (Aspirin) 81 mg DAILY PO Last administered on 05/18/18 09:01; Admin Dose 81 MG; Start 05/09/18 at 09:00 Loratadine (Claritin) 10 mg DAILY PRN PO allergies; Start 05/08/18 at 20:00 Amiodarone HCl (Cordarone) 200 mg BID PO Last administered on 05/18/18 09:02; Admin Dose 200 MG; Start 05/09/18 at 21:00 Docusate Sodium (Colace) 100 mg DAILY PO Last administered on 05/18/18 09:01; Admin Dose 100 MG; Start 05/11/18 at 15:30 Morphine Sulfate (morphine) 6 mg Q2H PRN PO MOD TO SEVERE PAIN Last administered on 05/15/18at 06:42; Admin Dose 6 MG; Start 05/12/18 at 14:00 Lactulose (Enulose) 20 gm DAILY PRN PO CONSTIPATION; Start 05/12/18 at 14:30 Lubiprostone (Amitiza) 24 mcg BID PO Last administered on 05/18/18 09:01; Admin Dose 24 MCG; Start 05/12/18 at 21:00 Zolpidem Tartrate (Ambien) 5 mg HS MAY REPEAT X 1 PRN PO INSOMNIA; Start 05/14/18 at 16:00 Polyethylene Glycol (Miralax) 17 gm BID PO Last administered on 05/18/18 09:01; Admin Dose 17 GM; Start 05/15/18 at 13:30 Acetaminophen/ Hydrocodone Bitart ([place] (5/325)) 1 tab Q4H PRN PO MODERATE PAIN LEVEL 4-6 Last administered on 05/17/18at 00:56; Admin Dose 1 TAB; Start 05/15/18 at 22:00 Metoprolol Succinate (Toprol Xl) 25 mg DAILY PO ; Start 05/17/18 at 09:00 Neomycin/ Polymyxin/ Bacitracin (Neosporin Topical Oint) 1 applic BID TOP Last administered on 05/18/18 09:02; Admin Dose 1 APPLIC; Start 05/16/18 at 21:00 APPLE MALHOTRA M.D. 1, 2019 18:42
--- NOTE | 2018-05-18 18:59 | CONS ---
Assessment/Plan Assessment/Plan Hospital Course (Demo Recall) - post-op leukocytosis, probably a reactive process. so far ID workup is negative - s/p CABG on 05/07/2018 - s/p cardiac catheterization on 05/04/2018: severe 3-vessel coronary artery disease - Doppler ultrasound of carotids on 05/04/2018 showed no significant flow detected in R vertebral artery, concerning for occlusion - chronic renal insufficiency. - small L pleural effusion vs. pleural thickening on CXR PA and lateral on 05/18/2018 REVISED recommendations - pending results: cultures of blood and urine - continue to monitor Pt off systemic antibiotics - I recommend f/u CXR to eval the small pleural effusion vs. thickening as outpatient in the future management d/w Pt Consultation Date/Type/Reason Admit Date/Time May 04, 2018 at 13:51 Initial Consult Date 05/17/18 Type of Consult ID Requesting Provider: DANIE MOORE Date/Time of Note DATE: 05/18/18 TIME: 18:58 Exam/Review of Systems Exam Vitals Vital Signs Date Temp Pulse Resp B/P (MAP) Pulse Ox O2 O2 Flow FiO2 Time Delivery Rate 05/18/18 84 16:45 05/18/18 97.8 17 102/84 98 15:42 (90) 05/18/18 Room Air 04:00 Intake and Output 05/17/18 05/17/18 05/18/18 1515:00 23:00 07:00 IntakeIntake Total 960 ml 1000 ml OutputOutput Total 800 ml BalanceBalance 960 ml 200 ml Results Result Diagram: 05/18/18 0520 05/18/18 0520 Results 24hrs Laboratory Tests Test 05/17/18 19:26 05/17/18 19:40 05/18/18 05:20 Lactic Acid Level 2.0 Urine Color STRAW Urine Clarity CLEAR Urine pH 6.0 Urine Specific [place] 1.010 Urine Ketones NEGATIVE Urine Nitrite NEGATIVE Urine Bilirubin NEGATIVE Urine Urobilinogen NEGATIVE Urine Leukocyte Esterase NEGATIVE Urine Hemoglobin NEGATIVE Urine Glucose NEGATIVE Urine Total Protein NEGATIVE White Blood Count 14.0 H Red Blood Count 4.29 L Hemoglobin 10.2 L Hematocrit 32.8 L Mean Corpuscular Volume 76.5 L Mean Corpuscular Hemoglobin 23.8 L Mean Corpuscular Hemoglobin Concent 31.1 L Red Cell Distribution Width 18.1 H Platelet Count 601 H Mean Platelet Volume 9.7 Immature Granulocytes % 0.600 H Neutrophils % 71.9 Lymphocytes % 14.8 L Monocytes % 7.8 Eosinophils % 3.9 Basophils % 1.0 Nucleated Red Blood Cells % 0.0 Immature Granulocytes # 0.080 H Neutrophils # 10.1 H Lymphocytes # 2.1 Monocytes # 1.1 H Eosinophils # 0.5 Basophils # 0.1 Nucleated Red Blood Cells # 0.0 Sodium Level 139 Potassium Level 4.6 Chloride Level 107 Carbon Dioxide Level 27 Anion Gap 5 Blood Urea Nitrogen 13 Creatinine 1.65 H Est Glomerular Filtrat Rate mL/min 43 L Glucose Level 109 Calcium Level 8.7 Medications Medication Current Medications Al Hydrox/Mg Hydrox/Simethicone (Mag-Al Plus) 30 ml Q4H PRN PO GASTROINTESTINAL UPSET Last administered on 05/12/18 10:23; Admin Dose 30 ML; Start 05/04/18 at 12:30 Ondansetron HCl (Zofran Inj) 4 mg Q4H PRN IV NAUSEA AND/OR VOMITING Last administered on 05/08/18 10:27; Admin Dose 4 MG; Start 05/04/18 at 12:30 Atorvastatin Calcium (Lipitor) 40 mg HS PO Last administered on 05/17/18 21:13; Admin Dose 40 MG; Start 05/04/18 at 21:00 Acetaminophen (Tylenol Tab) 650 mg Q3H PRN PO ELEVATED TEMPERATURE; Start 05/07/18 at 15:30 Acetaminophen (Tylenol Supp) 650 mg Q3H PRN [place] ELEVATED TEMPERATURE Last administered on 05/08/18at 01:00; Admin Dose 650 MG; Start 05/07/18 at 15:30 Aspirin (Aspirin) 81 mg DAILY PO Last administered on 05/18/18 09:01; Admin Dos e 81 MG; Start 05/09/18 at 09:00 Loratadine (Claritin) 10 mg DAILY PRN PO allergies; Start 05/08/18 at 20:00 Amiodarone HCl (Cordarone) 200 mg BID PO Last administered on 05/18/18 09:02; Admin Dose 200 MG; Start 05/09/18 at 21:00 Docusate Sodium (Colace) 100 mg DAILY PO Last administered on 05/18/18 09:01; Admin Dose 100 MG; Start 05/11/18 at 15:30 Morphine Sulfate (morphine) 6 mg Q2H PRN PO MOD TO SEVERE PAIN Last administered on 05/15/18at 06:42; Admin Dose 6 MG; Start 05/12/18 at 14:00 Lactulose (Enulose) 20 gm DAILY PRN PO CONSTIPATION; Start 05/12/18 at 14:30 Lubiprostone (Amitiza) 24 mcg BID PO Last administered on 05/18/18at 09:01; Admin Dose 24 MCG; Start 05/12/18 at 21:00 Zolpidem Tartrate (Ambien) 5 mg HS MAY REPEAT X 1 PRN PO INSOMNIA; Start 05/14/18 at 16:00 Polyethylene Glycol (Miralax) 17 gm BID PO Last administered on 05/18/18at 09:01; Admin Dose 17 GM; Start 05/15/18 at 13:30 Acetaminophen/ Hydrocodone Bitart ([place] (5/325)) 1 tab Q4H PRN PO MODERATE PAIN LEVEL 4-6 Last administered on 05/17/18at 00:56; Admin Dose 1 TAB; Start 05/15/18 at 22:00 Metoprolol Succinate (Toprol Xl) 25 mg DAILY PO ; Start 05/17/18 at 09:00 Neomycin/ Polymyxin/ Bacitracin (Neosporin Topical Oint) 1 applic BID TOP Last administered on 05/18/18at 09:02; Admin Dose 1 APPLIC; Start 05/16/18 at 21:00 APPLE MALHOTRA M.D. May 18, 2018 18:59
--- NOTE | 2018-05-18 19:34 | PN ---
Date/Time of Note Date/Time of Note DATE: 05/18/18 TIME: 19:33 Assessment/Plan Lines/Catheters IV Catheter Type (from Nrsg): Saline Lock Fish in Place (from Nrsg): No Assessment/Plan Assessment/Plan Status post coronary artery bypass grafting Stable postop Ambulation DC planning Aloe up in my office in 1 week after discharge Subjective 24 Hr Interval Summary Constitutional: improved Pain Control: mild Exam/Review of Systems Vital Signs Vitals Vital Signs Date Temp Pulse Resp B/P (MAP) Pulse Ox O2 O2 Flow FiO2 Time Delivery Rate 05/18/18 84 16:45 05/18/18 97.8 17 102/84 98 15:42 (90) 05/18/18 Room Air 04:00 Intake and Output 05/17/18 05/17/18 05/18/18 1515:00 23:00 07:00 IntakeIntake Total 960 ml 1000 ml OutputOutput Total 800 ml BalanceBalance 960 ml 200 ml Exam Eyes: nl conjunctiva, EOMI, nl lids, nl sclera ENMT: nl external ears & nose, nl lips & teeth, nl nasal mucosa & septum, mucosa pink and moist Neck: supple, non-tender Respiratory: clear to auscultation, normal air movement Cardiovascular: regular rate and rhythm, nl pulses Gastrointestinal: soft, nl liver, spleen, non-tender Musculoskeletal: nl extremities to inspection, nl gait and stance Results Result Diagram: 05/18/1851905/18/18519 RONDA NAZARIO MD May 18, 2018 19:33
[2018-05-18] MEDS: ATORVASTATIN 40 MG TAB PO SCH (20:35)
[2018-05-19] VITALS (10 sets, daily range): BP systolic 105–109; BP diastolic 59–71; PULSE 81–91; RESP 17–19
[2018-05-19] MEDS: LUBIPROSTONE 24 MCG CAP PO SCH ×2 (08:28→20:40)
[2018-05-19] MEDS: METOPROLOL (XL) 25 MG TAB PO SCH (08:28)
[2018-05-19] MEDS: AMIODARONE 200 MG TAB PO SCH ×2 (08:29→20:41)
[2018-05-19] MEDS: POLYETHYLENE GLYCOL 17 GM PACKET PO SCH ×2 (08:29→20:40)
[2018-05-19] MEDS: ASPIRIN 81 MG TAB PO SCH (08:29)
[2018-05-19] MEDS: DOCUSATE SODIUM 100 MG CAP PO SCH (08:29)
[2018-05-19] MEDS: NEOMYC/POLYMYX/BACIT 30 GM OINT TOP SCH ×2 (08:30→20:41)
--- NOTE | 2018-05-19 09:39 | CONS ---
Assessment/Plan Assessment/Plan Assessment/Plan (Daily) 1. acute on chronic renal failure vs Baseline CKD- stable 2. 3 V CAD on Cardiac cath on 05/04/18 s/p CABG on 05/07/2018 3. H/o HTN 4. H/o HL 5.H/o possible CKD III due to HTN nephrosclerosis Plan: BUN/Cr 15/1.47 Adquate urine output, pt doign well, chest tube d/jayda, BP stable WBC still 14.8, IV abx as per ID will follow up Follow up with me in clinic in 1-2 week upon discharge Consultation Date/Type/Reason Admit Date/Time May 04, 2018 at 13:51 Initial Consult Date 05/05/18 Type of Consult NEPHROLOGY Requesting Provider: DANIE MOORE Date/Time of Note DATE: 05/19/18 TIME: 09:39 Exam/Review of Systems Exam Vitals Vital Signs Date Temp Pulse Resp B/P (MAP) Pulse Ox O2 O2 Flow FiO2 Time Delivery Rate 05/19/18 81 08:48 05/19/18 98.3 18 105/59 96 07:40 (74) 05/18/18 Room Air 04:00 Intake and Output 05/18/18 05/18/18 05/19/18 1515:00 23:00 07:00 IntakeIntake Total 800 ml 900 ml BalanceBalance 800 ml 900 ml Exam Constitutional: awake, alert, no acute distress Respiratory: decreaesd BS at bases, , no wheezing Cardiovascular: S1S2 tachycardia, no murmur Gastrointestinal: soft, non-tender Musculoskeletal: no edema, no cyanosis, no clubbing Extremities: normal pulses Neurological: non focal, awake, alert Results Result Diagram: 05/19/1852005/19/18520 Results 24hrs Laboratory Tests Test 05/19/18 05:21 White Blood Count 14.8 H Red Blood Count 4.23 L Hemoglobin 10.2 L Hematocrit 31.8 L Mean Corpuscular Volume 75.2 L Mean Corpuscular Hemoglobin 24.1 L Mean Corpuscular Hemoglobin Concent 32.1 Red Cell Distribution Width 17.9 H Platelet Count 622 H Mean Platelet Volume 9.5 Immature Granulocytes % 0.500 H Neutrophils % 74.8 Lymphocytes % 14.2 L Monocytes % 6.8 Eosinophils % 2.8 Basophils % 0.9 Nucleated Red Blood Cells % 0.0 Immature Granulocytes # 0.070 H Neutrophils # 11.0 H Lymphocytes # 2.1 Monocytes # 1.0 H Eosinophils # 0.4 Basophils # 0.1 Nucleated Red Blood Cells # 0.0 Sodium Level 138 Potassium Level 4.3 Chloride Level 103 Carbon Dioxide Level 26 Anion Gap 9 Blood Urea Nitrogen 15 Creatinine 1.73 H Est Glomerular Filtrat Rate mL/min 40 L Glucose Level 106 Calcium Level 9.0 Medications Medication Current Medications Al Hydrox/Mg Hydrox/Simethicone (Mag-Al Plus) 30 ml Q4H PRN PO GASTROINTESTINAL UPSET Last administered on 05/12/18 10:23; Admin Dose 30 ML; Start 05/04/18 at 12:30 Ondansetron HCl (Zofran Inj) 4 mg Q4H PRN IV NAUSEA AND/OR VOMITING Last administered on 05/08/18 10:27; Admin Dose 4 MG; Start 05/04/18 at 12:30 Atorvastatin Calcium (Lipitor) 40 mg HS PO Last administered on 05/18/18 20:35; Admin Dose 40 MG; Start 05/04/18 at 21:00 Acetaminophen (Tylenol Tab) 650 mg Q3H PRN PO ELEVATED TEMPERATURE; Start 05/07/18 at 15:30 Acetaminophen (Tylenol Supp) 650 mg Q3H PRN [place] ELEVATED TEMPERATURE Last administered on 05/08/18 01:00; Admin Dose 650 MG; Start 05/07/18 at 15:30 Aspirin (Aspirin) 81 mg DAILY PO Last administered on 05/19/18 08:29; Admin Dose 81 MG; Start 05/09/18 at 09:00 Loratadine (Claritin) 10 mg DAILY PRN PO allergies; Start 05/08/18 at 20:00 Amiodarone HCl (Cordarone) 200 mg BID PO Last administered on 05/19/18 08:29; Admin Dose 200 MG; Start 05/09/18 at 21:00 Docusate Sodium (Colace) 100 mg DAILY PO Last administered on 05/19/18 08:29; Admin Dose 100 MG; Start 05/11/18 at 15:30 Morphine Sulfate (morphine) 6 mg Q2H PRN PO MOD TO SEVERE PAIN Last administ ered on 05/15/18 06:42; Admin Dose 6 MG; Start 05/12/18 at 14:00 Lactulose (Enulose) 20 gm DAILY PRN PO CONSTIPATION; Start 05/12/18 at 14:30 Lubiprostone (Amitiza) 24 mcg BID PO Last administered on 05/19/18 08:28; Admin Dose 24 MCG; Start 05/12/18 at 21:00 Zolpidem Tartrate (Ambien) 5 mg HS MAY REPEAT X 1 PRN PO INSOMNIA; Start 05/14/18 at 16:00 Polyethylene Glycol (Miralax) 17 gm BID PO Last administered on 05/19/18at 08:29; Admin Dose 17 GM; Start 05/15/18 at 13:30 Acetaminophen/ Hydrocodone Bitart ([place] (5/325)) 1 tab Q4H PRN PO MODERATE PAIN LEVEL 4-6 Last administered on 05/17/18at 00:56; Admin Dose 1 TAB; Start 05/15/18 at 22:00 Metoprolol Succinate (Toprol Xl) 25 mg DAILY PO ; Start 05/17/18 at 09:00 Neomycin/ Polymyxin/ Bacitracin (Neosporin Topical Oint) 1 applic BID TOP Last administered on 05/19/18at 08:30; Admin Dose 1 APPLIC; Start 05/16/18 at 21:00 MARIA DE JESUS LAUREN MD May 19, 2018 09:39
--- NOTE | 2018-05-19 11:37 | CONS ---
Assessment/Plan Assessment/Plan Assessment/Plan (Daily) Assessment/Plan Hospital Course (Demo Recall) 62 yo male 1. Ileus, clinically resolved. 2. Constipation, much better. -bm 05/18 -improved 3. Coronary artery disease status post coronary artery bypass graft. 4. Hypertension. 5. Anemia. Microcytic hypochromic -stable 6. Renal insufficiency. 7. Leukocytosis, improving, reactive, patient is not on any antibiotic PLAN: To continue present care. Continue current bowel regimen Discussed with his Patient will need colonoscopy as an outpatient given microcytic hypochromic picture Consultation Date/Type/Reason Admit Date/Time May 04, 2018 at 13:51 Initial Consult Date 05/17/18 Requesting Provider: DANIE MOORE Date/Time of Note DATE: 05/19/18 TIME: 11:36 24 HR Interval Summary Free Text/Dictation No abdominal pain no nausea no vomiting no diarrhea. Denies of any flatulence Constitutional: no complaints Exam/Review of Systems Exam Vitals Vital Signs Date Temp Pulse Resp B/P (MAP) Pulse Ox O2 O2 Flow FiO2 Time Delivery Rate 05/19/18 97.9 86 18 107/65 97 11:17 (79) 05/18/18 Room Air 04:00 Intake and Output 05/18/18 05/18/18 05/19/18 1414:59 22:59 06:59 IntakeIntake Total 800 ml 900 ml BalanceBalance 800 ml 900 ml Constitutional: alert, oriented, well developed Results Result Diagram: 05/19/18 0521 05/19/18 0521 Results 24hrs Laboratory Tests Test 05/19/18 05:21 White Blood Count 14.8 H Red Blood Count 4.23 L Hemoglobin 10.2 L Hematocrit 31.8 L Mean Corpuscular Volume 75.2 L Mean Corpuscular Hemoglobin 24.1 L Mean Corpuscular Hemoglobin Concent 32.1 Red Cell Distribution Width 17.9 H Platelet Count 622 H Mean Platelet Volume 9.5 Immature Granulocytes % 0.500 H Neutrophils % 74.8 Lymphocytes % 14.2 L Monocytes % 6.8 Eosinophils % 2.8 Basophils % 0.9 Nucleated Red Blood Cells % 0.0 Immature Granulocytes # 0.070 H Neutrophils # 11.0 H Lymphocytes # 2.1 Monocytes # 1.0 H Eosinophils # 0.4 Basophils # 0.1 Nucleated Red Blood Cells # 0.0 Sodium Level 138 Potassium Level 4.3 Chloride Level 103 Carbon Dioxide Level 26 Anion Gap 9 Blood Urea Nitrogen 15 Creatinine 1.73 H Est Glomerular Filtrat Rate mL/min 40 L Glucose Level 106 Calcium Level 9.0 Medications Medication Current Medications Al Hydrox/Mg Hydrox/Simethicone (Mag-Al Plus) 30 ml Q4H PRN PO GASTROINTESTINAL UPSET Last administered on 05/12/18 10:23; Admin Dose 30 ML; Start 05/04/18 at 12:30 Ondansetron HCl (Zofran Inj) 4 mg Q4H PRN IV NAUSEA AND/OR VOMITING Last administered on 05/08/18 10:27; Admin Dose 4 MG; Start 05/04/18 at 12:30 Atorvastatin Calcium (Lipitor) 40 mg HS PO Last administered on 05/18/18 20:35; Admin Dose 40 MG; Start 05/04/18 at 21:00 Acetaminophen (Tylenol Tab) 650 mg Q3H PRN PO ELEVATED TEMPERATURE; Start 05/07/18 at 15:30 Acetaminophen (Tylenol Supp) 650 mg Q3H PRN [place] ELEVATED TEMPERATURE Last administered on 05/08/18 01:00; Admin Dose 650 MG; Start 05/07/18 at 15:30 Aspirin (Aspirin) 81 mg DAILY PO Last administered on 05/19/18 08:29; Admin Dose 81 MG; Start 05/09/18 at 09:00 Loratadine (Claritin) 10 mg DAILY PRN PO allergies; Start 05/08/18 at 20:00 Amiodarone HCl (Cordarone) 200 mg BID PO Last administered on 05/19/18 08:29; Admin Dose 200 MG; Start 05/09/18 at 21:00 Docusate Sodium (Colace) 100 mg DAILY PO Last administered on 05/19/18 08:29; Admin Dose 100 MG; Start 05/11/18 at 15:30 Morphine Sulfate (morphine) 6 mg Q2H PRN PO MOD TO SEVERE PAIN Last administered on 05/15/18 06:42; Admin Dose 6 MG; Start 05/12/18 at 14:00 Lactulose (Enulose) 20 gm DAILY PRN PO CONSTIPATION; Start 05/12/18 at 14:30 Lubiprostone (Amitiza) 24 mcg BID PO Last administered on 05/19/18 08:28; Admin Dose 24 MCG; Start 05/12/18 at 21:00 Zolpidem Tartrate (Ambien) 5 mg HS MAY REPEAT X 1 PRN PO INSOMNIA; Start 05/14/18 at 16:00 Polyethylene Glycol (Miralax) 17 gm BID PO Last administered on 05/19/18 08:29; Admin Dose 17 GM; Start 05/15/18 at 13:30 Acetaminophen/ Hydrocodone Bitart ([place] (5/325)) 1 tab Q4H PRN PO MODERATE PAIN LEVEL 4-6 Last administered on 05/17/18 00:56; Admin Dose 1 TAB; Start 05/15/18 at 22:00 Metoprolol Succinate (Toprol Xl) 25 mg DAILY PO ; Start 05/17/18 at 09:00 Neomycin/ Polymyxin/ Bacitracin (Neosporin Topical Oint) 1 applic BID TOP Last administered on 05/19/18 08:30; Admin Dose 1 APPLIC; Start 05/16/18 at 21:00 GENOVEVA MUHAMMAD MD May 19, 2018 11:37
--- NOTE | 2018-05-19 13:19 | PN ---
Date/Time of Note Date/Time of Note DATE: 05/19/18 TIME: 13:19 Assessment/Plan Lines/Catheters IV Catheter Type (from Nrsg): Saline Lock Fish in Place (from Nrsg): No Assessment/Plan Assessment/Plan Status post coronary artery bypass grafting Stable postop Ambulation DC planning Aloe up in my office in 1 week after discharge Subjective 24 Hr Interval Summary Constitutional: improved Pain Control: mild Exam/Review of Systems Vital Signs Vitals Vital Signs Date Temp Pulse Resp B/P (MAP) Pulse Ox O2 O2 Flow FiO2 Time Delivery Rate 05/19/18 89 12:15 05/19/18 97.9 18 107/65 97 11:17 (79) 05/18/18 Room Air 04:00 Intake and Output 05/18/18 05/18/18 05/19/18 1515:00 23:00 07:00 IntakeIntake Total 800 ml 900 ml BalanceBalance 800 ml 900 ml Exam Neck: supple, non-tender Respiratory: clear to auscultation, normal air movement Results Result Diagram: 05/19/18 0521 05/19/18 0521 RONDA NAZARIO MD May 19, 2018 13:19
--- NOTE | 2018-05-19 13:28 | CONS ---
Assessment/Plan Cardiology NYHA: II Heart Failure Type: Diastolic Assessment/Plan Assessment/Plan (Daily) Cad s/p cabg LUEVANO-LAD, SVG-OM1/OM2, [id number] and SVG to PDA HTN HLP Renal failure Anemia PAF Continue amiodarone Continue Toprol XL Continue ASA Continue Lipitor Avoid ABRAN-I/ARBs Consultation Date/Type/Reason Admit Date/Time May 04, 2018 at 13:51 Type of Consult Cardiology Date/Time of Note DATE: 05/19/18 TIME: 13:27 Past Medical History Home Meds Reported Medications Metoprolol Succinate* (Toprol XL*) 25 Mg Tab.sr.24h, 25 MG PO DAILY, #30 TAB 05/04/18 Atorvastatin Calcium* (Atorvastatin Calcium*) 20 Mg Tablet, 20 MG PO QHS, #30 TAB 05/04/18 Amlodipine Besylate* (Amlodipine Besylate*) 10 Mg Tablet, 10 MG PO DAILY, #30 TAB 05/04/18 Medications Current Medications Al Hydrox/Mg Hydrox/Simethicone (Mag-Al Plus) 30 ml Q4H PRN PO GASTROINTESTINAL UPSET Last administered on 05/12/18at 10:23; Admin Dose 30 ML; Start 05/04/18 at 12:30 Ondansetron HCl (Zofran Inj) 4 mg Q4H PRN IV NAUSEA AND/OR VOMITING Last administered on 05/08/18at 10:27; Admin Dose 4 MG; Start 05/04/18 at 12:30 Atorvastatin Calcium (Lipitor) 40 mg HS PO Last administered on 05/18/18at 20:35; Admin Dose 40 MG; Start 05/04/18 at 21:00 Acetaminophen (Tylenol Tab) 650 mg Q3H PRN PO ELEVATED TEMPERATURE; Start 05/07/18 at 15:30 Acetaminophen (Tylenol Supp) 650 mg Q3H PRN [place] ELEVATED TEMPERATURE Last administered on 05/08/18at 01:00; Admin Dose 650 MG; Start 05/07/18 at 15:30 Aspirin (Aspirin) 81 mg DAILY PO Last administered on 05/19/18at 08:29; Admin Dose 81 MG; Start 05/09/18 at 09:00 Loratadine (Claritin) 10 mg DAILY PRN PO allergies; Start 05/08/18 at 20:00 Amiodarone HCl (Cordarone) 200 mg BID PO Last administered on 05/19/18 08:29; Admin Dose 200 MG; Start 05/09/18 at 21:00 Docusate Sodium (Colace) 100 mg DAILY PO Last administered on 05/19/18 08:29; Admin Dose 100 MG; Start 05/11/18 at 15:30 Morphine Sulfate (morphine) 6 mg Q2H PRN PO MOD TO SEVERE PAIN Last administered on 05/15/18 06:42; Admin Dose 6 MG; Start 05/12/18 at 14:00 Lactulose (Enulose) 20 gm DAILY PRN PO CONSTIPATION; Start 05/12/18 at 14:30 Lubiprostone (Amitiza) 24 mcg BID PO Last administered on 05/19/18 08:28; Admin Dose 24 MCG; Start 05/12/18 at 21:00 Zolpidem Tartrate (Ambien) 5 mg HS MAY REPEAT X 1 PRN PO INSOMNIA; Start 05/14/18 at 16:00 Polyethylene Glycol (Miralax) 17 gm BID PO Last administered on 05/19/18 08:29; Admin Dose 17 GM; Start 05/15/18 at 13:30 Acetaminophen/ Hydrocodone Bitart ([place] (5/325)) 1 tab Q4H PRN PO MODERATE PAIN LEVEL 4-6 Last administered on 05/17/18 00:56; Admin Dose 1 TAB; Start 05/15/18 at 22:00 Metoprolol Succinate (Toprol Xl) 25 mg DAILY PO ; Start 05/17/18 at 09:00 Neomycin/ Polymyxin/ Bacitracin (Neosporin Topical Oint) 1 applic BID TOP Last administered on 05/19/18 08:30; Admin Dose 1 APPLIC; Start 05/16/18 at 21:00 Allergies: Coded Allergies: No Known Allergy (Unverified , 05/05/18) Past Surgical History Past Surgical Hx: no surgical history Social History Alcohol Use: none Smoking Status: Former smoker Drug Use: none Exam/Review of Systems Vital Signs Vitals Vital Signs Date Temp Pulse Resp B/P (MAP) Pulse Ox O2 O2 Flow FiO2 Time Delivery Rate 05/19/18 89 12:15 05/19/18 97.9 18 107/65 97 11:17 (79) 05/18/18 Room Air 04:00 Intake and Output 2/05/0505/18/18 05/19/18 1515:00 23:00 07:00 IntakeIntake Total 800 ml 900 ml BalanceBalance 800 ml 900 ml Exam Constitutional: alert, oriented Neck: supple, non-tender Respiratory: clear to auscultation Cardiovascular: regular rate and rhythm (no m/r/g) Gastrointestinal: soft, nl liver, spleen Extremities: normal pulses Labs Result Diagram: 05/19/18 0521 05/19/18 0521 Results 24hrs Laboratory Tests Test 05/19/18 05:21 White Blood Count 14.8 H Red Blood Count 4.23 L Hemoglobin 10.2 L Hematocrit 31.8 L Mean Corpuscular Volume 75.2 L Mean Corpuscular Hemoglobin 24.1 L Mean Corpuscular Hemoglobin Concent 32.1 Red Cell Distribution Width 17.9 H Platelet Count 622 H Mean Platelet Volume 9.5 Immature Granulocytes % 0.500 H Neutrophils % 74.8 Lymphocytes % 14.2 L Monocytes % 6.8 Eosinophils % 2.8 Basophils % 0.9 Nucleated Red Blood Cells % 0.0 Immature Granulocytes # 0.070 H Neutrophils # 11.0 H Lymphocytes # 2.1 Monocytes # 1.0 H Eosinophils # 0.4 Basophils # 0.1 Nucleated Red Blood Cells # 0.0 Sodium Level 138 Potassium Level 4.3 Chloride Level 103 Carbon Dioxide Level 26 Anion Gap 9 Blood Urea Nitrogen 15 Creatinine 1.73 H Est Glomerular Filtrat Rate mL/min 40 L Glucose Level 106 Calcium Level 9.0 Medications Medications Current Medications Al Hydrox/Mg Hydrox/Simethicone (Mag-Al Plus) 30 ml Q4H PRN PO GASTROINTESTINAL UPSET Last administered on 05/12/18at 10:23; Admin Dose 30 ML; Start 05/04/18 at 12:30 Ondansetron HCl (Zofran Inj) 4 mg Q4H PRN IV NAUSEA AND/OR VOMITING Last administered on 05/08/18at 10:27; Admin Dose 4 MG; Start 05/04/18 at 12:30 Atorvastatin Calcium (Lipitor) 40 mg HS PO Last administered on 05/18/18at 20:35; Admin Dose 40 MG; Start 05/04/18 at 21:00 Acetaminophen (Tylenol Tab) 650 mg Q3H PRN PO ELEVATED TEMPERATURE; Start 04/18 05/05 at 15:30 Acetaminophen (Tylenol Supp) 650 mg Q3H PRN [place] ELEVATED TEMPERATURE Last administered on 05/08/18 01:00; Admin Dose 650 MG; Start 05/07/18 at 15:30 Aspirin (Aspirin) 81 mg DAILY PO Last administered on 05/19/18 08:29; Admin Dose 81 MG; Start 05/09/18 at 09:00 Loratadine (Claritin) 10 mg DAILY PRN PO allergies; Start 05/08/18 at 20:00 Amiodarone HCl (Cordarone) 200 mg BID PO Last administered on 05/19/18 08:29; Admin Dose 200 MG; Start 05/09/18 at 21:00 Docusate Sodium (Colace) 100 mg DAILY PO Last administered on 05/19/18 08:29; Admin Dose 100 MG; Start 05/11/18 at 15:30 Morphine Sulfate (morphine) 6 mg Q2H PRN PO MOD TO SEVERE PAIN Last administered on 05/15/18 06:42; Admin Dose 6 MG; Start 05/12/18 at 14:00 Lactulose (Enulose) 20 gm DAILY PRN PO CONSTIPATION; Start 05/12/18 at 14:30 Lubiprostone (Amitiza) 24 mcg BID PO Last administered on 05/19/18 08:28; Admin Dose 24 MCG; Start 05/12/18 at 21:00 Zolpidem Tartrate (Ambien) 5 mg HS MAY REPEAT X 1 PRN PO INSOMNIA; Start 05/14/18 at 16:00 Polyethylene Glycol (Miralax) 17 gm BID PO Last administered on 05/19/18 08:29; Admin Dose 17 GM; Start 05/15/18 at 13:30 Acetaminophen/ Hydrocodone Bitart ([place] (5/325)) 1 tab Q4H PRN PO MODERATE PAIN LEVEL 4-6 Last administered on 05/17/18 00:56; Admin Dose 1 TAB; Start 05/15/18 at 22:00 Metoprolol Succinate (Toprol Xl) 25 mg DAILY PO ; Start 05/17/18 at 09:00 Neomycin/ Polymyxin/ Bacitracin (Neosporin Topical Oint) 1 applic BID TOP Last administered on 05/19/18 08:30; Admin Dose 1 APPLIC; Start 05/16/18 at 21:00 DAVEY CAPONE M.D. May 19, 2018 13:28
--- NOTE | 2018-05-19 14:16 | PN ---
Date/Time of Note Date/Time of Note DATE: 05/19/18 TIME: 14:00 Assessment/Plan VTE Prophylaxis Risk score (from Ns)>0 risk: 10 SCD applied (from Nsg): No Lines/Catheters IV Catheter Type (from Nrs): Saline Lock Urinary Cath still in place: No Assessment/Plan Assessment/Plan -Constipation, resolved. Dr. Kurtz is following in gastroenterology consultation. -Ileus, resolved -Multivessel coronary artery disease on cardiac cath on 05/04/[address] Dial. S/p CABG procedure by Dr. Soriano, cardiovascular surgery on 05/07/18. -Acute on chronic renal failure vs CKD stage 3. Creatinine at patient's bas gerry now. Dr. Herrera is following in nephrology consultation. -Hypertension, continue metoprolol, Norvasc. -Hyperlipidemia, continue statin. Further recommendations based on clinical course. Plan of care discussed with Dr. Guerra. Result Diagram: 05/19/18 0521 05/19/18 0521 Results 24hrs Laboratory Tests Test 05/19/18 05:21 White Blood Count 14.8 H Red Blood Count 4.23 L Hemoglobin 10.2 L Hematocrit 31.8 L Mean Corpuscular Volume 75.2 L Mean Corpuscular Hemoglobin 24.1 L Mean Corpuscular Hemoglobin Concent 32.1 Red Cell Distribution Width 17.9 H Platelet Count 622 H Mean Platelet Volume 9.5 Immature Granulocytes % 0.500 H Neutrophils % 74.8 Lymphocytes % 14.2 L Monocytes % 6.8 Eosinophils % 2.8 Basophils % 0.9 Nucleated Red Blood Cells % 0.0 Immature Granulocytes # 0.070 H Neutrophils # 11.0 H Lymphocytes # 2.1 Monocytes # 1.0 H Eosinophils # 0.4 Basophils # 0.1 Nucleated Red Blood Cells # 0.0 Sodium Level 138 Potassium Level 4.3 Chloride Level 103 Carbon Dioxide Level 26 Anion Gap 9 Blood Urea Nitrogen 15 Creatinine 1.73 H Est Glomerular Filtrat Rate mL/min 40 L Glucose Level 106 Calcium Level 9.0 Subjective 24 Hr Interval Summary Respiratory: no complaints Cardiovascular: no complaints Gastrointestinal: no complaints Genitourinary: no complaints Musculoskeletal: no complaints Skin: no complaints Neurologic: no complaints Exam/Review of Systems Exam Vitals Vital Signs Date Temp Pulse Resp B/P (MAP) Pulse Ox O2 O2 Flow FiO2 Time Delivery Rate 05/19/18 89 12:15 05/19/18 97.9 18 107/65 97 11:17 (79) 05/18/18 Room Air 04:00 Intake and Output 05/18/18 05/18/18 05/19/18 1515:00 23:00 07:00 IntakeIntake Total 800 ml 900 ml BalanceBalance 800 ml 900 ml Results Results 24hrs Laboratory Tests Test 05/19/18 05:21 White Blood Count 14.8 H Red Blood Count 4.23 L Hemoglobin 10.2 L Hematocrit 31.8 L Mean Corpuscular Volume 75.2 L Mean Corpuscular Hemoglobin 24.1 L Mean Corpuscular Hemoglobin Concent 32.1 Red Cell Distribution Width 17.9 H Platelet Count 622 H Mean Platelet Volume 9.5 Immature Granulocytes % 0.500 H Neutrophils % 74.8 Lymphocytes % 14.2 L Monocytes % 6.8 Eosinophils % 2.8 Basophils % 0.9 Nucleated Red Blood Cells % 0.0 Immature Granulocytes # 0.070 H Neutrophils # 11.0 H Lymphocytes # 2.1 Monocytes # 1.0 H Eosinophils # 0.4 Basophils # 0.1 Nucleated Red Blood Cells # 0.0 Sodium Level 138 Potassium Level 4.3 Chloride Level 103 Carbon Dioxide Level 26 Anion Gap 9 Blood Urea Nitrogen 15 Creatinine 1.73 H Est Glomerular Filtrat Rate mL/min 40 L Glucose Level 106 Calcium Level 9.0 Medications Medication Current Medications Al Hydrox/Mg Hydrox/Simethicone (Mag-Al Plus) 30 ml Q4H PRN PO GASTROINTESTINAL UPSET Last administered on 05/12/18at 10:23; Admin Dose 30 ML; Start 05/04/18 at 12:30 Ondansetron HCl (Zofran Inj) 4 mg Q4H PRN IV NAUSEA AND/OR VOMITING Last administered on 05/08/18at 10:27; Admin Dose 4 MG; Start 05/04/18 at 12:30 Atorvastatin Calcium (Lipitor) 40 mg HS PO Last administered on 05/18/18at 20:35; Admin Dose 40 MG; Start 05/04/18 at 21:00 Acetaminophen (Tylenol Tab) 650 mg Q3H PRN PO ELEVATED TEMPERATURE; Start 05/07/18 at 15:30 Acetaminophen (Tylenol Supp) 650 mg Q3H PRN [place] ELEVATED TEMPERATURE Last administered on 05/08/18 01:00; Admin Dose 650 MG; Start 05/07/18 at 15:30 Aspirin (Aspirin) 81 mg DAILY PO Last administered on 05/19/18 08:29; Admin Dose 81 MG; Start 05/09/18 at 09:00 Loratadine (Claritin) 10 mg DAILY PRN PO allergies; Start 05/08/18 at 20:00 Amiodarone HCl (Cordarone) 200 mg BID PO Last administered on 05/19/18 08:29; Admin Dose 200 MG; Start 05/09/18 at 21:00 Docusate Sodium (Colace) 100 mg DAILY PO Last administered on 05/19/18 08:29; Admin Dose 100 MG; Start 05/11/18 at 15:30 Morphine Sulfate (morphine) 6 mg Q2H PRN PO MOD TO SEVERE PAIN Last administered on 05/15/18 06:42; Admin Dose 6 MG; Start 05/12/18 at 14:00 Lactulose (Enulose) 20 gm DAILY PRN PO CONSTIPATION; Start 05/12/18 at 14:30 Lubiprostone (Amitiza) 24 mcg BID PO Last administered on 05/19/18 08:28; Admin Dose 24 MCG; Start 05/12/18 at 21:00 Zolpidem Tartrate (Ambien) 5 mg HS MAY REPEAT X 1 PRN PO INSOMNIA; Start 05/14/18 at 16:00 Polyethylene Glycol (Miralax) 17 gm BID PO Last administered on 05/19/18 08:29; Admin Dose 17 GM; Start 05/15/18 at 13:30 Acetaminophen/ Hydrocodone Bitart ([place] (5/325)) 1 tab Q4H PRN PO MODERATE PAIN LEVEL 4-6 Last administered on 05/17/18 00:56; Admin Dose 1 TAB; Start 05/15/18 at 22:00 Metoprolol Succinate (Toprol Xl) 25 mg DAILY PO ; Start 05/17/18 at 09:00 Neomycin/ Polymyxin/ Bacitracin (Neosporin Topical Oint) 1 applic BID TOP Last administered on 05/19/18 08:30; Admin Dose 1 APPLIC; Start 05/16/18 at 21:00 IVY YATES May 19, 2018 14:11
--- NOTE | 2018-05-19 15:44 | CONS ---
Assessment/Plan Assessment/Plan Hospital Course (Demo Recall) - post-op leukocytosis, probably a reactive process. so far ID workup is negative - s/p CABG on 05/07/2018 - s/p cardiac catheterization on 05/04/2018: severe 3-vessel coronary artery disease - Doppler ultrasound of carotids on 05/04/2018 showed no significant flow detected in R vertebral artery, concerning for occlusion - chronic renal insufficiency. - small L pleural effusion vs. pleural thickening on CXR PA and lateral on 05/18/2018 Recommendations: - pending results: blood cultures from 05/17 (NGTD) - continue to monitor Pt off systemic antibiotics - we recommend f/u CXR to eval the small pleural effusion vs. thickening as outpatient in the future Management d/w patient, pt's , RN Rach, [facility], and with Dr. Garza Consultation Date/Type/Reason Admit Date/Time May 04, 2018 at 13:51 Initial Consult Date 05/17/18 Type of Consult Infectious Disease Requesting Provider: DANIE MOORE Date/Time of Note DATE: 05/19/18 TIME: 15:42 24 HR Interval Summary Free Text/Dictation Pt denies fever, chills, CP, SOB, cough, abd pain, n/v/d, dysuria. Asking if he can be discharged home. WBC slightly elevated from yesterday but remains afebrile. Exam/Review of Systems Exam Vitals Vital Signs Date Temp Pulse Resp B/P (MAP) Pulse Ox O2 O2 Flow FiO2 Time Delivery Rate 05/19/18 89 12:15 05/19/18 97.9 18 107/65 97 11:17 (79) 05/18/18 Room Air 04:00 Intake and Output 05/18/18 05/18/18 05/19/18 1515:00 23:00 07:00 IntakeIntake Total 800 ml 900 ml BalanceBalance 800 ml 900 ml Constitutional: alert, oriented, well developed, other (Sitting in chair by the window in NAD) Psych: no complaints, nl mood/affect Head: normocephalic, atraumatic Eyes: nl conjunctiva, nl lids, nl sclera ENMT: nl external ears & nose, nl lips & teeth, nl nasal mucosa & septum Neck: supple, non-tender Respiratory: clear to auscultation, normal air movement Cardiovascular: regular rate and rhythm, nl pulses, other (ML sternal dressing c/d/i) Gastrointestinal: soft, non-tender Musculoskeletal: nl extremities to inspection Extremities: normal pulses; No edema Neurological: [employer] II-XII intact, nl mental status, nl speech, nl strength Skin: nl turgor; No rash or lesions Lymph: nl lymph nodes Results Result Diagram: 05/19/1821 05/19/1821 Results 24hrs Laboratory Tests Test 05/19/18 05:21 White Blood Count 14.8 H Red Blood Count 4.23 L Hemoglobin 10.2 L Hematocrit 31.8 L Mean Corpuscular Volume 75.2 L Mean Corpuscular Hemoglobin 24.1 L Mean Corpuscular Hemoglobin Concent 32.1 Red Cell Distribution Width 17.9 H Platelet Count 622 H Mean Platelet Volume 9.5 Immature Granulocytes % 0.500 H Neutrophils % 74.8 Lymphocytes % 14.2 L Monocytes % 6.8 Eosinophils % 2.8 Basophils % 0.9 Nucleated Red Blood Cells % 0.0 Immature Granulocytes # 0.070 H Neutrophils # 11.0 H Lymphocytes # 2.1 Monocytes # 1.0 H Eosinophils # 0.4 Basophils # 0.1 Nucleated Red Blood Cells # 0.0 Sodium Level 138 Potassium Level 4.3 Chloride Level 103 Carbon Dioxide Level 26 Anion Gap 9 Blood Urea Nitrogen 15 Creatinine 1.73 H Est Glomerular Filtrat Rate mL/min 40 L Glucose Level 106 Calcium Level 9.0 Imaging Imaging CXR 05/18/2018: Unchanged small left pleural effusion versus pleural thickening. Medications Medication Current Medications Al Hydrox/Mg Hydrox/Simethicone (Mag-Al Plus) 30 ml Q4H PRN PO GASTROINTESTINAL UPSET Last administered on 05/12/18at 10:23; Admin Dose 30 ML; Start 05/04/18 at 12:30 Ondansetron HCl (Zofran Inj) 4 mg Q4H PRN IV NAUSEA AND/OR VOMITING Last administered on 05/08/18at 10:27; Admin Dose 4 MG; Start 05/04/18 at 12:30 Atorvastatin Calcium (Lipitor) 40 mg HS PO Last administered on 05/18/18at 20:35; Admin Dose 40 MG; Start 05/04/18 at 21:00 Acetaminophen (Tylenol Tab) 650 mg Q3H PRN PO ELEVATED TEMPERATURE; Start 05/07/18 at 15:30 Acetaminophen (Tylenol Supp) 650 mg Q3H PRN [place] ELEVATED TEMPERATURE Last administered on 05/08/18 01:00; Admin Dose 650 MG; Start 05/07/18 at 15:30 Aspirin (Aspirin) 81 mg DAILY PO Last administered on 05/19/18 08:29; Admin Dose 81 MG; Start 05/09/18 at 09:00 Loratadine (Claritin) 10 mg DAILY PRN PO allergies; Start 05/08/18 at 20:00 Amiodarone HCl (Cordarone) 200 mg BID PO Last administered on 05/19/18 08:29; Admin Dose 200 MG; Start 05/09/18 at 21:00 Docusate Sodium (Colace) 100 mg DAILY PO Last administered on 05/19/18 08:29; Admin Dose 100 MG; Start 05/11/18 at 15:30 Morphine Sulfate (morphine) 6 mg Q2H PRN PO MOD TO SEVERE PAIN Last administered on 05/15/18 06:42; Admin Dose 6 MG; Start 05/12/18 at 14:00 Lactulose (Enulose) 20 gm DAILY PRN PO CONSTIPATION; Start 05/12/18 at 14:30 Lubiprostone (Amitiza) 24 mcg BID PO Last administered on 05/19/18 08:28; Admin Dose 24 MCG; Start 05/12/18 at 21:00 Zolpidem Tartrate (Ambien) 5 mg HS MAY REPEAT X 1 PRN PO INSOMNIA; Start at 16:00 Polyethylene Glycol (Miralax) 17 gm BID PO Last administered on 05/19/18 08:29; Admin Dose 17 GM; Start 05/15/18 at 13:30 Acetaminophen/ Hydrocodone Bitart ([place] (5/325)) 1 tab Q4H PRN PO MODERATE PAIN LEVEL 4-6 Last administered on 05/17/18 00:56; Admin Dose 1 TAB; Start 05/15/18 at 22:00 Metoprolol Succinate (Toprol Xl) 25 mg DAILY PO ; Start 05/17/18 at 09:00 Neomycin/ Polymyxin/ Bacitracin (Neosporin Topical Oint) 1 applic BID TOP Last administered on 05/19/18 08:30; Admin Dose 1 APPLIC; Start 05/16/18 at 21:00 FE NICOLAS NP May 19, 2018 15:44
--- NOTE | 2018-05-19 17:59 | NUR ---
EOSS: Pt is stable, VS are WNL. Pt did not complain of any pain or discomfort throughout the shift. No bleeding noted. the wound on the chest is clean and dry, did not show any s/s of infection. Family is at the bedside. Will endorse the care to maintenance supervisor 2nd shift nurse.
[2018-05-19] MEDS: ATORVASTATIN 40 MG TAB PO SCH (20:40)
[2018-05-20] VITALS (8 sets, daily range): BP systolic 90–109; BP diastolic 60–69; PULSE 80–92; RESP 18–20
--- NOTE | 2018-05-20 02:50 | NUR ---
NOTES AWAKE ALERT ON BED. NO COMPLAINT PRESENTED AT THIS TIME. MEDS GIVEN. DRESSING WAS DONE FROM HIS CHEST DRY DRESSING APPLIED. SETTLED ON BED.
[2018-05-20] MEDS: LUBIPROSTONE 24 MCG CAP PO SCH (08:19)
[2018-05-20] MEDS: DOCUSATE SODIUM 100 MG CAP PO SCH (08:19)
[2018-05-20] MEDS: NEOMYC/POLYMYX/BACIT 30 GM OINT TOP SCH (08:19)
[2018-05-20] MEDS: ASPIRIN 81 MG TAB PO SCH (08:19)
[2018-05-20] MEDS: POLYETHYLENE GLYCOL 17 GM PACKET PO SCH ×2 (08:19→08:25)
[2018-05-20] MEDS: METOPROLOL (XL) 25 MG TAB PO SCH (08:20)
[2018-05-20] MEDS: AMIODARONE 200 MG TAB PO SCH (08:23)
--- NOTE | 2018-05-20 10:30 | PDOCDIS ---
Discharge Instructions CONDITION [id number] Patient Condition: [id number] Stable HOME CARE INSTRUCTIONS: [id number] Diet Instructions: [id number] Low Fat /Cholesterol ACTIVITY: [id number] Activity Restrictions: [id number] Slowly Increase Activity Rest between Activity Avoid heavy lifting Do not Drive Do not operate Machinery Do not operate Power Tool Avoid Heavy Housework [id number] Bathing Restrictions: [id number] Sponge Bath FOLLOW UP/APPOINTMENTS Follow-up Plan - fu with Primary MD x 1 week; f/u CXR to- eval the small pleural effusion vs. thickening as outpatient in the future - Fu with cardiology as recommended - Fu with nephrology as recommended - Fu with vascular sx as recommended - call 911 or go to the nearest hospital if symptoms get worse; patient verbalized understanding dc instructions Dw Dr Guerra/staff IVY YATES May 20, 2018 10:30
[2018-05-20] MEDS ORDERED: LUBI24CA7 PO (10:37)
[2018-05-20] MEDS ORDERED: METO-335 PO (10:37)
[2018-05-20] MEDS ORDERED: ATOR40TA68 PO (10:37)
[2018-05-20] MEDS ORDERED: POLY17PO6 PO (10:37)
[2018-05-20] MEDS ORDERED: LACT20SO2 PO (10:37)
[2018-05-20] MEDS ORDERED: AMLO-147 PO (10:37)
[2018-05-20] MEDS ORDERED: NEOM28OI2 TOP (10:37)
[2018-05-20] MEDS ORDERED: DOCU-216 PO (10:37)
[2018-05-20] MEDS ORDERED: HYDR-3601 PO (10:41)
--- NOTE | 2018-05-20 12:02 | PN ---
Date/Time of Note Date/Time of Note DATE: 05/20/18 TIME: 12:02 Assessment/Plan Lines/Catheters IV Catheter Type (from Nrsg): Saline Lock Fish in Place (from Nrsg): No Assessment/Plan Assessment/Plan Status post coronary artery bypass graft Stable postop Discharge planning Follow-up in my office Subjective 24 Hr Interval Summary Constitutional: improved Pain Control: mild Exam/Review of Systems Vital Signs Vitals Vital Signs Date Temp Pulse Resp B/P (MAP) Pulse Ox O2 O2 Flow FiO2 Time Delivery Rate 05/20/18 97.8 88 20 109/68 96 Room Air 11:27 (82) Intake and Output 05/19/18 05/19/18 05/20/18 1515:00 23:00 07:00 IntakeIntake Total 2020 ml 220 ml BalanceBalance 2020 ml 220 ml Exam ENMT: nl external ears & nose, nl lips & teeth, nl nasal mucosa & septum, mucosa pink and moist Neck: supple, non-tender Respiratory: clear to auscultation, normal air movement Cardiovascular: regular rate and rhythm, nl pulses Results Result Diagram: 05/20/18 1034 05/20/18 1034 RONDA NAZARIO MD May 20, 2018 12:02
--- NOTE | 2018-05-20 12:15 | DS ---
Date/Time of Note Date/Time of Note DATE: 05/20/18 TIME: 12:15 Discharge Summary Admission/Discharge Info Admit Date/Time May 04, 2018 at 13:51 Discharge Date/Time Home Meds Active Scripts Hydrocodone Bit-Acetaminophen (Hydrocodone Bit-APAP) 5-325MG Tablet, 1 TAB PO Q6 PRN for MODERATE PAIN LEVEL 4-6, #14 TAB Prov:IVY YATES 05/20/18 Docusate Sodium (Dok) 100 Mg Capsule, 100 MG PO DAILY for 30 Days, CAP Prov:IVY YATES 05/20/18 Polyethylene Glycol* (Miralax*) 17 Gm Powd.pack, 17 GM PO BID for 30 Days Prov:IVY YATES 05/20/18 Neomycin Meeks/Bacitrac Zn/Poly (Triple Antibiotic Ointment) 28 Gm Oint...g., 1 APPLIC TOP BID for 10 Days Prov:IVY YATES 05/20/18 Lubiprostone* (Amitiza*) 24 Mcg Capsule, 24 MCG PO BID for 30 Days, CAP Prov:IVY YATES 05/20/18 Lactulose* (Lactulose*) 20 Gm/30 Ml Solution, 20 GM PO DAILY PRN for CONSTIPATION for 30 Days Prov:IVY YATES 05/20/18 Atorvastatin* (Atorvastatin*) 40 Mg Tablet, 40 MG PO HS for 30 Days, TAB Prov:IVY YATES 05/20/18 Metoprolol Succinate* (Toprol XL*) 25 Mg Tab.sr.24h, 25 MG PO DAILY, #30 TAB Prov:IVY YATES 05/20/18 Amlodipine Besylate* (Amlodipine Besylate*) 10 Mg Tablet, 10 MG PO DAILY for 30 Days, #30 TAB Prov:IVY YATES 05/20/18 Reported Medications Atorvastatin Calcium* (Atorvastatin Calcium*) 20 Mg Tablet, 20 MG PO QHS, #30 TAB 05/04/18 Follow-up Plan - fu with Primary MD x 1 week; f/u CXR to- eval the small pleural effusion vs. thickening as outpatient in the future - Fu with cardiology as recommended - Fu with nephrology as recommended - Fu with vascular sx as recommended - call 911 or go to the nearest hospital if symptoms get worse; patient verbalized understanding dc instructions Dw Dr Guerra/staff Primary Care Provider Not On Staff Doctor Pending Labs Laboratory Tests Test 05/20/18 10:34 White Blood Count 14.5 10^3/ul (4.8-10.8) Red Blood Count 4.54 10^6/ul (4.70-6.10) Hemoglobin 10.8 g/dl (14.0-18.0) Hematocrit 34.2 % (42.0-52.0) Mean Corpuscular Volume 75.3 fl (82.0-101.0) Mean Corpuscular Hemoglobin 23.8 pg (29.0-33.0) Mean Corpuscular Hemoglobin Concent 31.6 g/dl (32.0-37.0) Red Cell Distribution Width 17.8 % (11.5-14.5) Platelet Count 691 10^3/UL (140-415) Mean Platelet Volume 9.2 fl (7.4-10.4) Immature Granulocytes % 0.400 % (0.001-0.429) Neutrophils % 78.8 % (39.0-77.0) Lymphocytes % 10.1 % (15.0-51.0) Monocytes % 7.0 % (0.0-11.0) Eosinophils % 2.9 % (0.0-7.0) Basophils % 0.8 % (0.0-2.0) Nucleated Red Blood Cells % 0.0 /100WBC (0.0-0.0) Immature Granulocytes # 0.060 10^3/ul (0.0-0.031) Neutrophils # 11.5 10^3/ul (1.6-7.5) Lymphocytes # 1.5 10^3/ul (0.8-2.9) Monocytes # 1.0 10^3/ul (0.3-0.9) Eosinophils # 0.4 10^3/ul (0.0-0.5) Basophils # 0.1 10^3/ul (0.0-0.1) Nucleated Red Blood Cells # 0.0 10^3/ul (0.0-0.0) Sodium Level 138 mmol/L (135-144) Potassium Level 4.1 mmol/L (3.5-5.1) Chloride Level 102 mmol/L (97-110) Carbon Dioxide Level 24 mmol/L (21-31) Anion Gap 12 (5-13) Blood Urea Nitrogen 17 mg/dl (7-20) Creatinine 1.69 mg/dl (0.61-1.24) Est Glomerular Filtrat Rate mL/min 41 mL/min (>60) Glucose Level 103 mg/dl (70-220) Calcium Level 9.3 mg/dl (8.4-10.2) IVY YATES May 20, 2018 12:15
--- NOTE | 2018-05-20 12:36 | CONS ---
Assessment/Plan Cardiology NYHA: II Heart Failure Type: Diastolic Assessment/Plan Assessment/Plan (Daily) Cad s/p cabg LUEVANO-LAD, SVG-OM1/OM2, RIT-LOS-bqdx and SVG to PDA HTN HLP Renal failure Anemia PAF Continue amiodarone Continue Toprol XL Continue ASA Continue Lipitor Avoid ABRAN-I/ARBs Consultation Date/Type/Reason Admit Date/Time May 04, 2018 at 13:51 Initial Consult Date 05/17/18 Type of Consult Cardiology Requesting Provider: DANIE MOORE Date/Time of Note DATE: 05/20/18 TIME: 12:35 Exam/Review of Systems Vital Signs Vitals Vital Signs Date Temp Pulse Resp B/P (MAP) Pulse Ox O2 O2 Flow FiO2 Time Delivery Rate 05/20/18 92 12:12 05/20/18 97.8 20 109/68 96 Room Air 11:27 (82) Intake and Output 05/19/18 05/19/18 05/20/18 1515:00 23:00 07:00 IntakeIntake Total 2020 ml 220 ml BalanceBalance 2020 ml 220 ml Exam Exam Constitutional: alert, oriented Neck: supple, non-tender Respiratory: clear to auscultation Cardiovascular: regular rate and rhythm (no m/r/g) Gastrointestinal: soft, nl liver, spleen Extremities: normal pulses Labs Result Diagram: 05/20/18 1034 05/20/18 1034 Results 24hrs Laboratory Tests Test 05/20/18 10:34 White Blood Count 14.5 H Red Blood Count 4.54 L Hemoglobin 10.8 L Hematocrit 34.2 L Mean Corpuscular Volume 75.3 L Mean Corpuscular Hemoglobin 23.8 L Mean Corpuscular Hemoglobin Concent 31.6 L Red Cell Distribution Width 17.8 H Platelet Count 691 H Mean Platelet Volume 9.2 Immature Granulocytes % 0.400 Neutrophils % 78.8 H Lymphocytes % 10.1 L Monocytes % 7.0 Eosinophils % 2.9 Basophils % 0.8 Nucleated Red Blood Cells % 0.0 Immature Granulocytes # 0.060 H Neutrophils # 11.5 H Lymphocytes # 1.5 Monocytes # 1.0 H Eosinophils # 0.4 Basophils # 0.1 Nucleated Red Blood Cells # 0.0 Sodium Level 138 Potassium Level 4.1 Chloride Level 102 Carbon Dioxide Level 24 Anion Gap 12 Blood Urea Nitrogen 17 Creatinine 1.69 H Est Glomerular Filtrat Rate mL/min 41 L Glucose Level 103 Calcium Level 9.3 Medications Medications Current Medications Al Hydrox/Mg Hydrox/Simethicone (Mag-Al Plus) 30 ml Q4H PRN PO GASTROINTESTINAL UPSET Last administered on 05/12/18 10:23; Admin Dose 30 ML; Start 05/04/18 at 12:30 Ondansetron HCl (Zofran Inj) 4 mg Q4H PRN IV NAUSEA AND/OR VOMITING Last administered on 05/08/18 10:27; Admin Dose 4 MG; Start 05/04/18 at 12:30 Atorvastatin Calcium (Lipitor) 40 mg HS PO Last administered on 05/19/18 20:40; Admin Dose 40 MG; Start 05/04/18 at 21:00 Acetaminophen (Tylenol Tab) 650 mg Q3H PRN PO ELEVATED TEMPERATURE; Start 05/07/18 at 15:30 Acetaminophen (Tylenol Supp) 650 mg Q3H PRN HI ELEVATED TEMPERATURE Last admi nistered on 05/08/18at 01:00; Admin Dose 650 MG; Start 05/07/18 at 15:30 Aspirin (Aspirin) 81 mg DAILY PO Last administered on 05/20/18 08:19; Admin Dose 81 MG; Start 05/09/18 at 09:00 Loratadine (Claritin) 10 mg DAILY PRN PO allergies; Start 05/08/18 at 20:00 Amiodarone HCl (Cordarone) 200 mg BID PO Last administered on 05/20/18 08:23; Admin Dose 200 MG; Start 05/09/18 at 21:00 Docusate Sodium (Colace) 100 mg DAILY PO Last administered on 05/20/18 08:19; Admin Dose 100 MG; Start 05/11/18 at 15:30 Morphine Sulfate (morphine) 6 mg Q2H PRN PO MOD TO SEVERE PAIN Last administered on 05/15/18 06:42; Admin Dose 6 MG; Start 05/12/18 at 14:00 Lactulose (Enulose) 20 gm DAILY PRN PO CONSTIPATION; Start 05/12/18 at 14:30 Lubiprostone (Amitiza) 24 mcg BID PO Last administered on 05/20/18 08:19; Admin Dose 24 MCG; Start 05/12/18 at 21:00 Zolpidem Tartrate (Ambien) 5 mg HS MAY REPEAT X 1 PRN PO INSOMNIA; Start 05/14/18 at 16:00 Polyethylene Glycol (Miralax) 17 gm BID PO Last administered on 05/19/18at 08:29; Admin Dose 17 GM; Start 05/15/18 at 13:30 Acetaminophen/ Hydrocodone Bitart ([place] (5/325)) 1 tab Q4H PRN PO MODERATE PAIN LEVEL 4-6 Last administered on 05/17/18at 00:56; Admin Dose 1 TAB; Start 05/15/18 at 22:00 Metoprolol Succinate (Toprol Xl) 25 mg DAILY PO ; Start 05/17/18 at 09:00 Neomycin/ Polymyxin/ Bacitracin (Neosporin Topical Oint) 1 applic BID TOP Last administered on 05/20/18 08:19; Admin Dose 1 APPLIC; Start 05/16/18 at 21:00 DAVEY CAPONE M.D. May 20, 2018 12:36
--- NOTE | 2018-05-20 13:36 | NUR ---
Pt is Discharged. DC instructions are given to the pt, educated on medication and wound care. Pt is notified to follow up with PCP, DR Dial, Dr Herrera and Dr Cardona in one week. Pt verbalized understanding of given instruction. Pt received his prescription. IV was removed, wound care was done. pt is stable, left the unit via wheelchair with the and son.
== END 2018-05-20 13:40 | disposition home or self-care (01) | DRG 234 ==
LOC: SDS 08:07 → REC 13:01 → TEL 13:35 → OBSVTOIN 13:51 → TEL 05-05 00:27 → ICU 05-07 07:58 → 6WM 05-11 17:31
PROVIDERS: ADMIT Internal Medicine; ATTEND Internal Medicine
PROC: 4A023N7 Measurement of Cardiac Sampling and Pressure, Left Heart, Percutaneous Approach (ICD-10-PCS; 2018-05-04)
PROC: B2011ZZ Plain Radiography of Multiple Coronary Arteries using Low Osmolar Contrast (ICD-10-PCS; 2018-05-04)
PROC: 021309W Bypass Coronary Artery, Four or More Arteries from Aorta with Autologous Venous Tissue, Open Approach (ICD-10-PCS; 2018-05-07)
PROC: 06BP4ZZ Excision of Right Saphenous Vein, Percutaneous Endoscopic Approach (ICD-10-PCS; 2018-05-07)
PROC: 07TM0ZZ Resection of Thymus, Open Approach (ICD-10-PCS; 2018-05-07)
PROC: 5A1221Z Performance of Cardiac Output, Continuous (ICD-10-PCS; 2018-05-07)
PROC: B24BZZ4 Ultrasonography of Heart with Aorta, Transesophageal (ICD-10-PCS; 2018-05-07)
PROC: 30233K1 Transfusion of Nonautologous Frozen Plasma into Peripheral Vein, Percutaneous Approach (ICD-10-PCS; 2018-05-07)
PROC: 30233N1 Transfusion of Nonautologous Red Blood Cells into Peripheral Vein, Percutaneous Approach (ICD-10-PCS; 2018-05-07)
PROC: 30233R1 Transfusion of Nonautologous Platelets into Peripheral Vein, Percutaneous Approach (ICD-10-PCS; 2018-05-07)
PROC: 02100Z9 Bypass Coronary Artery, One Artery from Left Internal Mammary, Open Approach (ICD-10-PCS; principal; 2018-05-07 07:30)
DX: I25.10 Atherosclerotic heart disease of native coronary artery without angina pectoris (principal); N17.9 Acute kidney failure, unspecified; K56.7 Ileus, unspecified; E78.5 Hyperlipidemia, unspecified; I25.82 Chronic total occlusion of coronary artery; I12.9 Hypertensive chronic kidney disease with stage 1 through stage 4 chronic kidney disease, or unspecified chronic kidney disease; Z68.28 Body mass index [BMI] 28.0-28.9, adult; N18.3 Chronic kidney disease, stage 3 (moderate); Z87.891 Personal history of nicotine dependence; I48.0 Paroxysmal atrial fibrillation; E66.9 Obesity, unspecified; K59.00 Constipation, unspecified; D50.9 Iron deficiency anemia, unspecified; D72.829 Elevated white blood cell count, unspecified
CPT/HCPCS: 36430; 36592; 36600; 71045; 71046; 74018; 80048; 80061; 81003; 82803; 82962; 83036; 83605; 83735; 84100; 84132; 85014; 85025; 85610; 85730; 86850; 86900; 86901; 86920; 86945; 87040; 87081; 87086; 88304; 93005; 93312; 93320; 93458; 93880; 94002; 94003; 94770; 97110; 97116; 97162; 97167; 97530; 97535; C1887; G0378; J0171; J0282; J0690; J1265; J1644; J1815; J1940; J2001; J2250; J2270; J2370; J2405; J2440; J2720; J3010; J3370; J3475; J3480; J7030; J7040; J7070; P9016; P9035; P9045; P9047; P9059; Q9967

== ENCOUNTER → 2018-05-29 | Outpatient (CLI) | payer BC ==
[~2018-05-29] MED LIST: AMLO-147 PO; ATOR20TA38 PO; ATOR40TA68 PO; DOCU-216 PO; HYDR-3601 PO; LACT20SO2 PO; LUBI24CA7 PO; METO-335 PO; NEOM28OI2 TOP; POLY17PO6 PO
== END | disposition home or self-care (01) ==
LOC: RAD 12:29
PROVIDERS: ATTEND Internal Medicine Interventional Cardiology
DX: R05 Cough (principal)
CPT/HCPCS: 71046